=== PATIENT | female | born 1985 | race Caucasian/White ===

== ENCOUNTER 2016-05-10 23:45 | Emergency (ER) | payer OTHER ==
[2016-05-11] MEDS ORDERED: SODIUM CHLORIDE 0.9% 1,000 ML IV STA (00:01)
[2016-05-11] MEDS ORDERED: METOCLOPRAMIDE 5 MG/ML 2 ML VIAL IVP STA (00:01)
--- NOTE | 2016-05-11 00:04 | ED ---
General Adult HPI - General Chief complaint: Nausea/Vomiting/Diarrhea Stated complaint: NVD Time Seen by Provider: 05/10/16 23:54 Source: patient, family, RN notes reviewed Mode of arrival: ambulatory Limitations: no limitations - History of Present Illness Initial comments: 30 yo female presents to the emergency department with a chief complaint of nausea vomiting diarrhea. Patient states that she would not eat when she got home she started to feel this way. 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 Patient states that she hasn't had any blood in the vomit or stool. Patient states she saw multiple times she did take an actual nausea medicine did help with the vomiting but she still having the diarrhea. Patient states there is no point specific abdominal pain just some cramping before she throws up or before she has the diarrhea. Patient states that she is not currently having any other symptoms at this time.Patient denies any recent fever, chills, shortness of breath, chest pain, back pain, numbness or tingling, dysuria or hematuria, constipation, headaches or visual changes, or any other current symptoms. - Related Data Home Medications Medication Instructions Recorded Confirmed Divalproex ER [Depakote ER] 500 mg PO HS 04/23/14 05/10/16 Previous Rx's Medication Instructions Recorded Ziprasidone [Geodon] 80 mg PO BID #60 cap 03/29/14 Benztropine Mesylate [Cogentin] 1 mg PO BID #8 tablet 04/23/14 Albuterol Inhaler [Ventolin Hfa 1 - 2 puff INHALATION Q6HR PRN #2 12/19/14 Inhaler] puff Ondansetron Odt [Zofran ODT] 4 mg PO Q8HR PRN #6 tab 07/13/15 Omeprazole 40 mg PO DAILY #30 capsule. 12/17/15 Ondansetron [Zofran] 4 mg PO Q8HR PRN #30 tab 12/17/15 Dicyclomine [Bentyl] 10 mg PO TID #20 capsule 05/11/16 Ondansetron Odt [Zofran ODT] 4 mg PO Q8HR PRN #20 tab 05/11/16 Allergies Allergy/AdvReac Type Severity Reaction Status Date / Time amoxicillin Allergy Unknown Verified 05/10/16 23:51 brompheniramine maleate Allergy Unknown Verified 05/10/16 23:51 [From Dimetapp (brompheniramine-PPA)] clemastine fumarate Allergy Unknown Verified 05/10/16 23:51 [From Tavist] codeine Allergy Unknown Verified 05/10/16 23:51 diphenhydramine HCl Allergy Unknown Verified 05/10/16 23:51 [From Benadryl] phenylpropanolamine HCl Allergy Unknown Verified 05/10/16 23:51 [From Dimetapp (brompheniramine-PPA)] prednisone Allergy Hallucinati Verified 05/10/16 23:51 ons pseudoephedrine HCl Allergy Unknown Verified 05/10/16 23:51 [From Tavist] red dye Allergy Unknown Verified 05/10/16 23:51 sulfamethoxazole Allergy Unknown Verified 05/10/16 23:51 [From Bactrim] trimethoprim [From Bactrim] Allergy Unknown Verified 05/10/16 23:51 Review of Systems ROS Statement: Those systems with pertinent positive or pertinent negative responses have been documented in the HPI. ROS Other: All systems not noted in ROS Statement are negative. Past Medical History Past Medical History: Asthma Additional Past Medical History / Comment(s): polycysitic ovarian syndrome, closed head injury 10 years ago from a fall History of Any Multi-Drug Resistant Organisms: None Reported Past Surgical History: Appendectomy Past Anesthesia/Blood Transfusion Reactions: No Reported Reaction Past Psychological History: Anxiety, Bipolar, Depression Smoking Status: Never smoker Past Alcohol Use History: Rare Past Drug Use History: None Reported General Exam - General Exam Comments Initial Comments: General: The patient is awake and alert, in no distress, and does not appear acutely ill. Eye: Pupils are equal, round and reactive to light, extra-ocular movements are intact; there is normal conjunctiva bilaterally. No signs of icterus. Ears, nose, mouth and throat: There are moist mucous membranes. Neck: The neck is supple, there is no tenderness. Cardiovascular: There is a regular rate and rhythm. No murmur, rub or gallop is appreciated. Respiratory: Lungs are clear to auscultation, respirations are non-labored, breath sounds are equal. No wheezes, stridor, rales, or rhonchi. Gastrointestinal: Soft, non-distended, non-tender abdomen without masses or organomegaly noted. There is no rebound or guarding present. No CVA tenderness. Bowel sounds are unremarkable. Back: There is no tenderness to palpation in the midline. There is no obvious deformity. No rashes noted. Musculoskeletal: Normal ROM, no tenderness, There is no pedal edema. There is no calf tenderness or swelling. Sensation intact. Pulses equal bilaterally 2+. Neurological: CN II-XII intact, There are no obvious motor or sensory deficits. Coordination appears grossly intact. Speech is normal. Skin: Skin is warm and dry and no rashes or lesions are noted. Psychiatric: Cooperative, appropriate mood & affect, normal judgment. Limitations: no limitations Course Vital Signs 05/10/16 23:46 Temperature 99.2 F Pulse Rate 95 Respiratory 20 Rate Blood Pressure 136/62 O2 Sat by Pulse 100 Oximetry Medical Decision Making - Medical Decision Making 30-year-old female presents for nausea vomiting and diarrhea. At this time patient continues to have a soft nontender abdomen. This time due the patient' s nausea vomiting diarrhea we discussed patient's symptoms are most consistent with possible gastroenteritis. We did discuss other etiologies we discussed return parameters and follow-up. Patient states that she understood all her questions have been answered and better in strength or discharge. Patient will be discharged. - Lab Data Result diagrams: 05/11/16 00:15 05/11/16 00:15 Lab Results 05/11/16 05/11/16 05/11/16 Range/Units 00:15 00:15 00:15 WBC 17.2 H (3.8-10.6) k/uL RBC 4.75 (3.80-5.40) m/uL Hgb 14.4 (11.4-16.0) gm/dL Hct 41.5 (34.0-46.0) % MCV 87.4 (80.0-100.0) fL MCH 30.4 (25.0-35.0) pg MCHC 34.8 (31.0-37.0) g/dL RDW 13.4 (11.5-15.5) % Plt Count 234 (150-450) k/uL Neutrophils % 92 % Lymphocytes % 2 % Monocytes % 2 % Eosinophils % 2 % Basophils % 1 % Neutrophils # 15.8 H (1.3-7.7) k/uL Lymphocytes # 0.4 L (1.0-4.8) k/uL Monocytes # 0.4 (0-1.0) k/uL Eosinophils # 0.3 (0-0.7) k/uL Basophils # 0.1 (0-0.2) k/uL Sodium 142 (137-145) mmol/L Potassium 4.5 (3.5-5.1) mmol/L Chloride 103 (98-107) mmol/L Carbon Dioxide 26 (22-30) mmol/L Anion Gap 13 mmol/L BUN 17 (7-17) mg/dL Creatinine 0.70 (0.52-1.04) mg/dL Est GFR (MDRD) Af Amer >60 (>60 ml/min/1.73 sqM) Est GFR (MDRD) Non-Af >60 (>60 ml/min/1.73 sqM) Glucose 83 (74-99) mg/dL Calcium 9.1 (8.4-10.2) mg/dL Total Bilirubin 0.6 (0.2-1.3) mg/dL AST 34 (14-36) U/L ALT 36 (9-52) U/L Alkaline Phosphatase 64 (38-126) U/L Total Protein 7.7 (6.3-8.2) g/dL Albumin 4.5 (3.5-5.0) g/dL Urine Color Yellow Urine Appearance Cloudy H (Clear) Urine pH 6.5 (5.0-8.0) Ur Specific [place] 1.020 (1.001-1.035) Urine Protein Negative (Negative) Urine Glucose (UA) Negative (Negative) Urine Ketones Negative (Negative) Urine Blood Moderate H (Negative) Urine Nitrate Negative (Negative) Urine Bilirubin Negative (Negative) Urine Urobilinogen <2.0 (<2.0) mg/dL Ur Leukocyte Esterase Small H (Negative) Urine RBC 3 (0-5) /hpf Urine WBC 10 H (0-5) /hpf Ur Squamous Epith Cells 7 H (0-4) /hpf Urine Mucus Few H (None) /hpf - Radiology Data Radiology results: report reviewed, image reviewed Disposition Clinical Impression: Nausea & vomiting, Diarrhea Disposition: HOME SELF-CARE Condition: Stable Instructions: Acute Nausea and Vomiting (ED) Additional Instructions: Please use medication as discussed. Please follow up with family doctor if symptoms have not improved over the next two days. Please return to the emergency room if your symptoms increase or worsen or for any other concerns. Prescriptions: Dicyclomine [Bentyl] 10 mg PO TID #20 capsule Ondansetron Odt [Zofran ODT] 4 mg PO Q8HR PRN #20 tab PRN Reason: Nausea Referrals: Teofilo Miller MD [Primary Care Provider] - 1-2 days Time of Disposition: 01:34
[2016-05-11 00:24] LABS: Basophils # (A) 0.1 k/uL (0-0.2); Basophils % (A) 1 %; CH 30.3; CHCM 34.9; Eosinophils # (A) 0.3 k/uL (0-0.7); Eosinophils % (A) 2 %; HCT 41.5 % (34.0-46.0); HDW 2.77; HGB 14.4 gm/dL (11.4-16.0); Luc # (Auto) 0.08; Luc % (Auto) 0; Lymphocytes # (A) 0.4 k/uL (1.0-4.8); Lymphocytes % (A) 2 %; MCH 30.4 pg (25.0-35.0); MCHC 34.8 g/dL (31.0-37.0); MCV 87.4 fL (80.0-100.0); Mean Platelet Volume 8.3; Monocytes # (A) 0.4 k/uL (0-1.0); Monocytes % (A) 2 %; Neutrophils # (A) 15.8 k/uL (1.3-7.7); Neutrophils % (A) 92 %; RBC 4.75 m/uL (3.80-5.40); RDW 13.4 % (11.5-15.5); WBC 17.2 k/uL (3.8-10.6); WBC (Perox) 16.92
[2016-05-11 00:36] LABS: Appearance,Urine Cloudy (Clear); Bilirubin,Urine Negative (Negative); Glucose,Urine (UA) Negative (Negative); Ketones,Urine Negative (Negative); Leukocyte Esterase,Urine Small (Negative); Mucus,Urine Few /hpf; Nitrite,Urine Negative (Negative); PH, Urine 6.5 (5.0-8.0); Particle Count 5883; Protein,Urine Negative (Negative); RBC,Urine 3 /hpf (0-5); Squamous Epithelial Cell,Urine 7 /hpf (0-4); UA Billing (MACRO vs. MICRO) MICRO; Urobilinogen,Urine <2.0 mg/dL (<2.0); WBC,Urine 10 /hpf (0-5)
[2016-05-11 00:52] LABS: ALT 36 U/L (9-52); AST 34 U/L (14-36); Alkaline Phosphatase 64 U/L (38-126); Anion Gap 13 mmol/L; Blood Urea Nitrogen 17 mg/dL (7-17); Calcium 9.1 mg/dL (8.4-10.2); Carbon Dioxide 26 mmol/L (22-30); Chloride 103 mmol/L (98-107); Glucose 83 mg/dL (74-99); Non-African American GFR(MDRD) >60 (>60 ml/min/1.73 sqM); Sodium 142 mmol/L (137-145); Total Bilirubin 0.6 mg/dL (0.2-1.3); Total Protein 7.7 g/dL (6.3-8.2)
[2016-05-11 00:53] LABS: Potassium 4.5 mmol/L (3.5-5.1)
--- NOTE | 2016-05-11 01:28 | XR ---
EXAM: XR Abdomen Complete, 2 or More Views. CLINICAL HISTORY: Reason: Pain TECHNIQUE: Frontal view of the abdomen/pelvis with upright view of the abdomen. COMPARISON: Abdomen Radiograph dated 01/03/16 FINDINGS: Intraperitoneal space: No free air. Gastrointestinal tract: Unremarkable. No dilation. Bones/joints: Unremarkable. Soft tissues: IUD. IMPRESSION: No acute findings.
[2016-05-11 01:51] VITALS: BP 130/81; PULSE 80; RESP 16; TEMP 100.4
== END 2016-05-11 01:49 | disposition home or self-care (01) ==
LOC: EC 23:45
DX: R11.2 Nausea with vomiting, unspecified (principal); R19.7 Diarrhea, unspecified; F31.9 Bipolar disorder, unspecified; F41.9 Anxiety disorder, unspecified; Z79.899 Other long term (current) drug therapy; Z88.0 Allergy status to penicillin; Z88.2 Allergy status to sulfonamides; Z88.8 Allergy status to other drugs, medicaments and biological substances; Z88.5 Allergy status to narcotic agent; Z91.018 Allergy to other foods; Z90.49 Acquired absence of other specified parts of digestive tract
CPT/HCPCS: 36415; 80053; 85025; 81001; 74020; 99284; 96374; J2765

== ENCOUNTER → 2017-04-30 | Outpatient (CLI) | payer OTHER ==
--- NOTE | 2017-04-30 21:12 | MR ---
Brain MR HISTORY: Hyperfunctioning pituitary gland, E 22.9 Multiplanar multisequence imaging through the brain There is no restricted diffusion. There is no hemorrhage or hydrocephalus. Brain signal is maintained . There are normal vascular flow voids. Cerebellopontine angles, corpus callosum, pituitary, cervical medullary junction are normal. Orbits show symmetric appearance. Mild mucosal disease present within the maxillary sinus, there is likely a mucus retention cyst at the maxillary antrum on the right. IMPRESSION: Normal brain MRI. Sinus disease.
== END | disposition home or self-care (01) ==
LOC: RADMRIMAIN 19:25
PROVIDERS: ATTEND Family Medicine
DX: J32.0 Chronic maxillary sinusitis (principal); E22.1 Hyperprolactinemia
CPT/HCPCS: 70551

== ENCOUNTER 2017-06-10 19:36 | Emergency (ER) | payer OTHER ==
[2017-06-10] MEDS ORDERED: IBUPROFEN 600 MG TAB PO STA (20:43)
[2017-06-10] MEDS ORDERED: ACETAMINOPHEN TAB 325 MG TAB PO STA (20:43)
--- NOTE | 2017-06-10 20:52 | ED ---
General Adult HPI - General Chief complaint: Recheck/Abnormal Lab/Rx Stated complaint: Carbon Monoxide Exposure Time Seen by Provider: 06/10/17 20:35 Source: patient Mode of arrival: ambulatory Limitations: no limitations - History of Present Illness Initial comments: 31-year-old female patient presents to the emergency department today complaining of mild frontal headache. Patient states that she has had this headache on system a since . She states that she was diagnosed with a left-sided ear infection on and thought it was from this. States that today her father had a fall and the fire department came in and did a check and found presence of carbon monoxide in their house. States that she lives with her father. States that she has also been feeling fatigued. Patient denies any recent rash, fever, chills, shortness breath, chest pain, abdominal pain, nausea, vomiting, back pain, numbness, tingling, dizziness, weakness, hematuria , dysuria, urinary urgency, urinary frequency, headache, visual changes, or any other complaints. - Related Data Home Medications Medication Instructions Recorded Confirmed Divalproex ER [Depakote ER] 500 mg PO HS 04/23/14 06/10/17 Albuterol Inhaler [Ventolin Hfa 1 - 2 puff INHALATION RT-Q6H PRN 06/10/17 Inhaler] Calcium Carbonate/Vitamin D3 1 tab PO DAILY 06/10/17 06/10/17 [Calcium 500-Vit D3 200 Tablet] Fluticasone Nasal [place] [Flonase 1 spr EA NOSTRIL DAILY PRN 06/10/17 06/10/17 Nasal [place]] Ziprasidone [Geodon] 60 mg PO BID 06/10/17 06/10/17 Previous Rx's Medication Instructions Recorded Benztropine Mesylate [Cogentin] 1 mg PO BID #8 tablet 04/23/14 Omeprazole 40 mg PO DAILY #30 capsule. 12/17/15 Nitrofurantoin Monohyd/M-Cryst 100 mg PO Q12HR #14 cap 06/10/17 [Macrobid] Allergies Allergy/AdvReac Type Severity Reaction Status Date / Time amoxicillin Allergy Unknown Verified 06/10/17 21:10 brompheniramine maleate Allergy Unknown Verified 06/10/17 21:10 [From Dimetapp (brompheniramine-PPA)] clemastine fumarate Allergy Unknown Verified 06/10/17 21:10 [From Tavist] codeine Allergy Unknown Verified 06/10/17 21:10 diphenhydramine HCl Allergy Unknown Verified 06/10/17 21:10 [From Benadryl] phenylpropanolamine HCl Allergy Unknown Verified 06/10/17 21:10 [From Dimetapp (brompheniramine-PPA)] prednisone Allergy Hallucinati Verified 06/10/17 21:10 ons pseudoephedrine HCl Allergy Unknown Verified 06/10/17 21:10 [From Tavist] red dye Allergy Unknown Verified 06/10/17 21:10 risperidone [From Risperdal] Allergy Unknown Verified 06/10/17 21:10 sulfamethoxazole Allergy Unknown Verified 06/10/17 21:10 [From Bactrim] trimethoprim [From Bactrim] Allergy Unknown Verified 06/10/17 21:10 Review of Systems ROS Statement: Those systems with pertinent positive or pertinent negative responses have been documented in the HPI. ROS Other: All systems not noted in ROS Statement are negative. Past Medical History Past Medical History: Asthma Additional Past Medical History / Comment(s): polycysitic ovarian syndrome, closed head injury 10 years ago from a fall History of Any Multi-Drug Resistant Organisms: None Reported Past Surgical History: Appendectomy Past Anesthesia/Blood Transfusion Reactions: No Reported Reaction Past Psychological History: Anxiety, Bipolar, Depression Smoking Status: Never smoker Past Alcohol Use History: Rare Past Drug Use History: None Reported General Exam Limitations: no limitations General appearance: alert, in no apparent distress, other (Physical well- developed, well-nourished adult female patient in no acute distress. Vital signs upon presentation are temperature 97.7F, pulse 77, respirations 16, blood pressure 134/82, pulse ox 98% on room air.) Eye exam: Present: normal appearance, PERRL, EOMI. Absent: scleral icterus, conjunctival injection, periorbital swelling ENT exam: Present: normal exam, normal oropharynx, mucous membranes moist Respiratory exam: Present: normal lung sounds bilaterally. Absent: respiratory distress, wheezes, rales, rhonchi, stridor Cardiovascular Exam: Present: regular rate, normal rhythm, normal heart sounds. Absent: systolic murmur, diastolic murmur, rubs, gallop, clicks GI/Abdominal exam: Present: soft, normal bowel sounds. Absent: distended, tenderness, guarding, rebound, rigid Neurological exam: Present: alert, oriented X3, CN II-XII intact Expanded Speech: Present: fluid speech Cranial nerves: EOM's Intact: Normal, Tongue Deviation: Normal, Nystagmus: Normal Motor strength exam: RUE: 5, LUE: 5, RLE: 5, LLE: 5 Eye Response: (3) open to voice Verbal Response: (5) oriented [place] Total: 15 Psychiatric exam: Present: normal affect, normal mood Skin exam: Present: warm, dry, intact, normal color. Absent: rash Course Vital Signs 06/10/17 06/10/17 19:39 22:23 Temperature 97.7 F 97.2 F L Pulse Rate 77 83 Respiratory 16 18 Rate Blood Pressure 134/82 138/89 O2 Sat by Pulse 98 96 Oximetry Medical Decision Making - Medical Decision Making 31-year-old female patient presented to the emergency department today complaining of frontal headache and urinary symptoms. Patient was concerned that she had carbon monoxide poisoning. Labs reviewed and were unremarkable. Carbon dioxide level is 1.0. Patient's urine did show cloudy appearance with 1 + protein, small amount of blood, large leukocyte esterase, 14 red blood cells, 108 white blood cells, 29 squamous epithelial cells. This could be related to contamination however patient is having dysuria and frequency in urination so we will treat her with Macrobid. I did discuss findings with the patient. Return parameters were discussed in detail. She verbalizes understanding and agrees with this plan. - Lab Data Result diagrams: 06/10/17 21:00 06/10/17 21:00 Lab Results 06/10/17 06/10/17 06/10/17 Range/Units 21:00 21:00 21:00 WBC 4.4 (3.8-10.6) k/uL RBC 4.10 (3.80-5.40) m/uL Hgb 12.2 (11.4-16.0) gm/dL Hct 34.5 (34.0-46.0) % MCV 84.3 (80.0-100.0) fL MCH 29.7 (25.0-35.0) pg MCHC 35.3 (31.0-37.0) g/dL RDW 13.4 (11.5-15.5) % Plt Count 224 (150-450) k/uL Neutrophils % 52 % Lymphocytes % 26 % Monocytes % 12 % Eosinophils % 6 % Basophils % 1 % Neutrophils # 2.3 (1.3-7.7) k/uL Lymphocytes # 1.1 (1.0-4.8) k/uL Monocytes # 0.5 (0-1.0) k/uL Eosinophils # 0.3 (0-0.7) k/uL Basophils # 0.0 (0-0.2) k/uL Carbon Monoxide, Quant 1.0 (<10.0) % Sodium 143 (137-145) mmol/L Potassium 4.1 (3.5-5.1) mmol/L Chloride 106 (98-107) mmol/L Carbon Dioxide 22 (22-30) mmol/L Anion Gap 15 mmol/L BUN 16 (7-17) mg/dL Creatinine 0.80 (0.52-1.04) mg/dL Est GFR (CKD-EPI)AfAm >90 (>60 ml/min/1.73 sqM) Est GFR (CKD-EPI)NonAf >90 (>60 ml/min/1.73 sqM) Glucose 80 (74-99) mg/dL Calcium 9.0 (8.4-10.2) mg/dL Total Bilirubin 0.2 (0.2-1.3) mg/dL AST 24 (14-36) U/L ALT 30 (9-52) U/L Alkaline Phosphatase 76 (38-126) U/L Total Protein 6.8 (6.3-8.2) g/dL Albumin 4.0 (3.5-5.0) g/dL Urine Color Urine Appearance (Clear) Urine pH (5.0-8.0) Ur Specific [place] (1.001-1.035) Urine Protein (Negative) Urine Glucose (UA) (Negative) Urine Ketones (Negative) Urine Blood (Negative) Urine Nitrite (Negative) Urine Bilirubin (Negative) Urine Urobilinogen (<2.0) mg/dL Ur Leukocyte Esterase (Negative) Urine RBC (0-5) /hpf Urine WBC (0-5) /hpf Ur Squamous Epith Cells (0-4) /hpf 06/10/17 Range/Units 21:39 WBC (3.8-10.6) k/uL RBC (3.80-5.40) m/uL Hgb (11.4-16.0) gm/dL Hct (34.0-46.0) % MCV (80.0-100.0) fL MCH (25.0-35.0) pg MCHC (31.0-37.0) g/dL RDW (11.5-15.5) % Plt Count (150-450) k/uL Neutrophils % % Lymphocytes % % Monocytes % % Eosinophils % % Basophils % % Neutrophils # (1.3-7.7) k/uL Lymphocytes # (1.0-4.8) k/uL Monocytes # (0-1.0) k/uL Eosinophils # (0-0.7) k/uL Basophils # (0-0.2) k/uL Carbon Monoxide, Quant (<10.0) % Sodium (137-145) mmol/L Potassium (3.5-5.1) mmol/L Chloride (98-107) mmol/L Carbon Dioxide (22-30) mmol/L Anion Gap mmol/L BUN (7-17) mg/dL Creatinine (0.52-1.04) mg/dL Est GFR (CKD-EPI)AfAm (>60 ml/min/1.73 sqM) Est GFR (CKD-EPI)NonAf (>60 ml/min/1.73 sqM) Glucose (74-99) mg/dL Calcium (8.4-10.2) mg/dL Total Bilirubin (0.2-1.3) mg/dL AST (14-36) U/L ALT (9-52) U/L Alkaline Phosphatase (38-126) U/L Total Protein (6.3-8.2) g/dL Albumin (3.5-5.0) g/dL Urine Color Light Yellow Urine Appearance Cloudy H (Clear) Urine pH 6.5 (5.0-8.0) Ur Specific [place] 1.014 (1.001-1.035) Urine Protein 1+ H (Negative) Urine Glucose (UA) Negative (Negative) Urine Ketones Negative (Negative) Urine Blood Small H (Negative) Urine Nitrite Negative (Negative) Urine Bilirubin Negative (Negative) Urine Urobilinogen <2.0 (<2.0) mg/dL Ur Leukocyte Esterase Large H (Negative) Urine RBC 14 H (0-5) /hpf Urine WBC 108 H (0-5) /hpf Ur Squamous Epith Cells 29 H (0-4) /hpf Disposition Clinical Impression: Headache, Urinary tract infection Disposition: HOME SELF-CARE Condition: Good Instructions: Urinary Tract Infection in Women (ED), Acute Headache (ED) Additional Instructions: Increase fluids. Complete antibiotic prescription in full. Follow up with your primary care physician for recheck in 1-2 days. Return here immediately for any new, worsening, or concerning symptoms. Prescriptions: Nitrofurantoin Monohyd/M-Cryst [Macrobid] 100 mg PO Q12HR #14 cap Referrals: Teofilo Miller MD [Primary Care Provider] - 1-2 days Time of Disposition: 22:03
[2017-06-10 21:09] LABS: Basophils % (A) 1 %; Eosinophils # (A) 0.3 k/uL (0-0.7); Eosinophils % (A) 6 %; HCT 34.5 % (34.0-46.0); HGB 12.2 gm/dL (11.4-16.0); Lymphocytes # (A) 1.1 k/uL (1.0-4.8); Lymphocytes % (A) 26 %; MCH 29.7 pg (25.0-35.0); MCHC 35.3 g/dL (31.0-37.0); MCV 84.3 fL (80.0-100.0); Mean Platelet Volume 8.1; Monocytes # (A) 0.5 k/uL (0-1.0); Monocytes % (A) 12 %; Neutrophils # (A) 2.3 k/uL (1.3-7.7); Neutrophils % (A) 52 %; Platelet Count 224 k/uL (150-450); RDW 13.4 % (11.5-15.5); WBC 4.4 k/uL (3.8-10.6)
[2017-06-10 21:19] LABS: ALT 30 U/L (9-52); AST 24 U/L (14-36); Alkaline Phosphatase 76 U/L (38-126); Anion Gap 15 mmol/L; Blood Urea Nitrogen 16 mg/dL (7-17); Carbon Dioxide 22 mmol/L (22-30); Chloride 106 mmol/L (98-107); Glucose 80 mg/dL (74-99); Potassium 4.1 mmol/L (3.5-5.1); Sodium 143 mmol/L (137-145); Total Bilirubin 0.2 mg/dL (0.2-1.3); Total Protein 6.8 g/dL (6.3-8.2)
[2017-06-10 21:52] LABS: Appearance,Urine Cloudy (Clear); Bilirubin,Urine Negative (Negative); Blood,Urine Small (Negative); Color,Urine Light Yellow; Glucose,Urine (UA) Negative (Negative); Ketones,Urine Negative (Negative); Leukocyte Esterase,Urine Large (Negative); Nitrite,Urine Negative (Negative); PH, Urine 6.5 (5.0-8.0); Protein,Urine 1+ (Negative); RBC,Urine 14 /hpf (0-5); Specific Gravity,Urine 1.014 (1.001-1.035); Squamous Epithelial Cell,Urine 29 /hpf (0-4); Urobilinogen,Urine <2.0 mg/dL (<2.0); WBC,Urine 108 /hpf (0-5)
[2017-06-10 22:25] VITALS: BP 138/89; PULSE 83; RESP 18; TEMP 97.2
== END 2017-06-10 22:26 | disposition home or self-care (01) ==
LOC: EC 19:36
DX: N39.0 Urinary tract infection, site not specified (principal); R51 Headache; F31.9 Bipolar disorder, unspecified; Z77.110 Contact with and (suspected) exposure to air pollution; Z88.0 Allergy status to penicillin; Z88.1 Allergy status to other antibiotic agents; Z88.2 Allergy status to sulfonamides; Z88.5 Allergy status to narcotic agent; Z88.8 Allergy status to other drugs, medicaments and biological substances; Z91.048 Other nonmedicinal substance allergy status; Z79.899 Other long term (current) drug therapy
CPT/HCPCS: 36415; 80053; 81001; 82375; 85025; 87086; 99283

== ENCOUNTER 2017-10-23 03:20 | Emergency (ER) | payer OTHER ==
[2017-10-23 03:34] VITALS: TEMP 98.5
[2017-10-23] MEDS ORDERED: SODIUM CHLORIDE 0.9% 500 ML IV STA (03:44)
[2017-10-23] MEDS ORDERED: ONDANSETRON 4 MG/2 ML VIAL IVP STA (03:44)
--- NOTE | 2017-10-23 03:50 | ED ---
Nausea/Vomiting/Diarrhea HPI - General Chief complaint: Nausea/Vomiting/Diarrhea Stated complaint: NVD Time Seen by Provider: 10/23/17 03:37 Source: patient Mode of arrival: ambulatory Limitations: no limitations - History of Present Illness Initial comments: This patient is a 32-year-old woman who presents with complaint of nausea vomiting diarrhea and abdominal pain. She states that she had not been feeling well for going on a couple of days. She thought that this was related to the heat and being a little dehydrated. She states that tonight she started having the abdominal symptoms, beginning with vomiting and diarrhea. She states she had a number of episodes of these over an hour and then decided to be seen here. She states she also has had some bilateral lower abdominal pain that started after the vomiting. MD complaint: nausea, vomiting, diarrhea, abdominal pain Onset/Timin -: hour(s) Description of Vomiting: food contents Description of Diarrhea: water Associated Abdominal Pain: Yes Location: LLQ, RLQ Radiation: none Severity: moderate Quality: cramping Consistency: constant Improves with: none Worsens with: none - Related Data Home Medications Medication Instructions Recorded Confirmed Divalproex ER [Depakote ER] 500 mg PO HS 04/23/14 10/23/17 Albuterol Inhaler [Ventolin Hfa 1 - 2 puff INHALATION RT-Q6H PRN 06/10/17 Inhaler] Calcium Carbonate/Vitamin D3 1 tab PO DAILY 06/10/17 10/23/17 [Calcium 500-Vit D3 200 Tablet] Fluticasone Nasal [place] [Flonase 1 spr EA NOSTRIL DAILY PRN 06/10/17 10/23/17 Nasal [place]] Ziprasidone [Geodon] 60 mg PO BID 06/10/17 10/23/17 Previous Rx's Medication Instructions Recorded Benztropine Mesylate [Cogentin] 1 mg PO BID #8 tablet 04/23/14 Omeprazole 40 mg PO DAILY #30 capsule. 12/17/15 Ondansetron Odt [Zofran ODT] 4 mg PO Q8HR PRN #10 tab 10/23/17 Allergies Allergy/AdvReac Type Severity Reaction Status Date / Time amoxicillin Allergy Unknown Verified 10/23/17 03:34 brompheniramine maleate Allergy Unknown Verified 10/23/17 03:34 [From Dimetapp (brompheniramine-PPA)] clemastine fumarate Allergy Unknown Verified 10/23/17 03:34 [From Tavist] codeine Allergy Unknown Verified 10/23/17 03:34 diphenhydramine HCl Allergy Unknown Verified 10/23/17 03:34 [From Benadryl] phenylpropanolamine HCl Allergy Unknown Verified 10/23/17 03:34 [From Dimetapp (brompheniramine-PPA)] prednisone Allergy Hallucinati Verified 10/23/17 03:34 ons pseudoephedrine HCl Allergy Unknown Verified 10/23/17 03:34 [From Tavist] red dye Allergy Unknown Verified 10/23/17 03:34 risperidone [From Risperdal] Allergy Unknown Verified 10/23/17 03:34 sulfamethoxazole Allergy Unknown Verified 10/23/17 03:34 [From Bactrim] trimethoprim [From Bactrim] Allergy Unknown Verified 10/23/17 03:34 Review of Systems ROS Statement: Those systems with pertinent positive or pertinent negative responses have been documented in the HPI. ROS Other: All systems not noted in ROS Statement are negative. Constitutional: Denies: fever, chills, weakness Respiratory: Denies: cough, dyspnea Cardiovascular: Denies: chest pain, palpitations Gastrointestinal: Reports: abdominal pain, nausea, vomiting, diarrhea. Denies: hematemesis, melena, hematochezia Genitourinary: Denies: dysuria, frequency, hematuria Musculoskeletal: Denies: back pain Skin: Denies: rash Neurological: Denies: headache, weakness Past Medical History Past Medical History: Asthma Additional Past Medical History / Comment(s): polycysitic ovarian syndrome, closed head injury 10 years ago from a fall History of Any Multi-Drug Resistant Organisms: None Reported Past Surgical History: Appendectomy Past Anesthesia/Blood Transfusion Reactions: No Reported Reaction Past Psychological History: Anxiety, Bipolar, Depression Smoking Status: Never smoker Past Alcohol Use History: Rare Past Drug Use History: None Reported General Exam Limitations: no limitations General appearance: alert, in no apparent distress Head exam: Present: atraumatic, normocephalic Eye exam: Present: normal appearance. Absent: scleral icterus, conjunctival injection ENT exam: Present: mucous membranes dry Neck exam: Present: normal inspection Respiratory exam: Present: normal lung sounds bilaterally. Absent: respiratory distress, wheezes, rales, rhonchi, stridor Cardiovascular Exam: Present: regular rate, normal rhythm, normal heart sounds. Absent: systolic murmur, diastolic murmur, rubs, gallop GI/Abdominal exam: Present: soft. Absent: distended, tenderness, guarding, rebound, rigid, mass, pulsatile mass, hernia Extremities exam: Present: normal inspection, normal capillary refill. Absent: pedal edema, calf tenderness Back exam: Present: normal inspection. Absent: CVA tenderness (R), CVA tenderness (L) Neurological exam: Present: alert Skin exam: Present: warm, dry, intact, normal color. Absent: rash Course Vital Signs 10/23/17 10/23/17 03:30 05:22 Temperature 98.5 F Pulse Rate 64 57 L Respiratory 16 18 Rate Blood Pressure 114/73 104/61 O2 Sat by Pulse 97 99 Oximetry Medical Decision Making - Medical Decision Making Patient is feeling better following medications and does request to go home. There is no tenderness on reevaluation. Did discuss return parameters and appropriate follow-up and further care. - Lab Data Result diagrams: 10/23/17 03:51 10/23/17 03:51 Lab Results 10/23/17 10/23/17 10/23/17 Range/Units 03:51 03:51 03:51 WBC 8.4 (3.8-10.6) k/uL RBC 4.34 (3.80-5.40) m/uL Hgb 12.7 (11.4-16.0) gm/dL Hct 36.9 (34.0-46.0) % MCV 85.1 (80.0-100.0) fL MCH 29.2 (25.0-35.0) pg MCHC 34.4 (31.0-37.0) g/dL RDW 13.7 (11.5-15.5) % Plt Count 233 (150-450) k/uL Neutrophils % 68 % Lymphocytes % 22 % Monocytes % 5 % Eosinophils % 4 % Basophils % 0 % Neutrophils # 5.7 (1.3-7.7) k/uL Lymphocytes # 1.9 (1.0-4.8) k/uL Monocytes # 0.4 (0-1.0) k/uL Eosinophils # 0.3 (0-0.7) k/uL Basophils # 0.0 (0-0.2) k/uL Sodium 139 (137-145) mmol/L Potassium 4.2 (3.5-5.1) mmol/L Chloride 106 (98-107) mmol/L Carbon Dioxide 26 (22-30) mmol/L Anion Gap 7 mmol/L BUN 18 H (7-17) mg/dL Creatinine 0.70 (0.52-1.04) mg/dL Est GFR (CKD-EPI)AfAm >90 (>60 ml/min/1.73 sqM) Est GFR (CKD-EPI)NonAf >90 (>60 ml/min/1.73 sqM) Glucose 88 (74-99) mg/dL Calcium 8.9 (8.4-10.2) mg/dL Total Bilirubin 0.2 (0.2-1.3) mg/dL AST 22 (14-36) U/L ALT 29 (9-52) U/L Alkaline Phosphatase 68 (38-126) U/L Total Protein 6.4 (6.3-8.2) g/dL Albumin 4.0 (3.5-5.0) g/dL Amylase 51 (30-110) U/L Lipase 244 (23-300) U/L Urine Color Urine Appearance (Clear) Urine pH (5.0-8.0) Ur Specific [place] (1.001-1.035) Urine Protein (Negative) Urine Glucose (UA) (Negative) Urine Ketones (Negative) Urine Blood (Negative) Urine Nitrite (Negative) Urine Bilirubin (Negative) Urine Urobilinogen (<2.0) mg/dL Ur Leukocyte Esterase (Negative) Urine HCG, Qual Not Detected (Not Detectd) 10/23/17 Range/Units 03:51 WBC (3.8-10.6) k/uL RBC (3.80-5.40) m/uL Hgb (11.4-16.0) gm/dL Hct (34.0-46.0) % MCV (80.0-100.0) fL MCH (25.0-35.0) pg MCHC (31.0-37.0) g/dL RDW (11.5-15.5) % Plt Count (150-450) k/uL Neutrophils % % Lymphocytes % % Monocytes % % Eosinophils % % Basophils % % Neutrophils # (1.3-7.7) k/uL Lymphocytes # (1.0-4.8) k/uL Monocytes # (0-1.0) k/uL Eosinophils # (0-0.7) k/uL Basophils # (0-0.2) k/uL Sodium (137-145) mmol/L Potassium (3.5-5.1) mmol/L Chloride (98-107) mmol/L Carbon Dioxide (22-30) mmol/L Anion Gap mmol/L BUN (7-17) mg/dL Creatinine (0.52-1.04) mg/dL Est GFR (CKD-EPI)AfAm (>60 ml/min/1.73 sqM) Est GFR (CKD-EPI)NonAf (>60 ml/min/1.73 sqM) Glucose (74-99) mg/dL Calcium (8.4-10.2) mg/dL Total Bilirubin (0.2-1.3) mg/dL AST (14-36) U/L ALT (9-52) U/L Alkaline Phosphatase (38-126) U/L Total Protein (6.3-8.2) g/dL Albumin (3.5-5.0) g/dL Amylase (30-110) U/L Lipase (23-300) U/L Urine Color Light Yellow Urine Appearance Clear (Clear) Urine pH 7.5 (5.0-8.0) Ur Specific [place] 1.009 (1.001-1.035) Urine Protein Negative (Negative) Urine Glucose (UA) Negative (Negative) Urine Ketones Negative (Negative) Urine Blood Negative (Negative) Urine Nitrite Negative (Negative) Urine Bilirubin Negative (Negative) Urine Urobilinogen <2.0 (<2.0) mg/dL Ur Leukocyte Esterase Negative (Negative) Urine HCG, Qual (Not Detectd) Disposition Clinical Impression: Abdominal pain Disposition: HOME SELF-CARE Condition: Good Instructions: Abdominal Pain (ED) Prescriptions: Ondansetron Odt [Zofran ODT] 4 mg PO Q8HR PRN #10 tab PRN Reason: Nausea Is patient prescribed a controlled substance at d/c from ED?: No Referrals: Teofilo Miller MD [Primary Care Provider] - 1-2 days
[2017-10-23 04:00] LABS: Appearance,Urine Clear (Clear); Basophils % (A) 0 %; Bilirubin,Urine Negative (Negative); Blood,Urine Negative (Negative); Color,Urine Light Yellow; Eosinophils # (A) 0.3 k/uL (0-0.7); Eosinophils % (A) 4 %; Glucose,Urine (UA) Negative (Negative); HCT 36.9 % (34.0-46.0); HGB 12.7 gm/dL (11.4-16.0); Ketones,Urine Negative (Negative); Leukocyte Esterase,Urine Negative (Negative); Lymphocytes # (A) 1.9 k/uL (1.0-4.8); Lymphocytes % (A) 22 %; MCH 29.2 pg (25.0-35.0); MCHC 34.4 g/dL (31.0-37.0); MCV 85.1 fL (80.0-100.0); Mean Platelet Volume 8.2; Monocytes # (A) 0.4 k/uL (0-1.0); Monocytes % (A) 5 %; Neutrophils # (A) 5.7 k/uL (1.3-7.7); Neutrophils % (A) 68 %; Nitrite,Urine Negative (Negative); PH, Urine 7.5 (5.0-8.0); Platelet Count 233 k/uL (150-450); Protein,Urine Negative (Negative); RBC 4.34 m/uL (3.80-5.40); RDW 13.7 % (11.5-15.5); Specific Gravity,Urine 1.009 (1.001-1.035); Urobilinogen,Urine <2.0 mg/dL (<2.0); WBC 8.4 k/uL (3.8-10.6)
[2017-10-23 04:10] LABS: ALT 29 U/L (9-52); AST 22 U/L (14-36); Alkaline Phosphatase 68 U/L (38-126); Amylase 51 U/L (30-110); Anion Gap 7 mmol/L; Blood Urea Nitrogen 18 mg/dL (7-17); Calcium 8.9 mg/dL (8.4-10.2); Carbon Dioxide 26 mmol/L (22-30); Chloride 106 mmol/L (98-107); Glucose 88 mg/dL (74-99); Lipase 244 U/L (23-300); Potassium 4.2 mmol/L (3.5-5.1); Sodium 139 mmol/L (137-145); Total Bilirubin 0.2 mg/dL (0.2-1.3); Total Protein 6.4 g/dL (6.3-8.2)
[2017-10-23 05:23] VITALS: BP 104/61; PULSE 57; RESP 18
== END 2017-10-23 06:07 | disposition home or self-care (01) ==
LOC: EC 03:20
DX: R10.32 Left lower quadrant pain (principal); R10.31 Right lower quadrant pain; R11.2 Nausea with vomiting, unspecified; R19.7 Diarrhea, unspecified; J45.909 Unspecified asthma, uncomplicated; E28.2 Polycystic ovarian syndrome; F31.9 Bipolar disorder, unspecified; Z90.49 Acquired absence of other specified parts of digestive tract; Z79.899 Other long term (current) drug therapy; Z88.0 Allergy status to penicillin; Z88.8 Allergy status to other drugs, medicaments and biological substances; Z88.5 Allergy status to narcotic agent; Z88.2 Allergy status to sulfonamides
CPT/HCPCS: 36415; 80053; 81003; 81025; 82150; 83690; 85025; 96361; 96374; 99284

== ENCOUNTER 2019-04-21 19:03 | Emergency (ER) | payer OTHER ==
[2019-04-21 19:34] VITALS: RESP 18; TEMP 97.9
[2019-04-21 20:11] LABS: Appearance,Urine Clear (Clear); Bilirubin,Urine Negative (Negative); Blood,Urine Negative (Negative); Color,Urine Light Yellow; Glucose,Urine (UA) Negative (Negative); Ketones,Urine Negative (Negative); Leukocyte Esterase,Urine Negative (Negative); Nitrite,Urine Negative (Negative); Protein,Urine Negative (Negative); Specific Gravity,Urine 1.016 (1.001-1.035); Urobilinogen,Urine <2.0 mg/dL (<2.0)
[2019-04-21] MEDS ORDERED: ONDANSETRON 4 MG/2 ML VIAL IVP STA (21:54)
[2019-04-21] MEDS ORDERED: SODIUM CHLORIDE 0.9% 500 ML 500 ML IV STA ×2 (21:54→22:16)
--- NOTE | 2019-04-21 21:59 | ED ---
Nausea/Vomiting/Diarrhea HPI - General Chief complaint: Nausea/Vomiting/Diarrhea Stated complaint: N/V/D Time Seen by Provider: 04/21/19 21:53 Source: patient Mode of arrival: ambulatory Limitations: no limitations - History of Present Illness Initial comments: This patient is a 33-year-old woman who presents with complaint of nausea and vomiting as well as also feeling lightheaded or dizzy. Symptoms been going on approximately 1-2 days. She is not having abdominal pain. No fever or chills. No change in bowel movements. MD complaint: vomiting -: days(s) Description of Vomiting: food contents Associated Abdominal Pain: No Improves with: none Worsens with: none Associated Symptoms: denies other symptoms - Related Data Home Medications Medication Instructions Recorded Confirmed Divalproex ER [Depakote ER] 500 mg PO HS 04/23/14 04/21/19 Albuterol Inhaler [Ventolin Hfa 1 - 2 puff INHALATION RT-Q6H PRN 06/10/17 04/21/19 Inhaler] Calcium Carbonate/Vitamin D3 1 tab PO BID 06/10/17 04/21/19 [Calcium 500-Vit D3 200 Tablet] Fluticasone Nasal [place] [Flonase 1 spr EA NOSTRIL DAILY PRN 06/10/17 04/21/19 Nasal [place]] Cephalexin [Keflex] 500 mg PO Q8H 04/21/19 04/21/19 [place]-V 1 cap PO DAILY 04/21/19 04/21/19 Meloxicam 15 mg PO DAILY 04/21/19 04/21/19 Ziprasidone [Geodon] 20 mg PO BID 04/21/19 04/21/19 Previous Rx's Medication Instructions Recorded Benztropine Mesylate [Cogentin] 1 mg PO BID #8 tablet 04/23/14 Omeprazole 40 mg PO DAILY #30 capsule. 12/17/15 Ondansetron Odt [Zofran ODT] 4 mg PO Q8HR PRN #10 tab 04/21/19 Allergies Allergy/AdvReac Type Severity Reaction Status Date / Time amoxicillin Allergy Unknown Verified 04/21/19 22:26 brompheniramine maleate Allergy Unknown Verified 04/21/19 22:26 [From Dimetapp (brompheniramine-PPA)] clemastine fumarate Allergy Unknown Verified 04/21/19 22:26 [From Tavist] codeine Allergy Unknown Verified 04/21/19 22:26 diphenhydramine HCl Allergy Unknown Verified 04/21/19 22:26 [From Benadryl] phenylpropanolamine HCl Allergy Unknown Verified 04/21/19 22:26 [From Dimetapp (brompheniramine-PPA)] prednisone Allergy Hallucinati Verified 04/21/19 22:26 ons pseudoephedrine HCl Allergy Unknown Verified 04/21/19 22:26 [From Tavist] red dye Allergy Unknown Verified 04/21/19 22:26 risperidone [From Risperdal] Allergy Unknown Verified 04/21/19 22:26 sulfamethoxazole Allergy Unknown Verified 04/21/19 22:26 [From Bactrim] trimethoprim [From Bactrim] Allergy Unknown Verified 04/21/19 22:26 Review of Systems ROS Statement: Those systems with pertinent positive or pertinent negative responses have been documented in the HPI. ROS Other: All systems not noted in ROS Statement are negative. Constitutional: Denies: fever, chills Respiratory: Denies: cough, dyspnea Cardiovascular: Denies: chest pain, palpitations, edema, syncope Gastrointestinal: Reports: nausea, vomiting. Denies: abdominal pain, diarrhea, constipation, hematemesis Genitourinary: Denies: dysuria, hematuria Musculoskeletal: Denies: back pain Skin: Denies: rash Neurological: Denies: headache, weakness, numbness Past Medical History Past Medical History: Asthma Additional Past Medical History / Comment(s): polycysitic ovarian syndrome, closed head injury 10 years ago from a fall History of Any Multi-Drug Resistant Organisms: None Reported Past Surgical History: Appendectomy Past Anesthesia/Blood Transfusion Reactions: No Reported Reaction Past Psychological History: Anxiety, Bipolar, Depression Smoking Status: Never smoker Past Alcohol Use History: Rare Past Drug Use History: None Reported General Exam Limitations: no limitations General appearance: alert, in no apparent distress Head exam: Present: atraumatic, normocephalic Eye exam: Present: normal appearance. Absent: scleral icterus, conjunctival injection, nystagmus ENT exam: Present: normal oropharynx Neck exam: Present: normal inspection Respiratory exam: Present: normal lung sounds bilaterally. Absent: respiratory distress, wheezes, rales, rhonchi, stridor Cardiovascular Exam: Present: regular rate, normal rhythm, normal heart sounds. Absent: systolic murmur, diastolic murmur, rubs, gallop GI/Abdominal exam: Present: soft. Absent: distended, tenderness, guarding, rebound, rigid, mass Extremities exam: Present: normal inspection, normal capillary refill. Absent: pedal edema, calf tenderness Back exam: Present: normal inspection. Absent: CVA tenderness (R), CVA tenderness (L) Neurological exam: Present: alert Skin exam: Present: warm, dry, intact, normal color. Absent: rash Course Vital Signs 04/21/19 04/21/19 19:31 23:15 Temperature 97.9 F Pulse Rate 78 73 Respiratory 18 18 Rate Blood Pressure 129/72 144/84 O2 Sat by Pulse 99 100 Oximetry Medical Decision Making - Lab Data Result diagrams: 04/21/19 21:50 04/21/19 21:50 Lab Results 04/21/19 04/21/19 04/21/19 Range/Units 19:21 19:22 21:50 WBC (3.8-10.6) k/uL RBC (3.80-5.40) m/uL Hgb (11.4-16.0) gm/dL Hct (34.0-46.0) % MCV (80.0-100.0) fL MCH (25.0-35.0) pg MCHC (31.0-37.0) g/dL RDW (11.5-15.5) % Plt Count (150-450) k/uL Neutrophils % % Lymphocytes % % Monocytes % % Eosinophils % % Basophils % % Neutrophils # (1.3-7.7) k/uL Lymphocytes # (1.0-4.8) k/uL Monocytes # (0-1.0) k/uL Eosinophils # (0-0.7) k/uL Basophils # (0-0.2) k/uL Sodium 135 L (137-145) mmol/L Potassium 4.3 (3.5-5.1) mmol/L Chloride 105 (98-107) mmol/L Carbon Dioxide 20 L (22-30) mmol/L Anion Gap 10 mmol/L BUN 19 H (7-17) mg/dL Creatinine 0.66 (0.52-1.04) mg/dL Est GFR (CKD-EPI)AfAm >90 (>60 ml/min/1.73 sqM) Est GFR (CKD-EPI)NonAf >90 (>60 ml/min/1.73 sqM) Glucose 88 (74-99) mg/dL Calcium 9.0 (8.4-10.2) mg/dL Total Bilirubin 0.3 (0.2-1.3) mg/dL AST 23 (14-36) U/L ALT 16 (4-34) U/L Alkaline Phosphatase 76 (38-126) U/L Total Protein 7.0 (6.3-8.2) g/dL Albumin 4.2 (3.5-5.0) g/dL Amylase 52 (30-110) U/L Lipase 272 (23-300) U/L Urine Color Light Yellow Urine Appearance Clear (Clear) Urine pH 6.0 (5.0-8.0) Ur Specific [place] 1.016 (1.001-1.035) Urine Protein Negative (Negative) Urine Glucose (UA) Negative (Negative) Urine Ketones Negative (Negative) Urine Blood Negative (Negative) Urine Nitrite Negative (Negative) Urine Bilirubin Negative (Negative) Urine Urobilinogen <2.0 (<2.0) mg/dL Ur Leukocyte Esterase Negative (Negative) Urine HCG, Qual Not Detected (Not Detectd) 04/21/19 Range/Units 21:50 WBC 10.1 (3.8-10.6) k/uL RBC 4.59 (3.80-5.40) m/uL Hgb 13.4 (11.4-16.0) gm/dL Hct 39.8 (34.0-46.0) % MCV 86.6 (80.0-100.0) fL MCH 29.1 (25.0-35.0) pg MCHC 33.6 (31.0-37.0) g/dL RDW 13.7 (11.5-15.5) % Plt Count 241 (150-450) k/uL Neutrophils % 65 % Lymphocytes % 21 % Monocytes % 5 % Eosinophils % 7 % Basophils % 1 % Neutrophils # 6.5 (1.3-7.7) k/uL Lymphocytes # 2.2 (1.0-4.8) k/uL Monocytes # 0.5 (0-1.0) k/uL Eosinophils # 0.7 (0-0.7) k/uL Basophils # 0.1 (0-0.2) k/uL Sodium (137-145) mmol/L Potassium (3.5-5.1) mmol/L Chloride (98-107) mmol/L Carbon Dioxide (22-30) mmol/L Anion Gap mmol/L BUN (7-17) mg/dL Creatinine (0.52-1.04) mg/dL Est GFR (CKD-EPI)AfAm (>60 ml/min/1.73 sqM) Est GFR (CKD-EPI)NonAf (>60 ml/min/1.73 sqM) Glucose (74-99) mg/dL Calcium (8.4-10.2) mg/dL Total Bilirubin (0.2-1.3) mg/dL AST (14-36) U/L ALT (4-34) U/L Alkaline Phosphatase (38-126) U/L Total Protein (6.3-8.2) g/dL Albumin (3.5-5.0) g/dL Amylase (30-110) U/L Lipase (23-300) U/L Urine Color Urine Appearance (Clear) Urine pH (5.0-8.0) Ur Specific [place] (1.001-1.035) Urine Protein (Negative) Urine Glucose (UA) (Negative) Urine Ketones (Negative) Urine Blood (Negative) Urine Nitrite (Negative) Urine Bilirubin (Negative) Urine Urobilinogen (<2.0) mg/dL Ur Leukocyte Esterase (Negative) Urine HCG, Qual (Not Detectd) - EKG Data -: EKG Interpreted by Ne EKG shows normal: sinus rhythm (With sinus arrhythmia), axis (Normal), intervals (Normal), QRS complexes (Normal), ST-T waves (Normal) Rate: normal (Rate 70 bpm) Interpretation: normal EKG Disposition Clinical Impression: Dehydration Disposition: HOME SELF-CARE Condition: Good Instructions (If sedation given, give patient instructions): Acute Diarrhea ( ED) Prescriptions: Ondansetron Odt [Zofran ODT] 4 mg PO Q8HR PRN #10 tab PRN Reason: Nausea Is patient prescribed a controlled substance at d/c from ED?: No Referrals: Teofilo Miller MD [Primary Care Provider] - 1-2 days
[2019-04-21 22:14] LABS: ALT 16 U/L (4-34); AST 23 U/L (14-36); African American GFR (CKD) >90 (>60 ml/min/1.73 sqM); Albumin 4.2 g/dL (3.5-5.0); Alkaline Phosphatase 76 U/L (38-126); Amylase 52 U/L (30-110); Anion Gap 10 mmol/L; Blood Urea Nitrogen 19 mg/dL (7-17); Carbon Dioxide 20 mmol/L (22-30); Chloride 105 mmol/L (98-107); Glucose 88 mg/dL (74-99); Non-African American GFR(CKD) >90 (>60 ml/min/1.73 sqM); Potassium 4.3 mmol/L (3.5-5.1); Sodium 135 mmol/L (137-145); Total Bilirubin 0.3 mg/dL (0.2-1.3)
[2019-04-21 22:21] LABS: Basophils # (A) 0.1 k/uL (0-0.2); Basophils % (A) 1 %; Eosinophils # (A) 0.7 k/uL (0-0.7); Eosinophils % (A) 7 %; HCT 39.8 % (34.0-46.0); HGB 13.4 gm/dL (11.4-16.0); Lymphocytes # (A) 2.2 k/uL (1.0-4.8); Lymphocytes % (A) 21 %; MCH 29.1 pg (25.0-35.0); MCHC 33.6 g/dL (31.0-37.0); MCV 86.6 fL (80.0-100.0); Mean Platelet Volume 9.2; Monocytes # (A) 0.5 k/uL (0-1.0); Monocytes % (A) 5 %; Neutrophils # (A) 6.5 k/uL (1.3-7.7); Neutrophils % (A) 65 %; Platelet Count 241 k/uL (150-450); RBC 4.59 m/uL (3.80-5.40); RDW 13.7 % (11.5-15.5); WBC 10.1 k/uL (3.8-10.6)
[2019-04-21 23:22] VITALS: BP 144/84; PULSE 73
== END 2019-04-21 23:21 | disposition home or self-care (01) ==
LOC: EC 19:03
DX: E86.0 Dehydration (principal); R11.2 Nausea with vomiting, unspecified; R19.7 Diarrhea, unspecified; R42 Dizziness and giddiness; J45.909 Unspecified asthma, uncomplicated; F31.9 Bipolar disorder, unspecified; Z79.1 Long term (current) use of non-steroidal anti-inflammatories (NSAID); Z79.899 Other long term (current) drug therapy; Z88.0 Allergy status to penicillin; Z88.8 Allergy status to other drugs, medicaments and biological substances; Z88.5 Allergy status to narcotic agent; Z91.048 Other nonmedicinal substance allergy status; Z88.2 Allergy status to sulfonamides
CPT/HCPCS: 36415; 93005; 80053; 82150; 83690; 85025; 81003; 81025; 99284; 96374; 96361; J2405

== ENCOUNTER 2019-12-23 19:54 | Inpatient (IN) | payer OTHER ==
[2019-12-23] MEDS ORDERED: ONDANSETRON 4 MG/2 ML VIAL IVP STA (20:27)
[2019-12-23] MEDS ORDERED: KETOROLAC 15 MG/ML 1 ML VIAL IVP STA (20:27)
[2019-12-23] MEDS ORDERED: SODIUM CHLORIDE 0.9% 1,000 ML IV STA ×2 (20:27)
[2019-12-23] MEDS ORDERED: MORPHINE SULFATE 4 MG/ML SYRINGE IV STA (20:27)
[2019-12-23] MEDS ORDERED: ACETAMINOPHEN TAB 500 MG TAB PO STA (20:43)
[2019-12-23 21:06] LABS: Appearance,Urine Clear (Clear); Bilirubin,Urine Negative (Negative); Blood,Urine Negative (Negative); Color,Urine Light Yellow; Glucose,Urine (UA) Negative (Negative); Ketones,Urine Negative (Negative); Leukocyte Esterase,Urine Negative (Negative); Nitrite,Urine Negative (Negative); Protein,Urine Negative (Negative); Specific Gravity,Urine 1.013 (1.001-1.035); Urobilinogen,Urine <2.0 mg/dL (<2.0)
[2019-12-23 21:07] LABS: ALT 28 U/L (4-34); AST 63 U/L (14-36); African American GFR (CKD) >90 (>60 ml/min/1.73 sqM); Albumin 3.6 g/dL (3.5-5.0); Alkaline Phosphatase 62 U/L (38-126); Amylase 48 U/L (30-110); Anion Gap 8 mmol/L; Blood Urea Nitrogen 13 mg/dL (7-17); Calcium 8.2 mg/dL (8.4-10.2); Carbon Dioxide 21 mmol/L (22-30); Chloride 107 mmol/L (98-107); Glucose 94 mg/dL (74-99); Lipase 143 U/L (23-300); Non-African American GFR(CKD) >90 (>60 ml/min/1.73 sqM); Potassium 3.7 mmol/L (3.5-5.1); Sodium 136 mmol/L (137-145); Total Bilirubin 0.4 mg/dL (0.2-1.3)
[2019-12-23 21:17] LABS: Basophils % (A) 0 %; Eosinophils # (A) 0.2 k/uL (0-0.7); Eosinophils % (A) 1 %; HCT 38.4 % (34.0-46.0); HGB 12.2 gm/dL (11.4-16.0); Lymphocytes # (A) 0.3 k/uL (1.0-4.8); Lymphocytes % (A) 3 %; MCH 28.6 pg (25.0-35.0); MCHC 31.9 g/dL (31.0-37.0); MCV 89.6 fL (80.0-100.0); Mean Platelet Volume 8.1; Monocytes # (A) 0.1 k/uL (0-1.0); Monocytes % (A) 1 %; Neutrophils % (A) 95 %; Platelet Count 181 k/uL (150-450); RBC 4.28 m/uL (3.80-5.40); RDW 14.1 % (11.5-15.5); WBC 12.7 k/uL (3.8-10.6)
--- NOTE | 2019-12-23 21:54 | ED ---
Back Pain HPI - General Chief Complaint: Back Pain/Injury Stated Complaint: abd pain Time Seen by Provider: 12/23/19 20:06 Source: patient, EMS, RN notes reviewed, old records reviewed Limitations: no limitations - History of Present Illness Initial Comments: Patient's a 34-year-old female who presents emergency Department today with complaint of worsening left flank pain. She reports she's been having symptoms apparently for 2 weeks. She states that she believed initially was diverticulitis and was seen at [facility] on Saturday. Patient had a computed tomography scan which showed no signs of diverticulitis but she did have hematuria. She was at that time started on Levaquin and Flagyl. She's been taking this antibiotic. She reports that she's been having worsening pain into the flank and also fevers and chills. She arrives with to the emergency department with a temperature of 101.5. - Related Data Home Medications Medication Instructions Recorded Confirmed Divalproex ER [Depakote ER] 500 mg PO HS 04/23/14 12/23/19 Fluticasone Nasal [place] [Flonase 1 - 2 spray EA NOSTRIL DAILY PRN 06/10/17 12/23/19 Nasal [place]] Ziprasidone [Geodon] 20 mg PO BID 04/21/19 12/23/19 Albuterol Inhaler [Ventolin Hfa 1 - 2 puff INHALATION RT-QID PRN 12/23/19 12/23/19 Inhaler] Cabergoline 0.5 mg PO MOFR 12/23/19 12/23/19 Levofloxacin [Levaquin] 750 mg PO DAILY 12/23/19 12/23/19 Meloxicam 7.5 - 15 mg PO DAILY 12/23/19 12/23/19 Omeprazole 40 mg PO AC-BRKFST 12/23/19 12/23/19 metroNIDAZOLE [Flagyl] 500 mg PO Q8H 12/23/19 12/23/19 Previous Rx's Medication Instructions Recorded Benztropine Mesylate [Cogentin] 1 mg PO BID #8 tablet 04/23/14 Allergies Allergy/AdvReac Type Severity Reaction Status Date / Time amoxicillin Allergy Unknown Verified 12/23/19 21:24 brompheniramine maleate Allergy Unknown Verified 12/23/19 21:24 [From Dimetapp (brompheniramine-PPA)] clemastine fumarate Allergy Unknown Verified 12/23/19 21:24 [From Tavist] codeine Allergy Unknown Verified 12/23/19 21:24 diphenhydramine HCl Allergy Unknown Verified 12/23/19 21:24 [From Benadryl] phenylpropanolamine HCl Allergy Unknown Verified 12/23/19 21:24 [From Dimetapp (brompheniramine-PPA)] prednisone Allergy Hallucinati Verified 12/23/19 21:24 ons pseudoephedrine HCl Allergy Unknown Verified 12/23/19 21:24 [From Tavist] red dye Allergy Unknown Verified 12/23/19 21:24 risperidone [From Risperdal] Allergy Unknown Verified 12/23/19 21:24 sulfamethoxazole Allergy Unknown Verified 12/23/19 21:24 [From Bactrim] trimethoprim [From Bactrim] Allergy Unknown Verified 12/23/19 21:24 Review of Systems ROS Statement: Those systems with pertinent positive or pertinent negative responses have been documented in the HPI. ROS Other: All systems not noted in ROS Statement are negative. Past Medical History Past Medical History: Asthma Additional Past Medical History / Comment(s): polycysitic ovarian syndrome, closed head injury 10 years ago from a fall History of Any Multi-Drug Resistant Organisms: None Reported Past Surgical History: Appendectomy Past Anesthesia/Blood Transfusion Reactions: No Reported Reaction Past Psychological History: Anxiety, Bipolar, Depression Smoking Status: Never smoker Past Alcohol Use History: Rare Past Drug Use History: None Reported General Exam - General Exam Comments Initial Comments: 34-year-old female. Limitations: no limitations General appearance: alert, in no apparent distress Head exam: Present: atraumatic, normocephalic, normal inspection Eye exam: Present: normal appearance, PERRL, EOMI. Absent: scleral icterus, conjunctival injection, periorbital swelling ENT exam: Present: normal exam, mucous membranes moist Neck exam: Present: normal inspection. Absent: tenderness, meningismus, lymphadenopathy Respiratory exam: Present: normal lung sounds bilaterally. Absent: respiratory distress, wheezes, rales, rhonchi, stridor Cardiovascular Exam: Present: regular rate, normal rhythm, normal heart sounds. Absent: systolic murmur, diastolic murmur, rubs, gallop, clicks GI/Abdominal exam: Present: soft, tenderness (left upper quadrant left CVA tenderness), normal bowel sounds. Absent: distended, guarding, rebound, rigid Extremities exam: Present: normal inspection, full ROM, normal capillary refill. Absent: tenderness, pedal edema, joint swelling, calf tenderness Back exam: Present: normal inspection Neurological exam: Present: alert, oriented X3, CN II-XII intact Psychiatric exam: Present: normal affect, normal mood Skin exam: Present: warm, dry, intact, normal color. Absent: rash Course Vital Signs 12/23/19 12/23/19 12/23/19 20:09 21:32 22:12 Temperature 101.1 F H 101.4 F H 100.1 F H Pulse Rate 103 H 94 86 Respiratory 16 16 16 Rate Blood Pressure 116/62 90/53 92/42 O2 Sat by Pulse 98 96 100 Oximetry - Reevaluation(s) Reevaluation #1: 12/23/19 22:35 review and reviewed records from [facility]. Her white blood cell call Saturday was 8.0. CT on pelvis with contrast was read negative for acute process. Medical Decision Making - Medical Decision Making 34-year-old female presents to the ER today for evaluation for her left-sided abdominal pain and flank pain. Symptoms and progressive the past 2 weeks. S he's been having nausea and diarrhea as well. She was seen at [facility] on Saturday and was placed on antibiotics of Levaquin and Flagyl. At that time she had normal labs and her computed tomography scan did not show evidence of infection or diverticulitis. She reports that at that time she did have some hematuria. Patient appears in moderate discomfort in the emergency department. She was febrile 101 and hypotensive initially blood pressure 110/60. As declined the last blood pressure was 90/42. She is receiving 3 L bolus at this time. Patient's labs reviewed and showed white blood cell count mildly increased from previous 12,000. This time she had a computed tomography scan w ithout contrast to check for concern for renal stone, she scan is negative for acute process. Patient case was discussed with Dr. Berrios Discussed the case with these [facility] hospitalist. - Lab Data Result diagrams: 12/23/19 20:45 12/23/19 20:45 Lab Results 12/23/19 12/23/19 12/23/19 Range/Units 20:45 20:45 20:45 WBC 12.7 H (3.8-10.6) k/uL RBC 4.28 (3.80-5.40) m/uL Hgb 12.2 (11.4-16.0) gm/dL Hct 38.4 (34.0-46.0) % MCV 89.6 (80.0-100.0) fL MCH 28.6 (25.0-35.0) pg MCHC 31.9 (31.0-37.0) g/dL RDW 14.1 (11.5-15.5) % Plt Count 181 (150-450) k/uL Neutrophils % 95 % Lymphocytes % 3 % Monocytes % 1 % Eosinophils % 1 % Basophils % 0 % Neutrophils # 12.0 H (1.3-7.7) k/uL Lymphocytes # 0.3 L (1.0-4.8) k/uL Monocytes # 0.1 (0-1.0) k/uL Eosinophils # 0.2 (0-0.7) k/uL Basophils # 0.0 (0-0.2) k/uL Sodium 136 L (137-145) mmol/L Potassium 3.7 (3.5-5.1) mmol/L Chloride 107 (98-107) mmol/L Carbon Dioxide 21 L (22-30) mmol/L Anion Gap 8 mmol/L BUN 13 (7-17) mg/dL Creatinine 0.77 (0.52-1.04) mg/dL Est GFR (CKD-EPI)AfAm >90 (>60 ml/min/1.73 sqM) Est GFR (CKD-EPI)NonAf >90 (>60 ml/min/1.73 sqM) Glucose 94 (74-99) mg/dL Plasma Lactic Acid Sancho (0.7-2.0) mmol/L Calcium 8.2 L (8.4-10.2) mg/dL Total Bilirubin 0.4 (0.2-1.3) mg/dL AST 63 H (14-36) U/L ALT 28 (4-34) U/L Alkaline Phosphatase 62 (38-126) U/L Total Protein 6.0 L (6.3-8.2) g/dL Albumin 3.6 (3.5-5.0) g/dL Amylase 48 (30-110) U/L Lipase 143 (23-300) U/L Urine Color Light Yellow Urine Appearance Clear (Clear) Urine pH 6.0 (5.0-8.0) Ur Specific [place] 1.013 (1.001-1.035) Urine Protein Negative (Negative) Urine Glucose (UA) Negative (Negative) Urine Ketones Negative (Negative) Urine Blood Negative (Negative) Urine Nitrite Negative (Negative) Urine Bilirubin Negative (Negative) Urine Urobilinogen <2.0 (<2.0) mg/dL Ur Leukocyte Esterase Negative (Negative) 12/23/19 Range/Units 20:45 WBC (3.8-10.6) k/uL RBC (3.80-5.40) m/uL Hgb (11.4-16.0) gm/dL Hct (34.0-46.0) % MCV (80.0-100.0) fL MCH (25.0-35.0) pg MCHC (31.0-37.0) g/dL RDW (11.5-15.5) % Plt Count (150-450) k/uL Neutrophils % % Lymphocytes % % Monocytes % % Eosinophils % % Basophils % % Neutrophils # (1.3-7.7) k/uL Lymphocytes # (1.0-4.8) k/uL Monocytes # (0-1.0) k/uL Eosinophils # (0-0.7) k/uL Basophils # (0-0.2) k/uL Sodium (137-145) mmol/L Potassium (3.5-5.1) mmol/L Chloride (98-107) mmol/L Carbon Dioxide (22-30) mmol/L Anion Gap mmol/L BUN (7-17) mg/dL Creatinine (0.52-1.04) mg/dL Est GFR (CKD-EPI)AfAm (>60 ml/min/1.73 sqM) Est GFR (CKD-EPI)NonAf (>60 ml/min/1.73 sqM) Glucose (74-99) mg/dL Plasma Lactic Acid Sancho 2.4 H* (0.7-2.0) mmol/L Calcium (8.4-10.2) mg/dL Total Bilirubin (0.2-1.3) mg/dL AST (14-36) U/L ALT (4-34) U/L Alkaline Phosphatase (38-126) U/L Total Protein (6.3-8.2) g/dL Albumin (3.5-5.0) g/dL Amylase (30-110) U/L Lipase (23-300) U/L Urine Color Urine Appearance (Clear) Urine pH (5.0-8.0) Ur Specific [place] (1.001-1.035) Urine Protein (Negative) Urine Glucose (UA) (Negative) Urine Ketones (Negative) Urine Blood (Negative) Urine Nitrite (Negative) Urine Bilirubin (Negative) Urine Urobilinogen (<2.0) mg/dL Ur Leukocyte Esterase (Negative) Disposition Clinical Impression: Fever, Left lateral abdominal pain Disposition: ADMITTED IP TO THIS HOSP Condition: Stable Instructions (If sedation given, give patient instructions): Abdominal Pain (ED) Referrals: Teofilo Miller MD [Primary Care Provider] - 1-2 days Time of Disposition: 22:40
--- NOTE | 2019-12-23 22:01 | CT ---
EXAMINATION TYPE: CT abdomen pelvis wo con DATE OF EXAM: 12/23/2019 COMPARISON: 01/03/2016 HISTORY: LT flank pain CT DLP: 1170.4 mGycm Automated exposure control for dose reduction was used. Images were obtained from the diaphragm to the floor the pelvis with no contrast. There is mild interstitial density in the lung bases. There is no pulmonary consolidation. There is n o pleural effusion. There is no pericardial effusion. Liver gallbladder spleen stomach pancreas appear normal. The bile ducts are not dilated. There is no adrenal mass. Kidneys have normal size. There is no hydronephrosis. Ureters are not dilated. There is no evidence of renal calculus. There is no sign of retroperitoneal adenopathy. Bladder distends smoo thly. There is no inguinal hernia. Uterus is anteverted. There is IUD in the uterine fundus. There is no free fluid in the pelvis. There is no sign of a pelvic mass. Appendix is not definitely seen. The re is no sign of thickened appendix. Lumbar vertebra have normal alignment. Posterior elements are intact. The bony pelvis is intact. Hip joints are intact. IMPRESSION: No acute abnormality of the abdomen pelvis. No adverse change compared to old exam. There is clearing of the constipation compared to old exam.
[2019-12-23] MEDS: SODIUM CHLORIDE 0.9% 1,000 ML IV ONE (22:17)
--- NOTE | 2019-12-23 23:10 | XR ---
EXAMINATION TYPE: XR chest 1V portable DATE OF EXAM: 12/23/2019 COMPARISON: 12/19/2014 HISTORY: Difficulty breathing TECHNIQUE: Single view FINDINGS: There is no heart failure. Exam limited by patient's size. Heart size is normal. Costophren ic angles are clear. There are no hilar masses. Mediastinum is within normal limits. IMPRESSION: Limited exam. No active cardiopulmonary disease. Normal heart.
[2019-12-23] MEDS: metroNIDAZOLE 500 MG TAB PO SCH (23:33)
[2019-12-23] MEDS: SODIUM CHLORIDE 0.9% 1,000 ML IV SCH (23:34)
[2019-12-23 23:41] LABS: C Reactive Protein 13.1 mg/L (<10.0); Magnesium 1.6 mg/dL (1.6-2.3)
[2019-12-24] MEDS: SODIUM CHLORIDE 0.9% 1,000 ML IV SCH ×3 (05:24→20:56)
[2019-12-24] MEDS: ENOXAPARIN 40 MG/0.4 ML SYRINGE SQ SCH (08:42)
[2019-12-24] MEDS: LEVOFLOXACIN 750 MG TAB PO SCH (08:43)
[2019-12-24] MEDS: metroNIDAZOLE 500 MG TAB PO SCH ×2 (08:43→15:36)
[2019-12-24] MEDS: ZIPRASIDONE 20 MG CAP PO SCH ×2 (08:43→21:10)
[2019-12-24] MEDS: PANTOPRAZOLE 40 MG TABLET PO SCH (08:43)
[2019-12-24] MEDS: BENZTROPINE MESYLATE 1 MG TAB PO SCH ×2 (08:43→21:10)
[2019-12-24] MEDS ORDERED: PANTOPRAZOLE 40 MG/10 ML VIAL IV SCH (09:00)
--- NOTE | 2019-12-24 09:36 | P.HPIM ---
History of Present Illness This is a pleasant 34 years old female with past medical history of asthma and polycystic ovarian syndrome and closed head injury 10 years ago from a fall. Anxiety bipolar and depression. Presents with fever, hypertension and abdominal pain. Patient states she came family because of her left side, abdominal pain that is been going on for 2 weeks, also she is been feeling dizzy mostly related to her hypotension. Associated with vomiting about once and loose bowel movement each time she eats starts about 2-3 times also patient found to have fever the abdominal pain is in the left upper quadrant area, left flank area radiating down into the pelvic area felt about 8/10 in severity but currently is pain free and rated 0/10 by patient. Patient went to [facility] where they checked her urine and they told her she has little blood in it.however UA checked here it's completely normal and patient denies any dysuria or other abnormality. Patient does has IUD so she really has no menstrual period as she states She denies smoking, alcohol or illicit drugs. She denies depression or suicidal ideation. On admission she has a fever of 101.1. Blood pressure was 92/42, she received 3 L boluses of normal saline as per documentation. Currently her blood pressure is 85/50. Labs showed leukocytosis of 12.7 K, with leukopenia at 0.3%. risks of CBC is unremarkable. D-dimer is at 0.74. Elevated lactic acid 2.4 Back to normal at 1.0. Lactate dehydrogenase elevated at 697, C-reactive protein is elevated mildly at 13.1. Urinalysis is unremarkable Chest x-ray: No active cardiopulmonary disease. Radiologist. CT of the abdomen and pelvis without contrast showing no acute abnormality of the abdomen and pelvis. EKG showed normal sinus rhythm at 86 BPM in the emergency room she received 3 boluses of normal saline of total of 3 L, and continued on normal saline at a rate of 1 30 mL/h. She received morphine wants and Toradol and Zofran. She was continued on levofloxacin orally 750 mg dailyand Flagyl orally.already given this morning Review of Systems CONSTITUTIONAL: No fever, no malaise, no fatigue. HEENT: No recent visual problems or hearing problems. Denied any sore throat. CARDIOVASCULAR: No orthopnea, PND, no palpitations, no syncope. PULMONARY: No shortness of breath, no cough, no hemoptysis. GASTROINTESTINAL: No diarrhea, no nausea, no vomiting, no abdominal pain. Normoactive bowel sounds. NEUROLOGICAL: No headaches, no weakness, no numbness. HEMATOLOGICAL: Denies any bleeding or petechiae. GENITOURINARY: Denies any burning micturition, frequency, or urgency. MUSCULOSKELETAL/RHEUMATOLOGICAL: Denies any joint pain, swelling, or any muscle pain. ENDOCRINE: Denies any polyuria or polydipsia. Past Medical History Past Medical History: Asthma Additional Past Medical History / Comment(s): polycysitic ovarian syndrome, closed head injury 10 years ago from a fall History of Any Multi-Drug Resistant Organisms: None Reported Past Surgical History: Appendectomy Past Anesthesia/Blood Transfusion Reactions: No Reported Reaction Past Psychological History: Anxiety, Bipolar, Depression Smoking Status: Never smoker Past Alcohol Use History: Rare Past Drug Use History: None Reported Medications and Allergies Home Medications Medication Instructions Recorded Confirmed Type Benztropine Mesylate [Cogentin] 1 mg PO BID #8 tablet 04/23/14 12/23/19 Rx Divalproex ER [Depakote ER] 500 mg PO HS 04/23/14 12/23/19 History Fluticasone Nasal [place] [Flonase 1 - 2 spray EA NOSTRIL DAILY PRN 06/10/17 12/23/19 History Nasal [place]] Ziprasidone [Geodon] 20 mg PO BID 04/21/19 12/23/19 History Albuterol Inhaler [Ventolin Hfa 1 - 2 puff INHALATION RT-QID PRN 12/23/19 12/23/19 History Inhaler] Cabergoline 0.5 mg PO MOFR 12/23/19 12/23/19 History Levofloxacin [Levaquin] 750 mg PO DAILY 12/23/19 12/23/19 History Meloxicam 7.5 - 15 mg PO DAILY 12/23/19 12/23/19 History Omeprazole 40 mg PO AC-BRKFST 12/23/19 12/23/19 History metroNIDAZOLE [Flagyl] 500 mg PO Q8H 12/23/19 12/23/19 History Allergies Allergy/AdvReac Type Severity Reaction Status Date / Time amoxicillin Allergy Unknown Verified 12/23/19 21:24 brompheniramine maleate Allergy Unknown Verified 12/23/19 21:24 [From Dimetapp (brompheniramine-PPA)] clemastine fumarate Allergy Unknown Verified 12/23/19 21:24 [From Tavist] codeine Allergy Unknown Verified 12/23/19 21:24 diphenhydramine HCl Allergy Unknown Verified 12/23/19 21:24 [From Benadryl] phenylpropanolamine HCl Allergy Unknown Verified 12/23/19 21:24 [From Dimetapp (brompheniramine-PPA)] prednisone Allergy Hallucinati Verified 12/23/19 21:24 ons pseudoephedrine HCl Allergy Unknown Verified 12/23/19 21:24 [From Tavist] red dye Allergy Unknown Verified 12/23/19 21:24 risperidone [From Risperdal] Allergy Unknown Verified 12/23/19 21:24 sulfamethoxazole Allergy Unknown Verified 12/23/19 21:24 [From Bactrim] trimethoprim [From Bactrim] Allergy Unknown Verified 12/23/19 21:24 Physical Exam Vitals: Vital Signs Temp Pulse Pulse Resp BP BP Pulse Ox 12/24/19 03:00 97.9 F 66 17 85/50 99 12/23/19 23:02 99 16 108/52 99 12/23/19 22:40 98.5 F 80 18 88/50 96 12/23/19 22:12 100.1 F H 86 16 92/42 100 12/23/19 21:32 101.4 F H 94 16 90/53 96 12/23/19 20:09 101.1 F H 103 H 16 116/62 98 Intake and Output 12/23/19 12/24/19 12/24/19 22:59 06:59 14:59 Intake Total 1999 1040 Balance 1999 1040 Intake: Intake, IV Titration 1999 1040 Amount Sodium Chloride 0.9% 1, 1040 000 ml @ 130 mls/hr IV . Q7H42M [facility] Rx#:[id number] Sodium Chloride 0.9% 1, 2000 000 ml @ 999 mls/hr IV . Q1H1M [facility] Rx#:[id number] Other: Voiding Method Toilet # Voids 1 Weight 97.522 kg -GENERAL: The patient is alert and oriented x3, not in any acute distress. obese HEENT: Pupils are round and equally reacting to light. EOMI. No scleral icterus. No conjunctival pallor. Normocephalic, atraumatic. No pharyngeal erythema. No thyromegaly. CARDIOVASCULAR: S1 and S2 present. No murmurs, rubs, or gallops. PULMONARY: Chest is clear to auscultation, no wheezing or crackles. -ABDOMEN: Soft, mild LUQ tenderness, no rebound tenderness or guarding, nondistended, normoactive bowel sounds. No palpable organomegaly. MUSCULOSKELETAL: No joint swelling or deformity. EXTREMITIES: No cyanosis, clubbing, or pedal edema. NEUROLOGICAL: Gross neurological examination did not reveal any focal deficits. SKIN: No rashes. No petechiae Results CBC & Chem 7: 12/23/19 20:45 12/23/19 20:45 Labs: Abnormal Lab Results - Last 24 Hours (Table) 12/23/19 12/23/19 12/23/19 Range/Units 20:45 20:45 20:45 WBC 12.7 H (3.8-10.6) k/uL Neutrophils # 12.0 H (1.3-7.7) k/uL Lymphocytes # 0.3 L (1.0-4.8) k/uL D-Dimer (<0.60) mg/L FEU Sodium 136 L (137-145) mmol/L Carbon Dioxide 21 L (22-30) mmol/L Plasma Lactic Acid Sancho 2.4 H* (0.7-2.0) mmol/L Calcium 8.2 L (8.4-10.2) mg/dL AST 63 H (14-36) U/L Lactate Dehydrogenase (313-618) U/L C-Reactive Protein (<10.0) mg/L Total Protein 6.0 L (6.3-8.2) g/dL 12/23/19 12/23/19 Range/Units 22:59 22:59 WBC (3.8-10.6) k/uL Neutrophils # (1.3-7.7) k/uL Lymphocytes # (1.0-4.8) k/uL D-Dimer 0.74 H (<0.60) mg/L FEU Sodium (137-145) mmol/L Carbon Dioxide (22-30) mmol/L Plasma Lactic Acid Sancho (0.7-2.0) mmol/L Calcium (8.4-10.2) mg/dL AST (14-36) U/L Lactate Dehydrogenase 697 H (313-618) U/L C-Reactive Protein 13.1 H (<10.0) mg/L Total Protein (6.3-8.2) g/dL Thrombosis Risk Factor Assmnt - Choose All That Apply Any of the Below Risk Factors Present?: Yes Each Factor Represents 1 point: Obesity (BMI >25) Other Risk Factors: No Other congenital or acquired thrombophilia - If yes, enter type in comment: No Thrombosis Risk Factor Assessment Total Risk Factor Score: 1 Thrombosis Risk Factor Assessment Level: Low Risk Assessment and Plan Assessment: Sepsis with fever, leukocytosis. And no source of infection. possible gastroenteritis. Rule out covid. hypotension secondary to above Increased inflammatory markers Increased lactic acid, came back to normal Chronic asthma History of polycystic ovarian syndrome History of closed head injury 10 years ago Anxiety, bipolar and depression, not an activation multiple drug ALLERGIES Plan: This is a pleasant 34 years old female who presents with fever and hypotensionand sepsis.we will and asked for infectious diseases consult. Send stool for studies, including culture, and we'll see and C. diff. Continue with IV fluid and increase the rate to 200 mL per hour lbs and medication were reviewed.. Continue same treatment. Continue with symptomatic treatment. Resume home medication. Monitor lytes and vitals. DVT and GI prophylaxis. Further recommendations depends on the clinical course of the patient DVT prophylaxis: Subcutaneous heparin GI Prophylaxis: Ppi Prognosis is guarded
[2019-12-24 10:57] LABS: Basophils % (A) 0 %; Eosinophils # (A) 0.2 k/uL (0-0.7); Eosinophils % (A) 2 %; HCT 31.4 % (34.0-46.0); HGB 10.7 gm/dL (11.4-16.0); Lymphocytes # (A) 0.9 k/uL (1.0-4.8); Lymphocytes % (A) 9 %; MCH 30.4 pg (25.0-35.0); MCV 89.4 fL (80.0-100.0); Mean Platelet Volume 8.4; Monocytes # (A) 0.3 k/uL (0-1.0); Monocytes % (A) 3 %; Neutrophils # (A) 8.5 k/uL (1.3-7.7); Neutrophils % (A) 86 %; Platelet Count 168 k/uL (150-450); RBC 3.52 m/uL (3.80-5.40); RDW 13.9 % (11.5-15.5); WBC 9.9 k/uL (3.8-10.6)
[2019-12-24 11:05] LABS: HCG,Qualitative Serum Not Detected
[2019-12-24 11:08] LABS: African American GFR (CKD) >90 (>60 ml/min/1.73 sqM); Anion Gap 3 mmol/L; Blood Urea Nitrogen 12 mg/dL (7-17); C Reactive Protein 52.4 mg/L (<10.0); Calcium 7.1 mg/dL (8.4-10.2); Carbon Dioxide 21 mmol/L (22-30); Chloride 113 mmol/L (98-107); Glucose 89 mg/dL (74-99); LDH 676 U/L (313-618); Non-African American GFR(CKD) >90 (>60 ml/min/1.73 sqM); Potassium 3.8 mmol/L (3.5-5.1); Sodium 137 mmol/L (137-145)
[2019-12-24] MEDS: IBUPROFEN 400 MG TAB PO PRN (13:38)
[2019-12-24] MEDS: ACETAMINOPHEN TAB 325 MG TAB PO PRN (15:36)
[2019-12-24] MEDS: DIVALPROEX ER 500 MG TAB.ER.24H PO SCH (21:10)
--- NOTE | 2019-12-24 22:48 | P.CONS ---
History of Present Illness - Reason for Consult Consult date: 12/24/19 Fever and sepsis Requesting physician: Tre E Sheet - Chief Complaint Abdominal pain diarrhea x week - History of Present Illness Patient is a 34-year-old female with past medical history significant for asthma polycystic ovarian syndrome and diverticulitis, patient is presenting to [facility] yesterday for evaluation of left flank and left-sided abdominal pain as well as nausea patient mentioned this to his going on for about 2 weeks and was previously diagnosed with diverticulitis and treated with the Levaquin and Flagyl patient did have some improvement in symptoms however not complete resolution computed tomography scan the pain to be more of a dull aching at times sharp intensity is almost 8 out of 10 and some radiation on the left lower abdominal area patient be complaining of associated nausea and vomiting and did have multiple loose stools denies any blood or mucus in the stool with asymptomatic the patient was evaluated by the physician on arrival to the ER the patient did have a fever of 101F, the patient did have elevated whit e count of 12.7, repeat dysphoria 1.9 patient UA was negative, patient did have elevated LDH in his CRP as well as pro-calcitonin of 1.[address] abdomen and pelvis didn't show any acute abnormality patient has been treated with Levaquin and Flagyl infectious disease was consulted for further management of antibiotic therapy Review of Systems Positive point has been mentioned in the HPI rest of the systems are negative Past Medical History Past Medical History: Asthma Additional Past Medical History / Comment(s): polycysitic ovarian syndrome, closed head injury 10 years ago from a fall History of Any Multi-Drug Resistant Organisms: None Reported Past Surgical History: Appendectomy Past Anesthesia/Blood Transfusion Reactions: No Reported Reaction Past Psychological History: Anxiety, Bipolar, Depression Smoking Status: Never smoker Past Alcohol Use History: Rare Past Drug Use History: None Reported Medications and Allergies Home Medications Medication Instructions Recorded Confirmed Type Benztropine Mesylate [Cogentin] 1 mg PO BID #8 tablet 04/23/14 12/23/19 Rx Divalproex ER [Depakote ER] 500 mg PO HS 04/23/14 12/23/19 History Fluticasone Nasal [place] [Flonase 1 - 2 spray EA NOSTRIL DAILY PRN 06/10/17 12/23/19 History Nasal [place]] Ziprasidone [Geodon] 20 mg PO BID 04/21/19 12/23/19 History Albuterol Inhaler [Ventolin Hfa 1 - 2 puff INHALATION RT-QID PRN 12/23/19 12/23/19 History Inhaler] Cabergoline 0.5 mg PO MOFR 12/23/19 12/23/19 History Levofloxacin [Levaquin] 750 mg PO DAILY 12/23/19 12/23/19 History Meloxicam 7.5 - 15 mg PO DAILY 12/23/19 12/23/19 History Omeprazole 40 mg PO AC-BRKFST 12/23/19 12/23/19 History metroNIDAZOLE [Flagyl] 500 mg PO Q8H 12/23/19 12/23/19 History Allergies Allergy/AdvReac Type Severity Reaction Status Date / Time amoxicillin Allergy Unknown Verified 12/23/19 21:24 brompheniramine maleate Allergy Unknown Verified 12/23/19 21:24 [From Dimetapp (brompheniramine-PPA)] clemastine fumarate Allergy Unknown Verified 12/23/19 21:24 [From Tavist] codeine Allergy Unknown Verified 12/23/19 21:24 diphenhydramine HCl Allergy Unknown Verified 12/23/19 21:24 [From Benadryl] phenylpropanolamine HCl Allergy Unknown Verified 12/23/19 21:24 [From Dimetapp (brompheniramine-PPA)] prednisone Allergy Hallucinati Verified 12/23/19 21:24 ons pseudoephedrine HCl Allergy Unknown Verified 12/23/19 21:24 [From Tavist] red dye Allergy Unknown Verified 12/23/19 21:24 risperidone [From Risperdal] Allergy Unknown Verified 12/23/19 21:24 sulfamethoxazole Allergy Unknown Verified 12/23/19 21:24 [From Bactrim] trimethoprim [From Bactrim] Allergy Unknown Verified 12/23/19 21:24 Physical Exam Vitals: Vital Signs Temp Pulse Pulse Pulse Resp BP BP 12/24/19 08:27 98 F 69 16 12/24/19 03:00 97.9 F 66 17 85/50 12/23/19 23:02 99 16 108/52 12/23/19 22:40 98.5 F 80 18 88/50 12/23/19 22:12 100.1 F H 86 16 92/42 12/23/19 21:32 101.4 F H 94 16 90/53 12/23/19 20:09 101.1 F H 103 H 16 116/62 BP Pulse Ox 12/24/19 08:27 104/57 96 12/24/19 03:00 99 12/23/19 23:02 99 12/23/19 22:40 96 12/23/19 22:12 100 12/23/19 21:32 96 12/23/19 20:09 98 Intake and Output 12/23/19 12/24/19 12/24/19 22:59 06:59 14:59 Intake Total 1999 1040 Balance 1999 1040 Intake: Intake, IV Titration 1999 1040 Amount Sodium Chloride 0.9% 1, 1040 000 ml @ 130 mls/hr IV . Q7H42M [facility] Rx#:[id number] Sodium Chloride 0.9% 1, 2000 000 ml @ 999 mls/hr IV . Q1H1M ONE Rx#:[id number] Other: Voiding Method Toilet Toilet # Voids 1 Weight 97.522 kg GENERAL DESCRIPTION: Middle-aged female lying in bed, no distress. No tachypnea or accessory muscle of respiration use. HEENT: Shows Pallor , no scleral icterus. Oral mucous membrane is dry. No pharyngeal erythema or thrush NECK: Trachea central, no thyromegaly. LUNGS: Unlabored breathing. Clear to auscultation anteriorly. No wheeze or crackle. HEART: S1, S2, regular rate and rhythm. No loud murmur ABDOMEN: Soft, no tenderness , guarding or rigidity, no organomegaly EXTREMITIES: No edema of feet. SKIN: No rash, no masses palpable. NEUROLOGICAL: The patient is awake, alert, oriented x3, mood and affect normal. Results CBC & Chem 7: 12/24/19 10:35 12/24/19 10:35 Labs: Abnormal Lab Results - Last 24 Hours (Table) 12/23/19 12/23/19 12/23/19 Range/Units 20:45 20:45 20:45 WBC 12.7 H (3.8-10.6) k/uL Neutrophils # 12.0 H (1.3-7.7) k/uL Lymphocytes # 0.3 L (1.0-4.8) k/uL D-Dimer (<0.60) mg/L FEU Sodium 136 L (137-145) mmol/L Carbon Dioxide 21 L (22-30) mmol/L Plasma Lactic Acid Sancho 2.4 H* (0.7-2.0) mmol/L Calcium 8.2 L (8.4-10.2) mg/dL AST 63 H (14-36) U/L Lactate Dehydrogenase (313-618) U/L C-Reactive Protein (<10.0) mg/L Total Protein 6.0 L (6.3-8.2) g/dL 12/23/19 12/23/19 Range/Units 22:59 22:59 WBC (3.8-10.6) k/uL Neutrophils # (1.3-7.7) k/uL Lymphocytes # (1.0-4.8) k/uL D-Dimer 0.74 H (<0.60) mg/L FEU Sodium (137-145) mmol/L Carbon Dioxide (22-30) mmol/L Plasma Lactic Acid Sancho (0.7-2.0) mmol/L Calcium (8.4-10.2) mg/dL AST (14-36) U/L Lactate Dehydrogenase 697 H (313-618) U/L C-Reactive Protein 13.1 H (<10.0) mg/L Total Protein (6.3-8.2) g/dL Assessment and Plan Assessment: 1- patient presented to hospital with left flank pain as well as left lower abdominal pain with associated nausea vomiting and diarrhea this patient has been recently exposed to antibiotics for possible diverticulitis though CT of abdominal pelvis did not show any diverticulitis or renal stones and UA has been negative chest x-ray negative for any acute infiltrate, with concern for possible bacterial gastroenteritis and less likely C. diff colitis with a likely etiology As the patient seemed to have concentric response to the Levaquin and Flagyl started empirically in the ER. Patient did have predominant GI symptoms and no respiratory symptoms however with elevated inflammatory markers covid 19 infection less likely but not entirely excluded 2-Patient with multiple antibiotic ALLERGIES that would limit the number of antibiotic safe to use (1) Bacterial gastroenteritis Current Visit: Yes Status: Acute Code(s): A04.9 - BACTERIAL INTESTINAL INFECTION, UNSPECIFIED SNOMED Code(s): 649955277 (2) Fever Current Visit: Yes Status: Acute Code(s): R50.9 - FEVER, UNSPECIFIED SNOMED Code(s): 239513422 Plan: 1- we will obtain stool for C. diff and await stool cultures to finalize 2-continue Levaquin and Flagyl 3-gentle IV fluids We will follow on clinical condition and cultures to further adjust medication if needed Thank you for this consultation will follow this patient with you Time with Patient: Greater than 30
[2019-12-25] MEDS: metroNIDAZOLE 500 MG TAB PO SCH ×4 (00:17→23:43)
[2019-12-25] MEDS: SODIUM CHLORIDE 0.9% 1,000 ML IV SCH ×4 (00:17→15:24)
[2019-12-25] MEDS: IBUPROFEN 400 MG TAB PO PRN (06:55)
[2019-12-25 08:00] LABS: Basophils % (A) 0 %; Eosinophils # (A) 0.4 k/uL (0-0.7); Eosinophils % (A) 6 %; HCT 32.8 % (34.0-46.0); HGB 10.7 gm/dL (11.4-16.0); Lymphocytes # (A) 1.8 k/uL (1.0-4.8); Lymphocytes % (A) 26 %; MCH 29.2 pg (25.0-35.0); MCHC 32.7 g/dL (31.0-37.0); MCV 89.3 fL (80.0-100.0); Mean Platelet Volume 8.6; Monocytes # (A) 0.3 k/uL (0-1.0); Monocytes % (A) 5 %; Neutrophils # (A) 4.3 k/uL (1.3-7.7); Neutrophils % (A) 62 %; Platelet Count 206 k/uL (150-450); RBC 3.68 m/uL (3.80-5.40); RDW 14.7 % (11.5-15.5); WBC 6.9 k/uL (3.8-10.6)
[2019-12-25 08:09] LABS: African American GFR (CKD) >90 (>60 ml/min/1.73 sqM); Anion Gap 5 mmol/L; Blood Urea Nitrogen 11 mg/dL (7-17); Calcium 7.5 mg/dL (8.4-10.2); Carbon Dioxide 20 mmol/L (22-30); Chloride 114 mmol/L (98-107); Glucose 100 mg/dL (74-99); Magnesium 1.8 mg/dL (1.6-2.3); Non-African American GFR(CKD) >90 (>60 ml/min/1.73 sqM); Potassium 3.8 mmol/L (3.5-5.1); Sodium 139 mmol/L (137-145)
[2019-12-25] MEDS: ENOXAPARIN 40 MG/0.4 ML SYRINGE SQ SCH (08:09)
[2019-12-25] MEDS: ZIPRASIDONE 20 MG CAP PO SCH ×2 (08:09→20:34)
[2019-12-25] MEDS: BENZTROPINE MESYLATE 1 MG TAB PO SCH ×2 (08:09→20:34)
[2019-12-25] MEDS: LEVOFLOXACIN 750 MG TAB PO SCH (08:10)
[2019-12-25] MEDS: PANTOPRAZOLE 40 MG TABLET PO SCH (08:10)
[2019-12-25] MEDS: ACETAMINOPHEN TAB 325 MG TAB PO PRN ×2 (08:20→19:57)
[2019-12-25] MEDS ORDERED: NON FORMULARY DRUG (Cabergoline [Cabergoline] 0.5 MG Tablet) PO SCH (09:00)
--- NOTE | 2019-12-25 18:19 | P.PN ---
Subjective This is a pleasant 34 years old female with past medical history of asthma and polycystic ovarian syndrome and closed head injury 10 years ago from a fall. Anxiety bipolar and depression. Presents with fever, hypertension and abdominal pain. Patient states she came family because of her left side, abdominal pain that is been going on for 2 week s, also she is been feeling dizzy mostly related to her hypotension. Associated with vomiting about once and loose bowel movement each time she eats starts about 2-3 times also patient found to have fever the abdominal pain is in the left upper quadrant area, left flank area radiating down into the pelvic area felt about 8/10 in severity but currently is pain free and rated 0/10 by patient. Patient went to [facility] where they checked her urine and they told her she has little blood in it.however UA checked here it's completely normal and patient denies any dysuria or other abnormality. Patient does has IUD so she really has no menstrual period as she states She denies smoking, alcohol or illicit drugs. She denies depression or suicidal ideation. On admission she has a fever of 101.1. Blood pressure was 92/42, she received 3 L boluses of normal saline as per documentation. Currently her blood pressure is 85/50. Labs showed leukocytosis of 12.7 K, with leukopenia at 0.3%. risks of CBC is unremarkable. D-dimer is at 0.74. Elevated lactic acid 2.4 Back to normal at 1.0. Lactate dehydrogenase elevated at 697, C-reactive protein is elevated mildly at 13.1. Urinalysis is unremarkable Chest x-ray: No active cardiopulmonary disease. Radiologist. CT of the abdomen and pelvis without contrast showing no acute abnormality of the abdomen and pelvis. EKG showed normal sinus rhythm at 86 BPM in the emergency room she received 3 boluses of normal saline of total of 3 L, and continued on normal saline at a rate of 1 30 mL/h. She received morphine wants and Toradol and Zofran. She was continued on levofloxacin orally 750 mg dailyand Flagyl orally.already given this morning 12/25/2019 Patient is a little better, no dizziness, no hypotension she is tolerating diet well, no nausea vomiting are improving abdominal pain and diarrhea but not completely resolved No fever. Vitals are stable. Stool culture and C. diff tests are pending Continue with Levaquin and Flagyl Objective - Vital Signs Vital signs: Vital Signs Temp 98.1 F 12/25/19 15:16 Pulse 50 L 12/25/19 15:16 Resp 16 12/25/19 15:16 BP 137/78 12/25/19 15:16 Pulse Ox 97 12/25/19 15:16 Intake & Output 12/24/19 12/25/19 12/25/19 18:59 06:59 18:59 Other: Voiding Method Toilet Toilet Toilet # Voids 1 1 1 - Exam -GENERAL: The patient is alert and oriented x3, not in any acute distress. obese HEENT: Pupils are round and equally reacting to light. EOMI. No scleral icterus. No conjunctival pallor. Normocephalic, atraumatic. No pharyngeal erythema. No thyromegaly. CARDIOVASCULAR: S1 and S2 present. No murmurs, rubs, or gallops. PULMONARY: Chest is clear to auscultation, no wheezing or crackles. -ABDOMEN: Soft, mild LUQ tenderness, no rebound tenderness or guarding, nondistended, normoactive bowel sounds. No palpable organomegaly. MUSCULOSKELETAL: No joint swelling or deformity. EXTREMITIES: No cyanosis, clubbing, or pedal edema. NEUROLOGICAL: Gross neurological examination did not reveal any focal deficits. SKIN: No rashes. No petechiae - Labs CBC & Chem 7: 12/25/19 07:36 12/25/19 07:36 Labs: Abnormal Lab Results - Last 24 Hours (Table) 12/24/19 12/25/19 12/25/19 Range/Units 15:00 07:36 07:36 RBC 3.68 L (3.80-5.40) m/uL Hgb 10.7 L (11.4-16.0) gm/dL Hct 32.8 L (34.0-46.0) % Chloride 114 H (98-107) mmol/L Carbon Dioxide 20 L (22-30) mmol/L Glucose 100 H (74-99) mg/dL Calcium 7.5 L (8.4-10.2) mg/dL Stool Lactoferrin POSITIVE H (NEGATIVE) Microbiology - Last 24 Hours (Table) 12/23/19 22:58 Blood Culture - Preliminary Blood No Growth after 24 hours 12/24/19 15:00 Stool Culture - Preliminary Stool Assessment and Plan Assessment: Sepsis with fever, leukocytosis. And no source of infection. possible gastroenteritis. Rule out covid. hypotension secondary to above Increased inflammatory markers Increased lactic acid, came back to normal Chronic asthma History of polycystic ovarian syndrome History of closed head injury 10 years ago Anxiety, bipolar and depression, not an activation multiple drug ALLERGIES Plan: This is a pleasant 34 years old female who presents with fever and hypotension and sepsis.we will and asked for infectious diseases consult. Send stool for butch lehman, including culture, and we'll see and C. diff. Continue with IV fluid at a rate 100 mL per hour lbs and medication were reviewed.. Continue same treatment. Continue with symptomatic treatment. Resume home medication. Monitor lytes and vitals. DVT and GI prophylaxis. Further recommendations depends on the clinical course of the patient DVT prophylaxis: Subcutaneous heparin GI Prophylaxis: Ppi Prognosis is guarded
[2019-12-25] MEDS: DIVALPROEX ER 500 MG TAB.ER.24H PO SCH (20:34)
--- NOTE | 2019-12-25 22:30 | PN ---
PROGRESS NOTE DATE OF SERVICE: 12/25/2019 REASON FOR FOLLOWUP: Fever and diarrhea, possible infectious. INTERVAL HISTORY: The patient's overall fever pattern has improved. No fever has been recorded. Still complains of some pain in the left lower abdominal area, but no worsening. No nausea, no vomiting, and diarrhea has slowed down. PHYSICAL EXAMINATION: Blood pressure 152/79 with a pulse of 46, temperature 98.1. She is 98% on room air. General description is a middle-aged female lying in bed in no distress. RESPIRATORY SYSTEM: Unlabored breathing. Clear to auscultation anteriorly. HEART: S1, S2. Regular rate and rhythm. ABDOMEN: Soft. No tenderness. LABS: Hemoglobin is 10.3, white count 6.9, BUN of 11, creatinine 0.69. Stool culture pending. DIAGNOSTIC IMPRESSION AND PLAN: Patient admitted to hospital with fever, left-sided abdominal pain and diarrhea with possible infectious diarrhea, in this patient who has shown clinical response to Levaquin and Flagyl; to continue while waiting for the stool culture to finalize. Continue with supportive care. MMODL / IJN: [id number] / [email or web address]
[2019-12-26] MEDS: IBUPROFEN 400 MG TAB PO PRN (00:07)
[2019-12-26] MEDS: SODIUM CHLORIDE 0.9% 1,000 ML IV SCH ×3 (00:07→21:20)
[2019-12-26 07:42] LABS: Basophils % (A) 0 %; Eosinophils # (A) 0.3 k/uL (0-0.7); Eosinophils % (A) 4 %; HCT 33.3 % (34.0-46.0); Lymphocytes # (A) 1.9 k/uL (1.0-4.8); Lymphocytes % (A) 20 %; MCH 29.5 pg (25.0-35.0); MCHC 33.1 g/dL (31.0-37.0); Mean Platelet Volume 9.3; Monocytes # (A) 0.4 k/uL (0-1.0); Monocytes % (A) 4 %; Neutrophils # (A) 6.8 k/uL (1.3-7.7); Neutrophils % (A) 71 %; Platelet Count 213 k/uL (150-450); RBC 3.74 m/uL (3.80-5.40); RDW 14.5 % (11.5-15.5); WBC 9.6 k/uL (3.8-10.6)
[2019-12-26] MEDS: ENOXAPARIN 40 MG/0.4 ML SYRINGE SQ SCH (08:00)
[2019-12-26 08:01] LABS: African American GFR (CKD) >90 (>60 ml/min/1.73 sqM); Anion Gap 7 mmol/L; Blood Urea Nitrogen 10 mg/dL (7-17); Calcium 8.2 mg/dL (8.4-10.2); Carbon Dioxide 23 mmol/L (22-30); Chloride 109 mmol/L (98-107); Glucose 93 mg/dL (74-99); Magnesium 1.8 mg/dL (1.6-2.3); Non-African American GFR(CKD) >90 (>60 ml/min/1.73 sqM); Potassium 4.1 mmol/L (3.5-5.1); Sodium 139 mmol/L (137-145)
[2019-12-26] MEDS: PANTOPRAZOLE 40 MG TABLET PO SCH (08:01)
[2019-12-26] MEDS: LEVOFLOXACIN 750 MG TAB PO SCH (08:01)
[2019-12-26] MEDS: metroNIDAZOLE 500 MG TAB PO SCH ×2 (08:01→15:45)
[2019-12-26] MEDS: BENZTROPINE MESYLATE 1 MG TAB PO SCH ×2 (08:01→21:20)
[2019-12-26] MEDS: ZIPRASIDONE 20 MG CAP PO SCH ×2 (08:02→21:55)
--- NOTE | 2019-12-26 09:27 | P.PN ---
Subjective This is a pleasant 34 years old female with past medical history of asthma and polycystic ovarian syndrome and closed head injury 10 years ago from a fall. Anxiety bipolar and depression. Presents with fever, hypertension and abdominal pain. Patient states she came family because of her left side, abdominal pain that is been going on for 2 week s, also she is been feeling dizzy mostly related to her hypotension. Associated with vomiting about once and loose bowel movement each time she eats starts about 2-3 times also patient found to have fever the abdominal pain is in the left upper quadrant area, left flank area radiating down into the pelvic area felt about 8/10 in severity but currently is pain free and rated 0/10 by patient. Patient went to [facility] where they checked her urine and they told her she has little blood in it.however UA checked here it's completely normal and patient denies any dysuria or other abnormality. Patient does has IUD so she really has no menstrual period as she states She denies smoking, alcohol or illicit drugs. She denies depression or suicidal ideation. On admission she has a fever of 101.1. Blood pressure was 92/42, she received 3 L boluses of normal saline as per documentation. Currently her blood pressure is 85/50. Labs showed leukocytosis of 12.7 K, with leukopenia at 0.3%. risks of CBC is unremarkable. D-dimer is at 0.74. Elevated lactic acid 2.4 Back to normal at 1.0. Lactate dehydrogenase elevated at 697, C-reactive protein is elevated mildly at 13.1. Urinalysis is unremarkable Chest x-ray: No active cardiopulmonary disease. Radiologist. CT of the abdomen and pelvis without contrast showing no acute abnormality of the abdomen and pelvis. EKG showed normal sinus rhythm at 86 BPM in the emergency room she received 3 boluses of normal saline of total of 3 L, and continued on normal saline at a rate of 1 30 mL/h. She received morphine wants and Toradol and Zofran. She was continued on levofloxacin orally 750 mg dailyand Flagyl orally.already given this morning 12/25/2019 Patient is a little better, no dizziness, no hypotension she is tolerating diet well, no nausea vomiting are improving abdominal pain and diarrhea but not completely resolved No fever. Vitals are stable. Stool culture and C. diff tests are pending Continue with Levaquin and Flagyl 12/26/2019 Patient is improving gradually however she has a vomiting today 1 after she ate there was no blood in it. Her abdominal pain is still there on the left side about 5/10 in severity, her bowel movement is getting thick but is a still soft, she has about 5-6 bouts of bowel movement. Vitals and labs are stable. Stool culture and C. diff are still pending Continue with oral Flagyl and Levaquin Objective - Vital Signs Vital signs: Vital Signs Temp 98.6 F 12/26/19 07:56 Pulse 50 L 12/26/19 08:50 Resp 16 12/26/19 07:56 BP 132/70 12/26/19 07:56 Pulse Ox 99 12/26/19 07:56 Intake & Output 12/25/19 12/26/19 12/26/19 18:59 06:59 18:59 Intake Total 200 500 Balance 200 500 Intake: Oral 200 500 Other: Voiding Method Toilet Toilet Toilet # Voids 1 1 - Exam -GENERAL: The patient is alert and oriented x3, not in any acute distress. obese HEENT: Pupils are round and equally reacting to light. EOMI. No scleral icterus. No conjunctival pallor. Normocephalic, atraumatic. No pharyngeal erythema. No thyromegaly. CARDIOVASCULAR: S1 and S2 present. No murmurs, rubs, or gallops. PULMONARY: Chest is clear to auscultation, no wheezing or crackles. -ABDOMEN: Soft, mild LUQ tenderness, no rebound tenderness or guarding, nondistended, normoactive bowel sounds. No palpable organomegaly. MUSCULOSKELETAL: No joint swelling or deformity. EXTREMITIES: No cyanosis, clubbing, or pedal edema. NEUROLOGICAL: Gross neurological examination did not reveal any focal deficits. SKIN: No rashes. No petechiae - Labs CBC & Chem 7: 12/26/19 07:09 12/26/19 07:09 Labs: Abnormal Lab Results - Last 24 Hours (Table) 12/24/19 12/26/19 12/26/19 Range/Units 15:00 07:09 07:09 RBC 3.74 L (3.80-5.40) m/uL Hgb 11.0 L (11.4-16.0) gm/dL Hct 33.3 L (34.0-46.0) % Chloride 109 H (98-107) mmol/L Calcium 8.2 L (8.4-10.2) mg/dL Stool Lactoferrin POSITIVE H (NEGATIVE) Microbiology - Last 24 Hours (Table) 12/23/19 22:58 Blood Culture - Preliminary Blood No Growth after 48 hours Assessment and Plan Assessment: Sepsis with fever, leukocytosis. And no source of infection. possible gastroenteritis. Rule out covid. hypotension secondary to above Increased inflammatory markers Increased lactic acid, came back to normal Chronic asthma History of polycystic ovarian syndrome History of closed head injury 10 years ago Anxiety, bipolar and depression, not an activation multiple drug ALLERGIES Plan: This is a pleasant 34 years old female who presents with fever and hypotension and sepsis.we will and asked for infectious diseases consult. Send stool for studies, including culture, and we'll see and C. diff. Continue with IV fluid at a rate 100 mL per hour lbs and medication were reviewed.. Continue same treatment. Continue with symptomatic treatment. Resume home medication. Monitor lytes and vitals. DVT and GI prophylaxis. Further recommendations depends on the clinical course of the patient DVT prophylaxis: Subcutaneous heparin GI Prophylaxis: Ppi Prognosis is guarded
--- NOTE | 2019-12-26 13:08 | PN ---
PROGRESS NOTE DATE OF SERVICE: 12/26/2019 REASON FOR FOLLOW UP: Gastritis, possible bacterial. INTERVAL HISTORY: Patient is currently afebrile. Patient is breathing comfortably. Denies any chest pain. No shortness of breath or cough. Abdominal pain has improved and diarrhea has slowed down. PHYSICAL EXAMINATION: Blood pressure is 132/70 with a pulse of 50, temperature 98.6. She is 99% on room air. General description is a middle-aged female up in the bed in no distress. Respiratory system: Unlabored breathing, clear to auscultation anteriorly. Heart S1, S2. Regular rate and rhythm. ABDOMEN: Soft, no tenderness. LABS: The hemoglobin is 11.9, white count 9.6, BUN of 10, creatinine 0.68. Stool cultures currently pending. DIAGNOSTIC IMPRESSION AND PLAN: Patient admitted to the hospital with fever, predominant gastrointestinal symptoms, left-sided abdominal pain with possible bacterial enterocolitis. Clinically responding to the Flagyl and Levaquin. To continue while awaiting for the stool culture to finalize. Continue supportive care. MMODL / IJN: [id number] /
[2019-12-26] MEDS: DIVALPROEX ER 500 MG TAB.ER.24H PO SCH (21:21)
[2019-12-27] MEDS: metroNIDAZOLE 500 MG TAB PO SCH ×2 (00:23→07:36)
[2019-12-27 07:17] VITALS: TEMP 98.4
[2019-12-27 07:20] LABS: Basophils # (A) 0.1 k/uL (0-0.2); Basophils % (A) 1 %; Eosinophils # (A) 0.4 k/uL (0-0.7); Eosinophils % (A) 4 %; HCT 37.9 % (34.0-46.0); HGB 12.6 gm/dL (11.4-16.0); Lymphocytes # (A) 1.7 k/uL (1.0-4.8); Lymphocytes % (A) 20 %; MCHC 33.3 g/dL (31.0-37.0); Mean Platelet Volume 8.6; Monocytes # (A) 0.4 k/uL (0-1.0); Monocytes % (A) 4 %; Neutrophils # (A) 6.2 k/uL (1.3-7.7); Neutrophils % (A) 70 %; Platelet Count 219 k/uL (150-450); RBC 4.21 m/uL (3.80-5.40); RDW 14.3 % (11.5-15.5); WBC 8.9 k/uL (3.8-10.6)
[2019-12-27] MEDS: LEVOFLOXACIN 750 MG TAB PO SCH (07:36)
[2019-12-27] MEDS: PANTOPRAZOLE 40 MG TABLET PO SCH (07:36)
[2019-12-27] MEDS: ENOXAPARIN 40 MG/0.4 ML SYRINGE SQ SCH (07:37)
[2019-12-27] MEDS: ZIPRASIDONE 20 MG CAP PO SCH (07:37)
[2019-12-27 07:39] LABS: African American GFR (CKD) >90 (>60 ml/min/1.73 sqM); Anion Gap 8 mmol/L; Blood Urea Nitrogen 13 mg/dL (7-17); Calcium 8.7 mg/dL (8.4-10.2); Carbon Dioxide 24 mmol/L (22-30); Chloride 105 mmol/L (98-107); Glucose 90 mg/dL (74-99); Non-African American GFR(CKD) >90 (>60 ml/min/1.73 sqM); Sodium 137 mmol/L (137-145)
[2019-12-27] MEDS: SODIUM CHLORIDE 0.9% 1,000 ML IV SCH (07:39)
[2019-12-27] MEDS: BENZTROPINE MESYLATE 1 MG TAB PO SCH (08:38)
[2019-12-27 12:59] VITALS: BP 136/86; PULSE 73; RESP 18
--- NOTE | 2019-12-27 15:51 | PN ---
PROGRESS NOTE DATE OF SERVICE: 12/27/2019 REASON FOR FOLLOWUP: Bacterial gastroenteritis and colitis. INTERVAL HISTORY: Patient is seen on rounds this afternoon. The patient overall is feeling better. Breathing comfortably. The patient says her abdominal pain has improved. No chest pain or cough. No abdominal pain. No diarrhea. PHYSICAL EXAMINATION: Blood pressure 136/86, pulse of 73, temperature 98.4. She is 96% on room air. General description: The patient is a middle-aged female up in the bed in no distress. Respiratory system: Unlabored breathing, clear to auscultation anteriorly. Heart S1, S2. Regular rate and rhythm. ABDOMEN: Soft, no tenderness. LABS: Hemoglobin is 12.1, white count 8.9, BUN of 13, creatinine 0.72. Stool culture pending. DIAGNOSTIC IMPRESSION AND PLAN: Patient with admission to the hospital with abdominal pain and fever with concern for left-sided colitis. Patient stool culture pending, but she clinically responded to the Levaquin. Plan to continue for about a week and close outpatient followup. Discussed with the admitting physician working on discharge. MMODL / IJN: [id number] /
--- NOTE | 2019-12-27 22:23 | P.DS ---
Providers Date of admission: 12/24/19 14:27 Attending physician: Zack Riggs Consults: 12/24/19 07:36 Consult Physician Urgent Consulting Provider: Jyoti Abel Consult Reason/Comments: fever, and sepsis Do you want consulting provider notified?: Yes Primary care physician: Teofilo Miller [facility] Course: Diagnoses: Acute bacterial gastroenteritis. Improved with antibiotic hypotension secondary to above. Improved Increased inflammatory markers Increased lactic acid, came back to normal Chronic asthma History of polycystic ovarian syndrome History of closed head injury 10 years ago Anxiety, bipolar and depression, not an activation multiple drug ALLERGIES Hospital course: This is a pleasant 34 years old female with past medical history of asthma and polycystic ovarian syndrome and closed head injury 10 years ago from a fall. Anxiety bipolar and depression. Presents with fever, hypotension and left flank abdominal pain That has been going on for 2 weeks. She had low-grade temperature of 101.4, WBC was elevated 12.7 K on presentation She's been treated with oral antibiotics with Flagyl and Levaquin for infectious disease recommendation. Also with IV fluids. Her WBCs came back to normal and patient is afebrile for 3 days. Her symptoms started improving and no nausea vomiting and she tolerates diet well, diarrhea stopped and her abdominal pain is eased down significantly, get up and go test is normal. No other complaints and patient was eager to be discharged home today. Patient has been evaluated by ID team who cleared Her for discharge Problems and management plan were discussed with the patient and he verbalized understanding and acceptance Patient was found stable and can be discharged home however she needs follow-up as an outpatient. Patient was instructed to follow up with PCP Dr. Miller within one week and patient agrees. Also patient was instructed to follow up with GI team for her episode of gastroenteritis with Dr. Villeda within 2 weeks, patient agrees to make her own appointments, a Promus could not be done because this week and Gen: patient is a AAOx3, no distress CVS: S1-S2, RRR, no murmur Lungs: B/L CTA, no wheezing Abdomen: soft, no distention, no tenderness, positive bowel sounds Extremity: no leg edema or induration Time spent more than 35 minutes Patient Condition at Discharge: Stable Plan - Discharge Summary Discharge Rx Participant: No New Discharge Prescriptions: New Acetaminophen Tab [Tylenol] 325 mg PO Q6HR PRN tab PRN Reason: Fever And/ Or Pain Continue Divalproex ER [Depakote ER] 500 mg PO HS Benztropine Mesylate [Cogentin] 1 mg PO BID #8 tablet Fluticasone Nasal [place] [Flonase Nasal [place]] 1 - 2 spray EA NOSTRIL DAILY PRN PRN Reason: Allergy Symptoms Ziprasidone [Geodon] 20 mg PO BID Albuterol Inhaler [Ventolin Hfa Inhaler] 1 - 2 puff INHALATION RT-QID PRN PRN Reason: Shortness Of Breath Cabergoline 0.5 mg PO MOFR Omeprazole 40 mg PO AC-BRKFST metroNIDAZOLE [Flagyl] 500 mg PO Q8H 7 Days #21 tab Levofloxacin [Levaquin] 750 mg PO DAILY 7 Days #7 tab Discontinued Meloxicam 7.5 - 15 mg PO DAILY Discharge Medication List Benztropine Mesylate [Cogentin] 1 mg PO BID #8 tablet 04/23/14 [Rx] Divalproex ER [Depakote ER] 500 mg PO HS 04/23/14 [History] Fluticasone Nasal [place] [Flonase Nasal [place]] 1 - 2 spray EA NOSTRIL DAILY PRN 06/10/17 [History] Ziprasidone [Geodon] 20 mg PO BID 04/21/19 [History] Albuterol Inhaler [Ventolin Hfa Inhaler] 1 - 2 puff INHALATION RT-QID PRN 12/23/19 [History] Cabergoline 0.5 mg PO MOFR 12/23/19 [History] Omeprazole 40 mg PO AC-BRKFST 12/23/19 [History] Acetaminophen Tab [Tylenol] 325 mg PO Q6HR PRN tab 12/27/19 [Rx] Levofloxacin [Levaquin] 750 mg PO DAILY 7 Days #7 tab 12/27/19 [Rx] metroNIDAZOLE [Flagyl] 500 mg PO Q8H 7 Days #21 tab 12/27/19 [Rx] Follow up Appointment(s)/Referral(s): Aleksandra Villeda MD [STAFF PHYSICIAN] - 2 Weeks (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
== END 2019-12-27 14:45 | disposition home or self-care (01) | DRG 872 ==
LOC: EC 19:54 → 1SOBS 22:24 → OBSVTOIN 12-24 14:27
PROVIDERS: ADMIT Hospitalist; ATTEND Hospitalist
DX: A41.9 Sepsis, unspecified organism (principal); A04.9 Bacterial intestinal infection, unspecified; I95.9 Hypotension, unspecified; F31.9 Bipolar disorder, unspecified; J45.909 Unspecified asthma, uncomplicated; Z20.828 Contact with and (suspected) exposure to other viral communicable diseases; F41.9 Anxiety disorder, unspecified; R31.9 Hematuria, unspecified; R74.01 Elevation of levels of liver transaminase levels; E66.9 Obesity, unspecified; Z68.38 Body mass index [BMI] 38.0-38.9, adult; Z79.899 Other long term (current) drug therapy; Z87.820 Personal history of traumatic brain injury; Z91.02 Food additives allergy status; Z87.42 Personal history of other diseases of the female genital tract; Z90.49 Acquired absence of other specified parts of digestive tract; Z88.0 Allergy status to penicillin; Z88.2 Allergy status to sulfonamides; Z88.8 Allergy status to other drugs, medicaments and biological substances
CPT/HCPCS: 36415; 71045; 74176; 80048; 80053; 81003; 82150; 82728; 83605; 83615; 83630; 83690; 83735; 84145; 84703; 85025; 85379; 86140; 87040; 87045; 87046; 87324; 93005; 96361; 96374; 96375; 99285

== ENCOUNTER → 2020-02-10 | Outpatient (CLI) | payer OTHER ==
--- NOTE | 2020-02-10 15:18 | US ---
EXAMINATION TYPE: US thyroid st tissue head/neck DATE OF EXAM: 02/10/2020 COMPARISON: NONE CLINICAL HISTORY: E04.1 nontoxic single thyroid nodule. goiter GLAND SIZE: Right Lobe: 4.8 x 1.6 x 1.8 cm Overall Parenchyma: heterogenous Left Lobe: 3.0 x 1.2 x 1.4 cm Overall Parenchyma: heterogeneous Isthmus Thickness: 0.6 cm NODULES RIGHT: # of nodules measured on right: 0 LEFT: # of nodules measured on left: 0 ISTHMUS: # of nodules measured in the isthmus: 0 Bilateral neck scanned, no evidence of lymphadenopathy. IMPRESSION: Thyroid size as described. No discrete nodule. 2017 ACR TI-RADS LEVEL: *Highest TI-RADS level nodule reported
== END | disposition home or self-care (01) ==
LOC: RADUSWWP 13:58
PROVIDERS: ATTEND Internal Medicine Endocrinology, Diabetes & Metabolism
DX: E04.1 Nontoxic single thyroid nodule (principal)
CPT/HCPCS: 76536

== ENCOUNTER → 2020-02-10 | Outpatient (CLI) | payer OTHER ==
--- NOTE | 2020-02-11 06:51 | MR ---
EXAMINATION TYPE: MR pituitary wo/w con DATE OF EXAM: 02/10/2020 COMPARISON: CT brain February 28, 2014. MRI brain April 30, 2017. HISTORY: Hyperprolactinemia with galactorrhea. TECHNIQUE: Multiplanar, multisequence images of the brain and brainstem is performed without and with IV contras t, utilizing 10 mL intravenous Gadavist . Pituitary gland protocol. FINDINGS: The pituitary gland is within normal limits in size for patient's age and female gender. Th ere is superior convex border. Pituitary stalk shows normal enhancement in the midline. Suprasellar c istern is maintained. Postcontrast images show slightly heterogeneous enhancement without focal area of nonenhancement to suggest microadenoma. Optic chiasm is not effaced. Craniocervical junction is within normal limits. No gross hydrocephalus. Midline structures demonstra te no suspicious or abnormal morphology. Visualized vascular flow voids are unremarkable. IMPRESSION: No MRI evidence for pituitary microadenoma or macroadenoma.
== END | disposition home or self-care (01) ==
LOC: RADMRIMAIN 14:32
PROVIDERS: ATTEND Internal Medicine Endocrinology, Diabetes & Metabolism
DX: E22.1 Hyperprolactinemia (principal)
CPT/HCPCS: 70553; A9585; 76536

== ENCOUNTER 2020-04-25 01:45 | Emergency (ER) | payer OTHER ==
--- NOTE | 2020-04-25 01:59 | ED ---
Allergic Reaction HPI - General Stated complaint: Allergic Reaction Time Seen by Provider: 04/25/20 01:53 Source: RN notes reviewed, old records reviewed Limitations: no limitations - History of Present Illness Initial Comments: This is a 34-year-old female with multiple medical medication ALLERGIES. Patient Dese for she believes is medication ALLERGY, diffuse body hives. Patient states she has ALLERGIES steroids and Benadryl, patient resents by EMS he did give epinephrine as patient was complaining of shortness of breath, rales DF patient does feel improved. Patient did start new medication yesterday that second dose today this was of Antivert for recent diagnosis of dizziness, vertigo and possible ear infection which she was on antibiotics for that she has now finished. Infection ALLERGIC history patient has no significant medical history takes no other medications MD Complaint: allergic reaction, hives -: hour(s) Exposure: unknown Symptoms: rash, itching, facial swelling Treatment Prior to Arrival: epinephrine Previous Allergy History: prior ED visit(s) - Related Data Home Medications Medication Instructions Recorded Confirmed Divalproex ER [Depakote ER] 500 mg PO HS 04/23/14 12/23/19 Fluticasone Nasal [place] [Flonase 1 - 2 spray EA NOSTRIL DAILY PRN 06/10/17 12/23/19 Nasal [place]] Ziprasidone [Geodon] 20 mg PO BID 04/21/19 12/23/19 Albuterol Inhaler [Ventolin Hfa 1 - 2 puff INHALATION RT-QID PRN 12/23/19 12/23/19 Inhaler] Cabergoline 0.5 mg PO MOFR 12/23/19 12/23/19 Omeprazole 40 mg PO AC-BRKFST 12/23/19 12/23/19 Previous Rx's Medication Instructions Recorded Benztropine Mesylate [Cogentin] 1 mg PO BID #8 tablet 04/23/14 Acetaminophen Tab [Tylenol] 325 mg PO Q6HR PRN tab 12/27/19 Levofloxacin [Levaquin] 750 mg PO DAILY 7 Days #7 tab 12/27/19 metroNIDAZOLE [Flagyl] 500 mg PO Q8H 7 Days #21 tab 12/27/19 Allergies Allergy/AdvReac Type Severity Reaction Status Date / Time amoxicillin Allergy Unknown Verified 12/23/19 21:24 brompheniramine maleate Allergy Unknown Verified 12/23/19 21:24 [From Dimetapp (brompheniramine-PPA)] clemastine fumarate Allergy Unknown Verified 12/23/19 21:24 [From Tavist] codeine Allergy Unknown Verified 12/23/19 21:24 diphenhydramine HCl Allergy Unknown Verified 12/23/19 21:24 [From Benadryl] phenylpropanolamine HCl Allergy Unknown Verified 12/23/19 21:24 [From Dimetapp (brompheniramine-PPA)] prednisone Allergy Hallucinati Verified 12/23/19 21:24 ons pseudoephedrine HCl Allergy Unknown Verified 12/23/19 21:24 [From Tavist] red dye Allergy Unknown Verified 12/23/19 21:24 risperidone [From Risperdal] Allergy Unknown Verified 12/23/19 21:24 sulfamethoxazole Allergy Unknown Verified 12/23/19 21:24 [From Bactrim] trimethoprim [From Bactrim] Allergy Unknown Verified 12/23/19 21:24 Review of Systems ROS Statement: Those systems with pertinent positive or pertinent negative responses have been documented in the HPI. ROS Other: All systems not noted in ROS Statement are negative. Past Medical History Past Medical History: Asthma Additional Past Medical History / Comment(s): polycysitic ovarian syndrome, closed head injury 10 years ago from a fall History of Any Multi-Drug Resistant Organisms: None Reported Past Surgical History: Appendectomy Past Anesthesia/Blood Transfusion Reactions: No Reported Reaction Past Psychological History: Anxiety, Bipolar, Depression Smoking Status: Never smoker Past Alcohol Use History: Rare Past Drug Use History: None Reported General Exam General appearance: alert, in no apparent distress Head exam: Present: atraumatic, normocephalic, normal inspection Eye exam: Present: normal appearance, PERRL, EOMI. Absent: scleral icterus, conjunctival injection, periorbital swelling ENT exam: Present: normal exam, mucous membranes moist Neck exam: Present: normal inspection. Absent: tenderness, meningismus, lymphadenopathy Respiratory exam: Present: normal lung sounds bilaterally. Absent: respiratory distress, wheezes, rales, rhonchi, stridor Cardiovascular Exam: Present: regular rate, normal rhythm, normal heart sounds. Absent: systolic murmur, diastolic murmur, rubs, gallop, clicks GI/Abdominal exam: Present: soft, normal bowel sounds. Absent: distended, tenderness, guarding, rebound, rigid Extremities exam: Present: normal inspection, full ROM, normal capillary refill. Absent: tenderness, pedal edema, joint swelling, calf tenderness Back exam: Present: normal inspection Neurological exam: Present: alert, oriented X3, CN II-XII intact Psychiatric exam: Present: normal affect, normal mood Skin exam: Present: warm, dry, intact, normal color. Absent: rash Course Vital Signs 04/25/20 01:57 Temperature 98.9 F Pulse Rate 68 Respiratory 20 Rate Blood Pressure 115/62 O2 Sat by Pulse 98 Oximetry - Reevaluation(s) Reevaluation #1: 04/25/20 03:15 Medical record is reviewed Reevaluation #2: 04/25/20 03:15 Patient has no wheezing or stridor, no shortness of breath Reevaluation #3: 04/25/20 03:15 Patient feels better feels good for discharge Medical Decision Making - Medical Decision Making 34 female DF for evaluation patient presents today for evaluation regarding ALLERGIC reaction. Patient has multiple medical ALLERGIES including Benadryl steroids was given epinephrine now has significant improvement ALLERGIC symptoms and can be discharged home Disposition Clinical Impression: Urticaria Disposition: HOME SELF-CARE Condition: Good Instructions (If sedation given, give patient instructions): Urticaria (ED), Anaphylaxis (ED) Is patient prescribed a controlled substance at d/c from ED?: No Referrals: None,Stated [Primary Care Provider] - 1-2 days
[2020-04-25 02:09] VITALS: TEMP 98.9
[2020-04-25] MEDS ORDERED: FAMOTIDINE 20 MG/2 ML VIAL IV STA (02:10)
[2020-04-25] MEDS ORDERED: diphenhydrAMINE 50 MG/ML 1 ML VIAL IVP STA (02:10)
[2020-04-25] MEDS ORDERED: SODIUM CHLORIDE 0.9% 1,000 ML IV STA (02:10)
[2020-04-25 06:13] VITALS: RESP 18
[2020-04-25] MEDS ORDERED: SODIUM CHLORIDE 0.9% 500 ML 500 ML IV ONE (06:19)
[2020-04-25 07:15] VITALS: BP 95/51; PULSE 64
== END 2020-04-25 07:05 | disposition home or self-care (01) ==
LOC: EC 01:45
DX: L50.0 Allergic urticaria (principal); J45.909 Unspecified asthma, uncomplicated; F31.9 Bipolar disorder, unspecified; F41.9 Anxiety disorder, unspecified; Z79.899 Other long term (current) drug therapy; Z88.1 Allergy status to other antibiotic agents; Z88.2 Allergy status to sulfonamides; Z88.8 Allergy status to other drugs, medicaments and biological substances; Z88.5 Allergy status to narcotic agent; Z91.041 Radiographic dye allergy status; Z90.49 Acquired absence of other specified parts of digestive tract
CPT/HCPCS: 96361; 96374; 99285

== ENCOUNTER 2020-05-06 21:01 | Emergency (ER) | payer OTHER ==
[2020-05-06 21:05] VITALS: TEMP 99
[2020-05-06 21:16] VITALS: RESP 16
[2020-05-06] MEDS ORDERED: SODIUM CHLORIDE 0.9% 1,000 ML IV STA (21:19)
[2020-05-06] MEDS ORDERED: FAMOTIDINE 20 MG/2 ML VIAL IV STA (21:19)
[2020-05-06] MEDS ORDERED: KETOROLAC 15 MG/ML 1 ML VIAL IVP STA (21:19)
[2020-05-06] MEDS ORDERED: ONDANSETRON 4 MG/2 ML VIAL IVP STA (21:19)
[2020-05-06 22:19] LABS: Basophils # (A) 0.1 k/uL (0-0.2); Basophils % (A) 1 %; Eosinophils # (A) 0.3 k/uL (0-0.7); Eosinophils % (A) 4 %; HCT 37.6 % (34.0-46.0); HGB 13.1 gm/dL (11.4-16.0); Lymphocytes # (A) 2.4 k/uL (1.0-4.8); Lymphocytes % (A) 30 %; MCH 29.7 pg (25.0-35.0); MCHC 34.7 g/dL (31.0-37.0); MCV 85.5 fL (80.0-100.0); Mean Platelet Volume 8.4; Monocytes # (A) 0.3 k/uL (0-1.0); Monocytes % (A) 4 %; Neutrophils # (A) 4.8 k/uL (1.3-7.7); Neutrophils % (A) 61 %; Platelet Count 252 k/uL (150-450); RDW 13.6 % (11.5-15.5); WBC 7.9 k/uL (3.8-10.6)
[2020-05-06 22:31] LABS: ALT 21 U/L (4-34); AST 25 U/L (14-36); African American GFR (CKD) >90 (>60 ml/min/1.73 sqM); Albumin 4.1 g/dL (3.5-5.0); Alkaline Phosphatase 84 U/L (38-126); Anion Gap 9 mmol/L; Blood Urea Nitrogen 13 mg/dL (7-17); Calcium 8.9 mg/dL (8.4-10.2); Carbon Dioxide 25 mmol/L (22-30); Chloride 104 mmol/L (98-107); Glucose 111 mg/dL (74-99); Lipase 195 U/L (23-300); Non-African American GFR(CKD) >90 (>60 ml/min/1.73 sqM); Potassium 3.7 mmol/L (3.5-5.1); Sodium 138 mmol/L (137-145); Total Bilirubin 0.4 mg/dL (0.2-1.3); Total Protein 6.7 g/dL (6.3-8.2)
[2020-05-06 22:33] LABS: Appearance,Urine Cloudy (Clear); Bacteria,Urine Rare /hpf; Bilirubin,Urine Negative (Negative); Blood,Urine Trace (Negative); Color,Urine Colorless; Glucose,Urine (UA) Negative (Negative); Ketones,Urine Negative (Negative); Leukocyte Esterase,Urine Negative (Negative); Nitrite,Urine Negative (Negative); PH, Urine 7.5 (5.0-8.0); Protein,Urine Negative (Negative); RBC,Urine 1 /hpf (0-5); Specific Gravity,Urine 1.008 (1.001-1.035); Squamous Epithelial Cell,Urine 3 /hpf (0-4); Urobilinogen,Urine <2.0 mg/dL (<2.0); WBC,Urine 1 /hpf (0-5)
--- NOTE | 2020-05-06 22:57 | ED ---
General Adult HPI - General Chief complaint: Allergic Reaction Stated complaint: allergic reaction, vomiting Time Seen by Provider: 05/06/20 21:09 Source: patient Mode of arrival: ambulatory Limitations: no limitations - History of Present Illness Initial comments: 34-year-old female patient presents to the emergency department today concerned she may be having ALLERGIC reaction. Patient states she is having itching to the skin on her chest and arms. States she did have some hives on her chest. States she felt stiffness in her jaw. States she is also nauseated and has vomited several times. Has had a couple of episodes of diarrhea. States she is having some left-sided abdominal discomfort. Denies fever or chills. Denies any new medications or substances. She is unsure if it is something she ate. States that she did have a similar reaction a couple of weeks ago and was seen in the emergency department and discharged. Patient denies any recent cough, shortness of breath, chest pain, constipation, back pain, numbness, tingling, dizziness, weakness, hematuria, dysuria, urinary urgency, urinary frequency, headache, visual changes, or any other complaints. - Related Data Home Medications Medication Instructions Recorded Confirmed Divalproex ER [Depakote ER] 500 mg PO HS 04/23/14 12/23/19 Fluticasone Nasal [place] [Flonase 1 - 2 spray EA NOSTRIL DAILY PRN 06/10/17 12/23/19 Nasal [place]] Ziprasidone [Geodon] 20 mg PO BID 04/21/19 12/23/19 Albuterol Inhaler [Ventolin Hfa 1 - 2 puff INHALATION RT-QID PRN 12/23/19 12/23/19 Inhaler] Cabergoline 0.5 mg PO MOFR 12/23/19 12/23/19 Omeprazole 40 mg PO AC-BRKFST 12/23/19 12/23/19 Previous Rx's Medication Instructions Recorded Benztropine Mesylate [Cogentin] 1 mg PO BID #8 tablet 04/23/14 Acetaminophen Tab [Tylenol] 325 mg PO Q6HR PRN tab 12/27/19 Levofloxacin [Levaquin] 750 mg PO DAILY 7 Days #7 tab 12/27/19 metroNIDAZOLE [Flagyl] 500 mg PO Q8H 7 Days #21 tab 12/27/19 Ondansetron [Zofran ODT] 4 mg PO Q8HR PRN #10 tab 05/06/20 Allergies Allergy/AdvReac Type Severity Reaction Status Date / Time amoxicillin Allergy Unknown Verified 05/06/20 21:05 brompheniramine maleate Allergy Unknown Verified 05/06/20 21:05 [From Dimetapp (brompheniramine-PPA)] clemastine fumarate Allergy Unknown Verified 05/06/20 21:05 [From Tavist] codeine Allergy Unknown Verified 05/06/20 21:05 diphenhydramine HCl Allergy Unknown Verified 05/06/20 21:05 [From Benadryl] phenylpropanolamine HCl Allergy Unknown Verified 05/06/20 21:05 [From Dimetapp (brompheniramine-PPA)] prednisone Allergy Hallucinati Verified 05/06/20 21:05 ons pseudoephedrine HCl Allergy Unknown Verified 05/06/20 21:05 [From Tavist] red dye Allergy Unknown Verified 05/06/20 21:05 risperidone [From Risperdal] Allergy Unknown Verified 05/06/20 21:05 sulfamethoxazole Allergy Unknown Verified 05/06/20 21:05 [From Bactrim] trimethoprim [From Bactrim] Allergy Unknown Verified 05/06/20 21:05 Review of Systems ROS Statement: Those systems with pertinent positive or pertinent negative responses have been documented in the HPI. ROS Other: All systems not noted in ROS Statement are negative. Past Medical History Past Medical History: Asthma Additional Past Medical History / Comment(s): polycysitic ovarian syndrome, closed head injury 10 years ago from a fall History of Any Multi-Drug Resistant Organisms: None Reported Past Surgical History: Appendectomy Past Anesthesia/Blood Transfusion Reactions: No Reported Reaction Past Psychological History: Anxiety, Bipolar, Depression Smoking Status: Never smoker Past Alcohol Use History: Rare Past Drug Use History: None Reported General Exam Limitations: no limitations General appearance: alert, in no apparent distress, other (Physical well- developed, well-nourished adult female patient in no acute distress. Vital signs upon presentation are temperature 99.0F, pulse 92, respirations 18, blood pressure 150/110, pulse ox 98% on room air.) Respiratory exam: Present: normal lung sounds bilaterally. Absent: respiratory distress, wheezes, rales, rhonchi, stridor Cardiovascular Exam: Present: regular rate, normal rhythm, normal heart sounds. Absent: systolic murmur, diastolic murmur, rubs, gallop, clicks GI/Abdominal exam: Present: soft, normal bowel sounds. Absent: distended, tenderness, guarding, rebound, rigid Neurological exam: Present: alert, oriented X3, CN II-XII intact Psychiatric exam: Present: normal affect, normal mood Skin exam: Present: warm, dry, intact, normal color. Absent: rash Course Vital Signs 05/06/20 05/06/20 05/06/20 21:03 21:15 23:52 Temperature 99 F Pulse Rate 92 84 78 Respiratory 18 16 16 Rate Blood Pressure 150/110 123/87 121/78 O2 Sat by Pulse 98 98 98 Oximetry EKG Findings - EKG Comments: EKG Findings:: EKG obtained at 2211 shows sinus rhythm with marked sinus arrhythmia. Ventricular rate is 65, NJ interval 146, QRS duration 84, QT 402, QTc 418. No evidence of ST elevation or depression. Medical Decision Making - Medical Decision Making 34 year-old female patient presents to the emergency department for evaluation of abdominal discomfort, diarrhea, and vomiting. She was also reporting chest a nd arm itching. Physical examination did reveal mild left lower quadrant tenderness. She had no evidence for rash. She is afebrile, vital signs. Labs reviewed and are unremarkable. Upon reevaluation she is resting comfortable in bed, states her symptoms are improved. She did report that she has had similar type symptoms quite frequently in the past and has seen GI specialist and her primary care physician they think she may have irritable bowel syndrome. She will be discharged to follow up with her primary care physician for recheck in 1-2 days. Return parameters were discussed in detail. She verbalizes understanding and agrees this plan. Case discussed with my attending Dr. Mendez. - Lab Data Result diagrams: 05/06/20 21:50 05/06/20 21:50 Lab Results 05/06/20 05/06/20 05/06/20 Range/Units 21:50 21:50 21:50 WBC 7.9 (3.8-10.6) k/uL RBC 4.40 (3.80-5.40) m/uL Hgb 13.1 (11.4-16.0) gm/dL Hct 37.6 (34.0-46.0) % MCV 85.5 (80.0-100.0) fL MCH 29.7 (25.0-35.0) pg MCHC 34.7 (31.0-37.0) g/dL RDW 13.6 (11.5-15.5) % Plt Count 252 (150-450) k/uL MPV 8.4 Neutrophils % 61 % Lymphocytes % 30 % Monocytes % 4 % Eosinophils % 4 % Basophils % 1 % Neutrophils # 4.8 (1.3-7.7) k/uL Lymphocytes # 2.4 (1.0-4.8) k/uL Monocytes # 0.3 (0-1.0) k/uL Eosinophils # 0.3 (0-0.7) k/uL Basophils # 0.1 (0-0.2) k/uL Sodium (137-145) mmol/L Potassium (3.5-5.1) mmol/L Chloride (98-107) mmol/L Carbon Dioxide (22-30) mmol/L Anion Gap mmol/L BUN (7-17) mg/dL Creatinine (0.52-1.04) mg/dL Est GFR (CKD-EPI)AfAm (>60 ml/min/1.73 sqM) Est GFR (CKD-EPI)NonAf (>60 ml/min/1.73 sqM) Glucose (74-99) mg/dL Plasma Lactic Acid Sancho (0.7-2.0) mmol/L Calcium (8.4-10.2) mg/dL Total Bilirubin (0.2-1.3) mg/dL AST (14-36) U/L ALT (4-34) U/L Alkaline Phosphatase (38-126) U/L Total Protein (6.3-8.2) g/dL Albumin (3.5-5.0) g/dL Lipase (23-300) U/L Urine Color Colorless Urine Appearance Cloudy H (Clear) Urine pH 7.5 (5.0-8.0) Ur Specific [place] 1.008 (1.001-1.035) Urine Protein Negative (Negative) Urine Glucose (UA) Negative (Negative) Urine Ketones Negative (Negative) Urine Blood Trace H (Negative) Urine Nitrite Negative (Negative) Urine Bilirubin Negative (Negative) Urine Urobilinogen <2.0 (<2.0) mg/dL Ur Leukocyte Esterase Negative (Negative) Urine RBC 1 (0-5) /hpf Urine WBC 1 (0-5) /hpf Ur Squamous Epith Cells 3 (0-4) /hpf Urine Bacteria Rare H (None) /hpf Urine HCG, Qual Not Detected (Not Detectd) 05/06/20 05/06/20 Range/Units 21:50 21:50 WBC (3.8-10.6) k/uL RBC (3.80-5.40) m/uL Hgb (11.4-16.0) gm/dL Hct (34.0-46.0) % MCV (80.0-100.0) fL MCH (25.0-35.0) pg MCHC (31.0-37.0) g/dL RDW (11.5-15.5) % Plt Count (150-450) k/uL MPV Neutrophils % % Lymphocytes % % Monocytes % % Eosinophils % % Basophils % % Neutrophils # (1.3-7.7) k/uL Lymphocytes # (1.0-4.8) k/uL Monocytes # (0-1.0) k/uL Eosinophils # (0-0.7) k/uL Basophils # (0-0.2) k/uL Sodium 138 (137-145) mmol/L Potassium 3.7 (3.5-5.1) mmol/L Chloride 104 (98-107) mmol/L Carbon Dioxide 25 (22-30) mmol/L Anion Gap 9 mmol/L BUN 13 (7-17) mg/dL Creatinine 0.70 (0.52-1.04) mg/dL Est GFR (CKD-EPI)AfAm >90 (>60 ml/min/1.73 sqM) Est GFR (CKD-EPI)NonAf >90 (>60 ml/min/1.73 sqM) Glucose 111 H (74-99) mg/dL Plasma Lactic Acid Sancho 1.9 (0.7-2.0) mmol/L Calcium 8.9 (8.4-10.2) mg/dL Total Bilirubin 0.4 (0.2-1.3) mg/dL AST 25 (14-36) U/L ALT 21 (4-34) U/L Alkaline Phosphatase 84 (38-126) U/L Total Protein 6.7 (6.3-8.2) g/dL Albumin 4.1 (3.5-5.0) g/dL Lipase 195 (23-300) U/L Urine Color Urine Appearance (Clear) Urine pH (5.0-8.0) Ur Specific [place] (1.001-1.035) Urine Protein (Negative) Urine Glucose (UA) (Negative) Urine Ketones (Negative) Urine Blood (Negative) Urine Nitrite (Negative) Urine Bilirubin (Negative) Urine Urobilinogen (<2.0) mg/dL Ur Leukocyte Esterase (Negative) Urine RBC (0-5) /hpf Urine WBC (0-5) /hpf Ur Squamous Epith Cells (0-4) /hpf Urine Bacteria (None) /hpf Urine HCG, Qual (Not Detectd) Disposition Clinical Impression: Abdominal pain, Vomiting Disposition: HOME SELF-CARE Condition: Good Instructions (If sedation given, give patient instructions): Acute Nausea and Vomiting (ED), Abdominal Pain (ED) Additional Instructions: Start with clear liquid diet and advance as tolerated. Take medications as directed. Follow-up with your primary care physician for recheck in 1-2 days. Discussed possible diagnosis of cyclic vomiting syndrome. Return to the emergency department for any new, worsening, or concerning symptoms. Prescriptions: Ondansetron [Zofran ODT] 4 mg PO Q8HR PRN #10 tab PRN Reason: Nausea Is patient prescribed a controlled substance at d/c from ED?: No Referrals: Teofilo Miller MD [Primary Care Provider] - 1-2 days Time of Disposition: 23:26
[2020-05-06] MEDS ORDERED: ONDANSETRON 4 MG ODT STARTER PACK 2 TAB BTL PO STA (23:26)
[2020-05-06 23:54] VITALS: BP 121/78; PULSE 78
== END 2020-05-06 23:54 | disposition home or self-care (01) ==
LOC: EC 21:01
DX: R10.9 Unspecified abdominal pain (principal); R11.2 Nausea with vomiting, unspecified; R19.7 Diarrhea, unspecified; L29.9 Pruritus, unspecified; J45.909 Unspecified asthma, uncomplicated; F41.9 Anxiety disorder, unspecified; F31.9 Bipolar disorder, unspecified; Z79.51 Long term (current) use of inhaled steroids; Z79.899 Other long term (current) drug therapy; Z88.0 Allergy status to penicillin; Z88.5 Allergy status to narcotic agent; Z88.8 Allergy status to other drugs, medicaments and biological substances; Z88.2 Allergy status to sulfonamides; Z88.1 Allergy status to other antibiotic agents; Z91.041 Radiographic dye allergy status
CPT/HCPCS: 36415; 93005; 80053; 83605; 83690; 85025; 81001; 81025; 96374; 96375 ×2; 96361; 99284; J2405; J1885; S0119

== ENCOUNTER 2020-06-01 22:59 | Emergency (ER) | payer OTHER ==
[2020-06-01 23:09] VITALS: RESP 18; TEMP 99.1
[2020-06-01] MEDS ORDERED: ALBUTEROL NEBULIZED 2.5 MG/3 ML INHALATION STA (23:36)
[2020-06-01] MEDS ORDERED: IPRATROPIUM-ALBUTEROL 3 ML NEB INHALATION STA (23:36)
--- NOTE | 2020-06-01 23:40 | ED ---
SOB HPI - General Chief Complaint: Shortness of Breath Stated Complaint: SANDRA Time Seen by Provider: 06/01/20 23:01 Source: patient, EMS Mode of arrival: EMS Limitations: no limitations - History of Present Illness Initial Comments: This patient is a 34-year-old woman who presents to be evaluated for which he thinks is a reaction to medication. She states that she started feeling short of breath in the afternoon and into tonight. She had been given a new medication for a rash to her right thigh that she states was diagnosed as shingles. The patient states that the first came on was a small patch of redness and irritation to the medial aspect of the right thigh. This was about 3-4 days ago after she had been riding an exercise bike, working out. The patient states that the small patch got little larger so she had a video consultation and was told that the physician suspected shingles. She was given acyclovir to take and triamcinolone cream. I states that the rash has called a bit with topical but that she thinks medication is causing her to feel short of breath. This came on in the evening tonight. No angioedema type symptoms. No difficulty with speech or swallowing. MD Complaint: shortness of breath -: hour(s) Severity scale (1-10): 0 Consistency: constant Improves With: nothing Worsens With: nothing Known History Of: asthma Context: other Associated Symptoms: rash - Related Data Home Medications Medication Instructions Recorded Confirmed Divalproex ER [Depakote ER] 500 mg PO HS 04/23/14 12/23/19 Fluticasone Nasal [place] [Flonase 1 - 2 spray EA NOSTRIL DAILY PRN 06/10/17 12/23/19 Nasal [place]] Ziprasidone [Geodon] 20 mg PO BID 04/21/19 12/23/19 Albuterol Inhaler [Ventolin Hfa 1 - 2 puff INHALATION RT-QID PRN 12/23/19 12/23/19 Inhaler] Cabergoline 0.5 mg PO MOFR 12/23/19 12/23/19 Omeprazole 40 mg PO AC-BRKFST 12/23/19 12/23/19 Previous Rx's Medication Instructions Recorded Benztropine Mesylate [Cogentin] 1 mg PO BID #8 tablet 04/23/14 Acetaminophen Tab [Tylenol] 325 mg PO Q6HR PRN tab 12/27/19 Levofloxacin [Levaquin] 750 mg PO DAILY 7 Days #7 tab 12/27/19 metroNIDAZOLE [Flagyl] 500 mg PO Q8H 7 Days #21 tab 12/27/19 Ondansetron [Zofran ODT] 4 mg PO Q8HR PRN #10 tab 05/06/20 Allergies Allergy/AdvReac Type Severity Reaction Status Date / Time amoxicillin Allergy Unknown Verified 06/01/20 23:10 brompheniramine maleate Allergy Unknown Verified 06/01/20 23:10 [From Dimetapp (brompheniramine-PPA)] clemastine fumarate Allergy Unknown Verified 06/01/20 23:10 [From Tavist] codeine Allergy Unknown Verified 06/01/20 23:10 diphenhydramine HCl Allergy Unknown Verified 06/01/20 23:10 [From Benadryl] phenylpropanolamine HCl Allergy Unknown Verified 06/01/20 23:10 [From Dimetapp (brompheniramine-PPA)] prednisone Allergy Hallucinati Verified 06/01/20 23:10 ons pseudoephedrine HCl Allergy Unknown Verified 06/01/20 23:10 [From Tavist] red dye Allergy Unknown Verified 06/01/20 23:10 risperidone [From Risperdal] Allergy Unknown Verified 06/01/20 23:10 sulfamethoxazole Allergy Unknown Verified 06/01/20 23:10 [From Bactrim] trimethoprim [From Bactrim] Allergy Unknown Verified 06/01/20 23:10 Review of Systems ROS Statement: Those systems with pertinent positive or pertinent negative responses have been documented in the HPI. ROS Other: All systems not noted in ROS Statement are negative. Constitutional: Denies: fever, chills Eyes: Denies: eye discharge ENT: Denies: throat pain, congestion Respiratory: Reports: as per HPI, dyspnea, wheezes. Denies: cough, hemoptysis Cardiovascular: Denies: chest pain, palpitations, edema Gastrointestinal: Denies: abdominal pain, vomiting, diarrhea Genitourinary: Denies: dysuria, hematuria Musculoskeletal: Denies: back pain Skin: Reports: as per HPI, rash Neurological: Denies: headache, weakness Past Medical History Past Medical History: Asthma Additional Past Medical History / Comment(s): polycysitic ovarian syndrome, closed head injury 10 years ago from a fall. Shingles on right inner thigh \2020 History of Any Multi-Drug Resistant Organisms: None Reported Past Surgical History: Appendectomy Past Anesthesia/Blood Transfusion Reactions: No Reported Reaction Past Psychological History: Anxiety, Bipolar, Depression Smoking Status: Never smoker Past Alcohol Use History: Rare Past Drug Use History: None Reported General Exam Limitations: no limitations General appearance: alert, in no apparent distress Head exam: Present: atraumatic, normocephalic Eye exam: Present: normal appearance. Absent: scleral icterus, conjunctival injection ENT exam: Present: normal oropharynx Neck exam: Present: normal inspection, full ROM Respiratory exam: Present: wheezes. Absent: respiratory distress, rales, rhonchi, stridor, accessory muscle use, decreased breath sounds, prolonged expiratory Cardiovascular Exam: Present: regular rate, normal rhythm, normal heart sounds. Absent: systolic murmur, diastolic murmur, rubs, gallop GI/Abdominal exam: Present: soft. Absent: distended, tenderness, guarding, rebound, rigid, mass Extremities exam: Present: normal inspection, normal capillary refill. Absent: pedal edema, calf tenderness Back exam: Present: normal inspection. Absent: CVA tenderness (R), CVA tenderness (L) Neurological exam: Present: alert Skin exam: Present: warm, dry, intact, normal color. Absent: rash Course Vital Signs 06/01/20 06/01/20 23:04 23:51 Temperature 99.1 F Pulse Rate 79 78 Respiratory 18 18 Rate Blood Pressure 146/104 129/78 O2 Sat by Pulse 96 96 Oximetry Disposition Clinical Impression: Asthma Disposition: HOME SELF-CARE Condition: Good Instructions (If sedation given, give patient instructions): Asthma (ED) Is patient prescribed a controlled substance at d/c from ED?: No Referrals: Conrado Rey MD [Primary Care Provider] - 1-2 days
--- NOTE | 2020-06-02 00:08 | XR ---
EXAMINATION TYPE: XR chest 2V DATE OF EXAM: 06/01/2020 COMPARISON: 12/23/2019 HISTORY: Short of breath. TECHNIQUE: FINDINGS: There is no heart failure nor confluent pneumonic infiltrate. Costophrenic angles are clear . Heart size is normal. There are no hilar masses. The bony thorax is intact. IMPRESSION: No active cardiopulmonary disease. Normal heart. There is clearing of the mild pulmonary congestion compared to old exam.
[2020-06-02] MEDS ORDERED: ALBUTEROL HFA INHALER INHALATION STA (00:25)
[2020-06-02 00:59] VITALS: BP 137/98; PULSE 79
== END 2020-06-02 00:59 | disposition home or self-care (01) ==
LOC: EC 22:59
DX: J45.909 Unspecified asthma, uncomplicated (principal); F41.9 Anxiety disorder, unspecified; F32.9 Major depressive disorder, single episode, unspecified; Z79.899 Other long term (current) drug therapy; Z20.822 Contact with and (suspected) exposure to COVID-19
CPT/HCPCS: 71046; 87635; 94640; 99285

== ENCOUNTER 2020-07-30 21:57 | Emergency (ER) | payer OTHER ==
[2020-07-30 22:24] VITALS: RESP 16; TEMP 98.4
[2020-07-30] MEDS ORDERED: SODIUM CHLORIDE 0.9% 1,000 ML IV STA (22:47)
[2020-07-30] MEDS ORDERED: FAMOTIDINE 20 MG/2 ML VIAL IV STA (22:48)
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
[2020-07-30 23:11] LABS: Basophils # (A) 0.1 k/uL (0-0.2); Basophils % (A) 1 %; Eosinophils # (A) 0.3 k/uL (0-0.7); Eosinophils % (A) 3 %; HCT 36.6 % (34.0-46.0); HGB 12.8 gm/dL (11.4-16.0); Lymphocytes # (A) 2.3 k/uL (1.0-4.8); Lymphocytes % (A) 26 %; MCH 29.9 pg (25.0-35.0); MCHC 34.9 g/dL (31.0-37.0); MCV 85.8 fL (80.0-100.0); Mean Platelet Volume 8.3; Monocytes # (A) 0.5 k/uL (0-1.0); Monocytes % (A) 5 %; Neutrophils # (A) 5.7 k/uL (1.3-7.7); Neutrophils % (A) 64 %; Platelet Count 246 k/uL (150-450); RBC 4.27 m/uL (3.80-5.40); RDW 13.7 % (11.5-15.5); WBC 8.8 k/uL (3.8-10.6)
--- NOTE | 2020-07-30 23:11 | XR ---
EXAMINATION TYPE: XR KUB DATE OF EXAM: 07/30/2020 COMPARISON: 05/11/2016 HISTORY: Abdominal pain TECHNIQUE: 2 views upright FINDINGS: There is no sign of intestinal obstruction or pneumoperitoneum. Fecal pattern is normal. Th ere is IUD noted in the pelvis. Lung bases are clear. There are no pathologic calcifications over the kidneys. IMPRESSION: Nonacute abdomen. No change.
[2020-07-30 23:14] LABS: Appearance,Urine Clear (Clear); Bilirubin,Urine Negative (Negative); Blood,Urine Negative (Negative); Color,Urine Colorless; Glucose,Urine (UA) Negative (Negative); Ketones,Urine Negative (Negative); Leukocyte Esterase,Urine Negative (Negative); Nitrite,Urine Negative (Negative); PH, Urine 7.5 (5.0-8.0); Protein,Urine Negative (Negative); Specific Gravity,Urine 1.006 (1.001-1.035); Urobilinogen,Urine <2.0 mg/dL (<2.0)
[2020-07-30 23:20] LABS: ALT 19 U/L (4-34); AST 29 U/L (14-36); African American GFR (CKD) >90 (>60 ml/min/1.73 sqM); Alkaline Phosphatase 77 U/L (38-126); Amylase 51 U/L (30-110); Anion Gap 7 mmol/L; Blood Urea Nitrogen 14 mg/dL (7-17); Calcium 8.7 mg/dL (8.4-10.2); Carbon Dioxide 24 mmol/L (22-30); Chloride 108 mmol/L (98-107); Glucose 89 mg/dL (74-99); Lipase 245 U/L (23-300); Non-African American GFR(CKD) >90 (>60 ml/min/1.73 sqM); Potassium 3.8 mmol/L (3.5-5.1); Sodium 139 mmol/L (137-145); Total Bilirubin 0.3 mg/dL (0.2-1.3); Total Protein 6.4 g/dL (6.3-8.2)
[2020-07-31 01:04] VITALS: BP 125/87; PULSE 64
== END 2020-07-31 01:03 | disposition home or self-care (01) ==
LOC: EC 21:57
DX: K58.9 Irritable bowel syndrome, unspecified (principal); J45.909 Unspecified asthma, uncomplicated; Z88.0 Allergy status to penicillin; Z88.8 Allergy status to other drugs, medicaments and biological substances; Z88.5 Allergy status to narcotic agent; Z88.2 Allergy status to sulfonamides; Z91.041 Radiographic dye allergy status; Z90.89 Acquired absence of other organs
CPT/HCPCS: 36415; 74018; 80053; 81003; 81025; 82150; 83605; 83690; 85025; 96361; 96374; 99284

== ENCOUNTER 2020-10-30 22:03 | Emergency (ER) | payer OTHER ==
[2020-10-30 22:31] VITALS: BP 143/87; PULSE 66; RESP 19; TEMP 98.7
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
== END 2020-10-31 00:22 | disposition home or self-care (01) ==
LOC: EC 22:03
DX: L23.7 Allergic contact dermatitis due to plants, except food (principal); R51.9 Headache, unspecified; J45.909 Unspecified asthma, uncomplicated; Z88.1 Allergy status to other antibiotic agents; Z88.5 Allergy status to narcotic agent; Z88.8 Allergy status to other drugs, medicaments and biological substances; Z88.2 Allergy status to sulfonamides; W22.8XXA Striking against or struck by other objects, initial encounter; Y93.55 Activity, bike riding
CPT/HCPCS: 99283

== ENCOUNTER 2020-11-13 21:26 | Emergency (ER) | payer OTHER ==
[2020-11-13] MEDS ORDERED: FAMOTIDINE 20 MG/2 ML VIAL IV STA (22:02)
[2020-11-13] MEDS ORDERED: SODIUM CHLORIDE 0.9% 500 ML 500 ML IV STA (22:02)
[2020-11-13 23:01] LABS: Basophils # (A) 0.1 k/uL (0-0.2); Basophils % (A) 1 %; Eosinophils # (A) 0.4 k/uL (0-0.7); Eosinophils % (A) 4 %; HGB 12.8 gm/dL (11.4-16.0); Lymphocytes # (A) 3.3 k/uL (1.0-4.8); Lymphocytes % (A) 32 %; MCH 30.1 pg (25.0-35.0); MCHC 34.5 g/dL (31.0-37.0); MCV 87.1 fL (80.0-100.0); Mean Platelet Volume 8.2; Monocytes # (A) 0.5 k/uL (0-1.0); Monocytes % (A) 5 %; Neutrophils # (A) 5.8 k/uL (1.3-7.7); Neutrophils % (A) 56 %; Platelet Count 284 k/uL (150-450); RBC 4.25 m/uL (3.80-5.40); RDW 14.4 % (11.5-15.5); WBC 10.4 k/uL (3.8-10.6)
--- NOTE | 2020-11-13 23:04 | XR ---
EXAMINATION TYPE: XR chest 2V DATE OF EXAM: 11/13/2020 COMPARISON: 06/02/2020 HISTORY: Difficulty breathing TECHNIQUE: FINDINGS: Heart and mediastinum are normal. Lungs are clear. Diaphragm is normal. Bony thorax is inta ct. IMPRESSION: Normal chest. No change.
[2020-11-13 23:09] LABS: ALT 16 U/L (4-34); AST 24 U/L (14-36); African American GFR (CKD) >90 (>60 ml/min/1.73 sqM); Albumin 3.6 g/dL (3.5-5.0); Alkaline Phosphatase 94 U/L (38-126); Anion Gap 7 mmol/L; Blood Urea Nitrogen 17 mg/dL (7-17); Calcium 8.6 mg/dL (8.4-10.2); Carbon Dioxide 24 mmol/L (22-30); Chloride 104 mmol/L (98-107); Glucose 110 mg/dL (74-99); Non-African American GFR(CKD) >90 (>60 ml/min/1.73 sqM); Potassium 3.8 mmol/L (3.5-5.1); Sodium 135 mmol/L (137-145); Total Bilirubin 0.2 mg/dL (0.2-1.3); Total Protein 6.2 g/dL (6.3-8.2)
[2020-11-13 23:16] LABS: Partial Thromboplastin Time 22.5 sec (22.0-30.0); Prothrombin Time 10.5 sec (9.0-12.0)
--- NOTE | 2020-11-13 23:58 | ED ---
General Adult HPI - General Chief complaint: Shortness of Breath Stated complaint: SOB Time Seen by Provider: 11/13/20 21:37 Source: patient, EMS Mode of arrival: EMS Limitations: no limitations - History of Present Illness Initial comments: 35 year-old female patient presents to the emergency department for evaluation of shortness of breath, muscle stiffness, and chest pain. Patient believes she is having a reaction to taking methylprednisolone for the last week. States these symptoms started 2-3 days ago and worsened today. States she felt dizzy li ke she might pass out this evening. She denies any cough or congestion. Denies any fever or chills. Denies any rash, facial swelling, tongue, or throat swelling. Patient denies any recent rash, abdominal pain, nausea, vomiting, diarrhea, constipation, back pain, numbness, tingling, dizziness, weakness, hematuria, dysuria, urinary urgency, urinary frequency, headache, visual changes, or any other complaints. - Related Data Home Medications Medication Instructions Recorded Confirmed Divalproex ER [Depakote ER] 500 mg PO HS 04/23/14 12/23/19 Fluticasone Nasal [place] [Flonase 1 - 2 spray EA NOSTRIL DAILY PRN 06/10/17 12/23/19 Nasal [place]] Ziprasidone [Geodon] 20 mg PO BID 04/21/19 12/23/19 Albuterol Inhaler [Ventolin Hfa 1 - 2 puff INHALATION RT-QID PRN 12/23/19 12/23/19 Inhaler] Cabergoline 0.5 mg PO MOFR 12/23/19 12/23/19 Omeprazole 40 mg PO AC-BRKFST 12/23/19 12/23/19 Previous Rx's Medication Instructions Recorded Benztropine Mesylate [Cogentin] 1 mg PO BID #8 tablet 04/23/14 Acetaminophen Tab [Tylenol] 325 mg PO Q6HR PRN tab 12/27/19 Levofloxacin [Levaquin] 750 mg PO DAILY 7 Days #7 tab 12/27/19 metroNIDAZOLE [Flagyl] 500 mg PO Q8H 7 Days #21 tab 12/27/19 Ondansetron [Zofran ODT] 4 mg PO Q8HR PRN #10 tab 05/06/20 Omeprazole [PriLOSEC] 40 mg PO DAILY #14 cap 07/31/20 Hydrocortisone Cream 1 applic TOPICAL QID #1 tube 10/31/20 [Hydrocortisone 2.5% Cream] Famotidine [Pepcid] 20 mg PO DAILY #5 tablet 11/13/20 Allergies Allergy/AdvReac Type Severity Reaction Status Date / Time amoxicillin Allergy Unknown Verified 06/01/20 23:10 brompheniramine maleate Allergy Unknown Verified 06/01/20 23:10 [From Dimetapp (brompheniramine-PPA)] clemastine fumarate Allergy Unknown Verified 06/01/20 23:10 [From Tavist] codeine Allergy Unknown Verified 06/01/20 23:10 diphenhydramine HCl Allergy Unknown Verified 06/01/20 23:10 [From Benadryl] meclizine Allergy Anaphylaxis Verified 10/30/20 22:32 phenylpropanolamine HCl Allergy Unknown Verified 06/01/20 23:10 [From Dimetapp (brompheniramine-PPA)] prednisone Allergy Hallucinati Verified 06/01/20 23:10 ons pseudoephedrine HCl Allergy Unknown Verified 06/01/20 23:10 [From Tavist] red dye Allergy Unknown Verified 06/01/20 23:10 risperidone [From Risperdal] Allergy Unknown Verified 06/01/20 23:10 sulfamethoxazole Allergy Unknown Verified 06/01/20 23:10 [From Bactrim] trimethoprim [From Bactrim] Allergy Unknown Verified 06/01/20 23:10 Review of Systems ROS Statement: Those systems with pertinent positive or pertinent negative responses have been documented in the HPI. ROS Other: All systems not noted in ROS Statement are negative. 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 Shingles on right inner thigh 3\\2020 History of Any Multi-Drug Resistant Organisms: None Reported Past Surgical History: Appendectomy Past Anesthesia/Blood Transfusion Reactions: No Reported Reaction Past Psychological History: Anxiety, Bipolar, Depression Smoking Status: Never smoker Past Alcohol Use History: Rare Past Drug Use History: None Reported General Exam Limitations: no limitations General appearance: alert, in no apparent distress, other (This is a well developed, well nourished adult female patient in no acute distress. V/S upon presentation Temp 98.5, pulse 85, resp 18, BP 142/99, Pulse Ox 98%) ENT exam: Present: normal exam, normal oropharynx, mucous membranes moist Respiratory exam: Present: normal lung sounds bilaterally. Absent: respiratory distress, wheezes, rales, rhonchi, stridor Cardiovascular Exam: Present: regular rate, normal rhythm, normal heart sounds. Absent: systolic murmur, diastolic murmur, rubs, gallop, clicks GI/Abdominal exam: Present: soft, normal bowel sounds. Absent: distended, tenderness, guarding, rebound, rigid Neurological exam: Present: alert, oriented X3, CN II-XII intact Psychiatric exam: Present: normal affect, normal mood Skin exam: Present: warm, dry, intact, normal color. Absent: rash Course Vital Signs 11/13/20 11/13/20 11/13/20 21:38 23:02 23:30 Temperature 98.5 F Pulse Rate 85 85 83 Respiratory 18 20 18 Rate Blood Pressure 142/99 133/82 130/78 O2 Sat by Pulse 98 95 98 Oximetry 11/14/20 00:21 Temperature 98.1 F Pulse Rate 80 Respiratory 16 Rate Blood Pressure 132/77 O2 Sat by Pulse 98 Oximetry EKG Findings - EKG Comments: EKG Findings:: EKG obtained at 2258 shows normal sinus rhythm with a sinus arrhythmia with a ventricular rate of 80, [place] interval 140, QRS duration 86, QT 370, QTC 426. No evidence of ST elevation or depression. Medical Decision Making - Medical Decision Making 35-year-old female patient presents to the emergency department today for evaluation of chest pain, shortness of breath, dizziness. Physical examination is unremarkable. Labs reviewed and are unremarkable. Chest x-ray was negative. EKG was unremarkable. Upon reevaluation patient is resting comfortably in bed. Did discuss findings and results with her. Discuss her vital signs are within normal range. She believes she may be having a reaction to methylprednisolone. She is given prescription for pepcid only as she is "allergic" to prednisone and benadryl. She'll be discharged follow up with her primary care physician for recheck in 1-2 days. Return parameters were discussed in detail. She verbalizes understanding and agrees with this plan. My attending is Dr. Mendez. - Lab Data Result diagrams: 11/13/20 22:37 11/13/20 22:37 Lab Results 11/13/20 11/13/20 11/13/20 Range/Units 22:37 22:37 22:37 WBC 10.4 (3.8-10.6) k/uL RBC 4.25 (3.80-5.40) m/uL Hgb 12.8 (11.4-16.0) gm/dL Hct 37.0 (34.0-46.0) % MCV 87.1 (80.0-100.0) fL MCH 30.1 (25.0-35.0) pg MCHC 34.5 (31.0-37.0) g/dL RDW 14.4 (11.5-15.5) % Plt Count 284 (150-450) k/uL MPV 8.2 Neutrophils % 56 % Lymphocytes % 32 % Monocytes % 5 % Eosinophils % 4 % Basophils % 1 % Neutrophils # 5.8 (1.3-7.7) k/uL Lymphocytes # 3.3 (1.0-4.8) k/uL Monocytes # 0.5 (0-1.0) k/uL Eosinophils # 0.4 (0-0.7) k/uL Basophils # 0.1 (0-0.2) k/uL PT 10.5 (9.0-12.0) sec INR 1.0 (<1.2) APTT 22.5 (22.0-30.0) sec D-Dimer <0.17 (<0.60) mg/L FEU Sodium 135 L (137-145) mmol/L Potassium 3.8 (3.5-5.1) mmol/L Chloride 104 (98-107) mmol/L Carbon Dioxide 24 (22-30) mmol/L Anion Gap 7 mmol/L BUN 17 (7-17) mg/dL Creatinine 0.70 (0.52-1.04) mg/dL Est GFR (CKD-EPI)AfAm >90 (>60 ml/min/1.73 sqM) Est GFR (CKD-EPI)NonAf >90 (>60 ml/min/1.73 sqM) Glucose 110 H (74-99) mg/dL Plasma Lactic Acid Sancho (0.7-2.0) mmol/L Calcium 8.6 (8.4-10.2) mg/dL Total Bilirubin 0.2 (0.2-1.3) mg/dL AST 24 (14-36) U/L ALT 16 (4-34) U/L Alkaline Phosphatase 94 (38-126) U/L Troponin I (0.000-0.034) ng/mL Total Protein 6.2 L (6.3-8.2) g/dL Albumin 3.6 (3.5-5.0) g/dL 11/13/20 11/13/20 Range/Units 22:37 22:37 WBC (3.8-10.6) k/uL RBC (3.80-5.40) m/uL Hgb (11.4-16.0) gm/dL Hct (34.0-46.0) % MCV (80.0-100.0) fL MCH (25.0-35.0) pg MCHC (31.0-37.0) g/dL RDW (11.5-15.5) % Plt Count (150-450) k/uL MPV Neutrophils % % Lymphocytes % % Monocytes % % Eosinophils % % Basophils % % Neutrophils # (1.3-7.7) k/uL Lymphocytes # (1.0-4.8) k/uL Monocytes # (0-1.0) k/uL Eosinophils # (0-0.7) k/uL Basophils # (0-0.2) k/uL PT (9.0-12.0) sec INR (<1.2) APTT (22.0-30.0) sec D-Dimer (<0.60) mg/L FEU Sodium (137-145) mmol/L Potassium (3.5-5.1) mmol/L Chloride (98-107) mmol/L Carbon Dioxide (22-30) mmol/L Anion Gap mmol/L BUN (7-17) mg/dL Creatinine (0.52-1.04) mg/dL Est GFR (CKD-EPI)AfAm (>60 ml/min/1.73 sqM) Est GFR (CKD-EPI)NonAf (>60 ml/min/1.73 sqM) Glucose (74-99) mg/dL Plasma Lactic Acid Sancho 1.0 (0.7-2.0) mmol/L Calcium (8.4-10.2) mg/dL Total Bilirubin (0.2-1.3) mg/dL AST (14-36) U/L ALT (4-34) U/L Alkaline Phosphatase (38-126) U/L Troponin I <0.012 (0.000-0.034) ng/mL Total Protein (6.3-8.2) g/dL Albumin (3.5-5.0) g/dL - Radiology Data Radiology results: report reviewed, image reviewed 2 view xray of the chest is obtained. Report was reviewed in its entirety shows normal chest with no change. Disposition Clinical Impression: Chest pain, Shortness of breath Disposition: HOME SELF-CARE Condition: Good Instructions (If sedation given, give patient instructions): Chest Pain (ED), Shortness of Breath (ED) Additional Instructions: Follow-up with your primary care physician for recheck in 1-2 days. Take Pepcid daily. Return to the emergency department for any new, worsening, or concerning symptoms. Prescriptions: Famotidine [Pepcid] 20 mg PO DAILY #5 tablet Is patient prescribed a controlled substance at d/c from ED?: No Referrals: Conrado Rey MD [Primary Care Provider] - 1-2 days Time of Disposition: 23:58
[2020-11-14 00:22] VITALS: BP 132/77; PULSE 80; RESP 16; TEMP 98.1
== END 2020-11-14 00:21 | disposition home or self-care (01) ==
LOC: EC 21:26
DX: R06.02 Shortness of breath (principal); R07.9 Chest pain, unspecified; M25.60 Stiffness of unspecified joint, not elsewhere classified; J45.909 Unspecified asthma, uncomplicated; Z88.0 Allergy status to penicillin; Z88.8 Allergy status to other drugs, medicaments and biological substances; Z88.1 Allergy status to other antibiotic agents; Z88.2 Allergy status to sulfonamides
CPT/HCPCS: 36415; 71046; 80053; 83605; 84484; 85025; 85379; 85610; 85730; 93005; 96374; 99285

== ENCOUNTER 2021-01-04 22:28 | Emergency (ER) | payer OTHER ==
[2021-01-04 23:01] VITALS: BP 132/80; PULSE 63; RESP 16; TEMP 98.4
--- NOTE | 2021-01-04 23:12 | ED ---
General Adult HPI - General Chief complaint: Fever Stated complaint: Covid Exposure Time Seen by Provider: 01/04/21 22:30 Source: patient Mode of arrival: ambulatory Limitations: no limitations - History of Present Illness Initial comments: 35-year-old female patient presents to the emergency department today requesting COVID-19 testing. She was here with her significant other when he tested positive. She states she did feel tired and hot yesterday so she wants to be tested. She denies any symptoms today. Denies fever or chills. She denies chance of . She is not vaccinated. - Related Data Home Medications Medication Instructions Recorded Confirmed Divalproex ER [Depakote ER] 500 mg PO HS 04/23/14 12/23/19 Fluticasone Nasal [place] [Flonase 1 - 2 spray EA NOSTRIL DAILY PRN 06/10/17 12/23/19 Nasal [place]] Ziprasidone [Geodon] 20 mg PO BID 04/21/19 12/23/19 Albuterol Inhaler [Ventolin Hfa 1 - 2 puff INHALATION RT-QID PRN 12/23/19 12/23/19 Inhaler] Cabergoline 0.5 mg PO MOFR 12/23/19 12/23/19 Omeprazole 40 mg PO AC-BRKFST 12/23/19 12/23/19 Previous Rx's Medication Instructions Recorded Benztropine Mesylate [Cogentin] 1 mg PO BID #8 tablet 04/23/14 Acetaminophen Tab [Tylenol] 325 mg PO Q6HR PRN tab 12/27/19 Levofloxacin [Levaquin] 750 mg PO DAILY 7 Days #7 tab 12/27/19 metroNIDAZOLE [Flagyl] 500 mg PO Q8H 7 Days #21 tab 12/27/19 Ondansetron [Zofran ODT] 4 mg PO Q8HR PRN #10 tab 05/06/20 Omeprazole [PriLOSEC] 40 mg PO DAILY #14 cap 07/31/20 Hydrocortisone Cream 1 applic TOPICAL QID #1 tube 10/31/20 [Hydrocortisone 2.5% Cream] Famotidine [Pepcid] 20 mg PO DAILY #5 tablet 11/13/20 Allergies Allergy/AdvReac Type Severity Reaction Status Date / Time amoxicillin Allergy Unknown Verified 06/01/20 23:10 brompheniramine maleate Allergy Unknown Verified 06/01/20 23:10 [From Dimetapp (brompheniramine-PPA)] clemastine fumarate Allergy Unknown Verified 06/01/20 23:10 [From Tavist] codeine Allergy Unknown Verified 06/01/20 23:10 diphenhydramine HCl Allergy Unknown Verified 06/01/20 23:10 [From Benadryl] meclizine Allergy Anaphylaxis Verified 10/30/20 22:32 phenylpropanolamine HCl Allergy Unknown Verified 06/01/20 23:10 [From Dimetapp (brompheniramine-PPA)] prednisone Allergy Hallucinati Verified 06/01/20 23:10 ons pseudoephedrine HCl Allergy Unknown Verified 06/01/20 23:10 [From Tavist] red dye Allergy Unknown Verified 06/01/20 23:10 risperidone [From Risperdal] Allergy Unknown Verified 06/01/20 23:10 sulfamethoxazole Allergy Unknown Verified 06/01/20 23:10 [From Bactrim] trimethoprim [From Bactrim] Allergy Unknown Verified 06/01/20 23:10 Review of Systems ROS Statement: Those systems with pertinent positive or pertinent negative responses have been documented in the HPI. ROS Other: All systems not noted in ROS Statement are negative. 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 Shingles on right inner thigh History of Any Multi-Drug Resistant Organisms: None Reported Past Surgical History: Appendectomy Past Anesthesia/Blood Transfusion Reactions: No Reported Reaction Past Psychological History: Anxiety, Bipolar, Depression Smoking Status: Never smoker Past Alcohol Use History: Rare Past Drug Use History: None Reported General Exam Limitations: no limitations General appearance: alert, in no apparent distress, other Respiratory exam: Present: normal lung sounds bilaterally. Absent: respiratory distress, wheezes, rales, rhonchi, stridor Cardiovascular Exam: Present: regular rate, normal rhythm, normal heart sounds. Absent: systolic murmur, diastolic murmur, rubs, gallop, clicks Neurological exam: Present: alert, oriented X3, CN II-XII intact Psychiatric exam: Present: normal affect, normal mood Skin exam: Present: warm, dry, intact, normal color. Absent: rash Course Vital Signs 01/04/21 22:55 Temperature 98.4 F Pulse Rate 63 Respiratory 16 Rate Blood Pressure 132/80 O2 Sat by Pulse 99 Oximetry Medical Decision Making - Medical Decision Making 35 year-old female patient presented with request for Covid testing due to significant other testing positive. She is a symptomatic today. She tested negative. She is discharged follow up with her primary care physician return parameters were discussed in detail per she verbalizes understanding and agrees with this plan. My attending is Dr. Concepcion. - Lab Data Lab Results 01/04/21 Range/Units 22:55 Coronavirus (PCR) Not Detected (Not Detectd) Disposition Clinical Impression: Exposure to COVID-19 virus Disposition: HOME SELF-CARE Condition: Good Instructions (If sedation given, give patient instructions): Coronavirus Disease 2019 (COVID-19) Additional Instructions: We will call you with her test results. Follow-up with your primary care physician as needed. Return for any new, worsening, or concerning symptoms. Is patient prescribed a controlled substance at d/c from ED?: No Referrals: Conrado Rey MD [Primary Care Provider] - 1-2 days Time of Disposition: 23:12
== END 2021-01-04 23:42 | disposition home or self-care (01) ==
LOC: EC 22:28
DX: R50.9 Fever, unspecified (principal); J45.909 Unspecified asthma, uncomplicated; Z20.822 Contact with and (suspected) exposure to COVID-19; Z88.1 Allergy status to other antibiotic agents; Z88.2 Allergy status to sulfonamides; Z91.041 Radiographic dye allergy status; Z88.0 Allergy status to penicillin; Z88.8 Allergy status to other drugs, medicaments and biological substances
CPT/HCPCS: 87635; 99283

== ENCOUNTER 2021-01-17 19:39 | Emergency (ER) | payer OTHER ==
[2021-01-17 20:10] VITALS: TEMP 97.7
[2021-01-17] MEDS ORDERED: ONDANSETRON 4 MG/2 ML VIAL IVP STA (22:05)
[2021-01-17] MEDS ORDERED: SODIUM CHLORIDE 0.9% 1,000 ML IV ONE (22:05)
[2021-01-17] MEDS ORDERED: MORPHINE SULFATE 2 MG/ML SYRINGE IVP STA (22:05)
[2021-01-17 22:43] VITALS: BP 142/92; PULSE 71; RESP 20
[2021-01-17 22:49] LABS: Basophils # (A) 0.1 k/uL (0-0.2); Basophils % (A) 1 %; Eosinophils # (A) 0.7 k/uL (0-0.7); Eosinophils % (A) 7 %; HCT 39.6 % (34.0-46.0); HGB 13.3 gm/dL (11.4-16.0); Lymphocytes # (A) 2.4 k/uL (1.0-4.8); Lymphocytes % (A) 24 %; MCH 29.1 pg (25.0-35.0); MCHC 33.5 g/dL (31.0-37.0); Mean Platelet Volume 8.3; Monocytes # (A) 0.5 k/uL (0-1.0); Monocytes % (A) 5 %; Neutrophils # (A) 6.1 k/uL (1.3-7.7); Neutrophils % (A) 62 %; Platelet Count 262 k/uL (150-450); RBC 4.55 m/uL (3.80-5.40); RDW 13.9 % (11.5-15.5); WBC 9.9 k/uL (3.8-10.6)
[2021-01-17 22:51] LABS: Appearance,Urine Clear (Clear); Bilirubin,Urine Negative (Negative); Blood,Urine Negative (Negative); Color,Urine Light Yellow; Glucose,Urine (UA) Negative (Negative); Ketones,Urine Negative (Negative); Leukocyte Esterase,Urine Negative (Negative); Nitrite,Urine Negative (Negative); PH, Urine 6.5 (5.0-8.0); Protein,Urine Negative (Negative); Specific Gravity,Urine 1.017 (1.001-1.035); Urobilinogen,Urine <2.0 mg/dL (<2.0)
[2021-01-17 23:00] LABS: ALT 21 U/L (4-34); AST 30 U/L (14-36); African American GFR (CKD) >90 (>60 ml/min/1.73 sqM); Albumin 4.1 g/dL (3.5-5.0); Alkaline Phosphatase 91 U/L (38-126); Anion Gap 9 mmol/L; Blood Urea Nitrogen 18 mg/dL (7-17); Calcium 9.2 mg/dL (8.4-10.2); Carbon Dioxide 24 mmol/L (22-30); Chloride 104 mmol/L (98-107); Glucose 90 mg/dL (74-99); Lipase 250 U/L (23-300); Non-African American GFR(CKD) >90 (>60 ml/min/1.73 sqM); Potassium 4.2 mmol/L (3.5-5.1); Sodium 137 mmol/L (137-145); Total Bilirubin 0.2 mg/dL (0.2-1.3); Total Protein 7.1 g/dL (6.3-8.2)
--- NOTE | 2021-01-17 23:30 | ED ---
Abdominal Pain HPI - General Chief Complaint: Abdominal Pain Stated Complaint: LT side pain, Dizzy Time Seen by Provider: 01/17/21 21:46 Source: patient Mode of arrival: ambulatory Limitations: no limitations - History of Present Illness Initial Comments: 35-year-old female patient presents to the emergency department today for evaluation of left lateral abdominal pain diarrhea. States symptoms have been present for the last 2-3 days. She did also have frequency of urination and left flank sharp pains. States that she has been nauseated has not vomited. Denies any fever or chills. States she has had similar symptoms in the past but she became dizzy today so she came in. She denies any hematochezia or melena. Denies previous abdominal surgery. Denies chance of , states she has an IUD. Patient denies any recent rash, cough, shortness of breath, chest pain, diarrhea, constipation, back pain, numbness, tingling, dizziness, weakness, hematuria, dysuria, urinary urgency, urinary frequency, headache, visual changes, or any other complaints. - Related Data Home Medications Medication Instructions Recorded Confirmed Divalproex ER [Depakote ER] 500 mg PO HS 04/23/14 01/17/21 Fluticasone Nasal [place] [Flonase 1 - 2 spray EA NOSTRIL DAILY PRN 06/10/17 01/17/21 Nasal [place]] Ziprasidone [Geodon] 20 mg PO BID 04/21/19 01/17/21 Albuterol Inhaler [Ventolin Hfa 1 - 2 puff INHALATION RT-QID PRN 12/23/19 01/17/21 Inhaler] Bromocriptine Mesylate 2.5 mg PO HS 01/17/21 01/17/21 Dicyclomine HCl 10 mg PO QID 01/17/21 01/17/21 Hydrocortisone Cream 1 applic TOPICAL QID PRN 01/17/21 01/17/21 [Hydrocortisone 2.5% Cream] Mobic (Unknown Strength) 1 tab PO DAILY PRN 01/17/21 01/17/21 [place] 500-Vit D3 200 1 tab PO BID 01/17/21 01/17/21 Previous Rx's Medication Instructions Recorded Benztropine Mesylate [Cogentin] 1 mg PO BID #8 tablet 04/23/14 Acetaminophen Tab [Tylenol] 325 mg PO Q6HR PRN tab 12/27/19 Omeprazole [PriLOSEC] 40 mg PO DAILY #14 cap 07/31/20 Famotidine [Pepcid] 20 mg PO DAILY #5 tablet 11/13/20 Allergies Allergy/AdvReac Type Severity Reaction Status Date / Time amoxicillin Allergy Unknown Verified 01/17/21 22:18 brompheniramine maleate Allergy Unknown Verified 01/17/21 22:18 [From Dimetapp (brompheniramine-PPA)] clemastine fumarate Allergy Unknown Verified 01/17/21 22:18 [From Tavist] codeine Allergy Unknown Verified 01/17/21 22:18 diphenhydramine HCl Allergy Unknown Verified 01/17/21 22:18 [From Benadryl] meclizine Allergy Anaphylaxis Verified 01/17/21 22:18 phenylpropanolamine HCl Allergy Unknown Verified 01/17/21 22:18 [From Dimetapp (brompheniramine-PPA)] prednisone Allergy Hallucinati Verified 01/17/21 22:18 ons pseudoephedrine HCl Allergy Unknown Verified 01/17/21 22:18 [From Tavist] red dye Allergy Unknown Verified 01/17/21 22:18 risperidone [From Risperdal] Allergy Unknown Verified 01/17/21 22:18 sulfamethoxazole Allergy Unknown Verified 01/17/21 22:18 [From Bactrim] trimethoprim [From Bactrim] Allergy Unknown Verified 01/17/21 22:18 Review of Systems ROS Statement: Those systems with pertinent positive or pertinent negative responses have been documented in the HPI. ROS Other: All systems not noted in ROS Statement are negative. 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 Shingles on right inner thigh History of Any Multi-Drug Resistant Organisms: None Reported Past Surgical History: Appendectomy Past Anesthesia/Blood Transfusion Reactions: No Reported Reaction Past Psychological History: Anxiety, Bipolar, Depression Smoking Status: Never smoker Past Alcohol Use History: Rare Past Drug Use History: None Reported General Exam Limitations: no limitations General appearance: alert, in no apparent distress, other (this is a well-devel oped, well-nourished adult female patient in no acute distress.) ENT exam: Present: normal exam, normal oropharynx, mucous membranes moist Respiratory exam: Present: normal lung sounds bilaterally. Absent: respiratory distress, wheezes, rales, rhonchi, stridor Cardiovascular Exam: Present: regular rate, normal rhythm, normal heart sounds. Absent: systolic murmur, diastolic murmur, rubs, gallop, clicks GI/Abdominal exam: Present: soft, tenderness (Left upper quadrant, left lower quadrant), normal bowel sounds. Absent: distended, guarding, rebound, rigid Neurological exam: Present: alert, oriented X3, CN II-XII intact Psychiatric exam: Present: normal affect, normal mood Skin exam: Present: warm, dry, intact, normal color. Absent: rash Course Vital Signs 01/17/21 01/17/21 20:08 22:40 Temperature 97.7 F Pulse Rate 96 71 Respiratory 19 20 Rate Blood Pressure 131/82 142/92 O2 Sat by Pulse 97 98 Oximetry Medical Decision Making - Medical Decision Making 35-year-old female patient presented for evaluation of left-sided abdominal pain and diarrhea. Physical examination did reveal left upper quadrant left lower quadrant tenderness. She is afebrile normal vital signs. Labs reviewed and are unremarkable. Urinalysis is unremarkable. She did have a negative CT scan. I did discuss findings and results with her. She will be discharged follow up with the primary care physician for recheck in 1-2 days. Return parameters were discussed in detail. She verbalizes understanding and agrees with this plan. My attending is Dr. Mendez. - Lab Data Result diagrams: 01/17/21 22:30 01/17/21 22:30 Lab Results 01/17/21 01/17/21 01/17/21 Range/Units 22:30 22:30 22:30 WBC 9.9 (3.8-10.6) k/uL RBC 4.55 (3.80-5.40) m/uL Hgb 13.3 (11.4-16.0) gm/dL Hct 39.6 (34.0-46.0) % MCV 87.0 (80.0-100.0) fL MCH 29.1 (25.0-35.0) pg MCHC 33.5 (31.0-37.0) g/dL RDW 13.9 (11.5-15.5) % Plt Count 262 (150-450) k/uL MPV 8.3 Neutrophils % 62 % Lymphocytes % 24 % Monocytes % 5 % Eosinophils % 7 % Basophils % 1 % Neutrophils # 6.1 (1.3-7.7) k/uL Lymphocytes # 2.4 (1.0-4.8) k/uL Monocytes # 0.5 (0-1.0) k/uL Eosinophils # 0.7 (0-0.7) k/uL Basophils # 0.1 (0-0.2) k/uL Sodium 137 (137-145) mmol/L Potassium 4.2 (3.5-5.1) mmol/L Chloride 104 (98-107) mmol/L Carbon Dioxide 24 (22-30) mmol/L Anion Gap 9 mmol/L BUN 18 H (7-17) mg/dL Creatinine 0.75 (0.52-1.04) mg/dL Est GFR (CKD-EPI)AfAm >90 (>60 ml/min/1.73 sqM) Est GFR (CKD-EPI)NonAf >90 (>60 ml/min/1.73 sqM) Glucose 90 (74-99) mg/dL Plasma Lactic Acid Sancho (0.7-2.0) mmol/L Calcium 9.2 (8.4-10.2) mg/dL Total Bilirubin 0.2 (0.2-1.3) mg/dL AST 30 (14-36) U/L ALT 21 (4-34) U/L Alkaline Phosphatase 91 (38-126) U/L Total Protein 7.1 (6.3-8.2) g/dL Albumin 4.1 (3.5-5.0) g/dL Lipase 250 (23-300) U/L Urine Color Light Yellow Urine Appearance Clear (Clear) Urine pH 6.5 (5.0-8.0) Ur Specific Lutz 1.017 (1.001-1.035) Urine Protein Negative (Negative) Urine Glucose (UA) Negative (Negative) Urine Ketones Negative (Negative) Urine Blood Negative (Negative) Urine Nitrite Negative (Negative) Urine Bilirubin Negative (Negative) Urine Urobilinogen <2.0 (<2.0) mg/dL Ur Leukocyte Esterase Negative (Negative) 01/17/21 Range/Units 22:30 WBC (3.8-10.6) k/uL RBC (3.80-5.40) m/uL Hgb (11.4-16.0) gm/dL Hct (34.0-46.0) % MCV (80.0-100.0) fL MCH (25.0-35.0) pg MCHC (31.0-37.0) g/dL RDW (11.5-15.5) % Plt Count (150-450) k/uL MPV Neutrophils % % Lymphocytes % % Monocytes % % Eosinophils % % Basophils % % Neutrophils # (1.3-7.7) k/uL Lymphocytes # (1.0-4.8) k/uL Monocytes # (0-1.0) k/uL Eosinophils # (0-0.7) k/uL Basophils # (0-0.2) k/uL Sodium (137-145) mmol/L Potassium (3.5-5.1) mmol/L Chloride (98-107) mmol/L Carbon Dioxide (22-30) mmol/L Anion Gap mmol/L BUN (7-17) mg/dL Creatinine (0.52-1.04) mg/dL Est GFR (CKD-EPI)AfAm (>60 ml/min/1.73 sqM) Est GFR (CKD-EPI)NonAf (>60 ml/min/1.73 sqM) Glucose (74-99) mg/dL Plasma Lactic Acid Sancho 0.8 (0.7-2.0) mmol/L Calcium (8.4-10.2) mg/dL Total Bilirubin (0.2-1.3) mg/dL AST (14-36) U/L ALT (4-34) U/L Alkaline Phosphatase (38-126) U/L Total Protein (6.3-8.2) g/dL Albumin (3.5-5.0) g/dL Lipase (23-300) U/L Urine Color Urine Appearance (Clear) Urine pH (5.0-8.0) Ur Specific Lutz (1.001-1.035) Urine Protein (Negative) Urine Glucose (UA) (Negative) Urine Ketones (Negative) Urine Blood (Negative) Urine Nitrite (Negative) Urine Bilirubin (Negative) Urine Urobilinogen (<2.0) mg/dL Ur Leukocyte Esterase (Negative) Disposition Clinical Impression: Abdominal pain Disposition: HOME SELF-CARE Condition: Good Instructions (If sedation given, give patient instructions): Abdominal Pain (ED) Additional Instructions: Clear liquid diet and advance as tolerated. Follow-up with her GI specialist and primary care physician for further evaluation as soon as possible. Return for any new, worsening, or concerning symptoms. Is patient prescribed a controlled substance at d/c from ED?: No Referrals: Conrado Rey MD [Primary Care Provider] - 1-2 days Time of Disposition: 00:02
--- NOTE | 2021-01-17 23:58 | CT ---
EXAMINATION TYPE: CT abdomen pelvis w con DATE OF EXAM: 01/17/2021 COMPARISON: 12/23/2019 HISTORY: Lower left abdominal pain; flank pain CT DLP: mGycm Automated exposure control for dose reduction was used. CONTRAST: Performed with IV Contrast, patient injected with 100 mL of Isovue 300. Lung bases are clear of consolidation. There is no pleural effusion. Heart size is fairly normal. The re is no pericardial effusion. Liver spleen stomach pancreas gallbladder appear normal. Bile ducts ar e not dilated. There is no adrenal mass. Kidneys show satisfactory contrast opacification. There is no hydronephrosi s. Ureters are not dilated. There is no retroperitoneal adenopathy. Bladder distends smoothly. There is no inguinal hernia. Uterus is anteverted. There is IUD in the uterine fundus. There is no free flu id in the pelvis. There is no evidence of a pelvic mass. There is no mesenteric edema. There is no ascites or free air. There is no sign of a bowel obstructio n. Terminal ileum appears normal. Appendix not clearly seen. No sign of thickened appendix. The lumbar vertebra have normal alignment. Disc spaces are fairly normal. There is no compression fra cture. The bony pelvis is intact. Hip joints are intact. IMPRESSION: Negative CT scan abdomen and pelvis. I do not see a cause for left flank pain.
[2021-01-18] MEDS ORDERED: DIPHENOX-ATROP STARTER PACK 8 TAB BTL PO STA (00:30)
== END 2021-01-18 01:10 | disposition home or self-care (01) ==
LOC: EC 19:39
DX: R10.31 Right lower quadrant pain (principal); R10.32 Left lower quadrant pain; J45.909 Unspecified asthma, uncomplicated; Z88.0 Allergy status to penicillin; Z88.1 Allergy status to other antibiotic agents; Z88.2 Allergy status to sulfonamides; Z88.8 Allergy status to other drugs, medicaments and biological substances; Z91.041 Radiographic dye allergy status
CPT/HCPCS: 36415; 80053; 83605; 83690; 85025; 81003; 74177; 99284; 96374; 96375; 96361; J2405; J2270; Q9967

== ENCOUNTER 2021-01-26 18:11 | Emergency (ER) | payer OTHER ==
[2021-01-26] MEDS ORDERED: METOCLOPRAMIDE 5 MG/ML 2 ML VIAL IVP STA (20:18)
--- NOTE | 2021-01-26 20:24 | ED ---
General Adult HPI - General Chief complaint: Abdominal Pain Stated complaint: Revisit/Abdominal & Back Pain Time Seen by Provider: 01/26/21 20:03 Source: patient, RN notes reviewed, old records reviewed Mode of arrival: ambulatory Limitations: no limitations - History of Present Illness Initial comments: 35-year-old well-appearing female presents to the emergency room with complaints of left upper quadrant abdominal pain that radiates to her left flank. She was seen here on January 17 for the same. She had a CAT scan of her abdomen and pelvis was negative. She was told to follow up with primary care doctor and her GI doctor. She did call her primary care doctor who told her to come to the emergency room if she has increased pain. She has an appointment with her GI doctor but not until March 27. She states that she has had no vomiting today however she has had 4 episodes of diarrhea. She does have a history of appendectomy, asthma, COPD and closed head injury. She describes this pain as 7 out of 10 and sharp in nature. She states that at times it feels like the entire left side of her body hurts from head to toes. -: days(s) (11) Location: abdomen Radiation: back Severity scale (1-10): 7 Quality: sharp Consistency: constant Improves with: none Worsens with: movement Associated Symptoms: nausea/vomiting, other (Diarrhea) - Related Data Home Medications Medication Instructions Recorded Confirmed Divalproex ER [Depakote ER] 500 mg PO HS 04/23/14 01/26/21 Fluticasone Nasal [place] [Flonase 1 - 2 spray EA NOSTRIL DAILY PRN 06/10/17 01/26/21 Nasal [place]] Ziprasidone [Geodon] 20 mg PO BID 04/21/19 01/26/21 Albuterol Inhaler [Ventolin Hfa 1 - 2 puff INHALATION RT-QID PRN 12/23/19 01/26/21 Inhaler] Bromocriptine Mesylate 2.5 mg PO HS 01/17/21 01/26/21 Dicyclomine HCl 10 mg PO QID 01/17/21 01/26/21 Hydrocortisone Cream 1 applic TOPICAL QID PRN 01/17/21 01/26/21 [Hydrocortisone 2.5% Cream] Mobic (Unknown Strength) 1 tab PO DAILY PRN 01/17/21 01/26/21 Oyster Shell 500-Vit D3 200 1 tab PO BID 01/17/21 01/26/21 Previous Rx's Medication Instructions Recorded Benztropine Mesylate [Cogentin] 1 mg PO BID #8 tablet 04/23/14 Acetaminophen Tab [Tylenol] 325 mg PO Q6HR PRN tab 12/27/19 Omeprazole [PriLOSEC] 40 mg PO DAILY #14 cap 07/31/20 Famotidine [Pepcid] 20 mg PO DAILY #5 tablet 11/13/20 Allergies Allergy/AdvReac Type Severity Reaction Status Date / Time amoxicillin Allergy Unknown Verified 01/26/21 20:43 brompheniramine maleate Allergy Unknown Verified 01/26/21 20:43 [From Dimetapp (brompheniramine-PPA)] clemastine fumarate Allergy Unknown Verified 01/26/21 20:43 [From Tavist] codeine Allergy Unknown Verified 01/26/21 20:43 diphenhydramine HCl Allergy Unknown Verified 01/26/21 20:43 [From Benadryl] meclizine Allergy Anaphylaxis Verified 01/26/21 20:43 phenylpropanolamine HCl Allergy Unknown Verified 01/26/21 20:43 [From Dimetapp (brompheniramine-PPA)] prednisone Allergy Hallucinati Verified 01/26/21 20:43 ons pseudoephedrine HCl Allergy Unknown Verified 01/26/21 20:43 [From Tavist] red dye Allergy Unknown Verified 01/26/21 20:43 risperidone [From Risperdal] Allergy Unknown Verified 01/26/21 20:43 sulfamethoxazole Allergy Unknown Verified 01/26/21 20:43 [From Bactrim] trimethoprim [From Bactrim] Allergy Unknown Verified 01/26/21 20:43 Review of Systems ROS Statement: Those systems with pertinent positive or pertinent negative responses have been documented in the HPI. ROS Other: All systems not noted in ROS Statement are negative. 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 Shingles on right inner thigh History of Any Multi-Drug Resistant Organisms: None Reported Past Surgical History: Appendectomy Past Anesthesia/Blood Transfusion Reactions: No Reported Reaction Past Psychological History: Anxiety, Bipolar, Depression Smoking Status: Never smoker Past Alcohol Use History: Rare Past Drug Use History: None Reported General Exam Limitations: no limitations General appearance: alert, in no apparent distress Head exam: Present: atraumatic, normocephalic, normal inspection Eye exam: Present: normal appearance ENT exam: Present: normal exam, normal oropharynx, mucous membranes moist Neck exam: Present: normal inspection, full ROM. Absent: tenderness, meningismus, lymphadenopathy, thyromegaly Respiratory exam: Present: normal lung sounds bilaterally. Absent: respiratory distress, wheezes, rales, rhonchi, stridor Cardiovascular Exam: Present: regular rate, normal rhythm, normal heart sounds. Absent: systolic murmur, diastolic murmur, rubs, gallop, clicks, JVD GI/Abdominal exam: Present: soft, tenderness. Absent: distended, guarding (Left upper quadrant), rebound, rigid Extremities exam: Present: normal inspection, full ROM, normal capillary refill. Absent: tenderness, pedal edema, joint swelling, calf tenderness Back exam: Present: normal inspection, full ROM. Absent: tenderness, CVA tenderness (R), CVA tenderness (L), rash noted Neurological exam: Present: alert, oriented X3 Psychiatric exam: Present: normal affect, normal mood Skin exam: Present: warm, dry, intact, normal color. Absent: rash, cyanosis, diaphoretic, pallor Course Vital Signs 01/26/21 01/26/21 19:40 21:00 Temperature 98.7 F 98.1 F Pulse Rate 72 64 Respiratory 22 18 Rate Blood Pressure 138/94 143/94 O2 Sat by Pulse 98 99 Oximetry Medical Decision Making - Medical Decision Making Well appearing 35-year-old female that presents to the emergency room with left upper quadrant pain and left flank pain. She was seen here for this same pain on January 17 and had an abdominal CAT scan at that time was unremarkable. Her labs at that time were also unremarkable. She does state that she's been having nausea and vomiting and has talked to her primary care doctor who suspects that she may have a gastric ulcer. She was referred to Dr. Villeda with GI and she has an appointment coming up in March. There is no evidence of leukocytosis. CBC is unremarkable. Electrolytes are unremarkable. Urine is clear for infection and she is negative for . X-ray the abdomen shows a nonspecific bowel gas pattern. There is no visceromegaly or pneumoperitoneum. Intrauterine device is in place. Lungs are clear bases. Patient was instructed to try a clear liquid diet for the next 24 hours, bland diet for the following 24 and then slowly resume her regular diet. Keep a diary of her intake and her symptoms for her GI doctor as scheduled March. Patient is agreeable to this plan of care . Case discussed with Dr Concepcion - Lab Data Result diagrams: 01/26/21 20:39 01/26/21 20:39 Lab Results 01/26/21 01/26/21 01/26/21 Range/Units 20:39 20:39 20:39 WBC 9.3 (3.8-10.6) k/uL RBC 4.63 (3.80-5.40) m/uL Hgb 13.9 (11.4-16.0) gm/dL Hct 39.1 (34.0-46.0) % MCV 84.5 (80.0-100.0) fL MCH 30.1 (25.0-35.0) pg MCHC 35.6 (31.0-37.0) g/dL RDW 14.1 (11.5-15.5) % Plt Count 275 (150-450) k/uL MPV 8.2 Neutrophils % 61 % Lymphocytes % 27 % Monocytes % 4 % Eosinophils % 6 % Basophils % 1 % Neutrophils # 5.7 (1.3-7.7) k/uL Lymphocytes # 2.5 (1.0-4.8) k/uL Monocytes # 0.4 (0-1.0) k/uL Eosinophils # 0.5 (0-0.7) k/uL Basophils # 0.1 (0-0.2) k/uL Sodium 136 L (137-145) mmol/L Potassium 3.8 (3.5-5.1) mmol/L Chloride 104 (98-107) mmol/L Carbon Dioxide 23 (22-30) mmol/L Anion Gap 9 mmol/L BUN 13 (7-17) mg/dL Creatinine 0.74 (0.52-1.04) mg/dL Est GFR (CKD-EPI)AfAm >90 (>60 ml/min/1.73 sqM) Est GFR (CKD-EPI)NonAf >90 (>60 ml/min/1.73 sqM) Glucose 83 (74-99) mg/dL Plasma Lactic Acid Sancho (0.7-2.0) mmol/L Calcium 9.2 (8.4-10.2) mg/dL Total Bilirubin 0.5 (0.2-1.3) mg/dL AST 29 (14-36) U/L ALT 21 (4-34) U/L Alkaline Phosphatase 77 (38-126) U/L Total Protein 7.0 (6.3-8.2) g/dL Albumin 4.2 (3.5-5.0) g/dL Amylase 53 (30-110) U/L Lipase 110 (23-300) U/L Urine Color Light Yellow Urine Appearance Cloudy H (Clear) Urine pH 6.5 (5.0-8.0) Ur Specific [place] 1.009 (1.001-1.035) Urine Protein Negative (Negative) Urine Glucose (UA) Negative (Negative) Urine Ketones Negative (Negative) Urine Blood Negative (Negative) Urine Nitrite Negative (Negative) Urine Bilirubin Negative (Negative) Urine Urobilinogen <2.0 (<2.0) mg/dL Ur Leukocyte Esterase Negative (Negative) Urine RBC 1 (0-5) /hpf Urine WBC 3 (0-5) /hpf Ur Squamous Epith Cells 4 (0-4) /hpf Urine Bacteria Rare H (None) /hpf Urine HCG, Qual (Not Detectd) 01/26/21 01/26/21 Range/Units 20:39 20:39 WBC (3.8-10.6) k/uL RBC (3.80-5.40) m/uL Hgb (11.4-16.0) gm/dL Hct (34.0-46.0) % MCV (80.0-100.0) fL MCH (25.0-35.0) pg MCHC (31.0-37.0) g/dL RDW (11.5-15.5) % Plt Count (150-450) k/uL MPV Neutrophils % % Lymphocytes % % Monocytes % % Eosinophils % % Basophils % % Neutrophils # (1.3-7.7) k/uL Lymphocytes # (1.0-4.8) k/uL Monocytes # (0-1.0) k/uL Eosinophils # (0-0.7) k/uL Basophils # (0-0.2) k/uL Sodium (137-145) mmol/L Potassium (3.5-5.1) mmol/L Chloride (98-107) mmol/L Carbon Dioxide (22-30) mmol/L Anion Gap mmol/L BUN (7-17) mg/dL Creatinine (0.52-1.04) mg/dL Est GFR (CKD-EPI)AfAm (>60 ml/min/1.73 sqM) Est GFR (CKD-EPI)NonAf (>60 ml/min/1.73 sqM) Glucose (74-99) mg/dL Plasma Lactic Acid Sancho 0.8 (0.7-2.0) mmol/L Calcium (8.4-10.2) mg/dL Total Bilirubin (0.2-1.3) mg/dL AST (14-36) U/L ALT (4-34) U/L Alkaline Phosphatase (38-126) U/L Total Protein (6.3-8.2) g/dL Albumin (3.5-5.0) g/dL Amylase (30-110) U/L Lipase (23-300) U/L Urine Color Urine Appearance (Clear) Urine pH (5.0-8.0) Ur Specific [place] (1.001-1.035) Urine Protein (Negative) Urine Glucose (UA) (Negative) Urine Ketones (Negative) Urine Blood (Negative) Urine Nitrite (Negative) Urine Bilirubin (Negative) Urine Urobilinogen (<2.0) mg/dL Ur Leukocyte Esterase (Negative) Urine RBC (0-5) /hpf Urine WBC (0-5) /hpf Ur Squamous Epith Cells (0-4) /hpf Urine Bacteria (None) /hpf Urine HCG, Qual Not Detected (Not Detectd) Disposition Clinical Impression: Abdominal pain Disposition: HOME SELF-CARE Condition: Good Instructions (If sedation given, give patient instructions): Abdominal Pain (ED) Additional Instructions: Continue taking your previously prescribed medications. Keep your appointment with your executive director global brand marketing in March. Follow-up with the primary care doctor this week. Return to the emergency room with any new or worsening symptoms including fever, inability to keep any fluids down for increasing pain. Try a bland diet and increase your fluid intake to prevent dehydration if diarrhea continues Is patient prescribed a controlled substance at d/c from ED?: No Referrals: Conrado Rey MD [Primary Care Provider] - 1-2 days Time of Disposition: 21:28
[2021-01-26 20:50] LABS: Basophils # (A) 0.1 k/uL (0-0.2); Basophils % (A) 1 %; Eosinophils # (A) 0.5 k/uL (0-0.7); Eosinophils % (A) 6 %; HCT 39.1 % (34.0-46.0); HGB 13.9 gm/dL (11.4-16.0); Lymphocytes # (A) 2.5 k/uL (1.0-4.8); Lymphocytes % (A) 27 %; MCH 30.1 pg (25.0-35.0); MCHC 35.6 g/dL (31.0-37.0); MCV 84.5 fL (80.0-100.0); Mean Platelet Volume 8.2; Monocytes # (A) 0.4 k/uL (0-1.0); Monocytes % (A) 4 %; Neutrophils # (A) 5.7 k/uL (1.3-7.7); Neutrophils % (A) 61 %; Platelet Count 275 k/uL (150-450); RBC 4.63 m/uL (3.80-5.40); RDW 14.1 % (11.5-15.5); WBC 9.3 k/uL (3.8-10.6)
[2021-01-26 20:51] LABS: Appearance,Urine Cloudy (Clear); Bacteria,Urine Rare /hpf; Bilirubin,Urine Negative (Negative); Blood,Urine Negative (Negative); Color,Urine Light Yellow; Glucose,Urine (UA) Negative (Negative); Ketones,Urine Negative (Negative); Leukocyte Esterase,Urine Negative (Negative); Nitrite,Urine Negative (Negative); PH, Urine 6.5 (5.0-8.0); Protein,Urine Negative (Negative); RBC,Urine 1 /hpf (0-5); Specific Gravity,Urine 1.009 (1.001-1.035); Squamous Epithelial Cell,Urine 4 /hpf (0-4); Urobilinogen,Urine <2.0 mg/dL (<2.0); WBC,Urine 3 /hpf (0-5)
[2021-01-26 21:02] VITALS: BP 143/94; PULSE 64; RESP 18; TEMP 98.1
[2021-01-26 21:04] LABS: ALT 21 U/L (4-34); AST 29 U/L (14-36); African American GFR (CKD) >90 (>60 ml/min/1.73 sqM); Albumin 4.2 g/dL (3.5-5.0); Alkaline Phosphatase 77 U/L (38-126); Amylase 53 U/L (30-110); Anion Gap 9 mmol/L; Blood Urea Nitrogen 13 mg/dL (7-17); Calcium 9.2 mg/dL (8.4-10.2); Carbon Dioxide 23 mmol/L (22-30); Chloride 104 mmol/L (98-107); Glucose 83 mg/dL (74-99); Lipase 110 U/L (23-300); Non-African American GFR(CKD) >90 (>60 ml/min/1.73 sqM); Potassium 3.8 mmol/L (3.5-5.1); Sodium 136 mmol/L (137-145); Total Bilirubin 0.5 mg/dL (0.2-1.3)
[2021-01-26] MEDS ORDERED: KETOROLAC 30 MG/ML 1 ML VIAL IVP STA (21:05)
--- NOTE | 2021-01-26 21:18 | XR ---
EXAMINATION TYPE: XR KUB DATE OF EXAM: 01/26/2021 8:49 PM CLINICAL HISTORY: Abdominal pain TECHNIQUE: Upright images of the abdomen and pelvis were obtained COMPARISON: 07/30/2020 abdominal radiograph. 01/17/2021 CT abdomen pelvis. FINDINGS: Nonspecific bowel gas pattern. There is no visceromegaly, pneumoperitoneum, or abnormal milli cification appreciated. Intrauterine device over the pelvis. The lung bases are clear. The osseous st ructures are intact. IMPRESSION: Nonspecific bowel gas pattern.
== END 2021-01-26 21:54 | disposition home or self-care (01) ==
LOC: EC 18:11
DX: R10.12 Left upper quadrant pain (principal); R10.2 Pelvic and perineal pain; R19.7 Diarrhea, unspecified; J44.9 Chronic obstructive pulmonary disease, unspecified; Z88.0 Allergy status to penicillin; Z88.1 Allergy status to other antibiotic agents; Z88.2 Allergy status to sulfonamides; Z88.8 Allergy status to other drugs, medicaments and biological substances; Z88.5 Allergy status to narcotic agent; Z90.49 Acquired absence of other specified parts of digestive tract
CPT/HCPCS: 36415; 74018; 80053; 81001; 81025; 82150; 83605; 83690; 85025; 99284

== ENCOUNTER 2021-07-17 13:07 | Emergency (ER) | payer OTHER ==
[2021-07-17 13:50] VITALS: TEMP 97.6
[2021-07-17] MEDS ORDERED: ONDANSETRON 4 MG/2 ML VIAL IVP STA (17:14)
[2021-07-17] MEDS ORDERED: SODIUM CHLORIDE 0.9% 1,000 ML IV STA (17:14)
--- NOTE | 2021-07-17 18:01 | ED ---
General Adult HPI - General Chief complaint: Abdominal Pain Stated complaint: Female , headache, nausea Time Seen by Provider: 07/17/21 16:42 Source: patient Mode of arrival: ambulatory Limitations: no limitations - History of Present Illness Initial comments: This 35-year-old female with a past medical history of PCOS presents to the emergency department with left-sided ovarian pain and cramping since Saturday. Patient states she noticed some mild cramping to her left ovary on Saturday and states she has been getting episodic sharp pains to the area radiating to her pelvis. Patient states her pain is currently 6/10 and is aching in nature episodic sharp pains 8/10. Patient denies taking any medications prior to coming to the hospital. Patient states she does episodically get pelvic pains like this. Patient states she does have an IUD placed which has been there for 3 years. Patient states her last menstrual cycle was 2 weeks ago and states it was a little bit heavier than normal. Patient states she has also been experiencing a little bit of a mild headache and nausea since yesterday. Patient states she does have a history of irritable bowel syndrome and has been experiencing a little bit of diarrhea over the last couple of days. Patient denies any chest pain, shortness of breath, vomiting, change in bowel or bladder, change in appetite, lightheadedness, dizziness, change in vision, fever, rash. Patient states she is sexually active with one partner who she is to. She states she is supposed to see her LEATHER STAKER in the next 14 days for her yearly appointment and states she does not want a pelvic exam or STI testing performed here. - Related Data Home Medications Medication Instructions Recorded Confirmed Divalproex ER [Depakote ER] 500 mg PO HS 04/23/14 01/26/21 Fluticasone Nasal [place] [Flonase 1 - 2 spray EA NOSTRIL DAILY PRN 06/10/17 01/26/21 Nasal [place]] Ziprasidone [Geodon] 20 mg PO BID 04/21/19 01/26/21 Albuterol Inhaler [Ventolin Hfa 1 - 2 puff INHALATION RT-QID PRN 12/23/19 01/26/21 Inhaler] Bromocriptine Mesylate 2.5 mg PO HS 01/17/21 01/26/21 Dicyclomine HCl 10 mg PO QID 01/17/21 01/26/21 Hydrocortisone Cream 1 applic TOPICAL QID PRN 01/17/21 01/26/21 [Hydrocortisone 2.5% Cream] Mobic (Unknown Strength) 1 tab PO DAILY PRN 01/17/21 01/26/21 Oyster Shell 500-Vit D3 200 1 tab PO BID 01/17/21 01/26/21 Previous Rx's Medication Instructions Recorded Benztropine Mesylate [Cogentin] 1 mg PO BID #8 tablet 04/23/14 Acetaminophen Tab [Tylenol] 325 mg PO Q6HR PRN tab 12/27/19 Omeprazole [PriLOSEC] 40 mg PO DAILY #14 cap 07/31/20 Famotidine [Pepcid] 20 mg PO DAILY #5 tablet 11/13/20 Allergies Allergy/AdvReac Type Severity Reaction Status Date / Time amoxicillin Allergy Unknown Verified 07/17/21 13:50 brompheniramine maleate Allergy Unknown Verified 07/17/21 13:50 [From Dimetapp (brompheniramine-PPA)] clemastine fumarate Allergy Unknown Verified 07/17/21 13:50 [From Tavist] codeine Allergy Unknown Verified 07/17/21 13:50 diphenhydramine HCl Allergy Unknown Verified 07/17/21 13:50 [From Benadryl] meclizine Allergy Anaphylaxis Verified 07/17/21 13:50 phenylpropanolamine HCl Allergy Unknown Verified 07/17/21 13:50 [From Dimetapp (brompheniramine-PPA)] prednisone Allergy Hallucinati Verified 07/17/21 13:50 ons pseudoephedrine HCl Allergy Unknown Verified 07/17/21 13:50 [From Tavist] red dye Allergy Unknown Verified 07/17/21 13:50 risperidone [From Risperdal] Allergy Unknown Verified 07/17/21 13:50 sulfamethoxazole Allergy Unknown Verified 07/17/21 13:50 [From Bactrim] trimethoprim [From Bactrim] Allergy Unknown Verified 07/17/21 13:50 Review of Systems ROS Statement: Those systems with pertinent positive or pertinent negative responses have been documented in the HPI. ROS Other: All systems not noted in ROS Statement are negative. 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 Shingles on right inner thigh 3\23\2021 History of Any Multi-Drug Resistant Organisms: None Reported Past Surgical History: Appendectomy Past Anesthesia/Blood Transfusion Reactions: No Reported Reaction Past Psychological History: Anxiety, Bipolar, Depression Smoking Status: Never smoker Past Alcohol Use History: Rare Past Drug Use History: None Reported General Exam Limitations: no limitations General appearance: alert, in no apparent distress Head exam: Present: atraumatic, normocephalic, normal inspection Eye exam: Present: normal appearance, PERRL, EOMI. Absent: scleral icterus, conjunctival injection, periorbital swelling ENT exam: Present: normal exam, mucous membranes moist Neck exam: Present: normal inspection, full ROM. Absent: tenderness, meningismus, lymphadenopathy Respiratory exam: Present: normal lung sounds bilaterally. Absent: respiratory distress, wheezes, rales, rhonchi, stridor, chest wall tenderness Cardiovascular Exam: Present: regular rate, normal rhythm, normal heart sounds. Absent: systolic murmur, diastolic murmur, rubs, gallop, clicks GI/Abdominal exam: Present: soft, normal bowel sounds, other (Tenderness to left-sided pelvis/ovary). Absent: distended, tenderness, guarding, rebound, rigid External exam: Present: other (Patient did refuse pelvic exam, bimanual exam and speculum exam she states she sees her LEATHER STAKER for her yearly examination in 2 weeks. She did refuse STI testing) Speculum exam: Present: other (Refused speculum exam) By manual exam: Present: other (Refused bimanual exam) Extremities exam: Present: normal inspection, full ROM, normal capillary refill. Absent: tenderness, pedal edema, joint swelling, calf tenderness Back exam: Present: normal inspection, full ROM. Absent: CVA tenderness (R), CVA tenderness (L), paraspinal tenderness, vertebral tenderness Neurological exam: Present: alert, oriented X3, CN II-XII intact Psychiatric exam: Present: normal affect, normal mood Skin exam: Present: warm, dry, intact, normal color. Absent: rash Course Vital Signs 07/17/21 07/17/21 13:44 18:35 Temperature 97.6 F Pulse Rate 74 73 Respiratory 18 16 Rate Blood Pressure 138/85 127/77 O2 Sat by Pulse 95 96 Oximetry Medical Decision Making - Medical Decision Making This 35-year-old female presents emergency Department with left ovarian and pelvic pain since Saturday. Patient does have history of PCOS. Labs unremarkable. Urine with small blood and rare bacteria. Urine hCG not detected. Ultrasound pelvic completely transvaginal impression: IUD in good position. No endometrial thickening. 2 cm cyst on the left ovary. No solid adnexal mass. Ovary with anechoic focus measuring 2.11.81.9 cm. patient sent home to follow up with her LEATHER STAKER and the appointment she has scheduled in the next 2 weeks. After receiving fluids, Zofran and Tylenol patient states she feels much better and is requesting discharge. Strict return precautions were discussed. Patient verbally agreed to plan. Patient sent home in stable condition. Case discussed in detail with my attending, . Prior to discharge patient requested Influenza A/B and COVID-19 testing as she states a couple people at work are sick. Patient was requesting discharge and stated she would call requesting results. - Lab Data Result diagrams: 07/17/21 17:45 07/17/21 17:45 Lab Results 07/17/21 07/17/21 07/17/21 Range/Units 17:45 17:45 17:45 WBC 8.8 (3.8-10.6) k/uL RBC 4.41 (3.80-5.40) m/uL Hgb 13.0 (11.4-16.0) gm/dL Hct 38.3 (34.0-46.0) % MCV 86.9 (80.0-100.0) fL MCH 29.6 (25.0-35.0) pg MCHC 34.1 (31.0-37.0) g/dL RDW 14.3 (11.5-15.5) % Plt Count 285 (150-450) k/uL MPV 8.2 Neutrophils % 65 % Lymphocytes % 24 % Monocytes % 3 % Eosinophils % 4 % Basophils % 1 % Neutrophils # 5.7 (1.3-7.7) k/uL Lymphocytes # 2.1 (1.0-4.8) k/uL Monocytes # 0.3 (0-1.0) k/uL Eosinophils # 0.4 (0-0.7) k/uL Basophils # 0.1 (0-0.2) k/uL PT 10.7 (9.0-12.0) sec INR 1.0 (<1.2) APTT 24.0 (22.0-30.0) sec Sodium (137-145) mmol/L Potassium (3.5-5.1) mmol/L Chloride (98-107) mmol/L Carbon Dioxide (22-30) mmol/L Anion Gap mmol/L BUN (7-17) mg/dL Creatinine (0.52-1.04) mg/dL Est GFR (CKD-EPI)AfAm (>60 ml/min/1.73 sqM) Est GFR (CKD-EPI)NonAf (>60 ml/min/1.73 sqM) Glucose (74-99) mg/dL Plasma Lactic Acid Sancho (0.7-2.0) mmol/L Calcium (8.4-10.2) mg/dL Total Bilirubin (0.2-1.3) mg/dL AST (14-36) U/L ALT (4-34) U/L Alkaline Phosphatase (38-126) U/L Total Protein (6.3-8.2) g/dL Albumin (3.5-5.0) g/dL Amylase (30-110) U/L Lipase (23-300) U/L Urine Color Light Yellow Urine Appearance Clear (Clear) Urine pH 6.5 (5.0-8.0) Ur Specific [place] 1.010 (1.001-1.035) Urine Protein Negative (Negative) Urine Glucose (UA) Negative (Negative) Urine Ketones Negative (Negative) Urine Blood Small H (Negative) Urine Nitrite Negative (Negative) Urine Bilirubin Negative (Negative) Urine Urobilinogen <2.0 (<2.0) mg/dL Ur Leukocyte Esterase Negative (Negative) Urine RBC 1 (0-5) /hpf Urine WBC 1 (0-5) /hpf Ur Squamous Epith Cells 2 (0-4) /hpf Urine Bacteria Rare H (None) /hpf Urine Mucus Rare H (None) /hpf Urine HCG, Qual (Not Detectd) 07/17/21 07/17/21 07/17/21 Range/Units 17:45 17:45 17:45 WBC (3.8-10.6) k/uL RBC (3.80-5.40) m/uL Hgb (11.4-16.0) gm/dL Hct (34.0-46.0) % MCV (80.0-100.0) fL MCH (25.0-35.0) pg MCHC (31.0-37.0) g/dL RDW (11.5-15.5) % Plt Count (150-450) k/uL MPV Neutrophils % % Lymphocytes % % Monocytes % % Eosinophils % % Basophils % % Neutrophils # (1.3-7.7) k/uL Lymphocytes # (1.0-4.8) k/uL Monocytes # (0-1.0) k/uL Eosinophils # (0-0.7) k/uL Basophils # (0-0.2) k/uL PT (9.0-12.0) sec INR (<1.2) APTT (22.0-30.0) sec Sodium 137 (137-145) mmol/L Potassium 3.7 (3.5-5.1) mmol/L Chloride 104 (98-107) mmol/L Carbon Dioxide 26 (22-30) mmol/L Anion Gap 7 mmol/L BUN 11 (7-17) mg/dL Creatinine 0.74 (0.52-1.04) mg/dL Est GFR (CKD-EPI)AfAm >90 (>60 ml/min/1.73 sqM) Est GFR (CKD-EPI)NonAf >90 (>60 ml/min/1.73 sqM) Glucose 102 H (74-99) mg/dL Plasma Lactic Acid Sancho 1.3 (0.7-2.0) mmol/L Calcium 8.8 (8.4-10.2) mg/dL Total Bilirubin 0.4 (0.2-1.3) mg/dL AST 25 (14-36) U/L ALT 21 (4-34) U/L Alkaline Phosphatase 77 (38-126) U/L Total Protein 6.9 (6.3-8.2) g/dL Albumin 4.0 (3.5-5.0) g/dL Amylase 57 (30-110) U/L Lipase 169 (23-300) U/L Urine Color Urine Appearance (Clear) Urine pH (5.0-8.0) Ur Specific [place] (1.001-1.035) Urine Protein (Negative) Urine Glucose (UA) (Negative) Urine Ketones (Negative) Urine Blood (Negative) Urine Nitrite (Negative) Urine Bilirubin (Negative) Urine Urobilinogen (<2.0) mg/dL Ur Leukocyte Esterase (Negative) Urine RBC (0-5) /hpf Urine WBC (0-5) /hpf Ur Squamous Epith Cells (0-4) /hpf Urine Bacteria (None) /hpf Urine Mucus (None) /hpf Urine HCG, Qual Not Detected (Not Detectd) Disposition Clinical Impression: Ovarian cyst, left Disposition: HOME SELF-CARE Condition: Stable Additional Instructions: Please follow-up at your MANAGER [employer]GR[employer] appointment that you already have scheduled in 2 weeks. Follow-up with your primary care provider in the next 1-2 days. Return to the emergency department with any new, worsening or concerning symptoms. Is patient prescribed a controlled substance at d/c from ED?: No Referrals: Conrado Rey MD [Primary Care Provider] - 1-2 days Time of Disposition: 19:05
[2021-07-17] MEDS ORDERED: ACETAMINOPHEN TAB 325 MG TAB PO STA (18:14)
[2021-07-17] MEDS ORDERED: ACETAMINOPHEN ORAL SUSP 160 MG/5 ML CUP PO STA (18:16)
--- NOTE | 2021-07-17 18:33 | US ---
EXAMINATION TYPE: US pelvis complete transvag DATE OF EXAM: 07/17/2021 COMPARISON: CT 2019 CLINICAL HISTORY: left ovarian pain . Left pelvic pain. Hx PCOS. G0, IUD TECHNIQUE: Transvaginal (TV) and Transabdominal (TA) . Transabdominal sonographic images of the pel vis were acquired. Transvaginal sonographic images were medically necessary to better assess the fol lowing anatomy: Uterus, ovaries, endometrium EXAM MEASUREMENTS: Uterus: 8.8 x 4.5 x 5,5 cm Endometrial Stripe: 0.37 cm Right Ovary: 3.5 x 2.0 x 3.1 cm Left Ovary: 3.1 x 2.8 x 3.1 cm 1. Uterus: Anteverted wnl; IUD appears to be in correct position 2. Endometrium: wnl 3. Right Ovary: wnl 4. Left Ovary: Anechoic focus measuring 2.1 x 1.8 x 1.9 cm 5. Bilateral Adnexa: wnl 6. Posterior cul-de-sac: wnl IMPRESSION: IUD in good position. No endometrial thickening. 2 cm cyst on the left ovary. No solid adnexal mass.
[2021-07-17 18:34] LABS: Basophils # (A) 0.1 k/uL (0-0.2); Basophils % (A) 1 %; Eosinophils # (A) 0.4 k/uL (0-0.7); Eosinophils % (A) 4 %; HCT 38.3 % (34.0-46.0); Lymphocytes # (A) 2.1 k/uL (1.0-4.8); Lymphocytes % (A) 24 %; MCH 29.6 pg (25.0-35.0); MCHC 34.1 g/dL (31.0-37.0); MCV 86.9 fL (80.0-100.0); Mean Platelet Volume 8.2; Monocytes # (A) 0.3 k/uL (0-1.0); Monocytes % (A) 3 %; Neutrophils # (A) 5.7 k/uL (1.3-7.7); Neutrophils % (A) 65 %; Platelet Count 285 k/uL (150-450); RBC 4.41 m/uL (3.80-5.40); RDW 14.3 % (11.5-15.5); WBC 8.8 k/uL (3.8-10.6)
[2021-07-17 18:37] VITALS: BP 127/77; PULSE 73; RESP 16
[2021-07-17 18:44] LABS: ALT 21 U/L (4-34); AST 25 U/L (14-36); African American GFR (CKD) >90 (>60 ml/min/1.73 sqM); Alkaline Phosphatase 77 U/L (38-126); Amylase 57 U/L (30-110); Anion Gap 7 mmol/L; Blood Urea Nitrogen 11 mg/dL (7-17); Calcium 8.8 mg/dL (8.4-10.2); Carbon Dioxide 26 mmol/L (22-30); Chloride 104 mmol/L (98-107); Glucose 102 mg/dL (74-99); Lipase 169 U/L (23-300); Non-African American GFR(CKD) >90 (>60 ml/min/1.73 sqM); Potassium 3.7 mmol/L (3.5-5.1); Sodium 137 mmol/L (137-145); Total Bilirubin 0.4 mg/dL (0.2-1.3); Total Protein 6.9 g/dL (6.3-8.2)
[2021-07-17 18:46] LABS: Prothrombin Time 10.7 sec (9.0-12.0)
[2021-07-17 18:50] LABS: Appearance,Urine Clear (Clear); Bacteria,Urine Rare /hpf; Bilirubin,Urine Negative (Negative); Blood,Urine Small (Negative); Color,Urine Light Yellow; Glucose,Urine (UA) Negative (Negative); Ketones,Urine Negative (Negative); Leukocyte Esterase,Urine Negative (Negative); Mucus,Urine Rare /hpf; Nitrite,Urine Negative (Negative); PH, Urine 6.5 (5.0-8.0); Protein,Urine Negative (Negative); RBC,Urine 1 /hpf (0-5); Squamous Epithelial Cell,Urine 2 /hpf (0-4); Urobilinogen,Urine <2.0 mg/dL (<2.0); WBC,Urine 1 /hpf (0-5)
== END 2021-07-17 20:06 | disposition home or self-care (01) ==
LOC: EC 13:07
DX: N83.202 Unspecified ovarian cyst, left side (principal); J45.909 Unspecified asthma, uncomplicated; Z88.1 Allergy status to other antibiotic agents; Z88.2 Allergy status to sulfonamides; Z88.8 Allergy status to other drugs, medicaments and biological substances; Z20.822 Contact with and (suspected) exposure to COVID-19; Z91.041 Radiographic dye allergy status; Z88.5 Allergy status to narcotic agent; Z79.51 Long term (current) use of inhaled steroids
CPT/HCPCS: 36415; 80053; 82150; 83605; 83690; 85025; 85610; 85730; 81001; 81025; 87502; 87635; 76856; 76830; 99284; 96374; 96361; J2405

== ENCOUNTER 2022-06-10 19:04 | Emergency (ER) | payer OTHER ==
[2022-06-10] MEDS ORDERED: SODIUM CHLORIDE 0.9% 1,000 ML IV STA (19:52)
[2022-06-10] MEDS ORDERED: PANTOPRAZOLE 40 MG/10 ML VIAL IVP STA (20:08)
[2022-06-10] MEDS ORDERED: ONDANSETRON 4 MG/2 ML VIAL IVP STA (20:08)
[2022-06-10] MEDS ORDERED: KETOROLAC 15 MG/ML 1 ML VIAL IVP STA (20:08)
[2022-06-10] MEDS ORDERED: ACETAMINOPHEN TAB 500 MG TAB PO STA (20:08)
[2022-06-10 20:58] LABS: Basophils % (A) 1 %; Eosinophils # (A) 0.2 k/uL (0-0.7); Eosinophils % (A) 3 %; HGB 12.7 gm/dL (11.4-16.0); Lymphocytes # (A) 0.5 k/uL (1.0-4.8); Lymphocytes % (A) 7 %; MCH 28.9 pg (25.0-35.0); MCHC 34.3 g/dL (31.0-37.0); MCV 84.3 fL (80.0-100.0); Mean Platelet Volume 8.6; Monocytes # (A) 0.4 k/uL (0-1.0); Monocytes % (A) 5 %; Neutrophils # (A) 6.6 k/uL (1.3-7.7); Neutrophils % (A) 84 %; Platelet Count 225 k/uL (150-450); RBC 4.39 m/uL (3.80-5.40); RDW 14.3 % (11.5-15.5); WBC 7.8 k/uL (3.8-10.6)
--- NOTE | 2022-06-10 21:01 | XR ---
EXAMINATION TYPE: XR chest 2V DATE OF EXAM: 06/10/2022 8:10 PM COMPARISON: Chest x-ray 11/13/2020 TECHNIQUE: XR chest 2V . CLINICAL INDICATION:Female, 36 years old with history of difficulty breathing; FINDINGS: Lungs/Pleura: Low lung volumes are present. There is no evidence of pleural effusion, focal consolida tion, or pneumothorax. Pulmonary vascularity: Unremarkable. Heart/mediastinum: Cardiomediastinal silhouette is unremarkable. Musculoskeletal: No acute osseous pathology. IMPRESSION: No acute cardiopulmonary disease/process.
--- NOTE | 2022-06-10 21:02 | XR ---
EXAMINATION TYPE: XR KUB DATE OF EXAM: 06/10/2022 8:11 PM INDICATION: Patient age:Female; 36 years old; Reason for study: abdominal pain, left flank; PHH. COMPARISON: 01/26/2021 abdominal radiographs TECHNIQUE: One radiographic view of the abdomen was obtained. FINDINGS: The bowel gas pattern is nonspecific without dilated loops of small or large bowel. There i s no evidence for organomegaly or pneumoperitoneum. The osseous structures are intact. IUD noted. Fe milli Material and gas are demonstrated throughout the colon and rectum. IMPRESSION: Nonspecific bowel gas pattern without radiographic evidence for acute process.
--- NOTE | 2022-06-10 21:03 | ED ---
General Adult HPI - General Chief complaint: Upper Respiratory Infection Stated complaint: SANDRA Time Seen by Provider: 06/10/22 19:42 Source: patient, RN notes reviewed, old records reviewed Mode of arrival: ambulatory Limitations: no limitations - History of Present Illness Initial comments: Patient is a 36-year-old female with past medical history remarkable for asthma, PCOS, kidney stones who presents emergency Department complaining of fevers, headaches, generalized joint pain, upper respiratory symptoms for the last few days. Patient is also having some left-sided flank pain that is reminiscent of prior kidney stones. Endorses some mild nausea but no emesis. Denies diarrhea. Endorses chest tightness that is improved after she uses her albuterol inhalers. No other acute complaints at this time. Is concerned that she may have an infection but cannot rule out gallstone at this time. Has noticed some hematuria which is chronic for her. Presents for further evaluation at this time. - Related Data Home Medications Medication Instructions Recorded Confirmed Divalproex ER [Depakote ER] 500 mg PO HS 04/23/14 07/17/21 Ziprasidone [Geodon] 20 mg PO BID 04/21/19 07/17/21 Albuterol Inhaler [Ventolin Hfa 1 - 2 puff INHALATION RT-QID PRN 12/23/19 07/17/21 Inhaler] Bromocriptine Mesylate 2.5 mg PO HS 01/17/21 07/17/21 Dicyclomine HCl 10 mg PO QID 01/17/21 07/17/21 Acetaminophen Tab [Tylenol] 650 mg PO Q6HR PRN 07/17/21 07/17/21 EPINEPHrine (Auto Inject) [Epipen] 0.3 mg IM ONCE PRN 07/17/21 07/17/21 Famotidine [Pepcid] 20 mg PO HS 07/17/21 07/17/21 Previous Rx's Medication Instructions Recorded Benztropine Mesylate [Cogentin] 1 mg PO BID #8 tablet 04/23/14 Omeprazole [PriLOSEC] 40 mg PO DAILY #14 cap 07/31/20 Allergies Allergy/AdvReac Type Severity Reaction Status Date / Time amoxicillin Allergy Unknown Verified 06/10/22 19:17 brompheniramine maleate Allergy Unknown Verified 06/10/22 19:17 [From Dimetapp (brompheniramine-PPA)] clemastine fumarate Allergy Unknown Verified 06/10/22 19:17 [From Tavist] codeine Allergy Unknown Verified 06/10/22 19:17 diphenhydramine HCl Allergy Unknown Verified 06/10/22 19:17 [From Benadryl] meclizine Allergy Anaphylaxis Verified 06/10/22 19:17 phenylpropanolamine HCl Allergy Unknown Verified 06/10/22 19:17 [From Dimetapp (brompheniramine-PPA)] prednisone Allergy Hallucinati Verified 06/10/22 19:17 ons pseudoephedrine HCl Allergy Unknown Verified 06/10/22 19:17 [From Tavist] red dye Allergy Unknown Verified 06/10/22 19:17 risperidone [From Risperdal] Allergy Unknown Verified 06/10/22 19:17 sulfamethoxazole Allergy Unknown Verified 06/10/22 19:17 [From Bactrim] trimethoprim [From Bactrim] Allergy Unknown Verified 06/10/22 19:17 Review of Systems ROS Statement: Those systems with pertinent positive or pertinent negative responses have been documented in the HPI. Review of Systems: CONST: Endorses fever EYES: Denies blurry vision ENT: Endorses nasal congestion C/V: Denies Chest pain RESP: Denies shortness of breath GI: Endorses left flank pain : Endorses chronic hematuria SKIN: Denies rash. MSK: Denies joint pain. NEURO: Denies headache ROS Other: All systems not noted in ROS Statement are negative. 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 Shingles on right inner thigh \2020, covid 2021 History of Any Multi-Drug Resistant Organisms: None Reported Past Surgical History: Appendectomy Past Anesthesia/Blood Transfusion Reactions: No Reported Reaction Past Psychological History: Anxiety, Bipolar, Depression Smoking Status: Never smoker Past Alcohol Use History: Rare Past Drug Use History: None Reported General Exam - General Exam Comments Initial Comments: General: Appears in no acute distress. Febrile. Appears anxious. HEAD: Normal with no signs of head trauma. EYES: PERRLA, EOMI, conjunctiva normal, no discharge. ENT: Hearing grossly intact, normal oropharynx. RESPIRATORY: Clear breath sounds bilaterally. No wheezes, rales, or rhonchi. C/V: Tachycardia. S1 and S2 auscultated, peripheral pulses 2+ and intact throughout ABD: Abdomen is soft, nondistended. Mildly tender to palpation over the left flank. No guarding. No rebound tenderness. No peritoneal signs. No CVA tenderness to percussion. EXT: Normal range of motion, no obvious deformity SKIN: No rashes or lesions observed on exposed skin. NEURO: Alert and oriented 4. Limitations: no limitations Course Vital Signs 06/10/22 06/10/22 06/10/22 19:17 19:22 19:28 Temperature 102.8 F H 102.3 F H Pulse Rate 125 H Respiratory 22 20 Rate Blood Pressure 138/70 O2 Sat by Pulse 98 Oximetry 06/10/22 06/10/22 06/10/22 20:35 21:18 22:09 Temperature 101.5 F H 99.7 F H 99.3 F Pulse Rate 104 H 101 H Respiratory 17 19 Rate Blood Pressure 119/82 114/70 O2 Sat by Pulse 95 95 Oximetry Medical Decision Making - Medical Decision Making Was pt. sent in by a medical professional or institution (, PA, TABULATING CLERK, urgent care, hospital, or fci...) When possible be specific @ -No Did you speak to anyone other than the patient for history (EMS, parent, family, police, friend...)? What history was obtained from this source @ -No Did you review nursing and triage notes (agree or disagree)? Why? @ -I reviewed and agree with nursing and triage notes Were old charts reviewed (outside hosp., previous admission, EMS record, old EKG, old radiological studies, urgent care reports/EKG's, fci records)? Report findings @ -Old charts including EKG from November 2020 were reviewed. Differential Diagnosis (chest pain, altered mental status, abdominal pain women, abdominal pain men, vaginal bleeding, weakness, fever, dyspnea, syncope, headache, dizziness, GI bleed, back pain, seizure, CVA, palpatations, mental health, musculoskeletal)? @ -Viral infection, kidney stone, UTI, pneumonia, dehydration. This list is not all-inclusive. EKG interpreted by me (3pts min.). @ -As above X-rays interpreted by me (1pt min.). @ -Patient's chest x-ray reveals no obvious cardiopulmonary process. KUB x-ray reveals no obvious intra-abdominal process. CT interpreted by me (1pt min.). @ -None done U/S interpreted by me (1pt. min.). @ -Patient's renal ultrasound reveals no evidence of hydronephrosis or kidney stone. What testing was considered but not performed or refused? (CT, X-rays, U/S, l abs)? Why? @ -None What meds were considered but not given or refused? Why? @ -None Did you discuss the management of the patient with other professionals (professionals i.e. , PA, TABULATING CLERK, lab, RT, psych nurse, social economist, strategic analyst, teacher, branch officer, case management assistant)? Give summary @ -No Was smoking cessation discussed for >3mins.? @ -No Was critical care preformed (if so, how long)? @ -No Were there social determinants of health that impacted care today? How? (Homelessness, low income, unemployed, alcoholism, drug addiction, transportation, low edu. Level, literacy, decrease access to med. care, [facility], rehab)? @ -No Was there de-escalation of care discussed even if they declined (Discuss DNR or withdrawal of care, Hospice)? DNR status @ -No What co-morbidities impacted this encounter? (DM, HTN, Smoking, COPD, CAD, Cance r, CVA, ARF, Chemo, Hep., AIDS, mental health diagnosis, sleep apnea, morbid obesity)? @ -None Was patient admitted / discharged? Hospital course, mention meds given and route, prescriptions, significant lab abnormalities, going to OR and other pertinent info. @ -Based on the patient's presentation and physical exam, I'm concerned for infectious etiology for her current symptoms. We will obtain infectious labs, urine studies, renal bladder ultrasound as well as KUB and chest x-ray. She was in agreement with this plan. She does have history kidney stones I'm concerned regarding this. She does have recurrent fever and we will provide her with antipyretics in addition to symptomatic treatment IV fluids, Zofran, Protonix. She was in agreement this plan. Patient's imaging studies are within acceptable limits. EKG shows no signs of acute ischemia. Laboratory studies are unremarkable except for positive flu testing. Patient is influenza A positive. Reevaluation come patient is feeling improved. Fever is improved. Tachycardia has resolved. I discussed her workup with her. She expressed understanding she has influenza A. She is feeling overall improved. We discussed isolation, fever management, as well as symptomatic management. Recommended she follow up with her PCP next week. She was in agreement this plan. I will provide the patient with a prescription for Zofran starter pack. I i nstructed the patient to follow up with their PCP in the next 1-3 days. I explained that the patient should return to the emergency department if they experience any worsening symptoms. Strict return precautions were discussed with the patient. The patient expressed understanding of these instructions. I answered all questions that the patient had. The patient was discharged home in good condition with their prescriptions and follow up information. Undiagnosed new problem with uncertain prognosis? @ -No Drug Therapy requiring intensive monitoring for toxicity (Heparin, Nitro, Insulin, Cardizem)? @ -No Were any procedures done? @ -No Diagnosis/symptom? @ -Influenza A infection Acute, or Chronic, or Acute on Chronic? @ -Acute Uncomplicated (without systemic symptoms) or Complicated (systemic symptoms)? @ -Complicated Side effects of treatment? @ -none Exacerbation, Progression, or Severe Exacerbation] @ -no Poses a threat to life or bodily function? @ -no Diagnosis/symptom? @ -Febrile illness Acute, or Chronic, or Acute on Chronic? @ -Acute Uncomplicated (without systemic symptoms) or Complicated (systemic symptoms)? @ -Uncomplicated Side effects of treatment? @ -none Exacerbation, Progression, or Severe Exacerbation] @ -no Poses a threat to life or bodily function? @ -no . - Lab Data Result diagrams: 06/10/22 20:14 06/10/22 20:14 Lab Results 06/10/22 06/10/22 06/10/22 Range/Units 20:14 20:14 20:14 WBC 7.8 (3.8-10.6) k/uL RBC 4.39 (3.80-5.40) m/uL Hgb 12.7 (11.4-16.0) gm/dL Hct 37.0 (34.0-46.0) % MCV 84.3 (80.0-100.0) fL MCH 28.9 (25.0-35.0) pg MCHC 34.3 (31.0-37.0) g/dL RDW 14.3 (11.5-15.5) % Plt Count 225 (150-450) k/uL MPV 8.6 Neutrophils % 84 % Lymphocytes % 7 % Monocytes % 5 % Eosinophils % 3 % Basophils % 1 % Neutrophils # 6.6 (1.3-7.7) k/uL Lymphocytes # 0.5 L (1.0-4.8) k/uL Monocytes # 0.4 (0-1.0) k/uL Eosinophils # 0.2 (0-0.7) k/uL Basophils # 0.0 (0-0.2) k/uL PT 10.0 (9.0-12.0) sec INR 0.9 (<1.2) APTT 24.9 (22.0-30.0) sec Sodium (137-145) mmol/L Potassium (3.5-5.1) mmol/L Chloride (98-107) mmol/L Carbon Dioxide (22-30) mmol/L Anion Gap mmol/L BUN (7-17) mg/dL Creatinine (0.52-1.04) mg/dL Est GFR (CKD-EPI)AfAm (>60 ml/min/1.73 sqM) Est GFR (CKD-EPI)NonAf (>60 ml/min/1.73 sqM) Glucose (74-99) mg/dL Calcium (8.4-10.2) mg/dL Total Bilirubin (0.2-1.3) mg/dL AST (14-36) U/L ALT (4-34) U/L Alkaline Phosphatase (38-126) U/L Total Protein (6.3-8.2) g/dL Albumin (3.5-5.0) g/dL HCG, Qual Urine Color Colorless Urine Appearance Cloudy H (Clear) Urine pH 7.0 (5.0-8.0) Ur Specific Murphy 1.007 (1.001-1.035) Urine Protein Negative (Negative) Urine Glucose (UA) Negative (Negative) Urine Ketones Negative (Negative) Urine Blood Negative (Negative) Urine Nitrite Negative (Negative) Urine Bilirubin Negative (Negative) Urine Urobilinogen <2.0 (<2.0) mg/dL Ur Leukocyte Esterase Negative (Negative) Urine RBC 1 (0-5) /hpf Urine WBC 1 (0-5) /hpf Ur Squamous Epith Cells 4 (0-4) /hpf Urine Bacteria Rare H (None) /hpf Urine Mucus Rare H (None) /hpf Influenza Type A (PCR) (Not Detectd) Influenza Type B (PCR) (Not Detectd) RSV (PCR) (Not Detectd) SARS-CoV-2 (PCR) (Not Detectd) 06/10/22 06/10/22 Range/Units 20:14 20:14 WBC (3.8-10.6) k/uL RBC (3.80-5.40) m/uL Hgb (11.4-16.0) gm/dL Hct (34.0-46.0) % MCV (80.0-100.0) fL MCH (25.0-35.0) pg MCHC (31.0-37.0) g/dL RDW (11.5-15.5) % Plt Count (150-450) k/uL MPV Neutrophils % % Lymphocytes % % Monocytes % % Eosinophils % % Basophils % % Neutrophils # (1.3-7.7) k/uL Lymphocytes # (1.0-4.8) k/uL Monocytes # (0-1.0) k/uL Eosinophils # (0-0.7) k/uL Basophils # (0-0.2) k/uL PT (9.0-12.0) sec INR (<1.2) APTT (22.0-30.0) sec Sodium 136 L (137-145) mmol/L Potassium 4.5 (3.5-5.1) mmol/L Chloride 101 (98-107) mmol/L Carbon Dioxide 27 (22-30) mmol/L Anion Gap 8 mmol/L BUN 11 (7-17) mg/dL Creatinine 0.71 (0.52-1.04) mg/dL Est GFR (CKD-EPI)AfAm >90 (>60 ml/min/1.73 sqM) Est GFR (CKD-EPI)NonAf >90 (>60 ml/min/1.73 sqM) Glucose 94 (74-99) mg/dL Calcium 8.8 (8.4-10.2) mg/dL Total Bilirubin 0.3 (0.2-1.3) mg/dL AST 24 (14-36) U/L ALT 23 (4-34) U/L Alkaline Phosphatase 88 (38-126) U/L Total Protein 7.2 (6.3-8.2) g/dL Albumin 4.2 (3.5-5.0) g/dL HCG, Qual Not Detected Urine Color Urine Appearance (Clear) Urine pH (5.0-8.0) Ur Specific Murphy (1.001-1.035) Urine Protein (Negative) Urine Glucose (UA) (Negative) Urine Ketones (Negative) Urine Blood (Negative) Urine Nitrite (Negative) Urine Bilirubin (Negative) Urine Urobilinogen (<2.0) mg/dL Ur Leukocyte Esterase (Negative) Urine RBC (0-5) /hpf Urine WBC (0-5) /hpf Ur Squamous Epith Cells (0-4) /hpf Urine Bacteria (None) /hpf Urine Mucus (None) /hpf Influenza Type A (PCR) Detected A (Not Detectd) Influenza Type B (PCR) Not Detected (Not Detectd) RSV (PCR) Not Detected (Not Detectd) SARS-CoV-2 (PCR) Not Detected (Not Detectd) - EKG Data -: EKG Interpreted by Me EKG Comments: 12-lead Electrocardiogram Interpretation Note EKG was reviewed and interpreted by myself. 12-lead ECG performed at 2036 is interpreted by me as revealing sinus tachycardia at a rate of at 106 beats per minute. Ava is normal. HI interval is 148 ms, QRS duration is 89 ms, QTc is 395 ms.. There were no ST or T wave abnormalities to suggest myocardial ischemia or injury. R wave progression across the precordium was satisfactory. By my interpretation this EKG is non-diagnostic for acute ischemia. When compared with prior EKGs, no significant change. There is motion artifact seen in leads I and II. Disposition Clinical Impression: Influenza A, Nausea, Febrile illness, acute Disposition: HOME SELF-CARE Condition: Good Instructions (If sedation given, give patient instructions): Influenza (ED) Is patient prescribed a controlled substance at d/c from ED?: No Referrals: Conrado Rey MD [Primary Care Provider] - 1-2 days Time of Disposition: 22:30
[2022-06-10 21:05] LABS: Appearance,Urine Cloudy (Clear); Bacteria,Urine Rare /hpf; Bilirubin,Urine Negative (Negative); Blood,Urine Negative (Negative); Color,Urine Colorless; Glucose,Urine (UA) Negative (Negative); Ketones,Urine Negative (Negative); Leukocyte Esterase,Urine Negative (Negative); Mucus,Urine Rare /hpf; Nitrite,Urine Negative (Negative); Protein,Urine Negative (Negative); RBC,Urine 1 /hpf (0-5); Specific Gravity,Urine 1.007 (1.001-1.035); Squamous Epithelial Cell,Urine 4 /hpf (0-4); Urobilinogen,Urine <2.0 mg/dL (<2.0); WBC,Urine 1 /hpf (0-5)
[2022-06-10 21:09] LABS: INR 0.9 (<1.2); Partial Thromboplastin Time 24.9 sec (22.0-30.0)
[2022-06-10 21:20] LABS: ALT 23 U/L (4-34); AST 24 U/L (14-36); African American GFR (CKD) >90 (>60 ml/min/1.73 sqM); Albumin 4.2 g/dL (3.5-5.0); Alkaline Phosphatase 88 U/L (38-126); Anion Gap 8 mmol/L; Blood Urea Nitrogen 11 mg/dL (7-17); Calcium 8.8 mg/dL (8.4-10.2); Carbon Dioxide 27 mmol/L (22-30); Chloride 101 mmol/L (98-107); Glucose 94 mg/dL (74-99); Non-African American GFR(CKD) >90 (>60 ml/min/1.73 sqM); Potassium 4.5 mmol/L (3.5-5.1); Sodium 136 mmol/L (137-145); Total Bilirubin 0.3 mg/dL (0.2-1.3); Total Protein 7.2 g/dL (6.3-8.2)
[2022-06-10 21:25] LABS: HCG,Qualitative Serum Not Detected
--- NOTE | 2022-06-10 22:02 | US ---
EXAMINATION TYPE: US renals and bladder DATE OF EXAM: 06/10/2022 COMPARISON: CT abdomen pelvis 01/17/2021 CLINICAL HISTORY: left flank pain. EXAM MEASUREMENTS: Right Kidney: 11.5 x 4.8 x 5.3 cm Left Kidney: 12.1 x 5.6 x 5.1 cm Right Kidney: No hydronephrosis or masses seen. Normal cortical medullary differentiation. Left Kidney: No hydronephrosis or masses seen. Normal cortical medullary differentiation. Bladder: not fully distended IMPRESSION: No hydronephrosis.
[2022-06-10 22:09] VITALS: BP 114/70; PULSE 101; RESP 19; TEMP 99.3
[2022-06-10] MEDS ORDERED: ONDANSETRON 4 MG ODT STARTER PACK 2 TAB BTL PO STA (22:47)
== END 2022-06-10 23:04 | disposition home or self-care (01) ==
LOC: EC 19:04
DX: J10.1 Influenza due to other identified influenza virus with other respiratory manifestations (principal); R50.9 Fever, unspecified; R11.10 Vomiting, unspecified; J45.909 Unspecified asthma, uncomplicated; F41.9 Anxiety disorder, unspecified; F31.9 Bipolar disorder, unspecified; Z79.899 Other long term (current) drug therapy; Z88.0 Allergy status to penicillin; Z88.5 Allergy status to narcotic agent; Z88.2 Allergy status to sulfonamides; Z91.018 Allergy to other foods; Z88.8 Allergy status to other drugs, medicaments and biological substances; Z88.6 Allergy status to analgesic agent; Z86.16 Personal history of COVID-19; Z20.822 Contact with and (suspected) exposure to COVID-19
CPT/HCPCS: 36415; 93005; 80053; 85025; 85610; 85730; 81001; 84703; 87636; 71046; 74018; 76770; 99285; 96374; 96375 ×2; 96361; J2405; J1885; S0119; C9113

== ENCOUNTER 2022-06-21 20:39 | Emergency (ER) | payer OTHER ==
[2022-06-21 20:49] VITALS: BP 141/83; PULSE 92; RESP 18; TEMP 98
[2022-06-21] MEDS ORDERED: SODIUM CHLORIDE 0.9% 1,000 ML IV ONE (21:39)
[2022-06-21] MEDS ORDERED: ONDANSETRON 4 MG/2 ML VIAL IVP STA (21:40)
[2022-06-21 22:08] LABS: Basophils % (A) 0 %; Eosinophils # (A) 0.3 k/uL (0-0.7); Eosinophils % (A) 3 %; HCT 34.5 % (34.0-46.0); HGB 11.8 gm/dL (11.4-16.0); Lymphocytes # (A) 2.2 k/uL (1.0-4.8); Lymphocytes % (A) 25 %; MCH 28.8 pg (25.0-35.0); MCHC 34.2 g/dL (31.0-37.0); MCV 84.2 fL (80.0-100.0); Mean Platelet Volume 8.1; Monocytes # (A) 0.6 k/uL (0-1.0); Monocytes % (A) 6 %; Neutrophils # (A) 5.6 k/uL (1.3-7.7); Neutrophils % (A) 64 %; Platelet Count 263 k/uL (150-450); RBC 4.09 m/uL (3.80-5.40); RDW 13.7 % (11.5-15.5); WBC 8.8 k/uL (3.8-10.6)
[2022-06-21 22:14] LABS: Appearance,Urine Cloudy (Clear); Bacteria,Urine Rare /hpf; Bilirubin,Urine Negative (Negative); Blood,Urine Large (Negative); Color,Urine Yellow; Glucose,Urine (UA) Negative (Negative); Hyaline Casts,Urine 1 /lpf (0-2); Ketones,Urine 1+ (Negative); Leukocyte Esterase,Urine Negative (Negative); Mucus,Urine Rare /hpf; Nitrite,Urine Negative (Negative); Protein,Urine Trace (Negative); RBC,Urine 2 /hpf (0-5); Specific Gravity,Urine 1.014 (1.001-1.035); Squamous Epithelial Cell,Urine 11 /hpf (0-4); Urobilinogen,Urine <2.0 mg/dL (<2.0); WBC,Urine 2 /hpf (0-5)
[2022-06-21 22:18] LABS: ALT 24 U/L (4-34); AST 24 U/L (14-36); African American GFR (CKD) >90 (>60 ml/min/1.73 sqM); Albumin 3.9 g/dL (3.5-5.0); Alkaline Phosphatase 85 U/L (38-126); Anion Gap 6 mmol/L; Blood Urea Nitrogen 10 mg/dL (7-17); Calcium 8.5 mg/dL (8.4-10.2); Carbon Dioxide 26 mmol/L (22-30); Chloride 105 mmol/L (98-107); Glucose 89 mg/dL (74-99); Lipase 241 U/L (23-300); Magnesium 2.1 mg/dL (1.6-2.3); Non-African American GFR(CKD) >90 (>60 ml/min/1.73 sqM); Potassium 3.8 mmol/L (3.5-5.1); Sodium 137 mmol/L (137-145); Total Bilirubin 0.4 mg/dL (0.2-1.3); Total Protein 6.7 g/dL (6.3-8.2)
--- NOTE | 2022-06-21 22:20 | ED ---
General Adult HPI - General Chief complaint: Nausea/Vomiting/Diarrhea Stated complaint: Flu Positive, mucus build up, fatigue Time Seen by Provider: 06/21/22 21:20 Source: patient Mode of arrival: ambulatory Limitations: no limitations - History of Present Illness Initial comments: This is a 36-year-old female with a past medical history including asthma, bipolar disorder presents emergency department for coughing and vomiting. The patient did state that she was flew positive last week and stated that she had some minor improvement with the symptoms. The patient did state that over the last 3 days she started experience increased bodyaches, chills as well as vomiting. The patient also stated that she was "coughing up thick stuff." The patient stated that because of the continued symptoms after one whole week, the patient came to the emergency department for evaluation. The patient stated that she had increasing lethargy and was sleeping throughout the day but denied any current body aches or chills. The patient stated she had a large episode of vomiting prior to coming to the emergency department was mildly nauseous currently. The patient denied any other complaints but did state that she had multiple sick contacts throughout her family throughout the week. - Related Data Home Medications Medication Instructions Recorded Confirmed Divalproex ER [Depakote ER] 500 mg PO HS 04/23/14 07/17/21 Ziprasidone [Geodon] 20 mg PO BID 04/21/19 07/17/21 Albuterol Inhaler [Ventolin Hfa 1 - 2 puff INHALATION RT-QID PRN 12/23/19 07/17/21 Inhaler] Bromocriptine Mesylate 2.5 mg PO HS 01/17/21 07/17/21 Dicyclomine HCl 10 mg PO QID 01/17/21 07/17/21 Acetaminophen Tab [Tylenol] 650 mg PO Q6HR PRN 07/17/21 07/17/21 EPINEPHrine (Auto Inject) [Epipen] 0.3 mg IM ONCE PRN 07/17/21 07/17/21 Famotidine [Pepcid] 20 mg PO HS 07/17/21 07/17/21 Previous Rx's Medication Instructions Recorded Benztropine Mesylate [Cogentin] 1 mg PO BID #8 tablet 04/23/14 Omeprazole [PriLOSEC] 40 mg PO DAILY #14 cap 07/31/20 Benzonatate [Tessalon Perles] 100 mg PO TID PRN #30 capsule 06/22/22 Ondansetron Odt [Zofran Odt] 4 mg PO Q8HR PRN #20 tab 06/22/22 Allergies Allergy/AdvReac Type Severity Reaction Status Date / Time amoxicillin Allergy Unknown Verified 06/21/22 20:46 brompheniramine maleate Allergy Unknown Verified 06/21/22 20:46 [From Dimetapp (brompheniramine-PPA)] clemastine fumarate Allergy Unknown Verified 06/21/22 20:46 [From Tavist] codeine Allergy Unknown Verified 06/21/22 20:46 diphenhydramine HCl Allergy Unknown Verified 06/21/22 20:46 [From Benadryl] meclizine Allergy Anaphylaxis Verified 06/21/22 20:46 phenylpropanolamine HCl Allergy Unknown Verified 06/21/22 20:46 [From Dimetapp (brompheniramine-PPA)] prednisone Allergy Hallucinati Verified 06/21/22 20:46 ons pseudoephedrine HCl Allergy Unknown Verified 06/21/22 20:46 [From Tavist] red dye Allergy Unknown Verified 06/21/22 20:46 risperidone [From Risperdal] Allergy Unknown Verified 06/21/22 20:46 sulfamethoxazole Allergy Unknown Verified 06/21/22 20:46 [From Bactrim] trimethoprim [From Bactrim] Allergy Unknown Verified 06/21/22 20:46 Review of Systems ROS Statement: Those systems with pertinent positive or pertinent negative responses have been documented in the HPI. ROS Other: All systems not noted in ROS Statement are negative. 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 Shingles on right inner thigh , covid 2021 History of Any Multi-Drug Resistant Organisms: None Reported Past Surgical History: Appendectomy Past Anesthesia/Blood Transfusion Reactions: No Reported Reaction Past Psychological History: Anxiety, Bipolar, Depression Smoking Status: Never smoker Past Alcohol Use History: Rare Past Drug Use History: None Reported General Exam Limitations: no limitations General appearance: alert, in no apparent distress, obese Head exam: Present: atraumatic, normocephalic, normal inspection Eye exam: Present: normal appearance, PERRL Pupils: Present: normal accommodation ENT exam: Present: normal exam, normal oropharynx, mucous membranes moist Neck exam: Present: normal inspection, full ROM Respiratory exam: Present: normal lung sounds bilaterally Cardiovascular Exam: Present: regular rate, normal rhythm, normal heart sounds GI/Abdominal exam: Present: soft, normal bowel sounds Extremities exam: Present: normal inspection, full ROM Back exam: Present: normal inspection, full ROM Neurological exam: Present: alert, oriented X3, CN II-XII intact Psychiatric exam: Present: normal affect, normal mood Skin exam: Present: warm, dry Course Vital Signs 06/21/22 20:46 Temperature 98 F Pulse Rate 92 Respiratory 18 Rate Blood Pressure 141/83 O2 Sat by Pulse 95 Oximetry Medical Decision Making - Medical Decision Making Was pt. sent in by a medical professional or institution (Dr. PA, NUCLEAR SPECTROSCOPIST, urgent care, hospital, or intermediate...) When possible be specific @ -No Did you speak to anyone other than the patient for history (EMS, parent, family, police, friend...)? What history was obtained from this source @ -No Did you review nursing and triage notes (agree or disagree)? Why? @ -I reviewed and agree with nursing and triage notes Were old charts reviewed (outside hosp., previous admission, EMS record, old EKG, old radiological studies, urgent care reports/EKG's, intermediate records)? Report findings @ -No old charts were reviewed Differential Diagnosis (chest pain, altered mental status, abdominal pain women, abdominal pain men, vaginal bleeding, weakness, fever, dyspnea, syncope, headache, dizziness, GI bleed, back pain, seizure, CVA, palpatations, mental health)? @ -Upper respiratory infection, pneumonia, pneumothorax EKG interpreted by me (3pts min.). @ -None X-rays interpreted by me (1pt min.). @ -Chest x-ray was obtained and was interpreted by myself showing no acute process. CT interpreted by me (1pt min.). @ -None done U/S interpreted by me (1pt. min.). @ -None done What testing was considered but not performed or refused? (CT, X-rays, U/S, labs)? Why? @ -None What meds were considered but not given or refused? Why? @ -None Did you discuss the management of the patient with other professionals (professionals i.e. , PA, NUCLEAR SPECTROSCOPIST, lab, RT, psych nurse, aids social worker, tongue carrier, teacher, coastal/harbor defense officer, case aide)? Give summary @ -No Was smoking cessation discussed for >3mins.? @ -No Was critical care preformed (if so, how long)? @ -No Were there social determinants of health that impacted care today? How? (Ho melessness, low income, unemployed, alcoholism, drug addiction, transportation, low edu. Level, literacy, decrease access to med. care, senior care, rehab)? @ -No Was there de-escalation of care discussed even if they declined (Discuss DNR or withdrawal of care, Hospice)? DNR status @ -No What co-morbidities impacted this encounter? (DM, HTN, Smoking, COPD, CAD, Cancer, CVA, ARF, Chemo, Hep., AIDS, mental health diagnosis, sleep apnea, morbid obesity)? @ -Asthma, bipolar disorder Was patient admitted / discharged? Hospital course, mention meds given and route, prescriptions, significant lab abnormalities, going to OR and other pertinent info. @ -The patient was seen and evaluated in the emergency department. Physical exam, the patient was resting in bed without any acute distress. Vital signs admission were stable. Laboratory workup was within normal limits and chest x- ray was negative. The patient did state that she had improvement on reevaluation after 1 L of normal saline fluid and 4 mg of Zofran. The patient likely had an upper respiratory infection and possibly gastroenteritis all as a viral etiology. The patient was given a prescription for Tessalon Perles for her cough as well as Zofran for her nausea. The patient remained stable and didn't have any further symptoms therefore was stable for discharge home. The patient was advised to report back to the emergency department if her pain or symptoms became acutely worse and to follow-up with her primary care physician if needed. The patient was agreeable to this and all her questions were answered. The patient was discharged home in stable condition. Undiagnosed new problem with uncertain prognosis? @ -No Drug Therapy requiring intensive monitoring for toxicity (Heparin, Nitro, Insulin, Cardizem)? @ -No Were any procedures done? @ -No Diagnosis/symptom? @ -Upper respiratory infection versus viral gastroenteritis Acute, or Chronic, or Acute on Chronic? @ -Acute Uncomplicated (without systemic symptoms) or Complicated (systemic symptoms)? @ -Uncomplicated Side effects of treatment? @ -No Exacerbation, Progression, or Severe Exacerbation? @ -No Poses a threat to life or bodily function? How? (Chest pain, USA, DC, pneumonia, PE, COPD, DKA, ARF, appy, cholecystitis, CVA, Diverticulitis, Homicidal, Suicidal, threat to staff... and all critical care pts) @ -No - Lab Data Result diagrams: 06/21/22 21:52 06/21/22 21:52 Lab Results 06/21/22 06/21/22 06/21/22 Range/Units 21:52 21:52 21:52 WBC 8.8 (3.8-10.6) k/uL RBC 4.09 (3.80-5.40) m/uL Hgb 11.8 (11.4-16.0) gm/dL Hct 34.5 (34.0-46.0) % MCV 84.2 (80.0-100.0) fL MCH 28.8 (25.0-35.0) pg MCHC 34.2 (31.0-37.0) g/dL RDW 13.7 (11.5-15.5) % Plt Count 263 (150-450) k/uL MPV 8.1 Neutrophils % 64 % Lymphocytes % 25 % Monocytes % 6 % Eosinophils % 3 % Basophils % 0 % Neutrophils # 5.6 (1.3-7.7) k/uL Lymphocytes # 2.2 (1.0-4.8) k/uL Monocytes # 0.6 (0-1.0) k/uL Eosinophils # 0.3 (0-0.7) k/uL Basophils # 0.0 (0-0.2) k/uL Sodium 137 (137-145) mmol/L Potassium 3.8 (3.5-5.1) mmol/L Chloride 105 (98-107) mmol/L Carbon Dioxide 26 (22-30) mmol/L Anion Gap 6 mmol/L BUN 10 (7-17) mg/dL Creatinine 0.79 (0.52-1.04) mg/dL Est GFR (CKD-EPI)AfAm >90 (>60 ml/min/1.73 sqM) Est GFR (CKD-EPI)NonAf >90 (>60 ml/min/1.73 sqM) Glucose 89 (74-99) mg/dL Calcium 8.5 (8.4-10.2) mg/dL Magnesium 2.1 (1.6-2.3) mg/dL Total Bilirubin 0.4 (0.2-1.3) mg/dL AST 24 (14-36) U/L ALT 24 (4-34) U/L Alkaline Phosphatase 85 (38-126) U/L Total Protein 6.7 (6.3-8.2) g/dL Albumin 3.9 (3.5-5.0) g/dL Lipase 241 (23-300) U/L Urine Color Urine Appearance (Clear) Urine pH (5.0-8.0) Ur Specific Avant (1.001-1.035) Urine Protein (Negative) Urine Glucose (UA) (Negative) Urine Ketones (Negative) Urine Blood (Negative) Urine Nitrite (Negative) Urine Bilirubin (Negative) Urine Urobilinogen (<2.0) mg/dL Ur Leukocyte Esterase (Negative) Urine RBC (0-5) /hpf Urine WBC (0-5) /hpf Ur Squamous Epith Cells (0-4) /hpf Urine Bacteria (None) /hpf Hyaline Casts (0-2) /lpf Urine Mucus (None) /hpf Urine HCG, Qual Not Detected (Not Detectd) Influenza Type A (PCR) (Not Detectd) Influenza Type B (PCR) (Not Detectd) RSV (PCR) (Not Detectd) SARS-CoV-2 (PCR) (Not Detectd) 06/21/22 06/21/22 Range/Units 21:52 22:33 WBC (3.8-10.6) k/uL RBC (3.80-5.40) m/uL Hgb (11.4-16.0) gm/dL Hct (34.0-46.0) % MCV (80.0-100.0) fL MCH (25.0-35.0) pg MCHC (31.0-37.0) g/dL RDW (11.5-15.5) % Plt Count (150-450) k/uL MPV Neutrophils % % Lymphocytes % % Monocytes % % Eosinophils % % Basophils % % Neutrophils # (1.3-7.7) k/uL Lymphocytes # (1.0-4.8) k/uL Monocytes # (0-1.0) k/uL Eosinophils # (0-0.7) k/uL Basophils # (0-0.2) k/uL Sodium (137-145) mmol/L Potassium (3.5-5.1) mmol/L Chloride (98-107) mmol/L Carbon Dioxide (22-30) mmol/L Anion Gap mmol/L BUN (7-17) mg/dL Creatinine (0.52-1.04) mg/dL Est GFR (CKD-EPI)AfAm (>60 ml/min/1.73 sqM) Est GFR (CKD-EPI)NonAf (>60 ml/min/1.73 sqM) Glucose (74-99) mg/dL Calcium (8.4-10.2) mg/dL Magnesium (1.6-2.3) mg/dL Total Bilirubin (0.2-1.3) mg/dL AST (14-36) U/L ALT (4-34) U/L Alkaline Phosphatase (38-126) U/L Total Protein (6.3-8.2) g/dL Albumin (3.5-5.0) g/dL Lipase (23-300) U/L Urine Color Yellow Urine Appearance Cloudy H (Clear) Urine pH 7.0 (5.0-8.0) Ur Specific Avant 1.014 (1.001-1.035) Urine Protein Trace H (Negative) Urine Glucose (UA) Negative (Negative) Urine Ketones 1+ H (Negative) Urine Blood Large H (Negative) Urine Nitrite Negative (Negative) Urine Bilirubin Negative (Negative) Urine Urobilinogen <2.0 (<2.0) mg/dL Ur Leukocyte Esterase Negative (Negative) Urine RBC 2 (0-5) /hpf Urine WBC 2 (0-5) /hpf Ur Squamous Epith Cells 11 H (0-4) /hpf Urine Bacteria Rare H (None) /hpf Hyaline Casts 1 (0-2) /lpf Urine Mucus Rare H (None) /hpf Urine HCG, Qual (Not Detectd) Influenza Type A (PCR) Not Detected (Not Detectd) Influenza Type B (PCR) Not Detected (Not Detectd) RSV (PCR) Not Detected (Not Detectd) SARS-CoV-2 (PCR) Not Detected (Not Detectd) Disposition Clinical Impression: Gastroenteritis, URI (upper respiratory infection) Disposition: HOME SELF-CARE Condition: Stable Instructions (If sedation given, give patient instructions): Upper Respiratory Infection (DC), Acute Nausea and Vomiting (ED) Prescriptions: Benzonatate [Tessalon Perles] 100 mg PO TID PRN #30 capsule PRN Reason: Cough Ondansetron Odt [Zofran Odt] 4 mg PO Q8HR PRN #20 tab PRN Reason: Nausea Is patient prescribed a controlled substance at d/c from ED?: No Referrals: Conrado Rey MD [Primary Care Provider] - 1-2 days Time of Disposition: 23:50
--- NOTE | 2022-06-21 23:48 | XR ---
EXAM: XR Chest, 2 Views CLINICAL HISTORY: ITS.REASON XR Reason: Cough TECHNIQUE: Frontal and lateral views of the chest. COMPARISON: No relevant prior studies available. FINDINGS: Lungs: Unremarkable. No consolidation. Pleural space: Unremarkable. No pleural effusion or pneumothorax. Heart: Unremarkable. No cardiomegaly or pulmonary vascular congestion. Bones/joints: No acute fracture. No dislocation. IMPRESSION: No evidence of acute cardiopulmonary disease.
== END 2022-06-22 00:22 | disposition home or self-care (01) ==
LOC: EC 20:39
DX: K52.9 Noninfective gastroenteritis and colitis, unspecified (principal); J06.9 Acute upper respiratory infection, unspecified; Z86.16 Personal history of COVID-19; J45.909 Unspecified asthma, uncomplicated; F31.9 Bipolar disorder, unspecified; Z88.0 Allergy status to penicillin; Z88.2 Allergy status to sulfonamides; Z88.1 Allergy status to other antibiotic agents; Z88.8 Allergy status to other drugs, medicaments and biological substances; Z88.5 Allergy status to narcotic agent; Z79.899 Other long term (current) drug therapy; Z20.822 Contact with and (suspected) exposure to COVID-19
CPT/HCPCS: 36415; 80053; 83690; 83735; 85025; 81001; 81025; 87636; 71046; 99284; 96374; 96361; J2405

== ENCOUNTER 2022-07-01 09:53 | Emergency (ER) | payer OTHER ==
[2022-07-01 10:14] VITALS: RESP 18; TEMP 97.9
[2022-07-01] MEDS ORDERED: SODIUM CHLORIDE 0.9% 500 ML 500 ML IV ONE (11:45)
[2022-07-01] MEDS ORDERED: ONDANSETRON 4 MG/2 ML VIAL IVP STA (11:45)
[2022-07-01 12:15] LABS: Basophils % (A) 0 %; Eosinophils # (A) 0.3 k/uL (0-0.7); Eosinophils % (A) 3 %; HCT 41.7 % (34.0-46.0); HGB 13.7 gm/dL (11.4-16.0); Lymphocytes # (A) 1.5 k/uL (1.0-4.8); Lymphocytes % (A) 14 %; MCH 28.6 pg (25.0-35.0); MCHC 32.9 g/dL (31.0-37.0); MCV 86.9 fL (80.0-100.0); Mean Platelet Volume 8.8; Monocytes # (A) 0.4 k/uL (0-1.0); Monocytes % (A) 4 %; Neutrophils % (A) 78 %; Platelet Count 252 k/uL (150-450); WBC 10.3 k/uL (3.8-10.6)
[2022-07-01 12:27] LABS: ALT 23 U/L (4-34); AST 25 U/L (14-36); African American GFR (CKD) >90 (>60 ml/min/1.73 sqM); Albumin 4.2 g/dL (3.5-5.0); Alkaline Phosphatase 77 U/L (38-126); Amylase 60 U/L (30-110); Anion Gap 7 mmol/L; Blood Urea Nitrogen 16 mg/dL (7-17); Calcium 8.7 mg/dL (8.4-10.2); Carbon Dioxide 27 mmol/L (22-30); Chloride 104 mmol/L (98-107); Glucose 84 mg/dL (74-99); Lipase 317 U/L (23-300); Non-African American GFR(CKD) >90 (>60 ml/min/1.73 sqM); Potassium 3.9 mmol/L (3.5-5.1); Sodium 138 mmol/L (137-145); Total Bilirubin 0.4 mg/dL (0.2-1.3)
--- NOTE | 2022-07-01 12:48 | XR ---
EXAMINATION TYPE: XR KUB DATE OF EXAM: 07/01/2022 COMPARISON: 06/10/2022 HISTORY: Pain TECHNIQUE: Single supine KUB image of the abdomen is obtained FINDINGS: Small bowel demonstrates no evidence for dilatation or air fluid levels. Gas and fecal material is seen in non-distended colon. No convincing evidence for pneumoperitoneum. No unusual calcifications. The lung bases are clear. The osseous structures are intact. IUD is noted. IMPRESSION: 1. Overall nonobstructive bowel gas pattern.
[2022-07-01] MEDS ORDERED: ONDANSETRON 4 MG ODT STARTER PACK 2 TAB BTL PO STA (13:01)
--- NOTE | 2022-07-01 13:01 | ED ---
General Adult HPI - General Chief complaint: Nausea/Vomiting/Diarrhea Stated complaint: Abd Pain Time Seen by Provider: 07/01/22 11:04 Source: patient, RN notes reviewed Mode of arrival: ambulatory Limitations: no limitations - History of Present Illness Initial comments: 36-year-old female presents emergency Department chief complaint acute nausea and vomiting. Patient reports worsening nausea and vomiting that started last night.) Today. The abdominal pain associated with this. She does report that she was started on a waiting list ejection approximately 1 month ago and has had a bowel movement. She denies any fevers, chills, weakness, fatigue, chest pain, shortness breath, melena, hematochezia. - Related Data Home Medications Medication Instructions Recorded Confirmed Divalproex ER [Depakote ER] 500 mg PO HS 04/23/14 07/17/21 Ziprasidone [Geodon] 20 mg PO BID 04/21/19 07/17/21 Albuterol Inhaler [Ventolin Hfa 1 - 2 puff INHALATION RT-QID PRN 12/23/19 07/17/21 Inhaler] Bromocriptine Mesylate 2.5 mg PO HS 01/17/21 07/17/21 Dicyclomine HCl 10 mg PO QID 01/17/21 07/17/21 Acetaminophen Tab [Tylenol] 650 mg PO Q6HR PRN 07/17/21 07/17/21 EPINEPHrine (Auto Inject) [Epipen] 0.3 mg IM ONCE PRN 07/17/21 07/17/21 Famotidine [Pepcid] 20 mg PO HS 07/17/21 07/17/21 Previous Rx's Medication Instructions Recorded Benztropine Mesylate [Cogentin] 1 mg PO BID #8 tablet 04/23/14 Omeprazole [PriLOSEC] 40 mg PO DAILY #14 cap 07/31/20 Benzonatate [Tessalon Perles] 100 mg PO TID PRN #30 capsule 06/22/22 Ondansetron Odt [Zofran Odt] 4 mg PO Q8HR PRN #20 tab 06/22/22 Allergies Allergy/AdvReac Type Severity Reaction Status Date / Time amoxicillin Allergy Unknown Verified 07/01/22 10:14 brompheniramine maleate Allergy Unknown Verified 07/01/22 10:14 [From Dimetapp (brompheniramine-PPA)] clemastine fumarate Allergy Unknown Verified 07/01/22 10:14 [From Tavist] codeine Allergy Unknown Verified 07/01/22 10:14 diphenhydramine HCl Allergy Unknown Verified 07/01/22 10:14 [From Benadryl] meclizine Allergy Anaphylaxis Verified 07/01/22 10:14 phenylpropanolamine HCl Allergy Unknown Verified 07/01/22 10:14 [From Dimetapp (brompheniramine-PPA)] prednisone Allergy Hallucinati Verified 07/01/22 10:14 ons pseudoephedrine HCl Allergy Unknown Verified 07/01/22 10:14 [From Tavist] red dye Allergy Unknown Verified 07/01/22 10:14 risperidone [From Risperdal] Allergy Unknown Verified 07/01/22 10:14 sulfamethoxazole Allergy Unknown Verified 07/01/22 10:14 [From Bactrim] trimethoprim [From Bactrim] Allergy Unknown Verified 07/01/22 10:14 Review of Systems ROS Statement: Those systems with pertinent positive or pertinent negative responses have been documented in the HPI. ROS Other: All systems not noted in ROS Statement are negative. 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 Shingles on right inner thigh 3, covid 2021 History of Any Multi-Drug Resistant Organisms: None Reported Past Surgical History: Appendectomy Past Anesthesia/Blood Transfusion Reactions: No Reported Reaction Past Psychological History: Anxiety, Bipolar, Depression Smoking Status: Never smoker Past Alcohol Use History: Rare Past Drug Use History: None Reported General Exam Limitations: no limitations General appearance: alert, in no apparent distress Head exam: Present: atraumatic, normocephalic, normal inspection Eye exam: Present: normal appearance, PERRL, EOMI. Absent: scleral icterus, conjunctival injection, periorbital swelling ENT exam: Present: normal exam, mucous membranes moist Neck exam: Present: normal inspection. Absent: tenderness, meningismus, lymphadenopathy Respiratory exam: Present: normal lung sounds bilaterally. Absent: respiratory distress, wheezes, rales, rhonchi, stridor Cardiovascular Exam: Present: regular rate, normal rhythm, normal heart sounds. Absent: systolic murmur, diastolic murmur, rubs, gallop, clicks GI/Abdominal exam: Present: soft, normal bowel sounds. Absent: distended, tenderness, guarding, rebound, rigid Extremities exam: Present: normal inspection, full ROM, normal capillary refill. Absent: tenderness, pedal edema, joint swelling, calf tenderness Back exam: Present: normal inspection Neurological exam: Present: alert, oriented X3, CN II-XII intact Psychiatric exam: Present: normal affect, normal mood Skin exam: Present: warm, dry, intact, normal color. Absent: rash Course Vital Signs 07/01/22 07/01/22 10:10 13:38 Temperature 97.9 F 97.9 F Pulse Rate 78 76 Respiratory 18 18 Rate Blood Pressure 139/86 109/81 O2 Sat by Pulse 96 100 Oximetry Medical Decision Making - Medical Decision Making Was pt. sent in by a medical professional or institution ([facility]ISS Rai, [employer], urgent care, hospital, or fci...) When possible be specific @ -[No] Did you speak to anyone other than the patient for history (EMS, parent, family, police, friend...)? What history was obtained from this source @ -[No] Did you review nursing and triage notes (agree or disagree)? Why? @ -[I reviewed and agree with nursing and triage notes] Were old charts reviewed (outside hosp., previous admission, EMS record, old EKG, old radiological studies, urgent care reports/EKG's, fci records)? Report findings @ -[No old charts were reviewed] Differential Diagnosis (chest pain, altered mental status, abdominal pain women, abdominal pain men, vaginal bleeding, weakness, fever, dyspnea, syncope, hea dache, dizziness, GI bleed, back pain, seizure, CVA, palpatations, mental health, musculoskeletal)? @ -[not applicable] EKG interpreted by me (3pts min.). @ -[As above] X-rays interpreted by me (1pt min.). @ -[None done] CT interpreted by me (1pt min.). @ -[None done] U/S interpreted by me (1pt. min.). @ -[None done] What testing was considered but not performed or refused? (CT, X-rays, U/S, labs)? Why? @ -[None] What meds were considered but not given or refused? Why? @ -[None] Did you discuss the management of the patient with other professionals (professionals i.e. , PA, [employer], lab, RT, psych nurse, aids social worker, tool hardener, teacher, nuclear officer, case briefer)? Give summary @ -[No] Was smoking cessation discussed for >3mins.? @ -[No] Was critical care preformed (if so, how long)? @ -[No] Were there social determinants of health that impacted care today? How? (Homelessness, low income, unemployed, alcoholism, drug addiction, transportation, low edu. Level, literacy, decrease access to med. care, correction, rehab)? @ -[No] Was there de-escalation of care discussed even if they declined (Discuss DNR or withdrawal of care, Hospice)? DNR status @ -[No] What co-morbidities impacted this encounter? (DM, HTN, Smoking, COPD, CAD, Canc er, CVA, ARF, Chemo, Hep., AIDS, mental health diagnosis, sleep apnea, morbid obesity)? @ -[None] Was patient admitted / discharged? Hospital course, mention meds given and route, prescriptions, significant lab abnormalities, going to OR and other pertinent info. @ --Discharged. This is a 36-year-old female who presents to the em ergency department with nausea and vomiting.. Patient had a thorough physical exam and history obtained on the ED. Physical exam is essentially unremarkable heart rate regular rate and rhythm, lungs clear to auscultation bilaterally abdomen is soft and nontender vital signs are stable. Patient had lab work and imaging which were essentially unremarkable. I discussed the results in detail with the patient verbalized understanding and all questions were addressed. Return precautions were discussed at length. Patient discharged in stable condition. Case discussed with SARAH Mast who agrees with plan of care Undiagnosed new problem with uncertain prognosis? @ -[No] Drug Therapy requiring intensive monitoring for toxicity (Heparin, Nitro, Insulin, Cardizem)? @ -[No] Were any procedures done? @ -[No] Diagnosis/symptom? @ -nausea and vomiting Acute, or Chronic, or Acute on Chronic? @ -acute Uncomplicated (without systemic symptoms) or Complicated (systemic symptoms)? @ -uncomplicated Side effects of treatment? @ -[No] Exacerbation, Progression, or Severe Exacerbation? @ -[No] Poses a threat to life or bodily function? How? (Chest pain, [place], [place], pneumonia, PE, COPD, DKA, ARF, appy, cholecystitis, CVA, Diverticulitis, Homicidal, Suicidal, threat to staff... and all critical care pts) @ -low likelihood - Lab Data Result diagrams: 07/01/22 12:09 07/01/22 12:09 Lab Results 07/01/22 07/01/22 Range/Units 12:09 12:09 WBC 10.3 (3.8-10.6) k/uL RBC 4.80 (3.80-5.40) m/uL Hgb 13.7 (11.4-16.0) gm/dL Hct 41.7 (34.0-46.0) % MCV 86.9 (80.0-100.0) fL MCH 28.6 (25.0-35.0) pg MCHC 32.9 (31.0-37.0) g/dL RDW 14.0 (11.5-15.5) % Plt Count 252 (150-450) k/uL MPV 8.8 Neutrophils % 78 % Lymphocytes % 14 % Monocytes % 4 % Eosinophils % 3 % Basophils % 0 % Neutrophils # 8.0 H (1.3-7.7) k/uL Lymphocytes # 1.5 (1.0-4.8) k/uL Monocytes # 0.4 (0-1.0) k/uL Eosinophils # 0.3 (0-0.7) k/uL Basophils # 0.0 (0-0.2) k/uL Sodium 138 (137-145) mmol/L Potassium 3.9 (3.5-5.1) mmol/L Chloride 104 (98-107) mmol/L Carbon Dioxide 27 (22-30) mmol/L Anion Gap 7 mmol/L BUN 16 (7-17) mg/dL Creatinine 0.83 (0.52-1.04) mg/dL Est GFR (CKD-EPI)AfAm >90 (>60 ml/min/1.73 sqM) Est GFR (CKD-EPI)NonAf >90 (>60 ml/min/1.73 sqM) Glucose 84 (74-99) mg/dL Calcium 8.7 (8.4-10.2) mg/dL Total Bilirubin 0.4 (0.2-1.3) mg/dL AST 25 (14-36) U/L ALT 23 (4-34) U/L Alkaline Phosphatase 77 (38-126) U/L Total Protein 7.0 (6.3-8.2) g/dL Albumin 4.2 (3.5-5.0) g/dL Amylase 60 (30-110) U/L Lipase 317 H (23-300) U/L Disposition Clinical Impression: Nausea Disposition: HOME SELF-CARE Condition: Stable Instructions (If sedation given, give patient instructions): Acute Nausea and Vomiting (ED), Acute Diarrhea (ED) Additional Instructions: Please start the BRAT (bananas, rice, applesauce, toast) diet Eat small meals 6-8 times a day until stool is formed Please return to the nearest emergency department if symptoms worsen or persist Is patient prescribed a controlled substance at d/c from ED?: No Referrals: Conrado Rey MD [Primary Care Provider] - 1-2 days Time of Disposition: 13:01
[2022-07-01 13:39] VITALS: BP 109/81; PULSE 76
== END 2022-07-01 13:39 | disposition home or self-care (01) ==
LOC: EC 09:53
DX: R11.2 Nausea with vomiting, unspecified (principal); J45.909 Unspecified asthma, uncomplicated; F41.9 Anxiety disorder, unspecified; F31.9 Bipolar disorder, unspecified; Z86.16 Personal history of COVID-19; Z88.2 Allergy status to sulfonamides; Z88.1 Allergy status to other antibiotic agents; Z88.8 Allergy status to other drugs, medicaments and biological substances; Z91.041 Radiographic dye allergy status; Z79.899 Other long term (current) drug therapy
CPT/HCPCS: 36415; 80053; 82150; 83690; 85025; 74018; 99284; 96374; 96361; J2405; S0119

== ENCOUNTER 2022-08-03 06:22 | Emergency (ER) | payer OTHER ==
[2022-08-03] MEDS ORDERED: SODIUM CHLORIDE 0.9% 1,000 ML IV STA (06:45)
[2022-08-03] MEDS ORDERED: NITROGLYCERIN SL TABS 0.4 MG TAB SUBLINGUAL STA (06:47)
--- NOTE | 2022-08-03 06:47 | ED ---
Chest Pain HPI - General Chief Complaint: Chest Pain Stated Complaint: Chest Pain, Jaw pain, Dizziness Time Seen by Provider: 08/03/22 06:32 Source: patient, RN notes reviewed Mode of arrival: wheelchair Limitations: no limitations - History of Present Illness Initial Comments: This is a 36-year-old female who presents to the emergency department for chest pain. States that 2 days ago, she started to feel very fatigued. Last night around 7 PM, she developed right-sided jaw pain. A few hours later she developed developed centralized chest pain with numbness down the right arm. States that this is a sharp and burning sensation. This has since progressed and she feels somewhat nauseous and dizzy. Reports upper abdominal pain as well. Reports a history of heart attacks in her aunts and uncles when they were about 50 years old. Denies any palpitations or shortness of breath. Denies any fevers, chills, sore throat, cough, dyspnea, palpitations, abdominal pain, nausea, vomiting, diarrhea, back pain, or headaches. - Related Data Home Medications Medication Instructions Recorded Confirmed Divalproex ER [Depakote ER] 500 mg PO HS 04/23/14 07/17/21 Ziprasidone [Geodon] 20 mg PO BID 04/21/19 07/17/21 Albuterol Inhaler [Ventolin Hfa 1 - 2 puff INHALATION RT-QID PRN 12/23/1911/30 Inhaler] Bromocriptine Mesylate 2.5 mg PO HS 01/17/21 07/17/21 Dicyclomine HCl 10 mg PO QID 01/17/21 07/17/21 Acetaminophen Tab [Tylenol] 650 mg PO Q6HR PRN 07/17/21 07/17/21 EPINEPHrine (Auto Inject) [Epipen] 0.3 mg IM ONCE PRN 07/17/21 07/17/21 Famotidine [Pepcid] 20 mg PO HS 07/17/21 07/17/21 Previous Rx's Medication Instructions Recorded Benztropine Mesylate [Cogentin] 1 mg PO BID #8 tablet 04/23/14 Omeprazole [PriLOSEC] 40 mg PO DAILY #14 cap 07/31/20 Benzonatate [Tessalon Perles] 100 mg PO TID PRN #30 capsule 04/14/23 Ondansetron Odt [Zofran Odt] 4 mg PO Q8HR PRN #20 tab 06/22/22 Ketorolac [Toradol] 10 mg PO Q6HR PRN #12 tab 08/03/22 Ondansetron Odt [Zofran Odt] 4 mg PO Q8HR PRN #15 tab 08/03/22 Allergies Allergy/AdvReac Type Severity Reaction Status Date / Time amoxicillin Allergy Unknown Verified 08/03/22 06:30 brompheniramine maleate Allergy Unknown Verified 08/03/22 06:30 [From Dimetapp (brompheniramine-PPA)] clemastine fumarate Allergy Unknown Verified 08/03/22 06:30 [From Tavist] codeine Allergy Unknown Verified 08/03/22 06:30 diphenhydramine HCl Allergy Unknown Verified 08/03/22 06:30 [From Benadryl] meclizine Allergy Anaphylaxis Verified 08/03/22 06:30 phenylpropanolamine HCl Allergy Unknown Verified 08/03/22 06:30 [From Dimetapp (brompheniramine-PPA)] prednisone Allergy Hallucinati Verified 08/03/22 06:30 ons pseudoephedrine HCl Allergy Unknown Verified 08/03/22 06:30 [From Tavist] red dye Allergy Unknown Verified 08/03/22 06:30 risperidone [From Risperdal] Allergy Unknown Verified 08/03/22 06:30 sulfamethoxazole Allergy Unknown Verified 08/03/22 06:30 [From Bactrim] trimethoprim [From Bactrim] Allergy Unknown Verified 08/03/22 06:30 Review of Systems ROS Statement: Those systems with pertinent positive or pertinent negative responses have been documented in the HPI. ROS Other: All systems not noted in ROS Statement are negative. 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 Shingles on right inner thigh , covid 2021 History of Any Multi-Drug Resistant Organisms: None Reported Past Surgical History: Appendectomy Past Anesthesia/Blood Transfusion Reactions: No Reported Reaction Past Psychological History: Anxiety, Bipolar, Depression Smoking Status: Never smoker Past Alcohol Use History: Rare Past Drug Use History: None Reported General Exam Limitations: no limitations General appearance: alert, in no apparent distress Head exam: Present: atraumatic, normocephalic, normal inspection Respiratory exam: Present: normal lung sounds bilaterally, chest wall tenderness. Absent: respiratory distress, wheezes, rales, rhonchi, stridor Cardiovascular Exam: Present: regular rate, normal rhythm, normal heart sounds. Absent: systolic murmur, diastolic murmur, rubs, gallop, clicks GI/Abdominal exam: Present: soft, tenderness (epigastric), normal bowel sounds. Absent: distended Neurological exam: Present: alert, oriented X3, CN II-XII intact Psychiatric exam: Present: normal affect, normal mood Skin exam: Present: warm, dry, intact, normal color. Absent: rash Course Vital Signs 08/03/22 08/03/22 08/03/22 06:27 08:00 09:00 Temperature 98.4 F 98.6 F Pulse Rate 71 67 70 Respiratory 18 14 16 Rate Blood Pressure 146/88 138/94 108/82 O2 Sat by Pulse 97 97 97 Oximetry 08/03/22 10:10 Temperature 98.5 F Pulse Rate 71 Respiratory 18 Rate Blood Pressure 104/57 O2 Sat by Pulse 98 Oximetry Chest Pain MDM - MDM This is a 36-year-old female who presents to the emergency department for chest pain. Was pt. sent in by a medical professional or institution? @ -No Did you speak to anyone other than the patient for history? @ -No Did you review nursing and triage notes? @ -Yes, and I agree, it is accurate with regards to the patient's symptoms. Were old charts reviewed? @ -No Differential Diagnosis? @ -Differential Chest Pain: Stable Angina, Unstable Angina, STEMI, NSTEMI Aortic Dissection, Pneumothorax, Musculoskeletal, Esophageal Spasm GERD, Cholecystitis, Pancreatitis, Zoster, this is not meant to be an all-inclusive list. EKG interpreted by me (3pts min.)? @ -EKG interpreted by me demonstrating the following: Sinus rhythm. Ventricular rate 75 beats per minute, PA interval 154 ms, QRS duration 90 ms, QTC 425 ms. X-rays interpreted by me (1pt min.)? @ -Chest x-ray obtained, my interpretation identifies no localized consoli dations or infiltrates. CT interpreted by me (1pt min.)? @ -Not obtained U/S interpreted by me (1pt. min.)? @ -Gallbladder ultrasound obtained. My interpretation identifies cholelithiasis without evidence of gallbladder wall thickening. What testing was considered but not performed? (CT, X-rays, U/S, labs)? Why? @ -None What meds were considered but not given? Why? @ -None Did you discuss the management of the patient with other professionals? @ -No Did you reconcile home meds? @ -No Was smoking cessation discussed for >3mins.? @ -No Was critical care preformed (if so, how long)? @ -No Were there social determinants of health that impacted care today? How? (Homelessness, low income, unemployed, alcoholism, drug addiction, transportation, low edu. Level, literacy, decrease access to med. care, correction, rehab)? @ -No Was there de-escalation of care discussed even if they declined? (Discuss DNR or withdrawal of care, Hospice)? @ -No What co-morbidities impacted this encounter? (DM, HTN, Smoking, COPD, CAD, Cancer, CVA, Hep., AIDS, mental health diagnosis, sleep apnea, morbid obesity)? @ -Morbid obesity Was patient admitted / discharged? @ -Discharged. Lab work obtained and found to be nonactionable. Chest x-ray also reveals no acute findings. With the description of her symptoms, we did try a nitroglycerin, which did not improve her pain whatsoever. Given that she had abdominal tenderness as well, a gallbladder ultrasound was subsequently obtained. This revealed cholelithiasis without evidence of an acute cholecystitis. Pain was well controlled with Toradol and Pepcid. Findings reviewed with the patient. Her symptoms may be related to the cholelithiasis and an episode of biliary colic. Prescription for Toradol and Zofran provided with dosing instructions reviewed. Patient is instructed to take the Toradol with Tylenol if needed and avoid any other [id number] anti-inflammatories such as ibuprofen with the Toradol. Discussed following a low-fat bland diet for the meantime to reduce the risk of future episodes. Information for general surgery follow-up provided. She is instructed to contact them for a follow-up appointment. Undiagnosed new problem with uncertain prognosis? @ -None Drug Therapy requiring intensive monitoring for toxicity (Heparin, Nitro, Insulin, Cardizem)? @ -None Were any procedures done? @ -None Diagnosis/symptom? @ -Cholelithiasis, biliary colic Acute, or Chronic, or Acute on Chronic? @ -Acute Uncomplicated (without systemic symptoms) or Complicated (systemic symptoms)? @ -Uncomplicated Side effects of treatment? @ -None Exacerbation, Progression, or Severe Exacerbation] @ -Not applicable Poses a threat to life or bodily function? @ -No Return precautions reviewed in depth, the patient is instructed to return to the emergency department with any new, worsening, or concerning symptoms. Patient verbalized understanding. This case was discussed in detail with the attending ED physician, Dr. Lara. Pr esentation, findings, and treatment plan discussed in detail as well. Disposition Clinical Impression: Cholelithiasis, Biliary colic Disposition: HOME SELF-CARE Instructions (If sedation given, give patient instructions): Biliary Colic (ED), Gallstones (ED) Additional Instructions: Return to the emergency department with any new, worsening, or concerning symptoms. Take the Toradol as needed for any additional pain. If you take this, do not take it with any [id number]-[id number] anti-inflammatories such as ibuprofen. Take one or the other. The Zofran can be taken up to every 8 hours as needed for nausea and vomiting. Follow a low-fat bland diet for the meantime to reduce the risk of future episodes. Contact general surgery as listed below for a follow-up appointment. Follow up with your primary care provider in 1-2 days. Prescriptions: Ketorolac [Toradol] 10 mg PO Q6HR PRN #12 tab PRN Reason: Pain Ondansetron Odt [Zofran Odt] 4 mg PO Q8HR PRN #15 tab PRN Reason: Nausea And Vomiting Is patient prescribed a controlled substance at d/c from ED?: No Referrals: Conrado Rey MD [Primary Care Provider] - 1-2 days Malick Boateng MD [STAFF PHYSICIAN] - 1-2 days
[2022-08-03 07:01] LABS: Basophils # (A) 0.1 k/uL (0-0.2); Basophils % (A) 1 %; Eosinophils # (A) 0.6 k/uL (0-0.7); Eosinophils % (A) 7 %; HCT 37.8 % (34.0-46.0); HGB 12.6 gm/dL (11.4-16.0); Lymphocytes # (A) 1.9 k/uL (1.0-4.8); Lymphocytes % (A) 21 %; MCH 28.8 pg (25.0-35.0); MCHC 33.4 g/dL (31.0-37.0); MCV 86.4 fL (80.0-100.0); Mean Platelet Volume 8.5; Monocytes # (A) 0.5 k/uL (0-1.0); Monocytes % (A) 6 %; Neutrophils # (A) 5.8 k/uL (1.3-7.7); Neutrophils % (A) 64 %; Platelet Count 254 k/uL (150-450); RBC 4.37 m/uL (3.80-5.40); RDW 14.2 % (11.5-15.5); WBC 9.1 k/uL (3.8-10.6)
[2022-08-03 07:05] LABS: Appearance,Urine Clear (Clear); Bacteria,Urine Rare /hpf; Bilirubin,Urine Negative (Negative); Blood,Urine Negative (Negative); Color,Urine Light Yellow; Glucose,Urine (UA) Negative (Negative); Ketones,Urine Negative (Negative); Leukocyte Esterase,Urine Trace (Negative); Nitrite,Urine Negative (Negative); Protein,Urine Negative (Negative); RBC,Urine 2 /hpf (0-5); Specific Gravity,Urine 1.011 (1.001-1.035); Squamous Epithelial Cell,Urine 1 /hpf (0-4); Urobilinogen,Urine <2.0 mg/dL (<2.0); WBC,Urine 1 /hpf (0-5)
[2022-08-03 07:10] LABS: ALT 21 U/L (4-34); AST 24 U/L (14-36); African American GFR (CKD) >90 (>60 ml/min/1.73 sqM); Alkaline Phosphatase 95 U/L (38-126); Amylase 55 U/L (30-110); Anion Gap 8 mmol/L; Blood Urea Nitrogen 15 mg/dL (7-17); Calcium 8.3 mg/dL (8.4-10.2); Carbon Dioxide 24 mmol/L (22-30); Chloride 107 mmol/L (98-107); Glucose 99 mg/dL (74-99); Lipase 298 U/L (23-300); Magnesium 2.1 mg/dL (1.6-2.3); Non-African American GFR(CKD) >90 (>60 ml/min/1.73 sqM); Potassium 4.2 mmol/L (3.5-5.1); Sodium 139 mmol/L (137-145); Total Bilirubin 0.2 mg/dL (0.2-1.3); Total Protein 6.8 g/dL (6.3-8.2)
[2022-08-03 07:23] LABS: INR 0.9 (<1.2); Prothrombin Time 9.9 sec (9.0-12.0)
--- NOTE | 2022-08-03 07:28 | XR ---
EXAMINATION TYPE: XR chest 2V DATE OF EXAM: 08/03/2022 COMPARISON: Chest x-ray June 21, 2022 HISTORY: Chest pain. TECHNIQUE: Frontal and lateral views of the chest are obtained. FINDINGS: There is no focal air space opacity, pleural effusion, or pneumothorax seen. The cardiac silhouette size is stable and within normal limits. The osseous structures are intact. IMPRESSION: No acute process. No significant change from prior.
[2022-08-03] MEDS ORDERED: FAMOTIDINE 20 MG/2 ML VIAL IV STA (07:37)
[2022-08-03] MEDS ORDERED: KETOROLAC 15 MG/ML 1 ML VIAL IVP STA (07:37)
--- NOTE | 2022-08-03 08:08 | US ---
EXAMINATION TYPE: US gallbladder DATE OF EXAM: 08/03/2022 COMPARISON: NONE CLINICAL INDICATION: Female, 36 years old with history of Epigastric pain; abd pain with nausea TECHNIQUE: Multiple sonographic images of the right upper quadrant are obtained. FINDINGS: EXAM MEASUREMENTS: Liver Length: 10.9 cm Gallbladder Wall: 0.2 cm CBD: 4.9 mm Right Kidney: 10.9 x 4.4 x 4.4 cm Pancreas: wnl Liver: intercostal imaging due to bowel gas Gallbladder: +ROSALIA sign, multiple shadowing stones fills GB, no wall thickening Evidence for sonographic Selby's sign: no CBD: wnl Right Kidney: wnl IMPRESSION: 1. Extensive calculi filling and obscuring the gallbladder lumen. Sonographic Selby sign is reported negative. 2. No biliary ductal dilatation.
[2022-08-03] MEDS ORDERED: traMADol 50 MG TAB PO STA (09:10)
[2022-08-03] MEDS ORDERED: traMADol 50 MG STARTER PACK 3 TAB BTL PO STA (09:41)
[2022-08-03 10:23] VITALS: BP 104/57; PULSE 71; RESP 18; TEMP 98.5
== END 2022-08-03 10:15 | disposition home or self-care (01) ==
LOC: EC 06:22
DX: K80.70 Calculus of gallbladder and bile duct without cholecystitis without obstruction (principal); J45.909 Unspecified asthma, uncomplicated; F41.9 Anxiety disorder, unspecified; F31.9 Bipolar disorder, unspecified; Z79.899 Other long term (current) drug therapy; Z88.0 Allergy status to penicillin; Z88.1 Allergy status to other antibiotic agents; Z88.2 Allergy status to sulfonamides; Z88.8 Allergy status to other drugs, medicaments and biological substances; Z86.16 Personal history of COVID-19
CPT/HCPCS: 36415; 93005; 85379; 80053; 82150; 83690; 83735; 84484; 85025; 85610; 85730; 86308; 81001; 81025; 71046; 76705; 99285; 96374; 96375; 96361; J1885

== ENCOUNTER 2022-08-08 00:57 | Observation (INO) | payer OTHER ==
[2022-08-08 02:40] LABS: Appearance,Urine Clear (Clear); Bilirubin,Urine Negative (Negative); Blood,Urine Negative (Negative); Color,Urine Colorless; Glucose,Urine (UA) Negative (Negative); Ketones,Urine Negative (Negative); Leukocyte Esterase,Urine Negative (Negative); Nitrite,Urine Negative (Negative); Protein,Urine Negative (Negative); Specific Gravity,Urine 1.005 (1.001-1.035); Urobilinogen,Urine <2.0 mg/dL (<2.0)
[2022-08-08 03:46] LABS: Basophils % (A) 1 %; Eosinophils # (A) 0.5 k/uL (0-0.7); Eosinophils % (A) 7 %; HCT 36.3 % (34.0-46.0); HGB 12.4 gm/dL (11.4-16.0); Lymphocytes # (A) 1.9 k/uL (1.0-4.8); Lymphocytes % (A) 28 %; MCHC 34.2 g/dL (31.0-37.0); MCV 84.9 fL (80.0-100.0); Mean Platelet Volume 8.4; Monocytes # (A) 0.3 k/uL (0-1.0); Monocytes % (A) 4 %; Neutrophils % (A) 59 %; Platelet Count 257 k/uL (150-450); RBC 4.28 m/uL (3.80-5.40); WBC 6.8 k/uL (3.8-10.6)
[2022-08-08 03:58] LABS: ALT 22 U/L (4-34); AST 25 U/L (14-36); African American GFR (CKD) >90 (>60 ml/min/1.73 sqM); Alkaline Phosphatase 82 U/L (38-126); Anion Gap 8 mmol/L; Blood Urea Nitrogen 13 mg/dL (7-17); Calcium 8.3 mg/dL (8.4-10.2); Carbon Dioxide 24 mmol/L (22-30); Chloride 107 mmol/L (98-107); Glucose 116 mg/dL (74-99); Lipase 198 U/L (23-300); Non-African American GFR(CKD) >90 (>60 ml/min/1.73 sqM); Potassium 3.6 mmol/L (3.5-5.1); Sodium 139 mmol/L (137-145); Total Bilirubin 0.2 mg/dL (0.2-1.3); Total Protein 6.7 g/dL (6.3-8.2)
[2022-08-08] MEDS ORDERED: NALOXONE 0.4 MG/ML 1 ML VIAL IV PRN ×2 (05:39→12:52)
--- NOTE | 2022-08-08 05:41 | ED ---
General Adult HPI - General Chief complaint: Abdominal Pain Stated complaint: ABD PAIN Time Seen by Provider: 08/08/22 04:22 Source: patient Mode of arrival: ambulatory Limitations: no limitations - History of Present Illness Initial comments: This is a 36-year-old female who presents emergency department via EMS for continued abdominal pain. The patient is of a past medical history including bipolar disorder and previously and recently diagnosed gallstones stated that she had abdominal pain that was present the last 2 days and worsening with eating and associated with nausea and vomiting. The patient did state that the pain radiates across her upper abdomen and radiates to her back. The patient did state that she had slightly less pain when she came to the [facility] department last week but stated the pain is become more severe. The patient denied any fevers and chills however. - Related Data Home Medications Medication Instructions Recorded Confirmed Divalproex ER [Depakote ER] 500 mg PO HS 04/23/14 07/17/21 Ziprasidone [Geodon] 20 mg PO BID 04/21/19 07/17/21 Albuterol Inhaler [Ventolin Hfa 1 - 2 puff INHALATION RT-QID PRN 12/23/19 07/17/21 Inhaler] Bromocriptine Mesylate 2.5 mg PO HS 01/17/21 07/17/21 Dicyclomine HCl 10 mg PO QID 01/17/21 07/17/21 Acetaminophen Tab [Tylenol] 650 mg PO Q6HR PRN 07/17/21 07/17/21 EPINEPHrine (Auto Inject) [Epipen] 0.3 mg IM ONCE PRN 07/17/21 07/17/21 Famotidine [Pepcid] 20 mg PO HS 07/17/21 07/17/21 Previous Rx's Medication Instructions Recorded Benztropine Mesylate [Cogentin] 1 mg PO BID #8 tablet 04/23/14 Omeprazole [PriLOSEC] 40 mg PO DAILY #14 cap 07/31/20 Benzonatate [Tessalon Perles] 100 mg PO TID PRN #30 capsule 06/22/22 Ondansetron Odt [Zofran Odt] 4 mg PO Q8HR PRN #20 tab 06/22/22 Ketorolac [Toradol] 10 mg PO Q6HR PRN #12 tab 08/03/22 Ondansetron Odt [Zofran Odt] 4 mg PO Q8HR PRN #15 tab 08/03/22 Allergies Allergy/AdvReac Type Severity Reaction Status Date / Time amoxicillin Allergy Unknown Verified 08/08/22 02:05 brompheniramine maleate Allergy Unknown Verified 08/08/22 02:05 [From Dimetapp (brompheniramine-PPA)] clemastine fumarate Allergy Unknown Verified 08/08/22 02:05 [From Tavist] codeine Allergy Unknown Verified 08/08/22 02:05 diphenhydramine HCl Allergy Unknown Verified 08/08/22 02:05 [From Benadryl] meclizine Allergy Anaphylaxis Verified 08/08/22 02:05 phenylpropanolamine HCl Allergy Unknown Verified 08/08/22 02:05 [From Dimetapp (brompheniramine-PPA)] prednisone Allergy Hallucinati Verified 08/08/22 02:05 ons pseudoephedrine HCl Allergy Unknown Verified 08/08/22 02:05 [From Tavist] red dye Allergy Unknown Verified 08/08/22 02:05 risperidone [From Risperdal] Allergy Unknown Verified 08/08/22 02:05 sulfamethoxazole Allergy Unknown Verified 08/08/22 02:05 [From Bactrim] trimethoprim [From Bactrim] Allergy Unknown Verified 08/08/22 02:05 Review of Systems ROS Statement: Those systems with pertinent positive or pertinent negative responses have been documented in the HPI. ROS Other: All systems not noted in ROS Statement are negative. 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 Shingles on right inner thigh , covid 2021 History of Any Multi-Drug Resistant Organisms: None Reported Past Surgical History: Appendectomy Past Anesthesia/Blood Transfusion Reactions: No Reported Reaction Past Psychological History: Anxiety, Bipolar, Depression Smoking Status: Never smoker Past Alcohol Use History: Rare Past Drug Use History: None Reported General Exam Limitations: no limitations General appearance: alert, in no apparent distress, obese Head exam: Present: atraumatic, normocephalic, normal inspection Eye exam: Present: normal appearance, PERRL Pupils: Present: normal accommodation ENT exam: Present: normal exam, normal oropharynx, mucous membranes moist Neck exam: Present: normal inspection, full ROM Respiratory exam: Present: normal lung sounds bilaterally Cardiovascular Exam: Present: regular rate, normal rhythm, normal heart sounds GI/Abdominal exam: Present: soft, tenderness (Moderate tenderness to palpation noted to the left upper and right upper quadrant), normal bowel sounds Extremities exam: Present: normal inspection, full ROM Back exam: Present: normal inspection, full ROM Neurological exam: Present: alert, oriented X3, CN II-XII intact Psychiatric exam: Present: normal affect, normal mood Skin exam: Present: warm, dry Course Vital Signs 08/08/22 02:05 Temperature 98.2 F Pulse Rate 72 Respiratory 18 Rate Blood Pressure 129/80 O2 Sat by Pulse 98 Oximetry Medical Decision Making - Medical Decision Making Was pt. sent in by a medical professional or institution (, PA, [employer], urgent care, hospital, or [place] health care facility...) When possible be specific @ -No Did you speak to anyone other than the patient for history (EMS, parent, family, police, friend...)? What history was obtained from this source @ -No Did you review nursing and triage notes (agree or disagree)? Why? @ -I reviewed and agree with nursing and triage notes Were old charts reviewed (outside hosp., previous admission, EMS record, old EKG, old radiological studies, urgent care reports/EKG's, [place] health care facility records)? Report findings @ -Yes, previous ER note and previous ultrasound imaging was reviewed that showed significant amount of gallstones Differential Diagnosis (chest pain, altered mental status, abdominal pain women, abdominal pain men, vaginal bleeding, weakness, fever, dyspnea, syncope, headache, dizziness, GI bleed, back pain, seizure, CVA, palpatations, mental health)? @ -Acute cholecystitis, cholelithiasis, gastroenteritis EKG interpreted by me (3pts min.). @ -None X-rays interpreted by me (1pt min.). @ -None done CT interpreted by me (1pt min.). @ -None done U/S interpreted by me (1pt. min.). @ -None done What testing was considered but not performed or refused? (CT, X-rays, U/S, labs)? Why? @ -A repeat ultrasound was considered however the patient had a significant ultrasound previously 1 week ago therefore require any further testing at this time. What meds were considered but not given or refused? Why? @ -None Did you discuss the management of the patient with other professionals (professionals i.e. DrMaico, PA, [employer], lab, RT, psych nurse, social services director, manager mental health, teacher, immigration services officer, caser)? Give summary @ -Yes, Dr. Boateng was contacted regarding the patient and did accept the patient for admission for likely surgical intervention of her biliary colic. Was smoking cessation discussed for >3mins.? @ -No Was critical care preformed (if so, how long)? @ -No Were there social determinants of health that impacted care today? How? (Homelessness, low income, unemployed, alcoholism, drug addiction, transportation, low edu. Level, literacy, decrease access to med. care, senior living, rehab)? @ -No Was there de-escalation of care discussed even if they declined (Discuss DNR or withdrawal of care, Hospice)? DNR status @ -No What co-morbidities impacted this encounter? (DM, HTN, Smoking, COPD, CAD, Cancer, CVA, ARF, Chemo, Hep., AIDS, mental health diagnosis, sleep apnea, morbid obesity)? @ -Bipolar disorder, recently diagnosed significant gallstones Was patient admitted / discharged? Hospital course, mention meds given and route, prescriptions, significant lab abnormalities, going to OR and other pertinent info. @ -The patient was seen and evaluated emergency department. Physical exam, the patient was resting in bed without any acute distress. Vital signs admission were stable. Previous imaging was performed last week when she was in the emergency department an ultrasound showed severe cholelithiasis obstructing the lumen. Due to the patient's right upper quadrant and left upper quadrant abdominal pain in the setting of significant gallstones, the patient likely had significant biliary colic requiring further intervention. Laboratory workup was obtained and was within normal limits. The surgeon on-call, Dr. Boateng was contacted and did accept the patient for admission secondary to the symptoms and previous imaging. The patient was told of this plan and was agreeable. The patient was admitted in stable condition. Undiagnosed new problem with uncertain prognosis? @ -No Drug Therapy requiring intensive monitoring for toxicity (Heparin, Nitro, Insulin, Cardizem)? @ -No Were any procedures done? @ -No Diagnosis/symptom? @ -Biliary colic, cholelithiasis Acute, or Chronic, or Acute on Chronic? @ -Acute on chronic Uncomplicated (without systemic symptoms) or Complicated (systemic symptoms)? @ -Complicated Side effects of treatment? @ -No Exacerbation, Progression, or Severe Exacerbation? @ -No Poses a threat to life or bodily function? How? (Chest pain, [place], [place], pneumonia, PE, COPD, DKA, ARF, appy, cholecystitis, CVA, Diverticulitis, Homicidal, Suicidal, threat to staff... and all critical care pts) @ -No - Lab Data Result diagrams: 08/08/22 03:31 08/08/22 03:31 Lab Results 08/08/22 08/08/22 08/08/22 Range/Units 02:30 03: 03:31 WBC 6.8 (3.8-10.6) k/uL RBC 4.28 (3.80-5.40) m/uL Hgb 12.4 (11.4-16.0) gm/dL Hct 36.3 (34.0-46.0) % MCV 84.9 (80.0-100.0) fL MCH 29.0 (25.0-35.0) pg MCHC 34.2 (31.0-37.0) g/dL RDW 14.0 (11.5-15.5) % Plt Count 257 (150-450) k/uL MPV 8.4 Neutrophils % 59 % Lymphocytes % 28 % Monocytes % 4 % Eosinophils % 7 % Basophils % 1 % Neutrophils # 4.0 (1.3-7.7) k/uL Lymphocytes # 1.9 (1.0-4.8) k/uL Monocytes # 0.3 (0-1.0) k/uL Eosinophils # 0.5 (0-0.7) k/uL Basophils # 0.0 (0-0.2) k/uL Sodium 139 (137-145) mmol/L Potassium 3.6 (3.5-5.1) mmol/L Chloride 107 (98-107) mmol/L Carbon Dioxide 24 (22-30) mmol/L Anion Gap 8 mmol/L BUN 13 (7-17) mg/dL Creatinine 0.71 (0.52-1.04) mg/dL Est GFR (CKD-EPI)AfAm >90 (>60 ml/min/1.73 sqM) Est GFR (CKD-EPI)NonAf >90 (>60 ml/min/1.73 sqM) Glucose 116 H (74-99) mg/dL Plasma Lactic Acid Sancho (0.7-2.0) mmol/L Calcium 8.3 L (8.4-10.2) mg/dL Total Bilirubin 0.2 (0.2-1.3) mg/dL AST 25 (14-36) U/L ALT 22 (4-34) U/L Alkaline Phosphatase 82 (38-126) U/L Total Protein 6.7 (6.3-8.2) g/dL Albumin 4.0 (3.5-5.0) g/dL Lipase 198 (23-300) U/L Urine Color Colorless Urine Appearance Clear (Clear) Urine pH 7.0 (5.0-8.0) Ur Specific [place] 1.005 (1.001-1.035) Urine Protein Negative (Negative) Urine Glucose (UA) Negative (Negative) Urine Ketones Negative (Negative) Urine Blood Negative (Negative) Urine Nitrite Negative (Negative) Urine Bilirubin Negative (Negative) Urine Urobilinogen <2.0 (<2.0) mg/dL Ur Leukocyte Esterase Negative (Negative) 08/08/22 Range/Units 03:31 WBC (3.8-10.6) k/uL RBC (3.80-5.40) m/uL Hgb (11.4-16.0) gm/dL Hct (34.0-46.0) % MCV (80.0-100.0) fL MCH (25.0-35.0) pg MCHC (31.0-37.0) g/dL RDW (11.5-15.5) % Plt Count (150-450) k/uL MPV Neutrophils % % Lymphocytes % % Monocytes % % Eosinophils % % Basophils % % Neutrophils # (1.3-7.7) k/uL Lymphocytes # (1.0-4.8) k/uL Monocytes # (0-1.0) k/uL Eosinophils # (0-0.7) k/uL Basophils # (0-0.2) k/uL Sodium (137-145) mmol/L Potassium (3.5-5.1) mmol/L Chloride (98-107) mmol/L Carbon Dioxide (22-30) mmol/L Anion Gap mmol/L BUN (7-17) mg/dL Creatinine (0.52-1.04) mg/dL Est GFR (CKD-EPI)AfAm (>60 ml/min/1.73 sqM) Est GFR (CKD-EPI)NonAf (>60 ml/min/1.73 sqM) Glucose (74-99) mg/dL Plasma Lactic Acid Sancho 1.6 (0.7-2.0) mmol/L Calcium (8.4-10.2) mg/dL Total Bilirubin (0.2-1.3) mg/dL AST (14-36) U/L ALT (4-34) U/L Alkaline Phosphatase (38-126) U/L Total Protein (6.3-8.2) g/dL Albumin (3.5-5.0) g/dL Lipase (23-300) U/L Urine Color Urine Appearance (Clear) Urine pH (5.0-8.0) Ur Specific [place] (1.001-1.035) Urine Protein (Negative) Urine Glucose (UA) (Negative) Urine Ketones (Negative) Urine Blood (Negative) Urine Nitrite (Negative) Urine Bilirubin (Negative) Urine Urobilinogen (<2.0) mg/dL Ur Leukocyte Esterase (Negative) Disposition Clinical Impression: Biliary colic, Cholelithiasis Disposition: ADMITTED IP TO THIS [facility] Condition: Stable Is patient prescribed a controlled substance at d/c from ED?: No Referrals: Conrado Rey MD [Primary Care Provider] - 1-2 days Time of Disposition: 05:30 Decision to Admit Reason: Admit from EC Decision Date: 08/08/22 Decision Time: 05:30
[2022-08-08] MEDS: SODIUM CHLORIDE 0.9% 1,000 ML IV SCH ×2 (06:13→18:10)
[2022-08-08] MEDS ORDERED: HYDROmorphone 1 MG/ML 1 ML SYRINGE IVP PRN (08:16)
[2022-08-08] MEDS ORDERED: HEPARIN SODIUM,PORCINE/PF 5,000 UNIT/0.5 ML SYRINGE SQ STA (10:16)
[2022-08-08] MEDS ORDERED: ONDANSETRON 4 MG/2 ML VIAL ONE (10:33)
[2022-08-08] MEDS ORDERED: ONDANSETRON 4 MG/2 ML VIAL IVP ONE ×2 (10:35→15:29)
[2022-08-08] MEDS ORDERED: IV FLUID CONTINUATION 1,000 ML IV ONE (10:35)
[2022-08-08] MEDS ORDERED: DEXAMETHASONE SOD PHOSPHATE 4 MG/ML 1 ML VIAL IVP ONE (10:35)
--- NOTE | 2022-08-08 11:18 | P.GSHP ---
History of Present Illness H&P Date: 08/08/22 CHIEF COMPLAINT: Abdominal pain HISTORY OF PRESENT ILLNESS: This is a 36-year-old female who presented to the ER with complaints of right upper quadrant abdominal pain that radiates across the upper abdomen. She reports decreased appetite and nausea. She was experiencing symptoms last and came into the ER at that time had ultrasound completed showing gallstones. She was able to be discharged from the ER and had been doing well until yesterday evening she had increase in pain. The pain did worsen after eating. She did have nausea and vomiting. She denies any fever chills or sweats. Denies any chest pain or shortness breath. Past surgical history does include appendectomy. Patient also reports that she has difficulty waking up from anesthesia during prior surgeries. PAST MEDICAL HISTORY: Asthma, polycysitic ovarian syndrome, closed head injury 10 years ago from a fall. Shingles on right inner thigh \2020, covid 2021, anxiety, bipolar, depression PAST SURGICAL HISTORY: Appendectomy MEDICATIONS: See below ALLERGIES: See below SOCIAL HISTORY: No illicit drug use. REVIEW OF SYSTEMS: CONSTITUTIONAL: Denies fever or chills. HEENT: Denies blurred vision, vision changes, or eye pain. Denies hemoptysis CARDIOVASCULAR: Denies chest pain or pressure. RESPIRATORY: No shortness of breath. GASTROINTESTINAL: See HPI for pertinent findings HEMATOLOGIC: Denies bleeding disorders. GENITOURINARY: Denies any blood in urine or increased urinary frequency. SKIN: Denies pruitis. Denies rash. PHYSICAL EXAM: VITAL SIGNS: Reviewed GENERAL: Well-developed in no acute distress. HEENT: No sclera icterus. Extraocular movements grossly intact. Moist buccal mucosa. Head is atraumatic, normocephalic. No nasal drainage. ABDOMEN: Soft. Nondistended. Tenderness to palpation right upper quadrant and across upper abdomen NEUROLOGIC: Alert and oriented. Cranial nerves II through XII grossly intact. LABORATORY DATA: WBC 6.8 Hgb 12.4 platelets 257 Sodium is 139 potassium 3.6 creatinine 0.71 Neck cancer 1.6 Total bili 0.2 AST 25 ALT 22 alk phos 82 lipase 198 Urine hCG not detected IMAGING: Gallbladder ultrasound extensive calculi filling and obscuring the gallbladder lumen. Selby sign is reported negative. No biliary ductal dilatation. ASSESSMENT: 1. Symptomatic cholelithiasis 2. Biliary colic PLAN: -Patient scheduled for laparoscopic cholecystectomy today with Dr. carlson -Keep patient nothing by mouth -Continue IV fluids -Continue supportive care -Medicine service consulted for medical management Physician Manager Intern note has been reviewed by physician. Signing provider agrees with the documented findings, assessment, and plan of care. Past Medical History Past Medical History: Asthma Additional Past Medical History / Comment(s): polycysitic ovarian syndrome, bartolo sed head injury 10 years ago from a fall. Shingles on right inner thigh , covid 2021 History of Any Multi-Drug Resistant Organisms: None Reported Past Surgical History: Appendectomy Past Anesthesia/Blood Transfusion Reactions: No Reported Reaction Past Psychological History: Anxiety, Bipolar, Depression Smoking Status: Never smoker Past Alcohol Use History: Rare Past Drug Use History: None Reported Medications and Allergies Home Medications Medication Instructions Recorded Confirmed Type Benztropine Mesylate [Cogentin] 1 mg PO BID #8 tablet 04/23/14 08/08/22 Rx Divalproex ER [Depakote ER] 500 mg PO HS 04/23/14 08/08/22 History Ziprasidone [Geodon] 20 mg PO BID 04/21/19 08/08/22 History Albuterol Inhaler [Ventolin Hfa 1 - 2 puff INHALATION RT-QID PRN 12/23/19 08/08/22 History Inhaler] Omeprazole [PriLOSEC] 40 mg PO DAILY #14 cap 07/31/20 08/08/22 Rx Dicyclomine HCl 10 mg PO BID 01/17/21 08/08/22 History Ketorolac [Toradol] 10 mg PO Q6HR PRN #12 tab 08/03/22 08/08/22 Rx Ondansetron Odt [Zofran Odt] 4 mg PO Q8HR PRN #15 tab 08/03/22 08/08/22 Rx Dicyclomine [Bentyl] 10 mg PO BID PRN 08/08/22 08/08/22 History Famotidine 40 mg PO HS 08/08/22 08/08/22 History Allergies Allergy/AdvReac Type Severity Reaction Status Date / Time amoxicillin Allergy Unknown Verified 08/08/22 10:39 brompheniramine maleate Allergy Unknown Verified 08/08/22 10:39 [From Dimetapp (brompheniramine-PPA)] clemastine fumarate Allergy Unknown Verified 08/08/22 10:39 [From Tavist] codeine Allergy Unknown Verified 08/08/22 10:39 diphenhydramine HCl Allergy Unknown Verified 08/08/22 10:39 [From Benadryl] meclizine Allergy Anaphylaxis Verified 08/08/22 10:39 phenylpropanolamine HCl Allergy Unknown Verified 08/08/22 10:39 [From Dimetapp (brompheniramine-PPA)] prednisone Allergy Hallucinati Verified 08/08/22 10:39 ons pseudoephedrine HCl Allergy Unknown Verified 08/08/22 10:39 [From Tavist] red dye Allergy Unknown Verified 08/08/22 10:39 risperidone [From Risperdal] Allergy Unknown Verified 08/08/22 10:39 sulfamethoxazole Allergy Unknown Verified 08/08/22 10:39 [From Bactrim] trimethoprim [From Bactrim] Allergy Unknown Verified 08/08/22 10:39 liraglutide [From Saxenda] AdvReac Nausea & Verified 08/08/22 10:39 Vomiting Surgical - Exam Vital Signs Temp Pulse Resp BP Pulse Ox 98.2 F 72 18 129/80 98 08/08/22 02:05 08/08/22 02:05 08/08/22 02:05 08/08/22 02:05 08/08/22 02:05 Results - Labs 08/08/22 03:31 08/08/22 03:31 Abnormal Lab Results - Last 24 Hours (Table) 08/08/22 Range/Units 03:31 Glucose 116 H (74-99) mg/dL Calcium 8.3 L (8.4-10.2) mg/dL Diabetes panel 08/08/22 Range/Units 03:31 Sodium 139 (137-145) mmol/L Potassium 3.6 (3.5-5.1) mmol/L Chloride 107 (98-107) mmol/L Carbon Dioxide 24 (22-30) mmol/L BUN 13 (7-17) mg/dL Creatinine 0.71 (0.52-1.04) mg/dL Glucose 116 H (74-99) mg/dL Calcium 8.3 L (8.4-10.2) mg/dL AST 25 (14-36) U/L ALT 22 (4-34) U/L Alkaline Phosphatase 82 (38-126) U/L Total Protein 6.7 (6.3-8.2) g/dL Albumin 4.0 (3.5-5.0) g/dL Calcium panel 08/08/22 Range/Units 03:31 Calcium 8.3 L (8.4-10.2) mg/dL Albumin 4.0 (3.5-5.0) g/dL Pituitary panel 08/08/22 Range/Units 03:31 Sodium 139 (137-145) mmol/L Potassium 3.6 (3.5-5.1) mmol/L Chloride 107 (98-107) mmol/L Carbon Dioxide 24 (22-30) mmol/L BUN 13 (7-17) mg/dL Creatinine 0.71 (0.52-1.04) mg/dL Glucose 116 H (74-99) mg/dL Calcium 8.3 L (8.4-10.2) mg/dL Adrenal panel 08/08/22 Range/Units 03:31 Sodium 139 (137-145) mmol/L Potassium 3.6 (3.5-5.1) mmol/L Chloride 107 (98-107) mmol/L Carbon Dioxide 24 (22-30) mmol/L BUN 13 (7-17) mg/dL Creatinine 0.71 (0.52-1.04) mg/dL Glucose 116 H (74-99) mg/dL Calcium 8.3 L (8.4-10.2) mg/dL Total Bilirubin 0.2 (0.2-1.3) mg/dL AST 25 (14-36) U/L ALT 22 (4-34) U/L Alkaline Phosphatase 82 (38-126) U/L Total Protein 6.7 (6.3-8.2) g/dL Albumin 4.0 (3.5-5.0) g/dL
[2022-08-08] MEDS ORDERED: LIDOCAINE 2% INJ 20 MG/ML (2 ML VIAL) ONE (12:11)
[2022-08-08] MEDS ORDERED: PROPOFOL 10 MG/ML 20 ML VIAL IV ONE (12:11)
[2022-08-08] MEDS ORDERED: GLYCOPYRROLATE 0.2 MG/ML 2 ML VIAL ONE (12:11)
[2022-08-08] MEDS ORDERED: NEOSTIGMINE 1 MG/ML 10 ML VIAL ONE (12:11)
[2022-08-08] MEDS ORDERED: SUCCINYLCHOLINE CHLORIDE 200 MG/10 ML VIAL IV ONE (12:11)
[2022-08-08] MEDS ORDERED: fentaNYL (PF) 50 MCG/ML 2 ML AMP ONE (12:11)
[2022-08-08] MEDS ORDERED: ROCURONIUM 10 MG/ML (5 ML VIAL) IV ONE (12:11)
[2022-08-08] MEDS ORDERED: MIDAZOLAM 2 MG/2 ML VIAL ONE (12:11)
[2022-08-08] MEDS ORDERED: BUPIVACAINE (PF) 0.25% 30 ML VIAL SQ ONE (12:32)
--- NOTE | 2022-08-08 12:51 | P.OP ---
Date of Procedure: 08/08/22 Preoperative Diagnosis: Cholecystitis Cholelithiasis Postoperative Diagnosis: Cholecystitis Cholelithiasis Procedure(s) Performed: Laparoscopic cholecystectomy Anesthesia: LEONIDAS Surgeon: Malick Boateng Estimated Blood Loss (ml): 5 Pathology: other (Gallbladder) Condition: stable Disposition: PACU Description of Procedure: The patient was placed on the operating table. The patient received a general endotracheal tube anesthesia. The patients abdomen was prepped and draped in the usual sterile fashion. Through an infraumbilical stab incision, the fascia of the anterior abdominal wall was grasped with a pair of Kochers and then the Veress needle was placed in the peritoneal cavity. Position of the Veress needle was confirmed with positive drop test. The abdomen was then insufflated. After adequate insufflation, the 10 mm trocar was placed in the peritoneal cavity. Following this the laparoscope was placed in the peritoneal cavity. The patient was placed in the head-up, right side up position and then a 5 mm trocar was placed in the right lateral and right subcostal position under direct visualization. A 8 mm trocar was placed in the epigastric position. The gallbladder was packed with gallstones. The gallbladder was grasped in the fundus and infundibulum. Traction on the gallbladder was placed in the lateral and the cephalad positions. The triangle of Calot was visualized.. The cystic duct was bluntly dissected until the uni on of the cystic duct and common bile duct was seen. A critical view of safety was achieved. The cystic duct was then divided and sealed with the Harmonic scissors. A PDS Endoloop was then placed throughout the cystic duct stump. The cystic artery divided and sealed with the Harmonic scissors. The gallbladder was then removed from the liver bed using Harmonic scissors. The gallbladder was then extracted through the epigastric port site. Operative field was checked for any bleeding spots and Harmonic scissors was used to coagulate the liver bed. The abdomen was irrigated. The trocars were removed. The skin was closed using interrupted 3-0 Vicryl suture. Dermabond dressing were applied. The patient tolerated the procedure well.
[2022-08-08] MEDS ORDERED: LACTATED RINGERS 1,000 ML IV ONE (12:52)
[2022-08-08] MEDS ORDERED: ONDANSETRON 4 MG/2 ML VIAL IVP PRN (12:52)
[2022-08-08] MEDS: HYDROmorphone 0.5 MG/0.5 ML SYRINGE IVP PRN ×2 (13:16→22:03)
[2022-08-08] MEDS ORDERED: MIDAZOLAM 2 MG/2 ML VIAL IVP ONE (13:31)
[2022-08-08] MEDS ORDERED: HYDROmorphone 0.5 MG/0.5 ML SYRINGE IVP ONE (15:39)
[2022-08-08] MEDS ORDERED: KETOROLAC 15 MG/ML 1 ML VIAL IVP ONE (15:56)
[2022-08-08] MEDS ORDERED: droPERidol 5 MG/2 ML VIAL IVP ONE (15:57)
[2022-08-08] MEDS ORDERED: DIVALPROEX ER 500 MG TAB.ER.24H PO SCH (21:30)
[2022-08-08] MEDS: BENZTROPINE MESYLATE 1 MG TAB PO SCH (22:02)
[2022-08-09 07:44] VITALS: RESP 14
[2022-08-09] MEDS ORDERED: HYDROcodone/APAP 5-325MG 1 EACH TAB PO PRN (07:56)
[2022-08-09] MEDS: BENZTROPINE MESYLATE 1 MG TAB PO SCH (08:24)
[2022-08-09] MEDS ORDERED: ENOXAPARIN 40 MG/0.4 ML SYRINGE SQ SCH ×2 (09:00)
[2022-08-09] MEDS ORDERED: ZIPRASIDONE 20 MG CAP PO SCH (11:30)
[2022-08-09 13:57] VITALS: BP 116/77; PULSE 64; TEMP 97.8
--- NOTE | 2022-08-09 14:05 | P.DS ---
Providers Date of admission: 08/08/22 05:40 Expected date of discharge: 08/09/22 Attending physician: Malick Boateng Consults: 08/08/22 11:12 Consult Physician Routine Consulting Provider: Paolo Bruner Consult Reason/Comments: medical management Do you want consulting provider notified?: Yes Primary care physician: Conrado Rey [facility] Course: Discharge diagnosis 1. Cholecystitis and cholelithiasis status post laparoscopic cholecystectomy Hospital course This is a 36-year-old female who presented to the ER with complaints of right upper quadrant abdominal pain that radiates across the upper abdomen. Ultrasound completed showing gallstones. Patient diagnosed with cholecystitis and cholelithiasis. She is status post laparoscopic cholecystectomy. Patient bernie ated surgery well. Her pain is controlled. She is up and ambulating. She is tolerating diet. She is having bowel movements and flatus. She is stable for discharge. Please refer to chart for any further details. [facility] note has been reviewed by physician. Signing provider agrees with the documented findings, assessment, and plan of care. Patient Condition at Discharge: Stable Plan - Discharge Summary Discharge Rx Participant: Yes New Discharge Prescriptions: New HYDROcodone/APAP 5-325MG [[place] 5-325] 1 each PO Q4HR PRN #18 tab PRN Reason: Moderate Pain (Scale 4 To 6) Continue Divalproex ER [Depakote ER] 500 mg PO HS Benztropine Mesylate [Cogentin] 1 mg PO BID #8 tablet Ziprasidone [Geodon] 20 mg PO BID Albuterol Inhaler [Ventolin Hfa Inhaler] 1 - 2 puff INHALATION RT-QID PRN PRN Reason: Shortness Of Breath Ketorolac [Toradol] 10 mg PO Q6HR PRN #12 tab PRN Reason: Pain Ondansetron Odt [Zofran ODT] 4 mg PO Q8HR PRN #15 tab PRN Reason: Nausea And Vomiting Dicyclomine [Bentyl] 10 mg PO BID PRN PRN Reason: IBS Famotidine 40 mg PO HS Omeprazole [PriLOSEC] 40 mg PO DAILY #14 cap Dicyclomine HCl 10 mg PO BID Discharge Medication List Benztropine Mesylate [Cogentin] 1 mg PO BID #8 tablet 04/23/14 [Rx] Divalproex ER [Depakote ER] 500 mg PO HS 04/23/14 [History] Ziprasidone [Geodon] 20 mg PO BID 04/21/19 [History] Albuterol Inhaler [Ventolin Hfa Inhaler] 1 - 2 puff INHALATION RT-QID PRN 12/23/19 [History] Omeprazole [PriLOSEC] 40 mg PO DAILY #14 cap 07/31/20 [Rx] Dicyclomine HCl 10 mg PO BID 01/17/21 [History] Ketorolac [Toradol] 10 mg PO Q6HR PRN #12 tab 08/03/22 [Rx] Ondansetron Odt [Zofran ODT] 4 mg PO Q8HR PRN #15 tab 08/03/22 [Rx] Dicyclomine [Bentyl] 10 mg PO BID PRN 08/08/22 [History] Famotidine 40 mg PO HS 08/08/22 [History] HYDROcodone/APAP 5-325MG [[place] 5-325] 1 each PO Q4HR PRN #18 tab 08/09/22 [Rx] Follow up Appointment(s)/Referral(s): Conrado Rey MD [Primary Care Provider] - 08/14/22 10:00 am Malick Boaetng MD [STAFF PHYSICIAN] - 08/21/22 2:15 pm Activity/Diet/Wound Care/Special Instructions: No driving while taking [place] No lifting over 10 pounds Shower daily. No soaking or tub baths for 2 weeks Very light activity until you are reevaluated at your follow up appointment with your surgeon Discharge Disposition: HOME SELF-CARE
[2022-08-09] MEDS ORDERED: FAMOTIDINE 20 MG TAB PO SCH (21:00)
[2022-08-10] MEDS ORDERED: PANTOPRAZOLE 40 MG TABLET PO SCH (07:30)
--- NOTE | 2022-08-10 15:48 | P.CONS ---
History of Present Illness - Reason for Consult Consult date: 08/09/22 Medical management Requesting physician: Malick Boateng - Chief Complaint Abdominal pain - History of Present Illness This is a 36-year-old patient follows with Dr. Demetrius Rey. Patient's had abdominal pain on and off for quite some time. Has had several visits to the ER. Now she was discovered to have gallstones. This presentation was having increasing pain. Some sharp pains right upper quadrant. Nausea. Especially after eating. Patient yesterday underwent cholecystectomy. Some pain this morning. No nausea vomiting. Diet is being advanced Review of systems: GEN.: Tired EYES: None HEENT: None NECK: None RESPIRATORY: None CARDIOVASCULAR: None GASTROINTESTINAL: As above GENITOURINARY: None MUSCULOSKELETAL: None LYMPHATICS: None HEMATOLOGICAL: None PSYCHIATRY: None NEUROLOGICAL: None Past medical history to include: Asthma, polycystic ovarian syndrome, closed head injury 10 years ago from a fall, shingles on the right thigh in 2020, covered in 2021, bipolar Social history: Lives with her father. No smoking or alcohol. Physical examination: VITAL SIGNS: 98.2, 77, 14, 105/68, 98% room air GENERAL: IN 39, declining but awake comfortable. EYES: Pupils equal. Conjunctiva normal. HEENT: External appearance of nose and ears normal, oral cavity grossly normal. NECK: JVD not raised; masses not palpable. HEART: First and second heart sounds are normal; no edema. LUNGS: Respiratory rate normal; clear to auscultation. ABDOMEN: Soft, minimal tenderness, liver spleen not palpable, no masses palpable. PSYCH: Alert and oriented x3; mood and affect normal. MUSCULOSKELETAL:No Clubbing/cyanosis;muscles-grossly intact NEUROLOGICAL: Cranial nerves grossly intact; no facial asymmetry, power and sensation grossly intact. LYMPHATICS: No lymph nodes palpable in the axilla and neck INVESTIGATIONS, reviewed in the clinical context: White count 6.8 hemoglobin 12.4 platelets 257 sodium 139 potassium 3.6 BUN 13 creatinine 0.71 AST 25 ALT 22 UA: Clear Previous studies: Ultrasound gallbladder [August 03:] Extensive calculi filling and obscuring the gallbladder lumen. No biliary duct dilatation Renal ultrasound unremarkable Assessment and plan: -Laparoscopic cholecystectomy for symptomatic:, Choledocholithiasis Pain control. Diet as tolerated -Obesity BMI 39 Weight loss measures -Polycystic ovarian syndrome -Bipolar disorder Geodon -Intermittent asthma Ventolin when necessary -GERD Prilosec, Pepcid Care was discussed with the patient. Increase activity. Diet as tolerated. Follow-up with Dr. Rey upon discharge Past Medical History Past Medical History: Asthma Additional Past Medical History / Comment(s): polycysitic ovarian syndrome, closed head injury 10 years ago from a fall. Shingles on right inner thigh , covid 2021 History of Any Multi-Drug Resistant Organisms: None Reported Past Surgical History: Appendectomy, Cholecystectomy Past Anesthesia/Blood Transfusion Reactions: No Reported Reaction Past Psychological History: Anxiety, Bipolar, Depression Smoking Status: Never smoker Past Alcohol Use History: Rare Past Drug Use History: None Reported - Past Family History Mother Family Medical History: Eye Disorder, Vascular Disorder Father Family Medical History: COPD, Hyperlipidemia Additional Family Medical History / Comment(s): schizophrenia, mini strokes, Medications and Allergies Home Medications Medication Instructions Recorded Confirmed Type Benztropine Mesylate [Cogentin] 1 mg PO BID #8 tablet 04/23/14 08/08/22 Rx Divalproex ER [Depakote ER] 500 mg PO HS 04/23/14 08/08/22 History Ziprasidone [Geodon] 20 mg PO BID 04/21/19 08/08/22 History Albuterol Inhaler [Ventolin Hfa 1 - 2 puff INHALATION RT-QID PRN 12/23/19 08/08/22 History Inhaler] Omeprazole [PriLOSEC] 40 mg PO DAILY #14 cap 07/31/20 08/08/22 Rx Dicyclomine HCl 10 mg PO BID 01/17/21 08/08/22 History Ketorolac [Toradol] 10 mg PO Q6HR PRN #12 tab 08/03/22 08/08/22 Rx Ondansetron Odt [Zofran ODT] 4 mg PO Q8HR PRN #15 tab 08/03/22 08/08/22 Rx Dicyclomine [Bentyl] 10 mg PO BID PRN 08/08/22 08/08/22 History Famotidine 40 mg PO HS 08/08/22 08/08/22 History HYDROcodone/APAP 5-325MG [[place] 1 each PO Q4HR PRN #18 tab 08/09/22 Rx 5-325] Allergies Allergy/AdvReac Type Severity Reaction Status Date / Time amoxicillin Allergy Unknown Verified 08/08/22 10:39 brompheniramine maleate Allergy Unknown Verified 08/08/22 10:39 [From Dimetapp (brompheniramine-PPA)] clemastine fumarate Allergy Unknown Verified 08/08/22 10:39 [From Tavist] codeine Allergy Unknown Verified 08/08/22 10:39 diphenhydramine HCl Allergy Unknown Verified 08/08/22 10:39 [From Benadryl] meclizine Allergy Anaphylaxis Verified 08/08/22 10:39 phenylpropanolamine HCl Allergy Unknown Verified 08/08/22 10:39 [From Dimetapp (brompheniramine-PPA)] prednisone Allergy Hallucinati Verified 08/08/22 10:39 ons pseudoephedrine HCl Allergy Unknown Verified 08/08/22 10:39 [From Tavist] red dye Allergy Unknown Verified 08/08/22 10:39 risperidone [From Risperdal] Allergy Unknown Verified 08/08/22 10:39 sulfamethoxazole Allergy Unknown Verified 08/08/22 10:39 [From Bactrim] trimethoprim [From Bactrim] Allergy Unknown Verified 08/08/22 10:39 liraglutide [From Saxenda] AdvReac Nausea & Verified 08/08/22 10:39 Vomiting Physical Exam Vitals: Vital Signs Temp Pulse Resp BP Pulse Ox 08/09/22 07:45 77 14 08/09/22 07:44 98.2 F 77 14 105/68 98 08/09/22 05:00 97.5 F L 66 18 114/73 95 08/08/22 20:06 97.8 F 77 18 127/78 97 08/08/22 20:00 18 08/08/22 16:56 97.8 F 68 16 99/68 98 08/08/22 16:00 84 17 107/56 95 08/08/22 15:30 80 19 105/57 98 08/08/22 15:00 76 17 119/60 95 08/08/22 14:26 71 18 108/55 93 L 08/08/22 14:11 66 18 105/62 99 08/08/22 13:56 75 17 100/54 92 L 08/08/22 13:37 77 15 98/59 92 L 08/08/22 13:22 60 16 118/61 96 05/31/23 13:07 58 L 17 102/54 100 08/08/22 12:52 97.2 F L 81 18 113/70 94 L Intake and Output 08/08/22 08/09/22 08/09/22 22:59 06:59 14:59 Output Total 1 Balance -1 Output: Urine 1 Other: # Voids 1 Weight 99.79 kg Results CBC & Chem 7: 08/08/22 03:31 08/08/22 03:31
== END 2022-08-09 15:34 | disposition home or self-care (01) ==
LOC: EC 00:57 → INTOOBSV 05:40 → 5NMEDONC 05:40 → 4SSUR 16:26 → UNDODISIN 08-09 15:34
PROVIDERS: ADMIT Surgery; ATTEND Surgery
DX: K80.10 Calculus of gallbladder with chronic cholecystitis without obstruction (principal); F41.9 Anxiety disorder, unspecified; F32.A Depression, unspecified; F31.9 Bipolar disorder, unspecified; E28.2 Polycystic ovarian syndrome; B02.9 Zoster without complications; J45.20 Mild intermittent asthma, uncomplicated; K21.9 Gastro-esophageal reflux disease without esophagitis; E66.9 Obesity, unspecified; Z79.899 Other long term (current) drug therapy; Z88.0 Allergy status to penicillin; Z88.5 Allergy status to narcotic agent; Z88.8 Allergy status to other drugs, medicaments and biological substances; Z88.2 Allergy status to sulfonamides; Z86.16 Personal history of COVID-19; Z68.39 Body mass index [BMI] 39.0-39.9, adult; Z81.8 Family history of other mental and behavioral disorders; Z82.5 Family history of asthma and other chronic lower respiratory diseases; Z83.438 Family history of other disorder of lipoprotein metabolism and other lipidemia; Z82.3 Family history of stroke; Z32.02 Encounter for pregnancy test, result negative
CPT/HCPCS: 96361 ×3; 96372 ×2; 96374; 96375; 99285; 36415; 81025 ×2; 88304; 80053; 83605; 83690; 85025; 81003; 47562; G0378 ×2; J2250; J0330; J1100; J2710; J0690; J2405; J1650; J3010; J1885; J2704; J1170; J1790; J1644; J2001; 96360

== ENCOUNTER 2022-10-22 12:38 | Day surgery (SDC) | payer OTHER ==
[~2022-10-22 12:38] MED LIST: LACTATED RINGERS 1,000 ML IV SCH; LIDOCAINE 1% (10MG/ML) FOR IV START INTRADERMA PRN
[2022-10-22 13:12] VITALS: RESP 16; TEMP 97
[2022-10-22] MEDS ORDERED: LIDOCAINE 2% INJ 20 MG/ML (2 ML VIAL) ONE (14:21)
[2022-10-22] MEDS ORDERED: PROPOFOL 10 MG/ML 20 ML VIAL IV ONE (14:21)
--- NOTE | 2022-10-22 14:27 | P.GSHP ---
History of Present Illness H&P Date: 10/22/22 Chief Complaint: GERD Is a 37-year-old female who presents today for EGD. Patient's had issues with GERD. Past Medical History Past Medical History: Asthma Additional Past Medical History / Comment(s): polycysitic ovarian syndrome, closed head injury 10 years ago from a falls, Covid 2021 History of Any Multi-Drug Resistant Organisms: None Reported Past Surgical History: Appendectomy, Cholecystectomy Additional Past Surgical History / Comment(s): IUD Past Anesthesia/Blood Transfusion Reactions: Postoperative Nausea & Vomiting (PONV) Additional Past Anesthesia/Blood Transfusion Reaction / Comment(s): Pt has had a blood transfusion without reaction d/t PCOS Smoking Status: Never smoker - Past Family History Mother Family Medical History: Eye Disorder, Vascular Disorder Father Family Medical History: COPD, CVA/TIA, Hyperlipidemia Additional Family Medical History / Comment(s): schizophrenia, mini strokes Medications and Allergies Home Medications Medication Instructions Recorded Confirmed Type Benztropine Mesylate [Cogentin] 1 mg PO BID #8 tablet 04/23/14 10/22/22 Rx Divalproex ER [Depakote ER] 500 mg PO HS 04/23/14 10/22/22 History Ziprasidone [Geodon] 20 mg PO BID 04/21/19 10/22/22 History Albuterol Inhaler [Ventolin Hfa 1 - 2 puff INHALATION RT-QID PRN 12/23/19 10/22/22 History Inhaler] Dicyclomine [Bentyl] 10 mg PO QID 08/08/22 10/22/22 History Famotidine 40 mg PO HS 08/08/22 10/22/22 History Omeprazole [PriLOSEC] 40 mg PO QAM 10/17/22 10/22/22 History Allergies Allergy/AdvReac Type Severity Reaction Status Date / Time amoxicillin Allergy Unknown Verified 10/22/22 13:03 brompheniramine maleate Allergy Dyspnea Verified 10/22/22 13:03 [From Dimetapp (brompheniramine-PPA)] clemastine fumarate Allergy Dyspnea Verified 10/22/22 13:03 [From Tavist] codeine Allergy Dyspnea Verified 10/22/22 13:03 diphenhydramine HCl Allergy Dyspnea Verified 10/22/22 13:03 [From Benadryl] meclizine Allergy Anaphylaxis Verified 10/22/22 13:03 phenylpropanolamine HCl Allergy Unknown Verified 10/22/22 13:03 [From Dimetapp (brompheniramine-PPA)] prednisone Allergy Hallucinati Verified 10/22/22 13:03 ons pseudoephedrine HCl Allergy Unknown Verified 10/22/22 13:03 [From Tavist] red dye Allergy Unknown Verified 10/22/22 13:03 risperidone [From Risperdal] Allergy Unknown Verified 10/22/22 13:03 sulfamethoxazole Allergy Unknown Verified 10/22/22 13:03 [From Bactrim] trimethoprim [From Bactrim] Allergy Unknown Verified 10/22/22 13:03 liraglutide [From Saxenda] AdvReac Nausea & Verified 10/22/22 13:03 Vomiting Surgical - Exam Vital Signs Temp Pulse Resp BP Pulse Ox 97.0 F L 73 16 127/87 98 10/22/22 13:11 10/22/22 13:11 10/22/22 13:11 10/22/22 13:11 10/22/22 13:11 - General well developed, well nourished, no distress - Eyes PERRL - ENT normal pinna, normal nares - Neck no masses - Respiratory normal expansion - Cardiovascular Rhythm: regular - Abdomen Abdomen: soft, non tender Assessment and Plan Assessment: GERD. We'll perform EGD for
--- NOTE | 2022-10-22 14:40 | P.OP ---
Date of Procedure: 10/22/22 Preoperative Diagnosis: GERD Postoperative Diagnosis: Antral gastritis Procedure(s) Performed: EGD Anesthesia: MAC Surgeon: Malick Boateng Pathology: other (Antrum) Condition: stable Disposition: PACU Description of Procedure: Patient's placed on the endoscopy table in the lateral position. She received IV sedation sedation. The gastro-/oropharynx estimated esophagus into the stomach. Scope was then placed through the pylorus. The first and second portion of the duodenum appeared normal. Scope was then brought back the antrum this appeared mildly infl the scope was unretroflexed and remainder the stomach appeared normal. There was no significant hiatal hernia. The GE junction was at 40 cm per the distal esophagus appeared normal. The proximal esophagus appeared normal. Scope withdrawn for patient.
[2022-10-22 14:54] VITALS: BP 122/88; PULSE 65
== END 2022-10-22 15:17 | disposition home or self-care (01) ==
LOC: ORWHC2ENDO 12:38
PROVIDERS: ATTEND Surgery
DX: K29.50 Unspecified chronic gastritis without bleeding (principal); K21.00 Gastro-esophageal reflux disease with esophagitis, without bleeding; E78.5 Hyperlipidemia, unspecified; J44.9 Chronic obstructive pulmonary disease, unspecified; Z86.73 Personal history of transient ischemic attack (TIA), and cerebral infarction without residual deficits; Z82.3 Family history of stroke; Z88.5 Allergy status to narcotic agent; Z88.0 Allergy status to penicillin; Z79.899 Other long term (current) drug therapy
CPT/HCPCS: 81025; 88305; 43239; J2704; J2001

== ENCOUNTER 2023-02-22 22:10 | Emergency (ER) | payer OTHER ==
[2023-02-22 22:15] VITALS: RESP 18
[2023-02-22] MEDS ORDERED: SODIUM CHLORIDE 0.9% 1,000 ML IV STA (22:18)
[2023-02-22] MEDS ORDERED: ONDANSETRON 4 MG/2 ML VIAL IVP STA (22:18)
--- NOTE | 2023-02-22 22:29 | ED ---
Nausea/Vomiting/Diarrhea HPI - General Chief complaint: Abdominal Pain Stated complaint: Nausea, Vomiting Time Seen by Provider: 02/22/23 22:11 Source: patient, EMS, RN notes reviewed Mode of arrival: EMS Limitations: no limitations - History of Present Illness Initial comments: This is a 37-year-old female who presents to the emergency department for na usea, vomiting, and diarrhea. Reports a history of IBS, and states that for about 3 hours at this point she's been unable to keep anything down. As a result of the IBS she does have problems with ongoing diarrhea. Reports mild left-sided abdominal pain, however she states that this is also fairly common for her with the IBS. She is currently taking Macrobid for a UTI, and is supposed to take her last dose tomorrow. However, she did not take it today. Denies any urinary symptoms. She was given Zofran by EMS on route, which was helpful. MD complaint: nausea, vomiting, diarrhea, abdominal pain - Related Data Home Medications Medication Instructions Recorded Confirmed Divalproex ER [Depakote ER] 500 mg PO HS 04/23/14 10/22/22 Ziprasidone [Geodon] 20 mg PO BID 04/21/19 10/22/22 Albuterol Inhaler [Ventolin Hfa 1 - 2 puff INHALATION RT-QID PRN 12/23/19 10/22/22 Inhaler] Dicyclomine [Bentyl] 10 mg PO QID 08/08/22 10/22/22 Famotidine 40 mg PO HS 08/08/22 10/22/22 Omeprazole [PriLOSEC] 40 mg PO QAM 10/17/22 10/22/22 Previous Rx's Medication Instructions Recorded Benztropine Mesylate [Cogentin] 1 mg PO BID #8 tablet 04/23/14 Ondansetron Odt [Zofran Odt] 4 mg PO Q8HR PRN #20 tab 02/23/23 Allergies Allergy/AdvReac Type Severity Reaction Status Date / Time amoxicillin Allergy Unknown Verified 02/22/23 22:15 brompheniramine maleate Allergy Dyspnea Verified 02/22/23 22:15 [From Dimetapp (brompheniramine-PPA)] clemastine fumarate Allergy Dyspnea Verified 02/22/23 22:15 [From Tavist] codeine Allergy Dyspnea Verified 02/22/23 22:15 diphenhydramine HCl Allergy Dyspnea Verified 02/22/23 22:15 [From Benadryl] meclizine Allergy Anaphylaxis Verified 02/22/23 22:15 phenylpropanolamine HCl Allergy Unknown Verified 02/22/23 22:15 [From Dimetapp (brompheniramine-PPA)] prednisone Allergy Hallucinati Verified 02/22/23 22:15 ons pseudoephedrine HCl Allergy Unknown Verified 02/22/23 22:15 [From Tavist] red dye Allergy Unknown Verified 02/22/23 22:15 risperidone [From Risperdal] Allergy Unknown Verified 02/22/23 22:15 sulfamethoxazole Allergy Unknown Verified 02/22/23 22:15 [From Bactrim] trimethoprim [From Bactrim] Allergy Unknown Verified 02/22/23 22:15 liraglutide [From Saxenda] AdvReac Nausea & Verified 02/22/23 22:15 Vomiting Review of Systems ROS Statement: Those systems with pertinent positive or pertinent negative responses have been documented in the HPI. ROS Other: All systems not noted in ROS Statement are negative. Past Medical History Past Medical History: Asthma Additional Past Medical History / Comment(s): polycysitic ovarian syndrome, closed head injury 10 years ago from a falls, Covid 2021 History of Any Multi-Drug Resistant Organisms: None Reported Past Surgical History: Appendectomy, Cholecystectomy Additional Past Surgical History / Comment(s): IUD Past Anesthesia/Blood Transfusion Reactions: Postoperative Nausea & Vomiting (PONV) Additional Past Anesthesia/Blood Transfusion Reaction / Comment(s): Pt has had a blood transfusion without reaction d/t PCOS Past Psychological History: Anxiety, Bipolar, Depression Smoking Status: Never smoker - Past Family History Mother Family Medical History: Eye Disorder, Vascular Disorder Father Family Medical History: COPD, CVA/TIA, Hyperlipidemia Additional Family Medical History / Comment(s): schizophrenia, mini strokes General Exam Limitations: no limitations General appearance: alert, in no apparent distress Head exam: Present: atraumatic, normocephalic, normal inspection Respiratory exam: Present: normal lung sounds bilaterally. Absent: respiratory distress, wheezes, rales, rhonchi, stridor Cardiovascular Exam: Present: regular rate, normal rhythm, normal heart sounds. Absent: systolic murmur, diastolic murmur, rubs, gallop, clicks GI/Abdominal exam: Present: soft, normal bowel sounds. Absent: distended, tenderness, guarding, rebound, rigid Back exam: Absent: CVA tenderness (R), CVA tenderness (L) Neurological exam: Present: alert, oriented X3, CN II-XII intact Psychiatric exam: Present: normal affect, normal mood Skin exam: Present: warm, dry, intact, normal color. Absent: rash Course Vital Signs 02/22/23 22:12 Temperature 99.2 F Pulse Rate 101 H Respiratory 18 Rate Blood Pressure 145/79 O2 Sat by Pulse 97 Oximetry Medical Decision Making - Medical Decision Making This is a 37-year-old female who presents to the emergency department for nausea, vomiting, and diarrhea. Was pt. sent in by a medical professional or institution? @ -No Did you speak to anyone other than the patient for history? @ -No Did you review nursing and triage notes? @ -Yes, and I agree, it is accurate with regards to the patient's symptoms. Were old charts reviewed? @ -No Differential Diagnosis? @ -Differential Nausea and Vomiting: Gastroenteritis, cholecystitis, appendicitis, pancreatitis, migraine, benign positional vertigo, food borne illness, pyelonephritis, irritable bowel syndrome, influenza, Covid, GERD, incarcerated hernia, intestinal obstruction, this is not meant to be an all-inclusive list. EKG interpreted by me (3pts min.)? @ -Not obtained X-rays interpreted by me (1pt min.)? @ -Not obtained CT interpreted by me (1pt min.)? @ -Not obtained U/S interpreted by me (1pt. min.)? @ -Not obtained What testing was considered but not performed? (CT, X-rays, U/S, labs)? Why? @ -None What meds were considered but not given? Why? @ -None Did you discuss the management of the patient with other professionals? @ -No Did you reconcile home meds? @ -No Was smoking cessation discussed for >3mins.? @ -No Was critical care preformed (if so, how long)? @ -No Were there social determinants of health that impacted care today? How? (Homelessness, low income, unemployed, alcoholism, drug addiction, transportation, low edu. Level, literacy, decrease access to med. care, [facility], rehab)? @ -No Was there de-escalation of care discussed even if they declined? (Discuss DNR or withdrawal of care, Hospice)? @ -No What co-morbidities impacted this encounter? (DM, HTN, Smoking, COPD, CAD, Cancer, CVA, Hep., AIDS, mental health diagnosis, sleep apnea, morbid obesity)? @ -IBS Was patient admitted / discharged? @ -Discharged. Lab work obtained revealing mild leukocytosis and a mild lactic acid elevation at 2.1. Patient was treated with IV fluids and Zofran with significant relief in symptoms. She was also given a dose of Toradol for body aches. At that point she felt stable for discharge home. Symptoms likely related to a viral illness or gastroenteritis. Prescription for Zofran provided with dosing instructions reviewed. Otherwise advised she slowly advance her diet as tolerated and remain well-hydrated. Undiagnosed new problem with uncertain prognosis? @ -None Drug Therapy requiring intensive monitoring for toxicity (Heparin, Nitro, Insulin, Cardizem)? @ -None Were any procedures done? @ -None Diagnosis/symptom? @ -Gastroenteritis Acute, or Chronic, or Acute on Chronic? @ -Acute Uncomplicated (without systemic symptoms) or Complicated (systemic symptoms)? @ -Uncomplicated Side effects of treatment? @ -None Exacerbation, Progression, or Severe Exacerbation] @ -Not applicable Poses a threat to life or bodily function? @ -No Return precautions reviewed in depth, the patient is instructed to return to the emergency department with any new, worsening, or concerning symptoms. Patient verbalized understanding. This case was discussed in detail with the attending ED physician, Dr. Barker. Presentation, findings, and treatment plan discussed in detail as well. - Lab Data Result diagrams: 02/22/23 22:25 02/22/23 22:25 Lab Results 02/22/23 02/22/23 02/22/23 Range/Units 22:25 22:25 22:25 WBC 10.9 H (3.8-10.6) k/uL RBC 4.32 (3.80-5.40) m/uL Hgb 12.7 (11.4-16.0) gm/dL Hct 37.5 (34.0-46.0) % MCV 86.8 (80.0-100.0) fL MCH 29.5 (25.0-35.0) pg MCHC 34.0 (31.0-37.0) g/dL RDW 14.2 (11.5-15.5) % Plt Count 245 (150-450) k/uL MPV 8.7 Neutrophils % 91 % Lymphocytes % 4 % Monocytes % 2 % Eosinophils % 2 % Basophils % 0 % Neutrophils # 9.9 H (1.3-7.7) k/uL Lymphocytes # 0.4 L (1.0-4.8) k/uL Monocytes # 0.2 (0-1.0) k/uL Eosinophils # 0.3 (0-0.7) k/uL Basophils # 0.0 (0-0.2) k/uL Sodium 137 (137-145) mmol/L Potassium 4.5 (3.5-5.1) mmol/L Chloride 103 (98-107) mmol/L Carbon Dioxide 25 (22-30) mmol/L Anion Gap 9 mmol/L BUN 14 (7-17) mg/dL Creatinine 0.60 (0.52-1.04) mg/dL Est GFR (CKD-EPI)AfAm >90 (>60 ml/min/1.73 sqM) Est GFR (CKD-EPI)NonAf >90 (>60 ml/min/1.73 sqM) Glucose 85 (74-99) mg/dL Plasma Lactic Acid Sancho (0.7-2.0) mmol/L Calcium 8.4 (8.4-10.2) mg/dL Total Bilirubin 0.7 (0.2-1.3) mg/dL AST 30 (14-36) U/L ALT 22 (4-34) U/L Alkaline Phosphatase 70 (38-126) U/L Total Protein 6.7 (6.3-8.2) g/dL Albumin 3.9 (3.5-5.0) g/dL Amylase 40 (30-110) U/L Lipase 124 (23-300) U/L Urine Color Light Yellow Urine Appearance Clear (Clear) Urine pH 8.0 (5.0-8.0) Ur Specific [place] 1.016 (1.001-1.035) Urine Protein Negative (Negative) Urine Glucose (UA) Negative (Negative) Urine Ketones Negative (Negative) Urine Blood Negative (Negative) Urine Nitrite Negative (Negative) Urine Bilirubin Negative (Negative) Urine Urobilinogen <2.0 (<2.0) mg/dL Ur Leukocyte Esterase Negative (Negative) Urine HCG, Qual (Not Detectd) Influenza Type A (PCR) (Not Detectd) Influenza Type B (PCR) (Not Detectd) RSV (PCR) (Not Detectd) SARS-CoV-2 (PCR) (Not Detectd) 02/22/23 02/22/23 02/22/23 Range/Units 22:25 22:25 22:25 WBC (3.8-10.6) k/uL RBC (3.80-5.40) m/uL Hgb (11.4-16.0) gm/dL Hct (34.0-46.0) % MCV (80.0-100.0) fL MCH (25.0-35.0) pg MCHC (31.0-37.0) g/dL RDW (11.5-15.5) % Plt Count (150-450) k/uL MPV Neutrophils % % Lymphocytes % % Monocytes % % Eosinophils % % Basophils % % Neutrophils # (1.3-7.7) k/uL Lymphocytes # (1.0-4.8) k/uL Monocytes # (0-1.0) k/uL Eosinophils # (0-0.7) k/uL Basophils # (0-0.2) k/uL Sodium (137-145) mmol/L Potassium (3.5-5.1) mmol/L Chloride (98-107) mmol/L Carbon Dioxide (22-30) mmol/L Anion Gap mmol/L BUN (7-17) mg/dL Creatinine (0.52-1.04) mg/dL Est GFR (CKD-EPI)AfAm (>60 ml/min/1.73 sqM) Est GFR (CKD-EPI)NonAf (>60 ml/min/1.73 sqM) Glucose (74-99) mg/dL Plasma Lactic Acid Sancho 2.1 H* (0.7-2.0) mmol/L Calcium (8.4-10.2) mg/dL Total Bilirubin (0.2-1.3) mg/dL AST (14-36) U/L ALT (4-34) U/L Alkaline Phosphatase (38-126) U/L Total Protein (6.3-8.2) g/dL Albumin (3.5-5.0) g/dL Amylase (30-110) U/L Lipase (23-300) U/L Urine Color Urine Appearance (Clear) Urine pH (5.0-8.0) Ur Specific [place] (1.001-1.035) Urine Protein (Negative) Urine Glucose (UA) (Negative) Urine Ketones (Negative) Urine Blood (Negative) Urine Nitrite (Negative) Urine Bilirubin (Negative) Urine Urobilinogen (<2.0) mg/dL Ur Leukocyte Esterase (Negative) Urine HCG, Qual Not Detected (Not Detectd) Influenza Type A (PCR) Not Detected (Not Detectd) Influenza Type B (PCR) Not Detected (Not Detectd) RSV (PCR) Not Detected (Not Detectd) SARS-CoV-2 (PCR) Not Detected (Not Detectd) Disposition Clinical Impression: Gastroenteritis Disposition: HOME SELF-CARE Instructions (If sedation given, give patient instructions): Gastroenteritis (ED) Additional Instructions: Return to the emergency department with any new, worsening, or concerning symptoms. You can take the Zofran up to every 8 hours as needed for nausea and vomiting. Slowly advance your diet as tolerated and remain well-hydrated. Follow up with your primary care provider in 1-2 days. Prescriptions: Ondansetron Odt [Zofran Odt] 4 mg PO Q8HR PRN #20 tab PRN Reason: Nausea And Vomiting Is patient prescribed a controlled substance at d/c from ED?: No Referrals: Conrado Rey MD [Primary Care Provider] - 1-2 days
[2023-02-22 22:35] LABS: Basophils % (A) 0 %; Eosinophils # (A) 0.3 k/uL (0-0.7); Eosinophils % (A) 2 %; HCT 37.5 % (34.0-46.0); HGB 12.7 gm/dL (11.4-16.0); Lymphocytes # (A) 0.4 k/uL (1.0-4.8); Lymphocytes % (A) 4 %; MCH 29.5 pg (25.0-35.0); MCV 86.8 fL (80.0-100.0); Mean Platelet Volume 8.7; Monocytes # (A) 0.2 k/uL (0-1.0); Monocytes % (A) 2 %; Neutrophils # (A) 9.9 k/uL (1.3-7.7); Neutrophils % (A) 91 %; Platelet Count 245 k/uL (150-450); RBC 4.32 m/uL (3.80-5.40); RDW 14.2 % (11.5-15.5); WBC 10.9 k/uL (3.8-10.6)
[2023-02-22 22:39] LABS: Appearance,Urine Clear (Clear); Bilirubin,Urine Negative (Negative); Blood,Urine Negative (Negative); Color,Urine Light Yellow; Glucose,Urine (UA) Negative (Negative); Ketones,Urine Negative (Negative); Leukocyte Esterase,Urine Negative (Negative); Nitrite,Urine Negative (Negative); Protein,Urine Negative (Negative); Specific Gravity,Urine 1.016 (1.001-1.035); Urobilinogen,Urine <2.0 mg/dL (<2.0)
[2023-02-22 23:12] LABS: ALT 22 U/L (4-34); AST 30 U/L (14-36); African American GFR (CKD) >90 (>60 ml/min/1.73 sqM); Albumin 3.9 g/dL (3.5-5.0); Alkaline Phosphatase 70 U/L (38-126); Amylase 40 U/L (30-110); Anion Gap 9 mmol/L; Blood Urea Nitrogen 14 mg/dL (7-17); Calcium 8.4 mg/dL (8.4-10.2); Carbon Dioxide 25 mmol/L (22-30); Chloride 103 mmol/L (98-107); Glucose 85 mg/dL (74-99); Lipase 124 U/L (23-300); Non-African American GFR(CKD) >90 (>60 ml/min/1.73 sqM); Sodium 137 mmol/L (137-145); Total Bilirubin 0.7 mg/dL (0.2-1.3); Total Protein 6.7 g/dL (6.3-8.2)
[2023-02-22] MEDS ORDERED: KETOROLAC 15 MG/ML 1 ML VIAL IVP STA (23:13)
[2023-02-22 23:21] LABS: Potassium 4.5 mmol/L (3.5-5.1)
[2023-02-22] MEDS ORDERED: HYDROmorphone 0.5 MG/0.5 ML SYRINGE IVP STA (23:59)
[2023-02-23] MEDS ORDERED: ONDANSETRON 4 MG ODT STARTER PACK 2 TAB BTL PO STA (00:36)
[2023-02-23 02:44] VITALS: BP 130/70; PULSE 80; TEMP 98.9
== END 2023-02-23 02:21 | disposition home or self-care (01) ==
LOC: EC 22:10
DX: K52.9 Noninfective gastroenteritis and colitis, unspecified (principal); J45.909 Unspecified asthma, uncomplicated; F31.9 Bipolar disorder, unspecified; F41.9 Anxiety disorder, unspecified; Z86.16 Personal history of COVID-19; Z88.2 Allergy status to sulfonamides; Z88.8 Allergy status to other drugs, medicaments and biological substances; Z88.5 Allergy status to narcotic agent; Z88.0 Allergy status to penicillin; Z90.49 Acquired absence of other specified parts of digestive tract; Z79.899 Other long term (current) drug therapy; Z20.822 Contact with and (suspected) exposure to COVID-19
CPT/HCPCS: 36415; 80053; 82150; 83605; 83690; 85025; 81003; 81025; 87636; 99284; 96374; 96375 ×2; 96361; J2405; J1885; S0119; J1170

== ENCOUNTER 2023-05-05 19:32 | Emergency (ER) | payer OTHER ==
[2023-05-05 20:07] LABS: Appearance,Urine Cloudy (Clear); Bacteria,Urine Rare /hpf; Bilirubin,Urine Negative (Negative); Blood,Urine Moderate (Negative); Color,Urine Colorless; Glucose,Urine (UA) Negative (Negative); Ketones,Urine Negative (Negative); Leukocyte Esterase,Urine Negative (Negative); Nitrite,Urine Negative (Negative); Protein,Urine Negative (Negative); RBC,Urine 1 /hpf (0-5); Specific Gravity,Urine 1.001 (1.001-1.035); Squamous Epithelial Cell,Urine 1 /hpf (0-4); Urobilinogen,Urine <2.0 mg/dL (<2.0); WBC,Urine 2 /hpf (0-5)
--- NOTE | 2023-05-05 20:22 | ED ---
General Adult HPI - General Chief complaint: Back Pain/Injury Stated complaint: back pain, hurts to urinate, spider bite Time Seen by Provider: 05/05/23 19:53 Source: patient Mode of arrival: ambulatory Limitations: no limitations - History of Present Illness Initial comments: Dictation was produced using [employer] dictation software. please excuse any gramma tical, word or spelling errors. Chief Complaint: 37-year-old female presents to the emergency department for right lower back pain History of Present Illness: Patient 37-year-old female presents emergency department for acute onset right lower back pain. She states she has had this pain for several days. 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 She seen a chiropractor feel like maybe her symptoms have been slightly improved. She does report some variation of her symptoms with urinary movement. She has history of kidney stone. Denies that her cyst feels like her urine meza. The ROS documented in this emergency department record has been reviewed and confirmed by me. Those systems with pertinent positive or negative responses have been documented in the HPI. All other systems are other negative and/or noncontributory. - Related Data Home Medications Medication Instructions Recorded Confirmed Divalproex ER [Depakote ER] 500 mg PO HS 04/23/14 10/22/22 Ziprasidone [Geodon] 20 mg PO BID 04/21/19 10/22/22 Albuterol Inhaler [Ventolin Hfa 1 - 2 puff INHALATION RT-QID PRN 12/23/19 10/22/22 Inhaler] Dicyclomine [Bentyl] 10 mg PO QID 08/08/22 10/22/22 Famotidine 40 mg PO HS 08/08/22 10/22/22 Omeprazole [PriLOSEC] 40 mg PO QAM 10/17/22 10/22/22 Previous Rx's Medication Instructions Recorded Benztropine Mesylate [Cogentin] 1 mg PO BID #8 tablet 04/23/14 Ondansetron Odt [Zofran Odt] 4 mg PO Q8HR PRN #20 tab 02/23/23 Allergies Allergy/AdvReac Type Severity Reaction Status Date / Time amoxicillin Allergy Unknown Verified 05/05/23 19:50 brompheniramine maleate Allergy Dyspnea Verified 05/05/23 19:50 [From Dimetapp (brompheniramine-PPA)] clemastine fumarate Allergy Dyspnea Verified 05/05/23 19:50 [From Tavist] codeine Allergy Dyspnea Verified 05/05/23 19:50 diphenhydramine HCl Allergy Dyspnea Verified 05/05/23 19:50 [From Benadryl] meclizine Allergy Anaphylaxis Verified 05/05/23 19:50 phenylpropanolamine HCl Allergy Unknown Verified 05/05/23 19:50 [From Dimetapp (brompheniramine-PPA)] prednisone Allergy Hallucinati Verified 05/05/23 19:50 ons pseudoephedrine HCl Allergy Unknown Verified 05/05/23 19:50 [From Tavist] red dye Allergy Unknown Verified 05/05/23 19:50 risperidone [From Risperdal] Allergy Unknown Verified 05/05/23 19:50 sulfamethoxazole Allergy Unknown Verified 05/05/23 19:50 [From Bactrim] trimethoprim [From Bactrim] Allergy Unknown Verified 05/05/23 19:50 liraglutide [From Saxenda] AdvReac Nausea & Verified 05/05/23 19:50 Vomiting Review of Systems ROS Statement: Those systems with pertinent positive or pertinent negative responses have been documented in the HPI. ROS Other: All systems not noted in ROS Statement are negative. Past Medical History Past Medical History: Asthma Additional Past Medical History / Comment(s): polycysitic ovarian syndrome, closed head injury 10 years ago from a falls, Covid 2021 History of Any Multi-Drug Resistant Organisms: None Reported Past Surgical History: Appendectomy, Cholecystectomy Additional Past Surgical History / Comment(s): IUD Past Anesthesia/Blood Transfusion Reactions: Postoperative Nausea & Vomiting (PONV) Additional Past Anesthesia/Blood Transfusion Reaction / Comment(s): Pt has had a blood transfusion without reaction d/t PCOS Past Psychological History: Anxiety, Bipolar, Depression Smoking Status: Never smoker Past Alcohol Use History: None Reported Past Drug Use History: None Reported - Past Family History Mother Family Medical History: Eye Disorder, Vascular Disorder Father Family Medical History: COPD, CVA/TIA, Hyperlipidemia Additional Family Medical History / Comment(s): schizophrenia, mini strokes General Exam - General Exam Comments Initial Comments: PHYSICAL EXAM: General Impression: Alert and oriented x3, not in acute distress HEENT: Normocephalic atraumatic, extra-ocular movements intact, pupils equal and reactive to light bilaterally, mucous membranes moist. Cardiovascular: Heart regular rate and rhythm Chest: Able to complete full sentences, no retractions, no tachypnea Abdomen: abdomen soft, non-tender, non-distended, no organomegaly Musculoskeletal: Pulses present and equal in all extremities, no peripheral edema Motor: no focal deficits noted Neurological: CN II-XII grossly intact, no focal motor or sensory deficits noted Skin: Intact with no visualized rashes Psych: Normal affect and mood Limitations: no limitations Course Vital Signs 05/05/23 19:47 Temperature 99 F Pulse Rate 93 Respiratory 20 Rate Blood Pressure 152/75 O2 Sat by Pulse 98 Oximetry Medical Decision Making - Medical Decision Making Was pt. sent in by a medical professional or institution ([facility], [facility], urgent care, hospital, or skilled nursing...) When possible be specific @ -No Did you speak to anyone other than the patient for history (EMS, parent, family, police, friend...)? What history was obtained from this source @ -No Did you review nursing and triage notes (agree or disagree)? Why? @ -I reviewed and agree with nursing and triage notes Were old charts reviewed (outside hosp., previous admission, EMS record, old EKG, old radiological studies, urgent care reports/EKG's, skilled nursing records)? Report findings @ -No old charts were reviewed Differential Diagnosis (chest pain, altered mental status, abdominal pain women, abdominal pain men, vaginal bleeding, musculoskeletal, weakness, fever, dyspnea, syncope, headache, dizziness, GI bleed, back pain, seizure, CVA, palpatations, mental health)? @ -Differential Back Pain: Strain, zoster, cauda equina syndrome, epidural abscess, vertebral osteomyelitis, discitis, fracture, subluxation, disc herniation, DJD, spinal stenosis, dissection, AAA, pancreatitis, peptic ulcer disease, pyelonephritis, kidney stone, this is not meant to be an all-inclusive list. EKG interpreted by me (3pts min.). @ -None done X-rays interpreted by me (1pt min.). @ -None done CT interpreted by me (1pt min.). @ -None done U/S interpreted by me (1pt. min.). @ -Ultrasound shows no hydronephrosis to the kidneys What testing was considered but not performed or refused? (CT, X-rays, U/S, labs)? Why? @ -None What meds were considered but not given or refused? Why? @ -None Did you discuss the management of the patient with other professionals (professionals i.e. , PA, [facility], lab, RT, psych nurse, social services specialist, product scientist, teacher, complaint evaluation officer, director case management)? Give summary @ -No Was smoking cessation discussed for >3mins.? @ -No Was critical care preformed (if so, how long)? @ -No Were there social determinants of health that impacted care today? How? (Homelessness, low income, unemployed, alcoholism, drug addiction, transporta tion, low edu. Level, literacy, decrease access to med. care, nursing home, rehab)? @ -No Was there de-escalation of care discussed even if they declined (Discuss DNR or withdrawal of care, Hospice)? DNR status @ -No What co-morbidities impacted this encounter? (DM, HTN, Smoking, COPD, CAD, Cancer, CVA, ARF, Chemo, Hep., AIDS, mental health diagnosis, sleep apnea, morbid obesity)? @ -None Was patient admitted / discharged? Hospital course, mention meds given and route, prescriptions, significant lab abnormalities, going to OR and other pertinent info. @ -37-year-old female presents to the emergency department with persistent back pain. Clinical presentation consistent with back strain. Vital signs stable. Physical examination is unremarkable. Laboratories are negative. Urinalysis negative for infection. Ultrasound is negative for obstructive process. Given Toradol. Patient be discharged. Advised follow-up with primary care doctor. Undiagnosed new problem with uncertain prognosis? @ -No Drug Therapy requiring intensive monitoring for toxicity (Heparin, Nitro, Insulin, Cardizem)? @ -No Were any procedures done? @ -No Diagnosis/symptom? Acute, or Chronic, or Acute on Chronic? Uncomplicated (without systemic symptoms) or Complicated (systemic symptoms)? @ -Back strain Side effects of treatment? @ -No Exacerbation, Progression, or Severe Exacerbation? @ -No Poses a threat to life or bodily function? How? (Chest pain, [place], [place], pneumonia, PE, COPD, DKA, ARF, appy, cholecystitis, CVA, Diverticulitis, Homicidal, Suicidal, threat to staff... and all critical care pts) @ -No - Lab Data Result diagrams: 05/05/23 20:29 05/05/23 20:29 Lab Results 05/05/23 05/05/23 05/05/23 Range/Units 19:57 19:57 20:29 WBC 7.1 (3.8-10.6) k/uL RBC 4.31 (3.80-5.40) m/uL Hgb 12.9 (11.4-16.0) gm/dL Hct 37.0 (34.0-46.0) % MCV 85.8 (80.0-100.0) fL MCH 29.9 (25.0-35.0) pg MCHC 34.8 (31.0-37.0) g/dL RDW 14.1 (11.5-15.5) % Plt Count 229 (150-450) k/uL MPV 8.9 Neutrophils % 60 % Lymphocytes % 30 % Monocytes % 4 % Eosinophils % 5 % Basophils % 1 % Neutrophils # 4.3 (1.3-7.7) k/uL Lymphocytes # 2.1 (1.0-4.8) k/uL Monocytes # 0.3 (0-1.0) k/uL Eosinophils # 0.3 (0-0.7) k/uL Basophils # 0.0 (0-0.2) k/uL Sodium (137-145) mmol/L Potassium (3.5-5.1) mmol/L Chloride (98-107) mmol/L Carbon Dioxide (22-30) mmol/L Anion Gap mmol/L BUN (7-17) mg/dL Creatinine (0.52-1.04) mg/dL Est GFR (CKD-EPI)AfAm (>60 ml/min/1.73 sqM) Est GFR (CKD-EPI)NonAf (>60 ml/min/1.73 sqM) Glucose (74-99) mg/dL Calcium (8.4-10.2) mg/dL Total Bilirubin (0.2-1.3) mg/dL AST (14-36) U/L ALT (4-34) U/L Alkaline Phosphatase (38-126) U/L Total Protein (6.3-8.2) g/dL Albumin (3.5-5.0) g/dL Urine Color Colorless Urine Appearance Cloudy H (Clear) Urine pH 6.0 (5.0-8.0) Ur Specific [place] 1.001 (1.001-1.035) Urine Protein Negative (Negative) Urine Glucose (UA) Negative (Negative) Urine Ketones Negative (Negative) Urine Blood Moderate H (Negative) Urine Nitrite Negative (Negative) Urine Bilirubin Negative (Negative) Urine Urobilinogen <2.0 (<2.0) mg/dL Ur Leukocyte Esterase Negative (Negative) Urine RBC 1 (0-5) /hpf Urine WBC 2 (0-5) /hpf Ur Squamous Epith Cells 1 (0-4) /hpf Urine Bacteria Rare H (None) /hpf Urine HCG, Qual Not Detected (Not Detectd) 05/05/23 Range/Units 20:29 WBC (3.8-10.6) k/uL RBC (3.80-5.40) m/uL Hgb (11.4-16.0) gm/dL Hct (34.0-46.0) % MCV (80.0-100.0) fL MCH (25.0-35.0) pg MCHC (31.0-37.0) g/dL RDW (11.5-15.5) % Plt Count (150-450) k/uL MPV Neutrophils % % Lymphocytes % % Monocytes % % Eosinophils % % Basophils % % Neutrophils # (1.3-7.7) k/uL Lymphocytes # (1.0-4.8) k/uL Monocytes # (0-1.0) k/uL Eosinophils # (0-0.7) k/uL Basophils # (0-0.2) k/uL Sodium 140 (137-145) mmol/L Potassium 4.0 (3.5-5.1) mmol/L Chloride 110 H (98-107) mmol/L Carbon Dioxide 22 (22-30) mmol/L Anion Gap 8 mmol/L BUN 11 (7-17) mg/dL Creatinine 0.69 (0.52-1.04) mg/dL Est GFR (CKD-EPI)AfAm >90 (>60 ml/min/1.73 sqM) Est GFR (CKD-EPI)NonAf >90 (>60 ml/min/1.73 sqM) Glucose 113 H (74-99) mg/dL Calcium 8.8 (8.4-10.2) mg/dL Total Bilirubin 0.3 (0.2-1.3) mg/dL AST 28 (14-36) U/L ALT 23 (4-34) U/L Alkaline Phosphatase 103 (38-126) U/L Total Protein 6.8 (6.3-8.2) g/dL Albumin 4.0 (3.5-5.0) g/dL Urine Color Urine Appearance (Clear) Urine pH (5.0-8.0) Ur Specific [place] (1.001-1.035) Urine Protein (Negative) Urine Glucose (UA) (Negative) Urine Ketones (Negative) Urine Blood (Negative) Urine Nitrite (Negative) Urine Bilirubin (Negative) Urine Urobilinogen (<2.0) mg/dL Ur Leukocyte Esterase (Negative) Urine RBC (0-5) /hpf Urine WBC (0-5) /hpf Ur Squamous Epith Cells (0-4) /hpf Urine Bacteria (None) /hpf Urine HCG, Qual (Not Detectd) Disposition Clinical Impression: Back strain Disposition: HOME SELF-CARE Condition: Good Instructions (If sedation given, give patient instructions): Acute Low Back Pain (ED) Is patient prescribed a controlled substance at d/c from ED?: No Referrals: Conrado Rey MD [Primary Care Provider] - 1-2 days Time of Disposition: 21:27
[2023-05-05 20:36] LABS: Basophils % (A) 1 %; Eosinophils # (A) 0.3 k/uL (0-0.7); Eosinophils % (A) 5 %; HGB 12.9 gm/dL (11.4-16.0); Lymphocytes # (A) 2.1 k/uL (1.0-4.8); Lymphocytes % (A) 30 %; MCH 29.9 pg (25.0-35.0); MCHC 34.8 g/dL (31.0-37.0); MCV 85.8 fL (80.0-100.0); Mean Platelet Volume 8.9; Monocytes # (A) 0.3 k/uL (0-1.0); Monocytes % (A) 4 %; Neutrophils # (A) 4.3 k/uL (1.3-7.7); Neutrophils % (A) 60 %; Platelet Count 229 k/uL (150-450); RBC 4.31 m/uL (3.80-5.40); RDW 14.1 % (11.5-15.5); WBC 7.1 k/uL (3.8-10.6)
[2023-05-05] MEDS: KETOROLAC 15 MG/ML 1 ML VIAL IVP STA (20:41)
[2023-05-05 20:50] LABS: ALT 23 U/L (4-34); AST 28 U/L (14-36); African American GFR (CKD) >90 (>60 ml/min/1.73 sqM); Alkaline Phosphatase 103 U/L (38-126); Anion Gap 8 mmol/L; Blood Urea Nitrogen 11 mg/dL (7-17); Calcium 8.8 mg/dL (8.4-10.2); Carbon Dioxide 22 mmol/L (22-30); Chloride 110 mmol/L (98-107); Glucose 113 mg/dL (74-99); Non-African American GFR(CKD) >90 (>60 ml/min/1.73 sqM); Sodium 140 mmol/L (137-145); Total Bilirubin 0.3 mg/dL (0.2-1.3); Total Protein 6.8 g/dL (6.3-8.2)
--- NOTE | 2023-05-05 21:18 | US ---
EXAMINATION TYPE: US kidneys/renal and bladder DATE OF EXAM: 05/05/2023 COMPARISON: 06/10/2022 CLINICAL INDICATION: Female, 37 years old with history of flank pain; right flank pain, h/o renal sto vick EXAM MEASUREMENTS: Right Kidney: 11.5 x 5.3 x 4.8 cm Left Kidney: 12.1 x 5.1 x 5.6 cm Right Kidney: No hydronephrosis or masses seen Left Kidney: No hydronephrosis or masses seen Bladder: wnl There is no evidence for hydronephrosis at this point in time. No nephrolithiasis is seen. No tejinder s are identified. The urinary bladder is anechoic. Bilateral ureteral jets are seen. IMPRESSION: No evidence for obstructive uropathy.
[2023-05-05 21:58] VITALS: BP 156/97; PULSE 82; RESP 18; TEMP 97.9
== END 2023-05-05 21:40 | disposition home or self-care (01) ==
LOC: EC 19:32
DX: S39.012A Strain of muscle, fascia and tendon of lower back, initial encounter (principal); J45.909 Unspecified asthma, uncomplicated; F31.9 Bipolar disorder, unspecified; F41.9 Anxiety disorder, unspecified; Z79.899 Other long term (current) drug therapy; Z88.0 Allergy status to penicillin; Z88.5 Allergy status to narcotic agent; Z88.1 Allergy status to other antibiotic agents; Z88.2 Allergy status to sulfonamides; Z88.8 Allergy status to other drugs, medicaments and biological substances; Z90.49 Acquired absence of other specified parts of digestive tract; Z91.041 Radiographic dye allergy status; Z86.16 Personal history of COVID-19; X50.0XXA Overexertion from strenuous movement or load, initial encounter
CPT/HCPCS: 36415; 80053; 85025; 81001; 81025; 76770; 99284; 96374; J1885

== ENCOUNTER 2023-07-30 14:55 | Emergency (ER) | payer OTHER ==
--- NOTE | 2023-07-30 15:32 | ED ---
General Adult HPI - General Source: patient, family, RN notes reviewed Mode of arrival: ambulatory Limitations: no limitations <Yoselin Vance - Last Filed: 07/30/23 15:29> - General Source: RN notes reviewed <Karrie Garcia - Last Filed: 07/30/23 19:44> - General Chief complaint: Vaginal Bleeding Stated complaint: NVD, dizzy, abd pain, Time Seen by Provider: 07/30/23 15:30 - History of Present Illness Initial comments: Quick Note: This is a 37 year old female who presents to the emergency department for pelvic pain, nausea, dizziness, and weakness. Patient states that she was recent evaluated here for vaginal discharge and pelvic pain. She was told that she may have a problem with her IUD and has a follow-up with [facility] scheduled for tomorrow. States that today the pain became worse and she started to feel very dizzy and nauseous. Also states that it hurts to urinate or have a bowel movement. (Yoselin Vance) 37-year-old female with past medical history of kidney stones, PCOS, appendectomy, cholecystectomy presenting to the ER with chief complaint of left flank pain worsening for the past day with dysuria, nausea, and dizziness. She was recently evaluated in the ER for pelvic pain and intermittent vaginal spotting, pelvic exam was performed and all STD testing returned negative. She was told that she may have a problem with her IUD and has a follow-up [facility] appointment scheduled for tomorrow. She states she does not have normal periods since getting IUD, however has intermittent chronic vaginal spotting. Denies current vaginal discharge or fevers. (Karrie Garcia) - Related Data Home Medications Medication Instructions Recorded Confirmed Divalproex ER [Depakote ER] 500 mg PO HS 04/23/14 10/22/22 Ziprasidone [Geodon] 20 mg PO BID 04/21/19 10/22/22 Albuterol Inhaler [Ventolin Hfa 1 - 2 puff INHALATION RT-QID PRN 12/23/1910/22 Inhaler] Dicyclomine [Bentyl] 10 mg PO QID 08/08/22 10/22/22 Famotidine 40 mg PO HS 08/08/22 10/22/22 Omeprazole [PriLOSEC] 40 mg PO QAM 10/17/22 10/22/22 Previous Rx's Medication Instructions Recorded Benztropine Mesylate [Cogentin] 1 mg PO BID #8 tablet 04/23/14 Ondansetron Odt [Zofran Odt] 4 mg PO Q8HR PRN #20 tab 02/23/23 Allergies Allergy/AdvReac Type Severity Reaction Status Date / Time amoxicillin Allergy Unknown Verified 07/30/23 15:26 brompheniramine maleate Allergy Dyspnea Verified 07/30/23 15:26 [From Dimetapp (brompheniramine-PPA)] clemastine fumarate Allergy Dyspnea Verified 07/30/23 15:26 [From Tavist] codeine Allergy Dyspnea Verified 07/30/23 15:26 diphenhydramine HCl Allergy Dyspnea Verified 07/30/23 15:26 [From Benadryl] meclizine Allergy Anaphylaxis Verified 07/30/23 15:26 phenylpropanolamine HCl Allergy Unknown Verified 07/30/23 15:26 [From Dimetapp (brompheniramine-PPA)] prednisone Allergy Hallucinati Verified 07/30/23 15:26 ons pseudoephedrine HCl Allergy Unknown Verified 07/30/23 15:26 [From Tavist] red dye Allergy Unknown Verified 07/30/23 15:26 risperidone [From Risperdal] Allergy Unknown Verified 07/30/23 15:26 sulfamethoxazole Allergy Unknown Verified 07/30/23 15:26 [From Bactrim] trimethoprim [From Bactrim] Allergy Unknown Verified 07/30/23 15:26 liraglutide [From Saxenda] AdvReac Nausea & Verified 07/30/23 15:26 Vomiting Review of Systems ROS Other: All systems not noted in ROS Statement are negative. <Yoselin Vance - Last Filed: 07/30/23 15:29> ROS Other: All systems not noted in ROS Statement are negative. <Karrie Garcia - Last Filed: 07/30/23 19:44> ROS Statement: Those systems with pertinent positive or pertinent negative responses have been documented in the HPI. Past Medical History Past Medical History: Asthma Additional Past Medical History / Comment(s): polycysitic ovarian syndrome, closed head injury 10 years ago from a falls, Covid 2021 History of Any Multi-Drug Resistant Organisms: None Reported Past Surgical History: Appendectomy, Cholecystectomy Additional Past Surgical History / Comment(s): IUD Past Anesthesia/Blood Transfusion Reactions: Postoperative Nausea & Vomiting (PONV) Additional Past Anesthesia/Blood Transfusion Reaction / Comment(s): Pt has had a blood transfusion without reaction d/t PCOS Past Psychological History: Anxiety, Bipolar, Depression Smoking Status: Never smoker Past Alcohol Use History: None Reported Past Drug Use History: None Reported - Past Family History Mother Family Medical History: Eye Disorder, Vascular Disorder Father Family Medical History: COPD, CVA/TIA, Hyperlipidemia Additional Family Medical History / Comment(s): schizophrenia, mini strokes <Yoselin Vance - Last Filed: 07/30/23 15:29> General Exam Limitations: no limitations <Yoselin Vance - Last Filed: 07/30/23 15:29> General appearance: alert, in no apparent distress Head exam: Present: atraumatic, normocephalic, normal inspection ENT exam: Present: normal exam, mucous membranes moist Neck exam: Present: normal inspection. Absent: tenderness, meningismus, lymphadenopathy Respiratory exam: Present: normal lung sounds bilaterally. Absent: respiratory distress, wheezes, rales, rhonchi, stridor Cardiovascular Exam: Present: regular rate, normal rhythm, normal heart sounds. Absent: systolic murmur, diastolic murmur, rubs, gallop, clicks GI/Abdominal exam: Present: soft, tenderness (Mild left lower quadrant tenderness), normal bowel sounds. Absent: distended, guarding, rebound, rigid Extremities exam: Present: normal inspection, full ROM, normal capillary refill. Absent: tenderness, pedal edema, joint swelling, calf tenderness Back exam: Present: normal inspection. Absent: CVA tenderness (R), CVA tenderness (L), paraspinal tenderness Neurological exam: Present: alert, oriented X3 Psychiatric exam: Present: normal affect, normal mood Skin exam: Present: warm, dry, intact, normal color. Absent: rash <Karrie Garcia - Last Filed: 07/30/23 19:44> - General Exam Comments Initial Comments: Visual Physical Exam Vital signs reviewed General: Well-appearing, nontoxic, no acute distress. Head: Normocephalic, atraumatic Eyes: PERRLA, EOMI ENT: Airway patent Chest: Nonlabored breathing Skin: No visual rash, normal skin tone Neuro: Alert and oriented 3 Musculoskeletal: No gross abnormalities (Yoselin Vance) Course Vital Signs 07/30/23 07/30/23 15:23 18:51 Temperature 98.4 F 98.2 F Pulse Rate 88 82 Respiratory 18 18 Rate Blood Pressure 161/104 155/92 O2 Sat by Pulse 98 98 Oximetry EKG Findings - EKG Results: EKG: interpreted by ERMD (Normal sinus rhythm with no ST changes. Ventricular rate 83 bpm, RI interval 152, QRS duration 90, QT/QTc 374/414) <Karrie Garcia - Last Filed: 07/30/23 19:44> Medical Decision Making <Yoselin Vance - Last Filed: 07/30/23 15:29> - Lab Data Result diagrams: 07/30/23 15:45 07/30/23 15:45 <Karrie Garcia - Last Filed: 07/30/23 19:44> - Medical Decision Making I performed the QuickNote portion of this chart. Signed Yoselin Vance PA-C. (Yoselin Vance) Was pt. sent in by a medical professional or institution ([facility], FINAL INSPECTOR, urgent care, hospital, or snf...) When possible be specific @ -No Did you speak to anyone other than the patient for history (EMS, parent, family, police, friend...)? What history was obtained from this source @ -No Did you review nursing and triage notes (agree or disagree)? Why? @ -I reviewed and agree with nursing and triage notes Were old charts reviewed (outside hosp., previous admission, EMS record, old EKG, old radiological studies, urgent care reports/EKG's, snf records)? Report findings @ -No old charts were reviewed Differential Diagnosis (chest pain, altered mental status, abdominal pain women, abdominal pain men, vaginal bleeding, weakness, fever, dyspnea, syncope, headache, dizziness, GI bleed, back pain, seizure, CVA, palpatations, mental health, musculoskeletal)? @ -Differential Abdominal Pain Women: Appendicitis, Cholecystitis, diverticulosis, ischemic bowel, pancreatitis, hepatitis, UTI, gastroenteritis, AAA, incarcerated hernia, bowel obstruction, constipation, inflammatory bowel, hepatitis, peptic ulcer disease, splenic infarction, perforated viscus, vulvitis, ovarian torsion, PID, kidney stone, placenta abruption, this is not meant to be an all-inclusive list EKG interpreted by me (3pts min.). @ -As above X-rays interpreted by me (1pt min.). @ -None done CT interpreted by me (1pt min.). @ -CT of abdomen pelvis negative for acute process, IUD in appropriate position U/S interpreted by me (1pt. min.). @ -Pelvic ultrasound reveals small left ovarian cyst measuring 1 cm, IUD in appropriate position What testing was considered but not performed or refused? (CT, X-rays, U/S, labs)? Why? @ -None What meds were considered but not given or refused? Why? @ -None Did you discuss the management of the patient with other professionals (professionals i.e. , PA, FINAL INSPECTOR, lab, RT, psych nurse, bilingual social worker, corporation lawyer, teacher, medical information officer, manager of case)? Give summary @ -No Was smoking cessation discussed for >3mins.? @ -No Was critical care preformed (if so, how long)? @ -No Were there social determinants of health that impacted care today? How? (Homelessness, low income, unemployed, alcoholism, drug addiction, transportation, low edu. Level, literacy, decrease access to med. care, assisted, rehab)? @ -No Was there de-escalation of care discussed even if they declined (Discuss DNR or withdrawal of care, Hospice)? DNR status @ -No What co-morbidities impacted this encounter? (DM, HTN, Smoking, COPD, CAD, Cancer, CVA, ARF, Chemo, Hep., AIDS, mental health diagnosis, sleep apnea, morbid obesity)? @ -None Was patient admitted / discharged? Hospital course, mention meds given and route, prescriptions, significant lab abnormalities, going to OR and other pertinent info. @ -Patient was discharged. Patient was seen and evaluated for pelvic pain x 2 weeks with intermittent vaginal bleeding. Vitals are stable. Mild left lower quadrant tenderness on examination. Ultrasound performed and revealed small left ovarian cyst measuring 1 cm, IUD in appropriate position. Lab work and urine are unremarkable. EKG is unremarkable. CT of abdomen pelvis are negative for acute process, IUD is in place. Discussed with patient that there are no signs of emergent etiology on examination today, instructed to follow-up with [facility] tomorrow for further evaluation. Strict return/alarm symptoms discussed with patient and patient shows understanding and agrees. Supportive care discussed. Patient discharged in stable condition. Case discussed with Dr. Mendez Undiagnosed new problem with uncertain prognosis? @ -No Drug Therapy requiring intensive monitoring for toxicity (Heparin, Nitro, Insulin, Cardizem)? @ -No Were any procedures done? @ -No Diagnosis/symptom? @ -Pelvic pain Acute, or Chronic, or Acute on Chronic? @ -Acute Uncomplicated (without systemic symptoms) or Complicated (systemic symptoms)? @ -Default Side effects of treatment? @ -No Exacerbation, Progression, or Severe Exacerbation? @ -No Poses a threat to life or bodily function? How? (Chest pain, [place], [place], pneumonia, PE, COPD, DKA, ARF, appy, cholecystitis, CVA, Diverticulitis, Homicidal, Suicidal, threat to staff... and all critical care pts) @ -No (Karrie Garcia) - Lab Data Lab Results 07/30/23 07/30/23 07/30/23 Range/Units 15:45 15:45 15:45 WBC 7.4 (3.8-10.6) k/uL RBC 4.19 (3.80-5.40) m/uL Hgb 12.1 (11.4-16.0) gm/dL Hct 35.9 (34.0-46.0) % MCV 85.7 (80.0-100.0) fL MCH 28.9 (25.0-35.0) pg MCHC 33.7 (31.0-37.0) g/dL RDW 14.5 (11.5-15.5) % Plt Count 250 (150-450) k/uL MPV 8.6 Neutrophils % 62 % Lymphocytes % 26 % Monocytes % 5 % Eosinophils % 5 % Basophils % 1 % Neutrophils # 4.6 (1.3-7.7) k/uL Lymphocytes # 2.0 (1.0-4.8) k/uL Monocytes # 0.4 (0-1.0) k/uL Eosinophils # 0.4 (0-0.7) k/uL Basophils # 0.1 (0-0.2) k/uL Sodium 136 L (137-145) mmol/L Potassium 4.0 (3.5-5.1) mmol/L Chloride 106 (98-107) mmol/L Carbon Dioxide 22 (22-30) mmol/L Anion Gap 8 mmol/L BUN 11 (7-17) mg/dL Creatinine 0.59 (0.52-1.04) mg/dL Est GFR (CKD-EPI)AfAm >90 (>60 ml/min/1.73 sqM) Est GFR (CKD-EPI)NonAf >90 (>60 ml/min/1.73 sqM) Glucose 83 (74-99) mg/dL Plasma Lactic Acid Sancho 1.5 (0.7-2.0) mmol/L Calcium 9.0 (8.4-10.2) mg/dL Magnesium 1.9 (1.6-2.3) mg/dL Total Bilirubin 0.3 (0.2-1.3) mg/dL AST 30 (14-36) U/L ALT 26 (4-34) U/L Alkaline Phosphatase 106 (38-126) U/L Troponin I (0.000-0.034) ng/mL Total Protein 6.6 (6.3-8.2) g/dL Albumin 3.9 (3.5-5.0) g/dL Lipase 273 (23-300) U/L Urine Color Urine Appearance (Clear) Urine pH (5.0-8.0) Ur Specific Crete (1.001-1.035) Urine Protein (Negative) Urine Glucose (UA) (Negative) Urine Ketones (Negative) Urine Blood (Negative) Urine Nitrite (Negative) Urine Bilirubin (Negative) Urine Urobilinogen (<2.0) mg/dL Ur Leukocyte Esterase (Negative) Urine HCG, Qual (Not Detectd) 07/30/23 07/30/23 07/30/23 Range/Units 15:45 16:26 16:26 WBC (3.8-10.6) k/uL RBC (3.80-5.40) m/uL Hgb (11.4-16.0) gm/dL Hct (34.0-46.0) % MCV (80.0-100.0) fL MCH (25.0-35.0) pg MCHC (31.0-37.0) g/dL RDW (11.5-15.5) % Plt Count (150-450) k/uL MPV Neutrophils % % Lymphocytes % % Monocytes % % Eosinophils % % Basophils % % Neutrophils # (1.3-7.7) k/uL Lymphocytes # (1.0-4.8) k/uL Monocytes # (0-1.0) k/uL Eosinophils # (0-0.7) k/uL Basophils # (0-0.2) k/uL Sodium (137-145) mmol/L Potassium (3.5-5.1) mmol/L Chloride (98-107) mmol/L Carbon Dioxide (22-30) mmol/L Anion Gap mmol/L BUN (7-17) mg/dL Creatinine (0.52-1.04) mg/dL Est GFR (CKD-EPI)AfAm (>60 ml/min/1.73 sqM) Est GFR (CKD-EPI)NonAf (>60 ml/min/1.73 sqM) Glucose (74-99) mg/dL Plasma Lactic Acid Sancho (0.7-2.0) mmol/L Calcium (8.4-10.2) mg/dL Magnesium (1.6-2.3) mg/dL Total Bilirubin (0.2-1.3) mg/dL AST (14-36) U/L ALT (4-34) U/L Alkaline Phosphatase (38-126) U/L Troponin I <0.012 (0.000-0.034) ng/mL Total Protein (6.3-8.2) g/dL Albumin (3.5-5.0) g/dL Lipase (23-300) U/L Urine Color Colorless Urine Appearance Clear (Clear) Urine pH 7.0 (5.0-8.0) Ur Specific Crete 1.003 (1.001-1.035) Urine Protein Negative (Negative) Urine Glucose (UA) Negative (Negative) Urine Ketones Negative (Negative) Urine Blood Negative (Negative) Urine Nitrite Negative (Negative) Urine Bilirubin Negative (Negative) Urine Urobilinogen <2.0 (<2.0) mg/dL Ur Leukocyte Esterase Negative (Negative) Urine HCG, Qual Not Detected (Not Detectd) Disposition <Yoselin Vance - Last Filed: 07/30/23 15:29> Is patient prescribed a controlled substance at d/c from ED?: No Time of Disposition: 19:37 <Karrie Garcia - Last Filed: 07/30/23 19:44> Clinical Impression: Pelvic pain Disposition: HOME SELF-CARE Condition: Stable Instructions (If sedation given, give patient instructions): Pelvic Pain in Women (ED) Additional Instructions: Please follow-up with [facility] tomorrow. Please return to the Emergency Department if symptoms worsen or any other concerns. Referrals: Conrado Rey MD [Primary Care Provider] - 1-2 days
[2023-07-30 16:19] LABS: Basophils # (A) 0.1 k/uL (0-0.2); Basophils % (A) 1 %; Eosinophils # (A) 0.4 k/uL (0-0.7); Eosinophils % (A) 5 %; HCT 35.9 % (34.0-46.0); HGB 12.1 gm/dL (11.4-16.0); Lymphocytes % (A) 26 %; MCH 28.9 pg (25.0-35.0); MCHC 33.7 g/dL (31.0-37.0); MCV 85.7 fL (80.0-100.0); Mean Platelet Volume 8.6; Monocytes # (A) 0.4 k/uL (0-1.0); Monocytes % (A) 5 %; Neutrophils # (A) 4.6 k/uL (1.3-7.7); Neutrophils % (A) 62 %; Platelet Count 250 k/uL (150-450); RBC 4.19 m/uL (3.80-5.40); RDW 14.5 % (11.5-15.5); WBC 7.4 k/uL (3.8-10.6)
[2023-07-30 16:47] LABS: ALT 26 U/L (4-34); AST 30 U/L (14-36); African American GFR (CKD) >90 (>60 ml/min/1.73 sqM); Albumin 3.9 g/dL (3.5-5.0); Alkaline Phosphatase 106 U/L (38-126); Anion Gap 8 mmol/L; Blood Urea Nitrogen 11 mg/dL (7-17); Carbon Dioxide 22 mmol/L (22-30); Chloride 106 mmol/L (98-107); Glucose 83 mg/dL (74-99); Lipase 273 U/L (23-300); Magnesium 1.9 mg/dL (1.6-2.3); Non-African American GFR(CKD) >90 (>60 ml/min/1.73 sqM); Sodium 136 mmol/L (137-145); Total Bilirubin 0.3 mg/dL (0.2-1.3); Total Protein 6.6 g/dL (6.3-8.2)
--- NOTE | 2023-07-30 17:23 | US ---
EXAMINATION TYPE: US transvaginal DATE OF EXAM: 07/30/2023 COMPARISON: NONE CLINICAL INDICATION: Female, 37 years old with history of Pelvic pain; Irregular menses, pelvic pain. IUD placement 2 years ago TECHNIQUE: Transvaginal (TV). Date of LMP: unknown EXAM MEASUREMENTS: Uterus: 8.8 x 4.2 x 4.8 cm Endometrial Stripe: 0.6 cm Right Ovary: 3.4 x 2.4 x 2.7 cm Left Ovary: 3.2 x 2.2 x 2.6 cm 1. Uterus: Anteverted IUD visualized within body 2. Endometrium: appears wnl 3. Right Ovary: dominant follicle = 2.0 x 2.2cm 4. Left Ovary: dominant follicle = 1.7cm. paraovarian cyst = 1.1 x 1.0 x 1.2cm Spectral, color and waveform doppler imaging shows good arterial and venous flow within the ovaries ; there is no evidence for ovarian torsion. 5. Bilateral Adnexa: wnl 6. Posterior cul-de-sac: wnl IMPRESSION: 1. No evidence for acute process. 2. Appropriate arterial and venous spectral waveforms to the ovaries. 3. IUD in appropriate position.
[2023-07-30] MEDS: SODIUM CHLORIDE 0.9% 1,000 ML IV STA (18:37)
[2023-07-30 18:53] LABS: Appearance,Urine Clear (Clear); Bilirubin,Urine Negative (Negative); Blood,Urine Negative (Negative); Color,Urine Colorless; Glucose,Urine (UA) Negative (Negative); Ketones,Urine Negative (Negative); Leukocyte Esterase,Urine Negative (Negative); Nitrite,Urine Negative (Negative); Protein,Urine Negative (Negative); Specific Gravity,Urine 1.003 (1.001-1.035); Urobilinogen,Urine <2.0 mg/dL (<2.0)
--- NOTE | 2023-07-30 19:11 | CT ---
EXAMINATION TYPE: CT abdomen pelvis wo con CT DLP: 1292.4 mGycm, Automated exposure control for dose reduction was used. DATE OF EXAM: 07/30/2023 6:58 PM COMPARISON: CT abdomen pelvis most recent 01/17/2021 CLINICAL INDICATION:Female, 37 years old with history of left flank pain; Left side flank pain. TECHNIQUE: Axial CT abdomen pelvis wo con;Sagittal and coronal reformats were created on a separate workstation. Contrast used: mL of , (none if empty) Oral contrast used: without Oral Contrast (none if empty) FINDINGS: LOWER CHEST: Unremarkable ABDOMEN LIVER: Unremarkable GALLBLADDER AND BILE DUCTS: Gallbladder is surgically absent. PANCREAS: Unremarkable. SPLEEN: Unremarkable. ADRENAL GLANDS: Unremarkable. KIDNEYS AND URETERS: No evidence of hydronephrosis or renal calculus. The ureters are unremarkable. P elvic phleboliths near the distal ureters bilaterally. PELVIS BLADDER: Unremarkable REPRODUCTIVE: Intrauterine device seen within the endometrium. ABDOMEN & PELVIS STOMACH AND BOWEL: No evidence of bowel obstruction. PERITONEUM/RETROPERITONEUM: No evidence of pneumoperitoneum or free fluid. VASCULATURE: No evidence of aortic aneurysm. MUSCULOSKELETAL: No acute osseous abnormalities LYMPH NODES: No gross evidence for lymphadenopathy. SOFT TISSUE/ABDOMINAL WALL: Unremarkable IMPRESSION: 1. No evidence of obstructive uropathy. 2. IUD in appropriate position.
[2023-07-30] MEDS: KETOROLAC 15 MG/ML 1 ML VIAL IVP STA (19:29)
[2023-07-30 20:10] VITALS: BP 161/99; PULSE 65; RESP 20; TEMP 97.9
== END 2023-07-30 19:52 | disposition home or self-care (01) ==
LOC: EC 14:55
DX: R10.2 Pelvic and perineal pain (principal); Z88.0 Allergy status to penicillin; Z88.8 Allergy status to other drugs, medicaments and biological substances; Z88.2 Allergy status to sulfonamides; Z88.1 Allergy status to other antibiotic agents
CPT/HCPCS: 36415; 93005; 80053; 83605; 83690; 83735; 84484; 85025; 81003; 81025; 93975; 76830; 74176; 99284; 96374; 96361; J1885

== ENCOUNTER 2023-08-29 02:46 | Emergency (ER) | payer OTHER ==
[2023-08-29 03:02] VITALS: RESP 16
--- NOTE | 2023-08-29 03:19 | ED ---
General Adult HPI - General Chief complaint: Nausea/Vomiting/Diarrhea Stated complaint: NVD headache chills Time Seen by Provider: 08/29/23 03:05 Source: patient Mode of arrival: wheelchair Limitations: no limitations - History of Present Illness Initial comments: 37-year-old female presenting to the ED with a chief complaint of nausea and vomiting. Patient reports she has been feeling unwell for the past 2 days. States that she has had myalgias, headache, and generalized fatigue. Tonight states that she started to experience some nausea vomiting and diarrhea. Denies chest pain or shortness of breath. No fever or chills. No other complaints at this time. - Related Data Home Medications Medication Instructions Recorded Confirmed Divalproex ER [Depakote ER] 500 mg PO HS 04/23/14 10/22/22 Ziprasidone [Geodon] 20 mg PO BID 04/21/19 10/22/22 Albuterol Inhaler [Ventolin Hfa 1 - 2 puff INHALATION RT-QID PRN 12/23/19 10/22/22 Inhaler] Dicyclomine [Bentyl] 10 mg PO QID 08/08/22 10/22/22 Famotidine 40 mg PO HS 08/08/22 10/22/22 Omeprazole [PriLOSEC] 40 mg PO QAM 10/17/22 10/22/22 Previous Rx's Medication Instructions Recorded Benztropine Mesylate [Cogentin] 1 mg PO BID #8 tablet 04/23/14 Ondansetron Odt [Zofran Odt] 4 mg PO Q8HR PRN #20 tab 02/23/23 Ondansetron Odt [Zofran Odt] 4 mg PO Q8HR PRN #10 tab 08/29/23 Allergies Allergy/AdvReac Type Severity Reaction Status Date / Time amoxicillin Allergy Unknown Verified 08/29/23 02:59 brompheniramine maleate Allergy Dyspnea Verified 08/29/23 02:59 [From Dimetapp (brompheniramine-PPA)] clemastine fumarate Allergy Dyspnea Verified 08/29/23 02:59 [From Tavist] codeine Allergy Dyspnea Verified 08/29/23 02:59 diphenhydramine HCl Allergy Dyspnea Verified 08/29/23 02:59 [From Benadryl] meclizine Allergy Anaphylaxis Verified 08/29/23 02:59 phenylpropanolamine HCl Allergy Unknown Verified 08/29/23 02:59 [From Dimetapp (brompheniramine-PPA)] prednisone Allergy Hallucinati Verified 08/29/23 02:59 ons pseudoephedrine HCl Allergy Unknown Verified 08/29/23 02:59 [From Tavist] red dye Allergy Unknown Verified 08/29/23 02:59 risperidone [From Risperdal] Allergy Unknown Verified 08/29/23 02:59 sulfamethoxazole Allergy Unknown Verified 08/29/23 02:59 [From Bactrim] trimethoprim [From Bactrim] Allergy Unknown Verified 08/29/23 02:59 liraglutide [From Saxenda] AdvReac Nausea & Verified 08/29/23 02:59 Vomiting Review of Systems ROS Statement: Those systems with pertinent positive or pertinent negative responses have been documented in the HPI. ROS Other: All systems not noted in ROS Statement are negative. Past Medical History Past Medical History: Asthma Additional Past Medical History / Comment(s): polycysitic ovarian syndrome, closed head injury 10 years ago from a falls, Covid 2021 History of Any Multi-Drug Resistant Organisms: None Reported Past Surgical History: Appendectomy, Cholecystectomy Additional Past Surgical History / Comment(s): IUD Past Anesthesia/Blood Transfusion Reactions: Postoperative Nausea & Vomiting (PONV) Additional Past Anesthesia/Blood Transfusion Reaction / Comment(s): Pt has had a blood transfusion without reaction d/t PCOS Past Psychological History: Anxiety, Bipolar, Depression Smoking Status: Never smoker Past Alcohol Use History: None Reported Past Drug Use History: None Reported - Past Family History Mother Family Medical History: Eye Disorder, Vascular Disorder Father Family Medical History: COPD, CVA/TIA, Hyperlipidemia Additional Family Medical History / Comment(s): schizophrenia, mini strokes General Exam Limitations: no limitations General appearance: alert, in no apparent distress Eye exam: Present: normal appearance Neck exam: Present: normal inspection Respiratory exam: Present: normal lung sounds bilaterally Cardiovascular Exam: Present: regular rate GI/Abdominal exam: Present: soft, normal bowel sounds. Absent: distended, tenderness, guarding, rebound, rigid Neurological exam: Present: alert, oriented X3 Skin exam: Present: warm, dry Course Vital Signs 08/29/23 03:00 Temperature 97.9 F Pulse Rate 80 Respiratory 16 Rate Blood Pressure 138/85 O2 Sat by Pulse 98 Oximetry Medical Decision Making - Medical Decision Making Was pt. sent in by a medical professional or institution (, KRISS, TRANSIT SURVEY WORKER, urgent care, hospital, or long term...) When possible be specific @ -No Did you speak to anyone other than the patient for history (EMS, parent, family, police, friend...)? What history was obtained from this source @ -No Did you review nursing and triage notes (agree or disagree)? Why? @ -I reviewed and agree with nursing and triage notes Were old charts reviewed (outside hosp., previous admission, EMS record, old EKG, old radiological studies, urgent care reports/EKG's, long term records)? Report findings @ -No old charts were reviewed Differential Diagnosis (chest pain, altered mental status, abdominal pain women, abdominal pain men, vaginal bleeding, weakness, fever, dyspnea, syncope, headache, dizziness, GI bleed, back pain, seizure, CVA, palpatations, mental health, musculoskeletal)? @ -Differential Abdominal Pain Women: Appendicitis, Cholecystitis, diverticulosis, ischemic bowel, pancreatitis, hepatitis, UTI, gastroenteritis, AAA, incarcerated hernia, bowel obstruction, constipation, inflammatory bowel, hepatitis, peptic ulcer disease, splenic infarction, perforated viscus, vulvitis, ovarian torsion, PID, kidney stone, placenta abruption, this is not meant to be an all-inclusive list EKG interpreted by me (3pts min.). @ -None X-rays interpreted by me (1pt min.). @ -None done CT interpreted by me (1pt min.). @ -None done U/S interpreted by me (1pt. min.). @ -None done What testing was considered but not performed or refused? (CT, X-rays, U/S, labs)? Why? @ -None What meds were considered but not given or refused? Why? @ -None Did you discuss the management of the patient with other professionals (professionals i.e. KRISS Rai, TRANSIT SURVEY WORKER, lab, RT, psych nurse, social media executive, porcelain technician, teacher, traffic officer, pillowcase folder)? Give summary @ -No Was smoking cessation discussed for >3mins.? @ -No Was critical care preformed (if so, how long)? @ -No Were there social determinants of health that impacted care today? How? (Homelessness, low income, unemployed, alcoholism, drug addiction, transportatio n, low edu. Level, literacy, decrease access to med. care, care home, rehab)? @ -No Was there de-escalation of care discussed even if they declined (Discuss DNR or withdrawal of care, Hospice)? DNR status @ -No What co-morbidities impacted this encounter? (DM, HTN, Smoking, COPD, CAD, Cancer, CVA, ARF, Chemo, Hep., AIDS, mental health diagnosis, sleep apnea, morbid obesity)? @ -None Was patient admitted / discharged? Hospital course, mention meds given and route, prescriptions, significant lab abnormalities, going to OR and other pertinent info. @ -Discharge 27-year-old female presenting to the ED with complaints of headache, myalgias, generalized fatigue the past 2 days with onset of nausea vomiting diarrhea today. Laboratory studies performed and reviewed. Labs including CBC, CMP, UA largely unremarkable. Serology panel negative. Symptoms likely viral in nature. Patient reported significant improvement of symptoms after fluids, Zofran, Toradol. Discharged home in stable condition with prescription for Zofran. Advise close follow-up with her PCP. Discussed return precautions with patient who verbalized agreement. Undiagnosed new problem with uncertain prognosis? @ -No Drug Therapy requiring intensive monitoring for toxicity (Heparin, Nitro, Insu daniel, Cardizem)? @ -No Were any procedures done? @ -No Diagnosis/symptom? @ -Gastroenteritis Acute, or Chronic, or Acute on Chronic? @ -Acute Uncomplicated (without systemic symptoms) or Complicated (systemic symptoms)? @ -Uncomplicated2 Side effects of treatment? @ -No Exacerbation, Progression, or Severe Exacerbation? @ -No Poses a threat to life or bodily function? How? (Chest pain, [place], [place], pneumonia, PE, COPD, DKA, ARF, appy, cholecystitis, CVA, Diverticulitis, Homicidal, Suicidal, threat to staff... and all critical care pts) @ -No - Lab Data Result diagrams: 08/29/23 03:19 08/29/23 03:19 Lab Results 08/29/23 08/29/23 08/29/23 Range/Units 03:19 03:19 03:19 WBC 8.8 (3.8-10.6) k/uL RBC 4.22 (3.80-5.40) m/uL Hgb 11.6 (11.4-16.0) gm/dL Hct 37.0 (34.0-46.0) % MCV 87.7 (80.0-100.0) fL MCH 27.5 (25.0-35.0) pg MCHC 31.3 (31.0-37.0) g/dL RDW 15.0 (11.5-15.5) % Plt Count 269 (150-450) k/uL MPV 9.3 Neutrophils % 66 % Lymphocytes % 22 % Monocytes % 5 % Eosinophils % 5 % Basophils % 1 % Neutrophils # 5.8 (1.3-7.7) k/uL Lymphocytes # 1.9 (1.0-4.8) k/uL Monocytes # 0.5 (0-1.0) k/uL Eosinophils # 0.4 (0-0.7) k/uL Basophils # 0.1 (0-0.2) k/uL Sodium 139 (137-145) mmol/L Potassium 3.7 (3.5-5.1) mmol/L Chloride 110 H (98-107) mmol/L Carbon Dioxide 23 (22-30) mmol/L Anion Gap 6 mmol/L BUN 13 (7-17) mg/dL Creatinine 0.71 (0.52-1.04) mg/dL Est GFR (CKD-EPI)AfAm >90 (>60 ml/min/1.73 sqM) Est GFR (CKD-EPI)NonAf >90 (>60 ml/min/1.73 sqM) Glucose 90 (74-99) mg/dL Calcium 8.2 L (8.4-10.2) mg/dL Total Bilirubin 0.3 (0.2-1.3) mg/dL AST 25 (14-36) U/L ALT 26 (4-34) U/L Alkaline Phosphatase 99 (38-126) U/L Total Protein 5.9 L (6.3-8.2) g/dL Albumin 3.6 (3.5-5.0) g/dL Urine Color Urine Appearance (Clear) Urine pH (5.0-8.0) Ur Specific [place] (1.001-1.035) Urine Protein (Negative) Urine Glucose (UA) (Negative) Urine Ketones (Negative) Urine Blood (Negative) Urine Nitrite (Negative) Urine Bilirubin (Negative) Urine Urobilinogen (<2.0) mg/dL Ur Leukocyte Esterase (Negative) Urine RBC (0-5) /hpf Urine WBC (0-5) /hpf Ur Squamous Epith Cells (0-4) /hpf Amorphous Sediment (None) /hpf Urine Bacteria (None) /hpf Urine Mucus (None) /hpf Urine HCG, Qual (Not Detectd) Influenza Type A (PCR) Not Detected (Not Detectd) Influenza Type B (PCR) Not Detected (Not Detectd) RSV (PCR) Not Detected (Not Detectd) SARS-CoV-2 (PCR) Not Detected (Not Detectd) 08/29/23 08/29/23 Range/Units 03:40 03:40 WBC (3.8-10.6) k/uL RBC (3.80-5.40) m/uL Hgb (11.4-16.0) gm/dL Hct (34.0-46.0) % MCV (80.0-100.0) fL MCH (25.0-35.0) pg MCHC (31.0-37.0) g/dL RDW (11.5-15.5) % Plt Count (150-450) k/uL MPV Neutrophils % % Lymphocytes % % Monocytes % % Eosinophils % % Basophils % % Neutrophils # (1.3-7.7) k/uL Lymphocytes # (1.0-4.8) k/uL Monocytes # (0-1.0) k/uL Eosinophils # (0-0.7) k/uL Basophils # (0-0.2) k/uL Sodium (137-145) mmol/L Potassium (3.5-5.1) mmol/L Chloride (98-107) mmol/L Carbon Dioxide (22-30) mmol/L Anion Gap mmol/L BUN (7-17) mg/dL Creatinine (0.52-1.04) mg/dL Est GFR (CKD-EPI)AfAm (>60 ml/min/1.73 sqM) Est GFR (CKD-EPI)NonAf (>60 ml/min/1.73 sqM) Glucose (74-99) mg/dL Calcium (8.4-10.2) mg/dL Total Bilirubin (0.2-1.3) mg/dL AST (14-36) U/L ALT (4-34) U/L Alkaline Phosphatase (38-126) U/L Total Protein (6.3-8.2) g/dL Albumin (3.5-5.0) g/dL Urine Color Colorless Urine Appearance Cloudy H (Clear) Urine pH 7.5 (5.0-8.0) Ur Specific [place] 1.010 (1.001-1.035) Urine Protein Negative (Negative) Urine Glucose (UA) Negative (Negative) Urine Ketones Negative (Negative) Urine Blood Negative (Negative) Urine Nitrite Negative (Negative) Urine Bilirubin Negative (Negative) Urine Urobilinogen <2.0 (<2.0) mg/dL Ur Leukocyte Esterase Negative (Negative) Urine RBC 1 (0-5) /hpf Urine WBC <1 (0-5) /hpf Ur Squamous Epith Cells 2 (0-4) /hpf Amorphous Sediment Rare H (None) /hpf Urine Bacteria Rare H (None) /hpf Urine Mucus Rare H (None) /hpf Urine HCG, Qual Not Detected (Not Detectd) Influenza Type A (PCR) (Not Detectd) Influenza Type B (PCR) (Not Detectd) RSV (PCR) (Not Detectd) SARS-CoV-2 (PCR) (Not Detectd) Disposition Clinical Impression: Gastroenteritis Disposition: HOME SELF-CARE Condition: Good Instructions (If sedation given, give patient instructions): Gastroenteritis (ED) Additional Instructions: Please return to the Emergency Department if symptoms worsen or any other concerns. Please follow-up with your primary care provider. Prescriptions: Ondansetron Odt [Zofran Odt] 4 mg PO Q8HR PRN #10 tab PRN Reason: Nausea Is patient prescribed a controlled substance at d/c from ED?: No Referrals: Conrado Rey MD [Primary Care Provider] - 1-2 days Time of Disposition: 04:48
[2023-08-29] MEDS: SODIUM CHLORIDE 0.9% 1,000 ML IV STA (03:41)
[2023-08-29] MEDS: ONDANSETRON 4 MG/2 ML VIAL IVP STA (03:54)
[2023-08-29] MEDS: KETOROLAC 15 MG/ML 1 ML VIAL IVP STA (03:55)
[2023-08-29 04:04] LABS: Basophils # (A) 0.1 k/uL (0-0.2); Basophils % (A) 1 %; Eosinophils # (A) 0.4 k/uL (0-0.7); Eosinophils % (A) 5 %; HGB 11.6 gm/dL (11.4-16.0); Lymphocytes # (A) 1.9 k/uL (1.0-4.8); Lymphocytes % (A) 22 %; MCH 27.5 pg (25.0-35.0); MCHC 31.3 g/dL (31.0-37.0); MCV 87.7 fL (80.0-100.0); Mean Platelet Volume 9.3; Monocytes # (A) 0.5 k/uL (0-1.0); Monocytes % (A) 5 %; Neutrophils # (A) 5.8 k/uL (1.3-7.7); Neutrophils % (A) 66 %; Platelet Count 269 k/uL (150-450); RBC 4.22 m/uL (3.80-5.40); WBC 8.8 k/uL (3.8-10.6)
[2023-08-29 04:11] LABS: Amorphous Sediment,Urine Rare /hpf; Appearance,Urine Cloudy (Clear); Bacteria,Urine Rare /hpf; Bilirubin,Urine Negative (Negative); Blood,Urine Negative (Negative); Color,Urine Colorless; Glucose,Urine (UA) Negative (Negative); Ketones,Urine Negative (Negative); Leukocyte Esterase,Urine Negative (Negative); Mucus,Urine Rare /hpf; Nitrite,Urine Negative (Negative); PH, Urine 7.5 (5.0-8.0); Protein,Urine Negative (Negative); RBC,Urine 1 /hpf (0-5); Squamous Epithelial Cell,Urine 2 /hpf (0-4); Urobilinogen,Urine <2.0 mg/dL (<2.0); WBC,Urine <1 /hpf (0-5)
[2023-08-29 04:31] LABS: ALT 26 U/L (4-34); AST 25 U/L (14-36); African American GFR (CKD) >90 (>60 ml/min/1.73 sqM); Albumin 3.6 g/dL (3.5-5.0); Alkaline Phosphatase 99 U/L (38-126); Anion Gap 6 mmol/L; Blood Urea Nitrogen 13 mg/dL (7-17); Calcium 8.2 mg/dL (8.4-10.2); Carbon Dioxide 23 mmol/L (22-30); Chloride 110 mmol/L (98-107); Glucose 90 mg/dL (74-99); Non-African American GFR(CKD) >90 (>60 ml/min/1.73 sqM); Potassium 3.7 mmol/L (3.5-5.1); Sodium 139 mmol/L (137-145); Total Bilirubin 0.3 mg/dL (0.2-1.3); Total Protein 5.9 g/dL (6.3-8.2)
[2023-08-29 05:05] VITALS: BP 130/81; PULSE 71; TEMP 98.1
== END 2023-08-29 05:04 | disposition home or self-care (01) ==
LOC: EC 02:46
DX: K52.9 Noninfective gastroenteritis and colitis, unspecified (principal); Z88.0 Allergy status to penicillin; Z88.1 Allergy status to other antibiotic agents; Z88.2 Allergy status to sulfonamides; Z91.041 Radiographic dye allergy status; Z88.5 Allergy status to narcotic agent; Z88.8 Allergy status to other drugs, medicaments and biological substances; Z90.49 Acquired absence of other specified parts of digestive tract
CPT/HCPCS: 99284; 96374; 96375; 96361; 36415; 80053; 85025; 81001; 81025; 87636; J2405; J1885

== ENCOUNTER 2023-10-05 04:53 | Emergency (ER) | payer OTHER ==
[2023-10-05 05:07] VITALS: TEMP 97.8
[2023-10-05] MEDS: SODIUM CHLORIDE 0.9% 1,000 ML IV ONE (06:43)
[2023-10-05] MEDS: KETOROLAC 15 MG/ML 1 ML VIAL IVP STA (06:44)
[2023-10-05 06:49] LABS: Basophils % (A) 1 %; Eosinophils # (A) 0.3 k/uL (0-0.7); Eosinophils % (A) 4 %; HCT 35.5 % (34.0-46.0); HGB 11.9 gm/dL (11.4-16.0); Lymphocytes % (A) 28 %; MCH 28.4 pg (25.0-35.0); MCHC 33.4 g/dL (31.0-37.0); MCV 85.1 fL (80.0-100.0); Mean Platelet Volume 8.6; Monocytes # (A) 0.5 k/uL (0-1.0); Monocytes % (A) 7 %; Neutrophils # (A) 4.3 k/uL (1.3-7.7); Neutrophils % (A) 59 %; Platelet Count 271 k/uL (150-450); RBC 4.17 m/uL (3.80-5.40); RDW 14.9 % (11.5-15.5); WBC 7.2 k/uL (3.8-10.6)
--- NOTE | 2023-10-05 07:06 | ED ---
General Adult HPI - General Chief complaint: Headache Stated complaint: dizziness/nausea Time Seen by Provider: 10/05/23 06:04 Source: patient, RN notes reviewed Mode of arrival: wheelchair Limitations: no limitations - History of Present Illness Initial comments: 38-year-old female presents to the emergency department for evaluation of headache, congestion, cough. Patient reports that she was not feeling well yesterday at work. At that time she states that she had a diffuse headache. She does have a history of migraines. She admits to nasal congestion and a mild cough. She does note that she had spit up some blood after she got out of work this morning. Denies fever, chills. - Related Data Home Medications Medication Instructions Recorded Confirmed Divalproex ER [Depakote ER] 500 mg PO HS 04/23/14 10/22/22 Ziprasidone [Geodon] 20 mg PO BID 04/21/19 10/22/22 Albuterol Inhaler [Ventolin Hfa 1 - 2 puff INHALATION RT-QID PRN 12/23/19 10/22/22 Inhaler] Dicyclomine [Bentyl] 10 mg PO QID 08/08/22 10/22/22 Famotidine 40 mg PO HS 08/08/22 10/22/22 Omeprazole [PriLOSEC] 40 mg PO QAM 10/17/22 10/22/22 Previous Rx's Medication Instructions Recorded Benztropine Mesylate [Cogentin] 1 mg PO BID #8 tablet 04/23/14 Ondansetron Odt [Zofran Odt] 4 mg PO Q8HR PRN #20 tab 02/23/23 Ondansetron Odt [Zofran Odt] 4 mg PO Q8HR PRN #10 tab 08/29/23 Allergies Allergy/AdvReac Type Severity Reaction Status Date / Time amoxicillin Allergy Unknown Verified 10/05/23 05:04 brompheniramine maleate Allergy Dyspnea Verified 10/05/23 05:04 [From Dimetapp (brompheniramine-PPA)] clemastine fumarate Allergy Dyspnea Verified 10/05/23 05:04 [From Tavist] codeine Allergy Dyspnea Verified 10/05/23 05:04 diphenhydramine HCl Allergy Dyspnea Verified 10/05/23 05:04 [From Benadryl] meclizine Allergy Anaphylaxis Verified 10/05/23 05:04 phenylpropanolamine HCl Allergy Unknown Verified 10/05/23 05:04 [From Dimetapp (brompheniramine-PPA)] prednisone Allergy Hallucinati Verified 10/05/23 05:04 ons pseudoephedrine HCl Allergy Unknown Verified 10/05/23 05:04 [From Tavist] red dye Allergy Unknown Verified 10/05/23 05:04 risperidone [From Risperdal] Allergy Unknown Verified 10/05/23 05:04 sulfamethoxazole Allergy Unknown Verified 10/05/23 05:04 [From Bactrim] trimethoprim [From Bactrim] Allergy Unknown Verified 10/05/23 05:04 liraglutide [From Saxenda] AdvReac Nausea & Verified 10/05/23 05:04 Vomiting Review of Systems ROS Statement: Those systems with pertinent positive or pertinent negative responses have been documented in the HPI. ROS Other: All systems not noted in ROS Statement are negative. Past Medical History Past Medical History: Asthma Additional Past Medical History / Comment(s): polycysitic ovarian syndrome, closed head injury 10 years ago from a falls, Covid 2021 History of Any Multi-Drug Resistant Organisms: None Reported Past Surgical History: Appendectomy, Cholecystectomy Additional Past Surgical History / Comment(s): IUD Past Anesthesia/Blood Transfusion Reactions: Postoperative Nausea & Vomiting (PONV) Additional Past Anesthesia/Blood Transfusion Reaction / Comment(s): Pt has had a blood transfusion without reaction d/t PCOS Past Psychological History: Anxiety, Bipolar, Depression Smoking Status: Never smoker Past Alcohol Use History: None Reported Past Drug Use History: None Reported - Past Family History Mother Family Medical History: Eye Disorder, Vascular Disorder Father Family Medical History: COPD, CVA/TIA, Hyperlipidemia Additional Family Medical History / Comment(s): schizophrenia, mini strokes General Exam Limitations: no limitations General appearance: alert, in no apparent distress Head exam: Present: atraumatic, normocephalic, normal inspection Eye exam: Present: normal appearance, PERRL, EOMI. Absent: scleral icterus, conjunctival injection, periorbital swelling ENT exam: Present: normal exam, mucous membranes moist Neck exam: Present: normal inspection. Absent: tenderness, meningismus, lymphadenopathy Respiratory exam: Present: normal lung sounds bilaterally. Absent: respiratory distress, wheezes, rales, rhonchi, stridor Cardiovascular Exam: Present: regular rate, normal rhythm, normal heart sounds. Absent: systolic murmur, diastolic murmur, rubs, gallop, clicks GI/Abdominal exam: Present: soft, normal bowel sounds. Absent: distended, tenderness, guarding, rebound, rigid Extremities exam: Present: normal inspection, full ROM, normal capillary refill. Absent: tenderness, pedal edema, joint swelling, calf tenderness Back exam: Present: normal inspection Neurological exam: Present: alert, oriented X3, CN II-XII intact Psychiatric exam: Present: normal affect, normal mood Skin exam: Present: warm, dry, intact, normal color. Absent: rash Course Vital Signs 10/05/23 05:04 Temperature 97.8 F Pulse Rate 74 Respiratory 16 Rate Blood Pressure 144/93 O2 Sat by Pulse 98 Oximetry Medical Decision Making - Medical Decision Making Was pt. sent in by a medical professional or institution (KRISS Rai, JAVASCRIPT FRONT END DEVELOPER, urgent care, hospital, or intermediate...) When possible be specific @ -[No] Did you speak to anyone other than the patient for history (EMS, parent, family, police, friend...)? What history was obtained from this source @ -[No] Did you review nursing and triage notes (agree or disagree)? Why? @ -[I reviewed and agree with nursing and triage notes] Were old charts reviewed (outside hosp., previous admission, EMS record, old EKG, old radiological studies, urgent care reports/EKG's, intermediate records)? Report findings @ -[No old charts were reviewed] Differential Diagnosis (chest pain, altered mental status, abdominal pain women, abdominal pain men, vaginal bleeding, weakness, fever, dyspnea, syncope, headache, dizziness, GI bleed, back pain, seizure, CVA, palpatations, mental health, musculoskeletal)? @ -[not applicable] EKG interpreted by me (3pts min.). @ -[As above] X-rays interpreted by me (1pt min.). @ -[None done] CT interpreted by me (1pt min.). @ -[None done] U/S interpreted by me (1pt. min.). @ -[None done] What testing was considered but not performed or refused? (CT, X-rays, U/S, labs)? Why? @ -[None] What meds were considered but not given or refused? Why? @ -[None] Did you discuss the management of the patient with other professionals (professionals i.e. , PA, JAVASCRIPT FRONT END DEVELOPER, lab, RT, psych nurse, social work administrator, spiritual counselor, teacher, gift officer, wrapper caser)? Give summary @ -[No] Was smoking cessation discussed for >3mins.? @ -[No] Was critical care preformed (if so, how long)? @ -[No] Were there social determinants of health that impacted care today? How? (Homelessness, low income, unemployed, alcoholism, drug addiction, transportation, low edu. Level, literacy, decrease access to med. care, fdc, rehab)? @ -[No] Was there de-escalation of care discussed even if they declined (Discuss DNR or withdrawal of care, Hospice)? DNR status @ -[No] What co-morbidities impacted this encounter? (DM, HTN, Smoking, COPD, CAD, Cancer, CVA, ARF, Chemo, Hep., AIDS, mental health diagnosis, sleep apnea, morbid obesity)? @ -[None] Was patient admitted / discharged? Hospital course, mention meds given and route, prescriptions, significant lab abnormalities, going to OR and other pertinent info. @ -[hospital course] Undiagnosed new problem with uncertain prognosis? @ -[No] Drug Therapy requiring intensive monitoring for toxicity (Heparin, Nitro, Insuli n, Cardizem)? @ -[No] Were any procedures done? @ -[No] Diagnosis/symptom? @ -[default] Acute, or Chronic, or Acute on Chronic? @ -[default] Uncomplicated (without systemic symptoms) or Complicated (systemic symptoms)? @ -[default] Side effects of treatment? @ -[No] Exacerbation, Progression, or Severe Exacerbation? @ -[No] Poses a threat to life or bodily function? How? (Chest pain, [place], [place], pneumonia, PE, COPD, DKA, ARF, appy, cholecystitis, CVA, Diverticulitis, Homicidal, Suicidal, threat to staff... and all critical care pts) @ -[No] - Lab Data Result diagrams: 10/05/23 06:27 10/05/23 07:59 Lab Results 10/05/23 10/05/23 10/05/23 Range/Units 06:27 06:27 06:27 WBC 7.2 (3.8-10.6) k/uL RBC 4.17 (3.80-5.40) m/uL Hgb 11.9 (11.4-16.0) gm/dL Hct 35.5 (34.0-46.0) % MCV 85.1 (80.0-100.0) fL MCH 28.4 (25.0-35.0) pg MCHC 33.4 (31.0-37.0) g/dL RDW 14.9 (11.5-15.5) % Plt Count 271 (150-450) k/uL MPV 8.6 Neutrophils % 59 % Lymphocytes % 28 % Monocytes % 7 % Eosinophils % 4 % Basophils % 1 % Neutrophils # 4.3 (1.3-7.7) k/uL Lymphocytes # 2.0 (1.0-4.8) k/uL Monocytes # 0.5 (0-1.0) k/uL Eosinophils # 0.3 (0-0.7) k/uL Basophils # 0.0 (0-0.2) k/uL PT 10.8 (10.0-12.5) sec INR 1.0 (<1.2) APTT 26.7 (22.0-30.0) sec Sodium (137-145) mmol/L Potassium (3.5-5.1) mmol/L Chloride (98-107) mmol/L Carbon Dioxide (22-30) mmol/L Anion Gap mmol/L BUN (7-17) mg/dL Creatinine (0.52-1.04) mg/dL Est GFR (CKD-EPI)AfAm (>60 ml/min/1.73 sqM) Est GFR (CKD-EPI)NonAf (>60 ml/min/1.73 sqM) Glucose (74-99) mg/dL Calcium (8.4-10.2) mg/dL Total Bilirubin (0.2-1.3) mg/dL AST (14-36) U/L ALT (4-34) U/L Alkaline Phosphatase (38-126) U/L Total Protein (6.3-8.2) g/dL Albumin (3.5-5.0) g/dL Influenza Type A (PCR) Not Detected (Not Detectd) Influenza Type B (PCR) Not Detected (Not Detectd) RSV (PCR) Not Detected (Not Detectd) SARS-CoV-2 (PCR) Not Detected (Not Detectd) 10/05/23 Range/Units 07:59 WBC (3.8-10.6) k/uL RBC (3.80-5.40) m/uL Hgb (11.4-16.0) gm/dL Hct (34.0-46.0) % MCV (80.0-100.0) fL MCH (25.0-35.0) pg MCHC (31.0-37.0) g/dL RDW (11.5-15.5) % Plt Count (150-450) k/uL MPV Neutrophils % % Lymphocytes % % Monocytes % % Eosinophils % % Basophils % % Neutrophils # (1.3-7.7) k/uL Lymphocytes # (1.0-4.8) k/uL Monocytes # (0-1.0) k/uL Eosinophils # (0-0.7) k/uL Basophils # (0-0.2) k/uL PT (10.0-12.5) sec INR (<1.2) APTT (22.0-30.0) sec Sodium 137 (137-145) mmol/L Potassium 3.8 (3.5-5.1) mmol/L Chloride 108 H (98-107) mmol/L Carbon Dioxide 25 (22-30) mmol/L Anion Gap 4 mmol/L BUN 16 (7-17) mg/dL Creatinine 0.66 (0.52-1.04) mg/dL Est GFR (CKD-EPI)AfAm >90 (>60 ml/min/1.73 sqM) Est GFR (CKD-EPI)NonAf >90 (>60 ml/min/1.73 sqM) Glucose 96 (74-99) mg/dL Calcium 8.5 (8.4-10.2) mg/dL Total Bilirubin 0.5 (0.2-1.3) mg/dL AST 25 (14-36) U/L ALT 25 (4-34) U/L Alkaline Phosphatase 74 (38-126) U/L Total Protein 6.1 L (6.3-8.2) g/dL Albumin 3.6 (3.5-5.0) g/dL Influenza Type A (PCR) (Not Detectd) Influenza Type B (PCR) (Not Detectd) RSV (PCR) (Not Detectd) SARS-CoV-2 (PCR) (Not Detectd) Disposition Clinical Impression: Viral URI Disposition: HOME SELF-CARE Condition: Stable Instructions (If sedation given, give patient instructions): Acute Headache (ED), Upper Respiratory Infection (ED) Additional Instructions: Please follow up with your primary care provider. Return to the emergency department for new or worsening symptoms. Is patient prescribed a controlled substance at d/c from ED?: No Referrals: Conrado Rey MD [Primary Care Provider] - 1-2 days
--- NOTE | 2023-10-05 07:09 | XR ---
EXAMINATION TYPE: XR chest 2V DATE OF EXAM: 10/05/2023 COMPARISON: 08/03/2022 HISTORY: Cough TECHNIQUE: Frontal and lateral views of the chest are obtained. FINDINGS: There is no focal air space opacity, pleural effusion, or pneumothorax seen. The cardiac silhouette size is within normal limits. The osseous structures are intact. IMPRESSION: No acute cardiopulmonary process.
[2023-10-05 07:19] LABS: Partial Thromboplastin Time 26.7 sec (22.0-30.0); Prothrombin Time 10.8 sec (10.0-12.5)
[2023-10-05 08:23] LABS: ALT 25 U/L (4-34); AST 25 U/L (14-36); African American GFR (CKD) >90 (>60 ml/min/1.73 sqM); Albumin 3.6 g/dL (3.5-5.0); Alkaline Phosphatase 74 U/L (38-126); Anion Gap 4 mmol/L; Blood Urea Nitrogen 16 mg/dL (7-17); Calcium 8.5 mg/dL (8.4-10.2); Carbon Dioxide 25 mmol/L (22-30); Chloride 108 mmol/L (98-107); Glucose 96 mg/dL (74-99); Non-African American GFR(CKD) >90 (>60 ml/min/1.73 sqM); Potassium 3.8 mmol/L (3.5-5.1); Sodium 137 mmol/L (137-145); Total Bilirubin 0.5 mg/dL (0.2-1.3); Total Protein 6.1 g/dL (6.3-8.2)
[2023-10-05 08:58] VITALS: BP 132/75; PULSE 72; RESP 17
== END 2023-10-05 09:00 | disposition home or self-care (01) ==
LOC: EC 04:53
DX: J06.9 Acute upper respiratory infection, unspecified (principal); Z88.0 Allergy status to penicillin; Z88.2 Allergy status to sulfonamides; Z88.8 Allergy status to other drugs, medicaments and biological substances; Z88.5 Allergy status to narcotic agent; Z91.018 Allergy to other foods
CPT/HCPCS: 36415; 80053; 85025; 85610; 85730; 87636; 71046; 99284; 96374; 96361; J1885

== ENCOUNTER 2024-02-13 15:50 | Observation (INO) | payer OTHER ==
--- NOTE | 2024-02-13 16:10 | ED ---
Chest Pain HPI - General Chief Complaint: Chest Pain Stated Complaint: chest pain Time Seen by Provider: 02/13/24 16:03 Source: patient, EMS, RN notes reviewed, old records reviewed Mode of arrival: EMS Limitations: no limitations - History of Present Illness Initial Comments: This is a 38-year-old female to the ER for evaluation abdominal pain back pain chest pain nausea vomiting weakness overall not feeling well. No recent travels or sick contacts no change in medications no other complaints. Patient states she does not feel well cannot stop puking having chest pain chest tightness chest pain and tightness to her back also with abdominal pain. History of polycystic ovarian syndrome. May be feverish also having persistent nausea vomiting and diarrhea MD Complaint: chest pain -: days(s) Onset: during rest, during exertion Pain Location: substernal Pain Radiation: none Severity: moderate Severity scale (1-10): 4 Consistency: constant Improves With: nothing Worsens With: nothing Anginal Symptoms: nausea, vomiting, sense of impending doom Other Symptoms: palpitations Treatments Prior to Arrival: none - Related Data Home Medications Medication Instructions Recorded Confirmed Divalproex ER [Depakote ER] 500 mg PO HS 04/23/14 02/13/24 Ziprasidone [Geodon] 20 mg PO BID 04/21/19 02/13/24 Dicyclomine [Bentyl] 10 mg PO QID PRN 08/08/22 02/13/24 Famotidine 40 mg PO HS 08/08/22 02/13/24 Omeprazole [PriLOSEC] 40 mg PO AC-BRKFST 10/17/22 02/13/24 Fluticasone Nasal [place] [Flonase 1 spray EA NOSTRIL BID PRN 02/13/24 02/13/24 Nasal [place]] Previous Rx's Medication Instructions Recorded Benztropine Mesylate [Cogentin] 1 mg PO BID #8 tablet 04/23/14 Allergies Allergy/AdvReac Type Severity Reaction Status Date / Time amoxicillin Allergy Nausea & Verified 02/13/24 18:19 Vomiting brompheniramine maleate Allergy Anaphylaxis Verified 02/13/24 18:19 [From Dimetapp (brompheniramine-PPA)] clemastine fumarate Allergy Dyspnea Verified 02/13/24 18:19 [From Tavist] codeine Allergy Dyspnea, Verified 02/13/24 18:19 rash diphenhydramine HCl Allergy Dyspnea Verified 02/13/24 18:19 [From Benadryl] meclizine Allergy Anaphylaxis Verified 02/13/24 18:19 phenylpropanolamine HCl Allergy Anaphylaxis Verified 02/13/24 18:19 [From Dimetapp (brompheniramine-PPA)] prednisone Allergy Hallucinati Verified 02/13/24 18:19 ons pseudoephedrine HCl Allergy Anaphylaxis Verified 02/13/24 18:19 [From Tavist] red dye Allergy Rash/Hives Verified 02/13/24 18:19 risperidone [From Risperdal] Allergy Rash/Hives Verified 02/13/24 18:19 sulfamethoxazole Allergy Nausea & Verified 02/13/24 18:19 [From Bactrim] Vomiting, rash trimethoprim [From Bactrim] Allergy Nausea & Verified 02/13/24 18:19 Vomiting, rash liraglutide [From Saxenda] AdvReac Nausea & Verified 02/13/24 18:19 Vomiting Review of Systems ROS Statement: Those systems with pertinent positive or pertinent negative responses have been documented in the HPI. ROS Other: All systems not noted in ROS Statement are negative. EKG Findings - EKG Comments: EKG Findings:: EKG is sinus 90 [place] 146 QRS 87 QTc 385 - EKG Results: EKG: interpreted by FLACO Past Medical History Past Medical History: Asthma Additional Past Medical History / Comment(s): polycysitic ovarian syndrome, closed head injury 10 years ago from a falls, Covid 2021 History of Any Multi-Drug Resistant Organisms: None Reported Past Surgical History: Appendectomy, Cholecystectomy Additional Past Surgical History / Comment(s): IUD Past Anesthesia/Blood Transfusion Reactions: Postoperative Nausea & Vomiting (PONV) Additional Past Anesthesia/Blood Transfusion Reaction / Comment(s): Pt has had a blood transfusion without reaction d/t PCOS Past Psychological History: Anxiety, Bipolar, Depression Smoking Status: Never smoker Past Alcohol Use History: None Reported Past Drug Use History: None Reported - Past Family History Mother Family Medical History: Eye Disorder, Vascular Disorder Father Family Medical History: COPD, CVA/TIA, Hyperlipidemia Additional Family Medical History / Comment(s): schizophrenia, mini strokes General Exam Limitations: no limitations General appearance: alert, in no apparent distress Head exam: Present: atraumatic, normocephalic, normal inspection Eye exam: Present: normal appearance, PERRL, EOMI. Absent: scleral icterus, conjunctival injection, periorbital swelling ENT exam: Present: normal exam, mucous membranes moist Neck exam: Present: normal inspection. Absent: tenderness, meningismus, lymphadenopathy Respiratory exam: Present: normal lung sounds bilaterally. Absent: respiratory distress, wheezes, rales, rhonchi, stridor Cardiovascular Exam: Present: regular rate, normal rhythm, normal heart sounds. Absent: systolic murmur, diastolic murmur, rubs, gallop, clicks GI/Abdominal exam: Present: soft, normal bowel sounds. Absent: distended, tenderness, guarding, rebound, rigid Extremities exam: Present: normal inspection, full ROM, normal capillary refill. Absent: tenderness, pedal edema, joint swelling, calf tenderness Back exam: Present: normal inspection Neurological exam: Present: alert, oriented X3, CN II-XII intact Psychiatric exam: Present: normal affect, normal mood Skin exam: Present: warm, dry, intact, normal color. Absent: rash Course Vital Signs 02/13/24 02/13/24 02/13/24 15:59 18:16 20:50 Temperature 98.4 F Pulse Rate 82 94 98 Respiratory 18 18 18 Rate Blood Pressure 111/66 129/82 121/74 O2 Sat by Pulse 97 99 99 Oximetry 02/14/24 02/14/24 01:22 05:52 Temperature 98.2 F 99.9 F H Pulse Rate 97 89 Respiratory 19 16 Rate Blood Pressure 124/58 115/57 O2 Sat by Pulse 99 95 Oximetry - Reevaluation(s) Reevaluation #1: 02/13/24 18:33 Medical records reviewed Reevaluation #2: 02/13/24 18:33 Patient symptoms improved Reevaluation #3: 02/13/24 18:33 Patient informed of results and questions answered Reevaluation #4: Was pt. sent in by a medical professional or institution (, PA, SUPERVIS[employer], urgent care, hospital, or senior care...) When possible be specific @ -no Did you speak to anyone other than the patient for history (EMS, parent, family, police, friend...)? What history was obtained from this source @ -no Did you review nursing and triage notes (agree or disagree)? Why? @ -agree Are old charts reviewed (outside hosp., previous admission, EMS record, old EKG, old radiological studies, urgent care reports/EKG's, senior care records)? Report findings @ -yes Differential Diagnosis (chest pain, altered mental status, abdominal pain women, abdominal pain men, vaginal bleeding, weakness, fever, dyspnea, syncope, headache, dizziness, GI bleed, back pain, seizure, CVA, palpatations, mental health, musculoskeletal)? @ -prior EKG interpreted by me (3pts min.). @ -yes X-rays interpreted by me (1pt min.). @ -no CT interpreted by me (1pt min.). @ -Yes negative for acute disease U/S interpreted by me (1pt. min.). @ -no What testing was considered but not performed or refused? (CT, X-rays, U/S, labs)? Why? @ -none What meds were considered but not given or refused? Why? @ -none Did you discuss the management of the patient with other professionals (professionals i.e. , PA, [employer], lab, RT, psych nurse, drug abuse social worker, embedded software manager, teacher, traffic officer, returned case inspector)? Give summary @ -no Was smoking cessation discussed for >3mins.? @ -no Was critical care preformed (if so, how long)? @ -no Were there social determinants of health that impacted care today? How? (Homelessness, low income, unemployed, alcoholism, drug addiction, transportation, low edu. Level, literacy, decrease access to med. care, halfway, rehab)? @ -none Was there de-escalation of care discussed even if they declined (Discuss DNR or withdrawal of care, Hospice)? DNR status @ -no What co-morbidities impacted this encounter? (DM, HTN, Smoking, COPD, CAD, Cancer, CVA, ARF, Chemo, Hep., AIDS, mental health diagnosis, sleep apnea, morbid obesity)? @ -none Was patient admitted / discharged? Hospital course, mention meds given and route, prescriptions, significant lab abnormalities, going to OR and other pertinent info. @ - 38 female to the ER for evaluation presents today for evaluation of chest pain back pain abdominal pain nausea vomiting and just feeling unwell. Patient feels better throughout ER stay can be discharged home Admitted Undiagnosed new problem with uncertain prognosis? @ -no Drug Therapy requiring intensive monitoring for toxicity (Heparin, Nitro, Insulin, Cardizem)? @ -no Were any procedures done? @ -no Diagnosis/symptom? @ -Intractable nausea vomiting Acute, or Chronic, or Acute on Chronic? @ -Acute Uncomplicated (without systemic symptoms) or Complicated (systemic symptoms)? @ -Complicated Side effects of treatment? @ -no Exacerbation, Progression, or Severe Exacerbation? @ -exacerbation Poses a threat to life or bodily function? How? (Chest pain, [place], [place], pneumonia, PE, COPD, DKA, ARF, appy, cholecystitis, CVA, Diverticulitis, Homicidal, Suicidal, threat to staff... and all critical care pts) @ -no Reevaluation #5: Differential Chest Pain: Stable Angina, Unstable Angina, STEMI, NSTEMI Aortic Dissection, Pneumothorax, Musculoskeletal, Esophageal Spasm GERD, Cholecystitis, Pancreatitis, Zoster, this is not meant to be an all-inclusive list. - Consultations Consultation #1: Spoke with sound who agrees to admit this patient Chest Pain MDM - MDM 38 female to the ER for evaluation presents today for evaluation of chest pain back pain abdominal pain nausea vomiting and just feeling unwell. Patient feels better throughout ER stay can be discharged home Disposition Clinical Impression: Chest pain, Atypical chest pain, Back pain, Nausea & vomiting Disposition: ADMITTED IP TO THIS HOSP Condition: Fair Is patient prescribed a controlled substance at d/c from ED?: No Time of Disposition: 18:30
[2024-02-13] MEDS: ONDANSETRON 4 MG/2 ML VIAL IVP STA (16:39)
[2024-02-13] MEDS: MORPHINE SULFATE 4 MG/ML SYRINGE IV STA (16:39)
[2024-02-13] MEDS: SODIUM CHLORIDE 0.9% 1,000 ML IV STA (16:41)
[2024-02-13 16:42] LABS: Basophils % (A) 0 %; Eosinophils # (A) 0.1 k/uL (0-0.7); Eosinophils % (A) 1 %; HCT 39.3 % (34.0-46.0); HGB 13.1 gm/dL (11.4-16.0); Lymphocytes # (A) 0.3 k/uL (1.0-4.8); Lymphocytes % (A) 3 %; MCH 28.3 pg (25.0-35.0); MCHC 33.5 g/dL (31.0-37.0); MCV 84.7 fL (80.0-100.0); Mean Platelet Volume 8.2; Monocytes # (A) 0.2 k/uL (0-1.0); Monocytes % (A) 2 %; Neutrophils # (A) 11.1 k/uL (1.3-7.7); Neutrophils % (A) 94 %; Platelet Count 260 k/uL (150-450); RBC 4.64 m/uL (3.80-5.40); RDW 14.4 % (11.5-15.5); WBC 11.9 k/uL (3.8-10.6)
[2024-02-13 16:54] LABS: ALT 18 U/L (4-34); AST 22 U/L (14-36); African American GFR (CKD) >90 (>60 ml/min/1.73 sqM); Albumin 4.3 g/dL (3.5-5.0); Alkaline Phosphatase 81 U/L (38-126); Anion Gap 9 mmol/L; Blood Urea Nitrogen 19 mg/dL (7-17); Calcium 8.6 mg/dL (8.4-10.2); Carbon Dioxide 23 mmol/L (22-30); Chloride 106 mmol/L (98-107); Glucose 100 mg/dL (74-99); Lipase 99 U/L (23-300); Magnesium 1.9 mg/dL (1.6-2.3); Non-African American GFR(CKD) >90 (>60 ml/min/1.73 sqM); Potassium 4.2 mmol/L (3.5-5.1); Sodium 138 mmol/L (137-145); Total Bilirubin 0.6 mg/dL (0.2-1.3); Total Protein 7.1 g/dL (6.3-8.2)
[2024-02-13 16:57] LABS: Partial Thromboplastin Time 24.4 sec (22.0-30.0); Prothrombin Time 10.6 sec (10.0-12.5)
[2024-02-13 17:02] LABS: NT-Pro-B-Type Natriuretic Pept 24 pg/mL
--- NOTE | 2024-02-13 18:41 | CT ---
EXAMINATION TYPE: CT angio chest CT DLP: combined 2273 mGycm, Automated exposure control for dose reduction was used. DATE OF EXAM: 02/13/2024 6:15 PM COMPARISON: CT abdomen/pelvis from the same day. CLINICAL INDICATION:Female, 38 years old with history of pain; chest pain TECHNIQUE/CONTRAST: CTA scan of the thorax is performed without and with IV Contrast, patient injected with 100 ml mL of Isovue 370, MIP images are created and reviewed these are created on a separate workstation.. FINDINGS: Motion artifact degrades quality of images. Pulmonary Artery: There is no evidence for a central filling defect within the pulmonary vasculature to suggest acute pulmonary embolism. Severely limited evaluation of the segmental and subsegmental br anches secondary to bolus attenuation and significant motion artifact. The pulmonary artery is of nor mal size. Lungs/Pleura: There are scattered patchy groundglass changes in the bilateral lungs more pronounced i n the upper lobes and apices. There are no pleural effusions or pneumothorax. Airway: Large airways are patent. Heart: Heart is within normal limits for size. RV/LV ratio is less than 1. No discrete evidence for r ight heart strain. Vasculature: No evidence of aortic aneurysm. Mediastinum: No gross evidence of adenopathy. Musculoskeletal: No acute osseous abnormalities Soft Tissues/lymph nodes: Unremarkable. Lower neck: No significant findings. Upper Abdomen: Please see separate CT abdomen/pelvis report from the same day for further details. IMPRESSION: 1. No evidence of central pulmonary embolism. There is severely limited evaluation of the segmental a nd subsegmental branches for the reasons summarized above. Consider correlation with Doppler ultrasou nd of the lower extremities if clinical suspicion for pulmonary embolism remains high. 2. Bilateral lung groundglass changes concerning for an acute infectious/inflammatory process. Please see separate CT abdomen/pelvis report from the same day for further detail [facility], , 02/13/2024 6:39 PM
[2024-02-13] MEDS: PROCHLORPERAZINE INJ 10 MG/2 ML VIAL IVP STA (18:52)
[2024-02-13] MEDS: LORazepam 2 MG/ML INJ IV STA (18:53)
--- NOTE | 2024-02-13 18:54 | CT ---
INDICATION: Patient age:Female; 38 years old; Reason for study: Vomiting and diarrhea; PHH. COMPARISON: CTA chest from the same day. CT abdomen/pelvis 07/30/2023. TECHNIQUE: Standard CT of the abdomen and pelvis following the administration of 100 cc of Isovue 3 70 IV contrast material. Coronal and sagittal reformats were performed. One or more CT dose reduction strategies were utilized during this examination. Total DLP administered was 2273.9 mGycm. FINDINGS: LOWER CHEST: Please see separate CT chest report from the same day for further details. ABDOMEN LIVER: Unremarkable. GALLBLADDER AND BILE DUCTS: The gallbladder is surgically absent. PANCREAS: Unremarkable. SPLEEN: Unremarkable. ADRENAL GLANDS: Unremarkable. KIDNEYS AND URETERS: No evidence of hydronephrosis or renal calculus. The ureters are unremarkable. PELVIS URINARY BLADDER: Incompletely distended but grossly unremarkable. REPRODUCTIVE: IUD is in place. ABDOMEN & PELVIS STOMACH AND BOWEL: Stomach is grossly unremarkable. Small bowel is of normal caliber No evidence of b owel obstruction. PERITONEUM: No evidence of pneumoperitoneum or free fluid. VASCULATURE: No aneurysmal changes. Phleboliths are noted within the pelvis. MUSCULOSKELETAL: No acute osseous abnormalities LYMPH NODES: Unremarkable. SOFT TISSUE/ABDOMINAL WALL: Unremarkable IMPRESSION: No acute intra-abdominal/pelvic process. Please see separate CT chest report of same day for further details. [facility], , 02/13/2024 6:52 PM
[2024-02-13] MEDS ORDERED: NALOXONE 0.4 MG/ML 1 ML VIAL IV PRN (19:09)
[2024-02-13] MEDS ORDERED: ONDANSETRON 4 MG/2 ML VIAL IVP PRN (19:09)
[2024-02-13] MEDS: SODIUM CHLORIDE 0.9% 1,000 ML IV SCH (20:54)
[2024-02-14 03:15] LABS: Appearance,Urine Clear (Clear); Bacteria,Urine Rare /hpf; Bilirubin,Urine Negative (Negative); Blood,Urine Moderate (Negative); Color,Urine Yellow; Glucose,Urine (UA) Negative (Negative); Ketones,Urine Negative (Negative); Leukocyte Esterase,Urine Negative (Negative); Mucus,Urine Few /hpf; Nitrite,Urine Negative (Negative); PH, Urine 5.5 (5.0-8.0); Protein,Urine Trace (Negative); RBC,Urine 3 /hpf (0-5); Squamous Epithelial Cell,Urine 6 /hpf (0-4); Urobilinogen,Urine <2.0 mg/dL (<2.0); WBC,Urine 2 /hpf (0-5)
[2024-02-14 03:22] LABS: Specific Gravity,Urine >1.050 (1.001-1.035)
[2024-02-14] MEDS: MORPHINE SULFATE 4 MG/ML SYRINGE IV PRN (05:57)
[2024-02-14 08:39] LABS: Basophils # (A) 0.01 X 10*3/uL (0.00-0.10); Basophils % (A) 0.1 %; Eosinophils # (A) 0.01 X 10*3/uL (0.04-0.35); Eosinophils % (A) 0.1 %; HCT 32.9 % (37.2-46.3); Lymphocytes # (A) 0.51 X 10*3/uL (0.90-5.00); Lymphocytes % (A) 7.1 %; MCH 28.6 pg (27.0-32.0); MCHC 33.4 g/dL (32.0-37.0); MCV 85.5 FL (80.0-97.0); Mean Platelet Volume 11.6 FL (9.5-12.2); Monocytes # (A) 0.37 X 10*3/uL (0.20-1.00); Monocytes % (A) 5.2 %; NRBC Per 100 WBC 0 X 10*3/uL (0.00-0.01); Neutrophils # (A) 6.22 X 10*3/uL (1.80-7.70); Neutrophils % (A) 87.2 %; Platelet Count 229 X 10*3/uL (140-440); RBC 3.85 X 10*6/uL (4.10-5.20); RDW 15.2 % (11.5-14.5); WBC 7.14 X 10*3/uL (4.50-10.00)
[2024-02-14 09:14] LABS: ALT 44 U/L (8-44); AST 44 U/L (13-35); Albumin 3.5 g/dL (3.8-4.9); Albumin/Globulin Ratio 1.84 Ratio (1.60-3.17); Alkaline Phosphatase 80 U/L (41-126); Blood Urea Nitrogen 13.6 mg/dL (9.0-27.0); Calcium 7.7 mg/dL (8.7-10.3); Carbon Dioxide 23.6 mmol/L (21.6-31.8); Chloride 111 mmol/L (96-109); Globulin 1.9 g/dL (1.6-3.3); Glucose 102 mg/dL (70-110); Magnesium 1.9 mg/dL (1.5-2.4); Phosphorus 2.9 mg/dL (2.4-5.1); Potassium 3.6 mmol/L (3.5-5.5); Sodium 144 mmol/L (135-145); Total Bilirubin 0.3 mg/dL (0.3-1.2); Total Protein 5.4 g/dL (6.2-8.2)
[2024-02-14 09:24] LABS: Lipase 18 U/L (14-63)
[2024-02-14] MEDS ORDERED: polyethylene glycoL 3350 17 GM POWD.PACK PO PRN (09:56)
[2024-02-14] MEDS: BENZTROPINE MESYLATE 1 MG TAB PO SCH (11:47)
[2024-02-14] MEDS: PANTOPRAZOLE 40 MG TABLET PO SCH (11:47)
[2024-02-14] MEDS: ZIPRASIDONE 20 MG CAP PO SCH (11:47)
[2024-02-14] MEDS: ENOXAPARIN 40 MG/0.4 ML SYRINGE SQ SCH (11:47)
--- NOTE | 2024-02-14 12:19 | P.CRDCN ---
History of Present Illness History of present illness: HISTORY OF PRESENT ILLNESS: This is a 38-year-old female with a past medical history significant for obesity, asthma, and bipolar disorder. Patient does not follow with a radiology ct technologist. We have been asked to see the patient in consultation for chest pain. Patient examined at the bedside. Patient presented to the hospital with a chief complaint of nausea and vomiting. Patient states she has been feeling unwell for the past few days. She states after a day of throwing up she began t o have chest pain. She states the pain is in the middle of her chest. She denies any radiation of the pain. She denies any shortness of breath. She states the pain is worse with chest wall palpation. Patient states she is feeling better in terms of her nausea and vomiting. However she states she still has not ate much since yesterday. She is a non-smoker. She denies any alcohol use. Denies any drug use including marijuana. She reports a family history of CAD and states her dad had a heart attack about a year ago at the age of 67. DIAGNOSTICS: - EKG reveals sinus mechanism with T wave inversions, similar to previous EKGs - Laboratory data: WBC 7.14. Hemoglobin 11.0. Platelet count 229. D-dimer 0.35. Sodium 144. Potassium 3.6. BUN 13. Creatinine 0.8. Troponin negative x 3 - Current home cardiac medications include none. - No previous echocardiogram, stress test, or cardiac catheterization available in EMR for review REVIEW OF SYSTEMS: At the time of my exam: CONSTITUTIONAL: Denies fever or chills. HEENT: Denies blurred vision, vision changes, or eye pain. Denies hemoptysis CARDIOVASCULAR: Denies chest pain. Denies orthopnea. Denies PND. Denies palpitations RESPIRATORY: Denies shortness of breath. GASTROINTESTINAL: Denies abdominal pain. Denies nausea or vomiting. HEMATOLOGIC: Denies bleeding disorders. GENITOURINARY: Denies any blood in urine. SKIN: Denies pruitis. Denies rash. PHYSICAL EXAM: VITAL SIGNS: Reviewed. GENERAL: Well-developed in no acute distress. HEENT: Head is normocephalic. Pupils are equal, round. Sclerae anicteric. Mucous membranes of the mouth are moist. Neck supple. No JVD or thyromegaly LUNGS: Respirations even and unlabored. Lungs essentially clear to auscultation bilaterally. HEART: Regular rate and rhythm. S1 and S2 heard. ABDOMEN: Soft. Nondistended. Nontender. EXTREMITIES: Normal range of motion. No clubbing or cyanosis. Peripheral pulses intact. No lower extremity edema NEUROLOGIC: Awake and alert. Oriented x 3. ASSESSMENT: Intractable nausea and vomiting, improved Chest pain, atypical, likely secondary to above, troponin negative x 3 History of asthma History of bipolar disorder Family history of CAD Morbid obesity: BMI 42.5 PLAN: An acute coronary but has been ruled out Patient's pain is worsened with chest wall palpation, appears musculoskeletal/GI related likely secondary to persistent vomiting No plans for inpatient stress testing 2D echo has been ordered. Preliminary echo at the bedside reveals preserved LV systolic function. Await final report. If 2D echo is unremarkable, no further inpatient recommendations from a cardiac standpoint and we will sign off. Nurse practitioner note has been reviewed by physician. Signing provider agrees with the documented findings, assessment, and plan of care documented by WEATHER REPORTER as a scribe. Past Medical History Past Medical History: Asthma Additional Past Medical History / Comment(s): polycysitic ovarian syndrome, closed head injury 10 years ago from a falls, Covid 2021 History of Any Multi-Drug Resistant Organisms: None Reported Past Surgical History: Appendectomy, Cholecystectomy Additional Past Surgical History / Comment(s): IUD Past Anesthesia/Blood Transfusion Reactions: Postoperative Nausea & Vomiting (PONV) Additional Past Anesthesia/Blood Transfusion Reaction / Comment(s): Pt has had a blood transfusion without reaction d/t PCOS Past Psychological History: Anxiety, Bipolar, Depression Smoking Status: Never smoker Past Alcohol Use History: None Reported Past Drug Use History: None Reported - Past Family History Mother Family Medical History: Eye Disorder, Vascular Disorder Father Family Medical History: COPD, CVA/TIA, Hyperlipidemia Additional Family Medical History / Comment(s): schizophrenia, mini strokes Medications and Allergies Home Medications Medication Instructions Recorded Confirmed Type Benztropine Mesylate [Cogentin] 1 mg PO BID #8 tablet 04/23/14 02/13/24 Rx Divalproex ER [Depakote ER] 500 mg PO HS 04/23/14 02/13/24 History Ziprasidone [Geodon] 20 mg PO BID 04/21/19 02/13/24 History Dicyclomine [Bentyl] 10 mg PO QID PRN 08/08/22 02/13/24 History Famotidine 40 mg PO HS 08/08/22 02/13/24 History Omeprazole [PriLOSEC] 40 mg PO AC-BRKFST 10/17/22 02/13/24 History Fluticasone Nasal [place] [Flonase 1 spray EA NOSTRIL BID PRN 02/13/24 02/13/24 History Nasal [place]] polyethylene glycoL 3350 [Miralax] 17 gm PO DAILY PRN 02/13/24 02/13/24 History Allergies Allergy/AdvReac Type Severity Reaction Status Date / Time amoxicillin Allergy Nausea & Verified 02/13/24 18:19 Vomiting brompheniramine maleate Allergy Anaphylaxis Verified 02/13/24 18:19 [From Dimetapp (brompheniramine-PPA)] clemastine fumarate Allergy Dyspnea Verified 02/13/24 18:19 [From Tavist] codeine Allergy Dyspnea, Verified 02/13/24 18:19 rash diphenhydramine HCl Allergy Dyspnea Verified 02/13/24 18:19 [From Benadryl] meclizine Allergy Anaphylaxis Verified 02/13/24 18:19 phenylpropanolamine HCl Allergy Anaphylaxis Verified 02/13/24 18:19 [From Dimetapp (brompheniramine-PPA)] prednisone Allergy Hallucinati Verified 02/13/24 18:19 ons pseudoephedrine HCl Allergy Anaphylaxis Verified 02/13/24 18:19 [From Tavist] red dye Allergy Rash/Hives Verified 02/13/24 18:19 risperidone [From Risperdal] Allergy Rash/Hives Verified 02/13/24 18:19 sulfamethoxazole Allergy Nausea & Verified 02/13/24 18:19 [From Bactrim] Vomiting, rash trimethoprim [From Bactrim] Allergy Nausea & Verified 02/13/24 18:19 Vomiting, rash liraglutide [From Saxenda] AdvReac Nausea & Verified 02/13/24 18:19 Vomiting Physical Exam Vitals: Vital Signs Temp Pulse Pulse Resp BP BP Pulse Ox 02/14/24 08:30 98.1 F 85 16 118/72 95 02/14/24 05:52 99.9 F H 89 16 115/57 95 02/14/24 01:22 98.2 F 97 19 124/58 99 02/13/24 20:50 98 18 121/74 99 02/13/24 18:16 94 18 129/82 99 02/13/24 15:59 98.4 F 82 18 111/66 97 Intake and Output 02/13/24 02/14/24 02/14/24 22:59 06:59 14:59 Other: Weight 108.862 kg Results 02/14/24 05:27 02/14/24 05:27 Cardiac Enzymes 02/13/24 02/13/24 02/13/24 Range/Units 16:22 16:22 20:16 AST 22 (14-36) U/L Troponin I <0.012 <0.012 (0.000-0.034) ng/mL 02/14/24 02/14/24 Range/Units 00:05 05:27 AST 44 H (14-36) U/L Troponin I <0.012 (0.000-0.034) ng/mL Coagulation 02/13/24 Range/Units 16:22 PT 10.6 (10.0-12.5) sec APTT 24.4 (22.0-30.0) sec CBC 02/13/24 02/14/24 Range/Units 16:22 05:27 WBC 11.9 H 7.14 (3.8-10.6) k/uL RBC 4.64 3.85 L (3.80-5.40) m/uL Hgb 13.1 11.0 L (11.4-16.0) gm/dL Hct 39.3 32.9 L (34.0-46.0) % Plt Count 260 229 (150-450) k/uL Comprehensive Metabolic Panel 02/13/24 02/14/24 Range/Units 16:22 05:27 Sodium 138 144 (137-145) mmol/L Potassium 4.2 3.6 (3.5-5.1) mmol/L Chloride 106 111 H (98-107) mmol/L Carbon Dioxide 23 23.6 (22-30) mmol/L BUN 19 H 13.6 (7-17) mg/dL Creatinine 0.70 0.8 (0.52-1.04) mg/dL Glucose 100 H 102 (74-99) mg/dL Calcium 8.6 7.7 L (8.4-10.2) mg/dL AST 22 44 H (14-36) U/L ALT 18 44 (4-34) U/L Alkaline Phosphatase 81 80 (38-126) U/L Total Protein 7.1 5.4 L (6.3-8.2) g/dL Albumin 4.3 3.5 L (3.5-5.0) g/dL Current Medications Generic Name Dose Route Start Last Admin Trade Name Freq PRN Reason Stop Dose Admin Benztropine Mesylate 1 mg 02/14/24 10:00 Benztropine Mesylate 1 Mg Tab PO BID MARILYN Dicyclomine HCl 10 mg 02/14/24 09:56 Dicyclomine 10 Mg Cap PO QID PRN GI Upset Divalproex Sodium 500 mg 02/14/24 21:00 Divalproex Er 500 Mg Tab.Er.24h PO HS MARILYN Enoxaparin Sodium 40 mg 02/14/24 10:00 Enoxaparin 40 Mg/0.4 Ml Syringe SQ DAILY MARILYN Famotidine 40 mg 02/14/24 21:00 Famotidine 20 Mg Tab PO HS MARILYN Sodium Chloride 1,000 mls @ 75 mls/hr 02/13/24 19:15 02/14/24 09:04 Saline 0.9% IV 75 mls/hr .[id number] MARILYN Administration Naloxone HCl 0.2 mg 02/13/24 19:09 Naloxone 0.4 Mg/Ml 1 Ml Vial IV Q2M PRN Opioid Reversal Ondansetron HCl 4 mg 02/13/24 19:09 Ondansetron 4 Mg/2 Ml Vial IVP Q8HR PRN Nausea And Vomiting Pantoprazole Sodium 40 mg 02/14/24 10:00 Pantoprazole 40 Mg Tablet PO AC-BRKFST MARILYN Polyethylene Glycol 17 gm 02/14/24 09:56 Polyethylene Glycol 3350 17 Gm Powd.Pack PO DAILY PRN Constipation Ziprasidone 20 mg 02/14/24 10:00 Ziprasidone 20 Mg Cap PO BID MARILYN Intake and Output 02/13/24 02/14/24 02/14/24 22:59 06:59 14:59 Other: Weight 108.862 kg 02/14/24 05:27 02/14/24 05:27
--- NOTE | 2024-02-14 14:22 | CA ---
Transthoracic Echo Report Name: Maddie Sawant Age: 38 Gender: F : 1985 Exam Date: 02/14/2024 11:40 Exam Location: [facility] Ht (in): 63 Wt (lb): 240 Ordering Physician: Paolo Bruner MD Attending/Referring Phys: Director [employer] Jessica Gao RDCS Procedure CPT: Indications: Chest Pain Cardiac Hx: Technical Quality: Fair Contrast 1: Total Dose (mL): Contrast 2: Total Dose (mL): MEASUREMENTS (Male / Female) Normal Values 2D ECHO LV Diastolic Diameter PLAX 3.5 cm 4.2 - 5.9 / 3.9 - 5.3 cm LV Systolic Diameter PLAX 2.2 cm IVS Diastolic Thickness 1.1 cm 0.6 - 1.0 / 0.6 - 0.9 cm LVPW Diastolic Thickness 1.0 cm 0.6 - 1.0 / 0.6 - 0.9 cm LV Relative Wall Thickness 0.6 RV Internal Dim ED PLAX 2.7 cm LV Diastolic Volume MOD 4C 122.9 cm??? LV Systolic Volume MOD 4C 69.8 cm??? LV Ejection Fraction MOD 4C 43.2 % LV Cardiac Index MOD 4C 1479.7 cm???/min???m??? LV Diastolic Length 4C 8.2 cm LV Systolic Length 4C 6.9 cm LA Volume 43.4 cm??? 18 - 58 / 22 - 52 cm??? LA Volume Index 19.2 cm???/m??? 16 - 28 cm???/m??? M-MODE Aortic Root Diameter MM 2.6 cm AV Cusp Separation MM 3.1 cm DOPPLER LVOT Peak Velocity 88.2 cm/s LVOT Peak Gradient 3.1 mmHg LVOT Velocity Time Integral 18.7 cm MV Area PHT 4.8 cm??? Mitral E Point Velocity 93.6 cm/s Mitral A Point Velocity 64.0 cm/s Mitral E to A Ratio 1.5 MV Deceleration Time 157.8 ms TR Peak Velocity 166.9 cm/s TR Peak Gradient 11.1 mmHg Right Ventricular Systolic Press 16.0 mmHg FINDINGS Left Ventricle Left ventricular cavity size normal. Left ventricular wall thickness at upper limits of normal. Normal left ventricular systolic function with no obvious regional wall motion abnormalities. Left ventricular ejection fraction is estimated at 55-60 %. Right Ventricle Normal right ventricular size and function. Right ventricular systolic pressure within normal limits. Right Atrium Normal right atrial size. Left Atrium Normal left atrial size. Mitral Valve Structurally normal mitral valve. Mild mitral regurgitation. Aortic Valve Trileaflet aortic valve. No aortic valve stenosis or regurgitation. Tricuspid Valve Structurally normal tricuspid valve. Mild tricuspid regurgitation. Pulmonic Valve Structurally normal pulmonic valve. Pericardium No pericardial effusion. Aorta Normal size aortic root and proximal ascending aorta. CONCLUSIONS Left ventricular ejection fraction 55-60% RVSP 16 Mild mitral regurgitation Mild tricuspid regurgitation Previewed by: Dr. Joe Melchor DO (Electronically Signed) Final Date: 14 February 2024 14:21
--- NOTE | 2024-02-14 15:21 | P.CNPUL ---
History of Present Illness Consult date: 02/14/24 Requesting physician: Paolo Bruner Reason for consult: pneumonia Chief complaint: Nausea and vomiting History of present illness: Is a 38-year-old female with history of multiple medical problems including bipolar disorder, mild intermittent asthma, patient was admitted through the emergency room today with 1 day history of intractable nausea and vomiting and some chest pain. No cough, no fever, no chills, no hemoptysis. Part of the workup while in the ER including a CT angiogram of the chest to rule out pulmonary embolism which came back negative however the CT of the chest showed no evidence of pulmonary embolism, it did show bilateral nonspecific groundglass changes concerning for acute infectious or postinflammatory process. Patient had no pulmonary symptoms except the chest pain but no cough, no fever, no chills, no hemoptysis. Patient denies any history of recent pneumonia, but she did have previous history of COVID-19 infection. Does not recall coming down with extensive pneumonia at any point in time. Patient was seen already by cardiology for her chest pain, felt that her pain is noncardiac,And her echocardiogram came back normal her labs including CBC were normal WBC is 7.14 hemoglobin is 11 electrolytes are normal renal profile is normal D-dimer is normal, liver profile is normal. Patient did not have any COVID-19 screening prior to admission. Review of Systems REVIEW OF SYSTEMS: CONSTITUTIONAL: Nausea and vomiting no fever no chills EYES: Negative. ENT: Negative. CARDIAC: Negative. PULMONARY: No cough no wheezing no shortness of breath but she did have chest pain GI: As noted in HPI nausea vomiting and today she had 1 episode of diarrhea GENITOURINARY: Negative. MUSCULOSKELETAL: Negative. SKIN: Negative. NEUROPSYCH: Negative. ENDOCRINE: Negative. HEMATOLOGIC: Negative. Past Medical History Past Medical History: Asthma Additional Past Medical History / Comment(s): polycysitic ovarian syndrome, closed head injury 10 years ago from a falls, Covid 2021 History of Any Multi-Drug Resistant Organisms: None Reported Past Surgical History: Appendectomy, Cholecystectomy Additional Past Surgical History / Comment(s): IUD Past Anesthesia/Blood Transfusion Reactions: Postoperative Nausea & Vomiting (PONV) Additional Past Anesthesia/Blood Transfusion Reaction / Comment(s): Pt has had a blood transfusion without reaction d/t PCOS Past Psychological History: Anxiety, Bipolar, Depression Smoking Status: Never smoker Past Alcohol Use History: None Reported Past Drug Use History: None Reported - Past Family History Mother Family Medical History: Eye Disorder, Vascular Disorder Father Family Medical History: COPD, CVA/TIA, Hyperlipidemia Additional Family Medical History / Comment(s): schizophrenia, mini strokes Medications and Allergies Home Medications Medication Instructions Recorded Confirmed Type Benztropine Mesylate [Cogentin] 1 mg PO BID #8 tablet 04/23/14 02/13/24 Rx Divalproex ER [Depakote ER] 500 mg PO HS 04/23/14 02/13/24 History Ziprasidone [Geodon] 20 mg PO BID 04/21/19 02/13/24 History Dicyclomine [Bentyl] 10 mg PO QID PRN 08/08/22 02/13/24 History Famotidine 40 mg PO HS 08/08/22 02/13/24 History Omeprazole [PriLOSEC] 40 mg PO AC-BRKFST 10/17/22 02/13/24 History Fluticasone Nasal [place] [Flonase 1 spray EA NOSTRIL BID PRN 02/13/24 02/13/24 History Nasal [place]] polyethylene glycoL 3350 [Miralax] 17 gm PO DAILY PRN 02/13/24 02/13/24 History Allergies Allergy/AdvReac Type Severity Reaction Status Date / Time amoxicillin Allergy Nausea & Verified 02/13/24 18:19 Vomiting brompheniramine maleate Allergy Anaphylaxis Verified 02/13/24 18:19 [From Dimetapp (brompheniramine-PPA)] clemastine fumarate Allergy Dyspnea Verified 02/13/24 18:19 [From Tavist] codeine Allergy Dyspnea, Verified 02/13/24 18:19 rash diphenhydramine HCl Allergy Dyspnea Verified 02/13/24 18:19 [From Benadryl] meclizine Allergy Anaphylaxis Verified 02/13/24 18:19 phenylpropanolamine HCl Allergy Anaphylaxis Verified 02/13/24 18:19 [From Dimetapp (brompheniramine-PPA)] prednisone Allergy Hallucinati Verified 02/13/24 18:19 ons pseudoephedrine HCl Allergy Anaphylaxis Verified 02/13/24 18:19 [From Tavist] red dye Allergy Rash/Hives Verified 02/13/24 18:19 risperidone [From Risperdal] Allergy Rash/Hives Verified 02/13/24 18:19 sulfamethoxazole Allergy Nausea & Verified 02/13/24 18:19 [From Bactrim] Vomiting, rash trimethoprim [From Bactrim] Allergy Nausea & Verified 02/13/24 18:19 Vomiting, rash liraglutide [From Saxenda] AdvReac Nausea & Verified 02/13/24 18:19 Vomiting Physical Exam Vitals: Vital Signs Temp Pulse Pulse Resp BP BP Pulse Ox 02/14/24 13:30 97.6 F 79 16 116/72 97 02/14/24 08:30 98.1 F 85 16 118/72 95 02/14/24 05:52 99.9 F H 89 16 115/57 95 02/14/24 01:22 98.2 F 97 19 124/58 99 02/13/24 20:50 98 18 121/74 99 02/13/24 18:16 94 18 129/82 99 02/13/24 15:59 98.4 F 82 18 111/66 97 Intake and Output 02/14/24 02/14/24 02/14/24 06:59 14:59 22:59 Other: # Voids 2 Weight 108.862 kg General: The patient is awake and alert, in no distress, and does not appear acutely ill. Skin: Skin is warm and dry and no rashes or lesions are noted. Eye: Pupils are equal, round and reactive to light, extra-ocular movements are intact; there is normal conjunctiva bilaterally. Ears, nose, mouth and throat: There are moist mucous membranes and no oral lesions. Neck: The neck is supple, there is no tenderness or JVD. Cardiovascular: There is a regular rate and rhythm. No murmur, rub or gallop is appreciated. Respiratory: There are bilaterally no rhonchi no wheezes Gastrointestinal: Soft, non-distended, non-tender abdomen without masses or organomegaly noted. There is no rebound or guarding present. Bowel sounds are unremarkable. Back: There is no tenderness to palpation in the midline. There is no obvious deformity. Musculoskeletal: Normal ROM, no tenderness, There is no pedal edema. There is no calf tenderness or swelling. No cords were appreciated. Neurological: CN II-XII intact, Cranial nerves III through XII are intact. There are no obvious motor or sensory deficits. Coordination appears grossly intact. Speech is normal. Psychiatric: Cooperative, appropriate mood & affect, normal judgment. Results - Laboratory Findings CBC and BMP: 02/14/24 05:27 12 05:27 PT/INR, D-dimer PT 10.6 sec (10.0-12.5) 02/13/24 16:22 INR 1.0 (<1.2) 02/13/24 16:22 D-Dimer 0.35 mg/L FEU (<0.60) 02/13/24 16:22 Abnormal lab findings: Abnormal Labs 02/13/24 02/13/24 02/14/24 16:22 16:22 01:30 WBC 11.9 H RBC Hgb Hct RDW Neutrophils # 11.1 H Lymphocytes # 0.3 L Eosinophils # Chloride BUN 19 H Glucose 100 H Calcium AST Total Protein Albumin Ur Specific [place] >1.050 H Urine Protein Trace H Urine Blood Moderate H Ur Squamous Epith Cells 6 H Urine Bacteria Rare H Urine Mucus Few H 02/14/24 02/14/24 05:27 05:27 WBC RBC 3.85 L Hgb 11.0 L Hct 32.9 L RDW 15.2 H Neutrophils # Lymphocytes # 0.51 L Eosinophils # 0.01 L Chloride 111 H BUN Glucose Calcium 7.7 L AST 44 H Total Protein 5.4 L Albumin 3.5 L Ur Specific [place] Urine Protein Urine Blood Ur Squamous Epith Cells Urine Bacteria Urine Mucus - Diagnostic Findings CT scan - chest: image reviewed (As noted in HPI) Assessment and Plan Assessment: Impression and plan Abnormal CT of the chest, the findings are nonspecific could be postinflammatory in nature from previous pneumonic process, doubt acute pneumonia however considering her multiple GI symptoms I am recommending COVID-19 screening I am also recommending Legionella antigen in the meantime placed patient empirically on Rocephin History of mild intermittent asthma History of bipolar disorder History of multiple allergies as noted on the chart. Multiple GI symptoms including nausea vomiting and diarrhea, possible acute viral gastroenteritis Patient to resume her own meds for asthma as taken at home, especially with her known multiple allergies Admitting service is addressing her GI symptoms Repeat chest x-ray in a.m. consider discharge planning in the next 24 hours and follow-up on outpatient basis Will continue to Time with Patient: Greater than 30
--- NOTE | 2024-02-14 18:21 | P.HPIM ---
History of Present Illness H&P Date: 02/14/24 Chief Complaint: Vomiting diarrhea Pleasant 38-year-old patient follows with Dr. Demetrius Rey. 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 Also had diarrhea 5-6 times rather watery. Last diarrhea was yesterday night. This morning she had 1 amount of vomiting. Diarrhea was watery. No blood. Has abdominal discomfort. Does not remember anything that was leftovers.. Denies any fever and chills. During this episode she had a very short-lived episode of central chest pain. Her very limited time. Feeling much better this morning. Not tired. Was NPO. 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 Physical examination: VITAL SIGNS: 98.4, 82, 18, 111 x 66, 97% room air upon presentation GENERAL: BMI 42.5, laying in bed awake tired EYES: Pupils equal. Conjunctiva normal. HEENT: External appearance of nose and ears normal, oral cavity grossly normal. NECK: JVD not raised; masses not palpable. HEART: First and second heart sounds are normal; no edema. LUNGS: Respiratory rate normal; clear to auscultation. ABDOMEN: Soft, minimal tenderness, liver spleen not palpable, no masses palpable. PSYCH: Alert and oriented x3; mood and affect normal. MUSCULOSKELETAL:No Clubbing/cyanosis;muscles-grossly intact NEUROLOGICAL: Cranial nerves grossly intact; no facial asymmetry, power and sensation grossly intact. LYMPHATICS: No lymph nodes palpable in the axilla and neck INVESTIGATIONS, reviewed in the clinical context: February 13: White count 7.1 hemoglobin 11 platelets 229 sodium 144 potassium 3.6 creatinine 0.8 UA: Negative for nitrite leukoesterase COVID-19: PCR: Not detected EKG tracing personally reviewed by me-some ST segment depression in in ferolateral leads. Also some in the anterior leads CT chest: Bilateral lung groundglass opacities. No evidence of PE. CT abdomen pelvis: Unremarkable Assessment and plan: -Acute gastroenteritis possibly viral, expect to be self-limiting. Patient is already feeling a bit better this morning IV fluids. Started on full liquids. Advance diet as tolerated -Short-lived chest pain. Along with abnormal EKG. Cardiology consulted -Abnormal CT chest with groundglass appearance Patient denies any shortness of breath. Consult pulmonary -Obesity BMI 42.5 Weight loss measures -Polycystic ovarian syndrome -Bipolar disorder Geodon. Depakote ER. Cogentin -Intermittent asthma Ventolin when necessary -GERD Prilosec, Pepcid -Full code IV fluids. Full liquids. Consult pulmonary and cardio. Activity as tolerated. Past Medical History Past Medical History: Asthma Additional Past Medical History / Comment(s): polycysitic ovarian syndrome, closed head injury 10 years ago from a falls, Covid 2021 History of Any Multi-Drug Resistant Organisms: None Reported Past Surgical History: Appendectomy, Cholecystectomy Additional Past Surgical History / Comment(s): IUD Past Anesthesia/Blood Transfusion Reactions: Postoperative Nausea & Vomiting (PONV) Additional Past Anesthesia/Blood Transfusion Reaction / Comment(s): Pt has had a blood transfusion without reaction d/t PCOS Past Psychological History: Anxiety, Bipolar, Depression Smoking Status: Never smoker Past Alcohol Use History: None Reported Past Drug Use History: None Reported - Past Family History Mother Family Medical History: Eye Disorder, Vascular Disorder Father Family Medical History: COPD, CVA/TIA, Hyperlipidemia Additional Family Medical History / Comment(s): schizophrenia, mini strokes Medications and Allergies Home Medications Medication Instructions Recorded Confirmed Type Benztropine Mesylate [Cogentin] 1 mg PO BID #8 tablet 04/23/14 02/13/24 Rx Divalproex ER [Depakote ER] 500 mg PO HS 04/23/14 02/13/24 History Ziprasidone [Geodon] 20 mg PO BID 04/21/19 02/13/24 History Dicyclomine [Bentyl] 10 mg PO QID PRN 08/08/22 02/13/24 History Famotidine 40 mg PO HS 08/08/22 02/13/24 History Omeprazole [PriLOSEC] 40 mg PO AC-BRKFST 10/17/22 02/13/24 History Fluticasone Nasal [place] [Flonase 1 spray EA NOSTRIL BID PRN 02/13/24 02/13/24 History Nasal [place]] polyethylene glycoL 3350 [Miralax] 17 gm PO DAILY PRN 02/13/24 02/13/24 History Allergies Allergy/AdvReac Type Severity Reaction Status Date / Time amoxicillin Allergy Nausea & Verified 02/13/24 18:19 Vomiting brompheniramine maleate Allergy Anaphylaxis Verified 02/13/24 18:19 [From Dimetapp (brompheniramine-PPA)] clemastine fumarate Allergy Dyspnea Verified 02/13/24 18:19 [From Tavist] codeine Allergy Dyspnea, Verified 02/13/24 18:19 rash diphenhydramine HCl Allergy Dyspnea Verified 02/13/24 18:19 [From Benadryl] meclizine Allergy Anaphylaxis Verified 02/13/24 18:19 phenylpropanolamine HCl Allergy Anaphylaxis Verified 02/13/24 18:19 [From Dimetapp (brompheniramine-PPA)] prednisone Allergy Hallucinati Verified 02/13/24 18:19 ons pseudoephedrine HCl Allergy Anaphylaxis Verified 02/13/24 18:19 [From Tavist] red dye Allergy Rash/Hives Verified 02/13/24 18:19 risperidone [From Risperdal] Allergy Rash/Hives Verified 02/13/24 18:19 sulfamethoxazole Allergy Nausea & Verified 02/13/24 18:19 [From Bactrim] Vomiting, rash trimethoprim [From Bactrim] Allergy Nausea & Verified 02/13/24 18:19 Vomiting, rash liraglutide [From Saxenda] AdvReac Nausea & Verified 02/13/24 18:19 Vomiting Physical Exam Vitals: Vital Signs Temp Pulse Pulse Resp BP BP Pulse Ox 02/14/24 14:00 79 16 02/14/24 13:30 97.6 F 79 16 116/72 97 02/14/24 08:30 98.1 F 85 16 118/72 95 02/14/24 05:52 99.9 F H 89 16 115/57 95 02/14/24 01:22 98.2 F 97 19 124/58 99 02/13/24 20:50 98 18 121/74 99 02/13/24 18:16 94 18 129/82 99 Intake and Output 02/14/24 02/14/24 02/14/24 06:59 14:59 22:59 Other: # Voids 2 Weight 108.862 kg Results CBC & Chem 7: 02/14/24 05:27 02/14/24 05:27 Labs: Abnormal Lab Results - Last 24 Hours (Table) 02/14/24 02/14/24 02/14/24 Range/Units 01:30 05:27 05:27 RBC 3.85 L (4.10-5.20) X 10*6/uL Hgb 11.0 L (12.0-15.0) g/dL Hct 32.9 L (37.2-46.3) % RDW 15.2 H (11.5-14.5) % Lymphocytes # 0.51 L (0.90-5.00) X 10*3/uL Eosinophils # 0.01 L (0.04-0.35) X 10*3/uL Chloride 111 H (96-109) mmol/L Calcium 7.7 L (8.7-10.3) mg/dL AST 44 H (13-35) U/L Total Protein 5.4 L (6.2-8.2) g/dL Albumin 3.5 L (3.8-4.9) g/dL Ur Specific [place] >1.050 H (1.001-1.035) Urine Protein Trace H (Negative) Urine Blood Moderate H (Negative) Ur Squamous Epith Cells 6 H (0-4) /hpf Urine Bacteria Rare H (None) /hpf Urine Mucus Few H (None) /hpf
[2024-02-14] MEDS: DICYCLOMINE 10 MG CAP PO PRN (20:10)
[2024-02-14] MEDS: FAMOTIDINE 20 MG TAB PO SCH (20:10)
[2024-02-14] MEDS: DIVALPROEX ER 500 MG TAB.ER.24H PO SCH (20:10)
[2024-02-14] MEDS: ACETAMINOPHEN TAB 500 MG TAB PO PRN (20:58)
--- NOTE | 2024-02-15 07:20 | XR ---
EXAMINATION TYPE: XR chest 1V portable DATE OF EXAM: 02/15/2024 COMPARISON: 10/05/2023 CLINICAL INDICATION: Female, 38 years old with history of pneumonia; TECHNIQUE: Single frontal view of the chest is obtained. FINDINGS: The exam is limited by the portable technique and suboptimal inspiration. There is moderate elevation the right hemidiaphragm. There is no airspace consolidation. There is no pleural effusion or pneumothorax. Pulmonary vasculature is not congested. IMPRESSION: 1. Limited by suboptimal inspiration and portable technique. 2. Moderate elevation right hemidiaphragm. 3. No definite acute cardiopulmonary disease. [facility], , 02/15/2024 7:18 AM
[2024-02-15] MEDS: PSYLLIUM HUSK 100% 6 GM PACKET PO SCH (12:51)
--- NOTE | 2024-02-15 13:18 | P.PN ---
Subjective Progress Note Date: 02/15/24 Is a 38-year-old female with history of multiple medical problems including bipolar disorder, mild intermittent asthma, patient was admitted through the emergency room today with 1 day history of intractable nausea and vomiting and some chest pain. No cough, no fever, no chills, no hemoptysis. Part of the workup while in the ER including a CT angiogram of the chest to rule out pulmonary embolism which came back negative however the CT of the chest showed no evidence of pulmonary embolism, it did show bilateral nonspecific groundglass changes concerning for acute infectious or postinflammatory process. Patient had no pulmonary symptoms except the chest pain but no cough, no fever, no chills, no hemoptysis. Patient denies any history of recent pneumonia, but she did have previous history of COVID-19 infection. Does not recall coming down with extensive pneumonia at any point in time. Patient was seen already by cardiology for her chest pain, felt that her pain is noncardiac,And her echoc ardiogram came back normal her labs including CBC were normal WBC is 7.14 hemoglobin is 11 electrolytes are normal renal profile is normal D-dimer is normal, liver profile is normal. Patient did not have any COVID-19 screening prior to admission. The patient is seen today February 15, 2024 in follow-up on the regular medical floor. She is currently sitting up in bed. Awake and alert in no acute distress. Maintaining good O2 saturations in the 90s on room air. She is afebrile. Hemodynamically stable. Chest x-ray reveals no acute pulmonary process. COVID screen negative. Procalcitonin and Legionella screen pending. Lovenox for DVT prophylaxis. Objective - Vital Signs Vital signs: Vital Signs Temp 97.7 F 02/15/24 07:00 Pulse 59 L 02/15/24 07:00 Resp 16 02/15/24 07:00 BP 104/56 02/15/24 07:00 Pulse Ox 97 02/15/24 07:00 FiO2 Intake & Output 02/14/24 02/15/24 02/15/24 18:59 06:59 18:59 Weight 108.862 kg Other: # Voids 2 1 - Exam GENERAL EXAM: Alert, pleasant 38-year-old female, on room air, comfortable in no apparent distress. HEAD: Normocephalic. EYES: Normal reaction of pupils, equal size. NOSE: Clear with pink turbinates. THROAT: No erythema or exudates. NECK: No masses, no JVD. CHEST: No chest wall deformity. LUNGS: Equal air entry with no crackles, wheeze, rhonchi or dullness. CVS: S1 and S2 normal with no audible murmur, regular rhythm. ABDOMEN: No hepatosplenomegaly, normal bowel sounds, no guarding or rigidity. SPINE: No scoliosis or deformity SKIN: No rashes CENTRAL NERVOUS SYSTEM: No focal deficits, tone is normal in all 4 extremities. EXTREMITIES: There is no peripheral edema. No clubbing, no cyanosis. Peripheral pulses are intact. - Labs CBC & Chem 7: 02/14/24 05:27 02/14/24 05:27 Assessment and Plan Assessment: Abnormal CT of the chest, the findings are nonspecific could be postinflammatory in nature from previous pneumonic process, doubt acute pneumonia however considering her multiple GI symptoms, COVID-19 screening negative, procalcitonin and Legionella screen pending History of mild intermittent asthma History of bipolar disorder History of multiple allergies as noted on the chart. Multiple GI symptoms including nausea vomiting and diarrhea, possible acute viral gastroenteritis To resume her own meds for asthma as taken at home, especially with her known multiple allergies Plan: The patient was seen and evaluated Stable and on room air Continue Rocephin for now Procalcitonin pending Legionella antigen pending If results are negative could be considered for discharge home today I have personally seen and examined the patient, performed the documentation and the assessment and plan as written. Number of minutes spent on the visit: 10 Dictation was produced using [employer] dictation software. Please excuse any grammatical, word or spelling errors.
--- NOTE | 2024-02-15 17:44 | P.PN ---
Progress Note - Text Progress Note Date: 02/15/24 Chief Complaint: Vomiting diarrhea Pleasant 38-year-old patient follows with Dr. Demetrius Rey. 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 Also had diarrhea 5-6 times rather watery. Last diarrhea was yesterday night. This morning she had 1 amount of vomiting. Diarrhea was watery. No blood. Has abdominal discomfort. Does not remember anything that was leftovers.. Denies any fever and chills. During this episode she had a very short-lived episode of central chest pain. Her very limited time. Feeling much better this morning. Not tired. Was NPO. February 14: Patient tolerating a soft diet. Still having some diarrhea. About 5 times since yesterday. Just loose. No abdominal pain. No fever no chills. Metamucil added to bulk of the stool. Pulmonary is added ceftriaxone but no pulmonary symptoms. Increase activity. 2D echo does not show any wall motion abnormality. Active Medications Acetaminophen (Acetaminophen Tab 500 Mg Tab) 500 mg PO Q6HR PRN PRN Reason: Fever and/ or Mild Pain Last Admin: 02/14/24 20:58 Dose: 500 mg Benztropine Mesylate (Benztropine Mesylate 1 Mg Tab) 1 mg PO BID [facility] Last Admin: 02/15/24 08:57 Dose: 1 mg Dicyclomine HCl (Dicyclomine 10 Mg Cap) 10 mg PO QID PRN PRN Reason: GI Upset Last Admin: 02/15/24 09:53 Dose: 10 mg Divalproex Sodium (Divalproex Er 500 Mg Tab.Er.24h) 500 mg PO [facility] Last Admin: 02/14/24 20:10 Dose: 500 mg Enoxaparin Sodium (Enoxaparin 40 Mg/0.4 Ml Syringe) 40 mg SQ DAILY [facility] Last Admin: 02/15/24 08:57 Dose: 40 mg Famotidine (Famotidine 20 Mg Tab) 40 mg PO [facility] Last Admin: 02/14/24 20:10 Dose: 40 mg Sodium Chloride (Saline 0.9%) 1,000 mls @ 75 mls/hr IV .[id number] [facility] Last Admin: 02/15/24 11:00 Dose: 75 mls/hr Ceftriaxone Sodium 2 gm/ (Sodium Chloride) 50 mls @ 100 mls/hr IVPB Q24HR [facility]; Protocol Last Admin: 02/15/24 08:57 Dose: 100 mls/hr Naloxone HCl (Naloxone 0.4 Mg/Ml 1 Ml Vial) 0.2 mg IV Q2M PRN PRN Reason: Opioid Reversal Ondansetron HCl (Ondansetron 4 Mg/2 Ml Vial) 4 mg IVP Q8HR PRN PRN Reason: Nausea And Vomiting Pantoprazole Sodium (Pantoprazole 40 Mg Tablet) 40 mg PO AC-BRKFST [facility] Last Admin: 02/15/24 06:06 Dose: 40 mg Psyllium Hydrophilic Mucilloid (Psyllium Husk 100% 6 Gm Packet) 6 gm PO BID [facility] Last Admin: 02/15/24 12:51 Dose: 6 gm Ziprasidone (Ziprasidone 20 Mg Cap) 20 mg PO BID [facility] Last Admin: 02/15/24 08:57 Dose: 20 mg 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 Physical examination: VITAL SIGNS: 98.3, 71, 16, 117 x 78, 96% room air GENERAL: BMI 42.5, double EYES: Pupils equal. Conjunctiva normal. HEENT: External appearance of nose and ears normal, oral cavity grossly normal. NECK: JVD not raised; masses not palpable. HEART: First and second heart sounds are normal; no edema. LUNGS: Respiratory rate normal; clear to auscultation. ABDOMEN: Soft, minimal tenderness, liver spleen not palpable, no masses p alpable. PSYCH: Alert and oriented x3; mood and affect normal. MUSCULOSKELETAL:No Clubbing/cyanosis;muscles-grossly intact INVESTIGATIONS, reviewed in the clinical context: 2D echocardiogram: EF 55 to 60%. February 13: White count 7.1 hemoglobin 11 platelets 229 sodium 144 potassium 3.6 creatinine 0.8 UA: Negative for nitrite leukoesterase COVID-19: PCR: Not detected EKG tracing personally reviewed by me-some ST segment depression in inferolateral leads. Also some in the anterior leads CT chest: Bilateral lung groundglass opacities. No evidence of PE. CT abdomen pelvis: Unremarkable Assessment and plan: -Acute gastroenteritis possibly viral, expect to be self-limiting. Patient is already feeling a bit better this morning IV fluids. Started on full liquids. Advance diet as tolerated -Short-lived chest pain. Along with abnormal EKG. Cardiology consulted -Abnormal CT chest with groundglass appearance Patient denies any shortness of breath. Seen by Dr. Catalan Patient has no respiratory symptoms. Negative procalcitonin. Normal white count. No fever.-DC IV ceftriaxone -Obesity BMI 42.5 Weight loss measures -Polycystic ovarian syndrome -Bipolar disorder Geodon. Depakote ER. Cogentin -Intermittent asthma Ventolin when necessary -GERD Prilosec, Pepcid -Full code DC IV ceftriaxone. Metamucil. Increase activity. Past Medical History Past Medical History: Asthma Additional Past Medical History / Comment(s): polycysitic ovarian syndrome, closed head injury 10 years ago from a falls, Covid 2021 History of Any Multi-Drug Resistant Organisms: None Reported Past Surgical History: Appendectomy, Cholecystectomy Additional Past Surgical History / Comment(s): IUD Past Anesthesia/Blood Transfusion Reactions: Postoperative Nausea & Vomiting (PONV) Additional Past Anesthesia/Blood Transfusion Reaction / Comment(s): Pt has had a blood transfusion without reaction d/t PCOS Past Psychological History: Anxiety, Bipolar, Depression Smoking Status: Never smoker Past Alcohol Use History: None Reported Past Drug Use History: None Reported
[2024-02-16 07:29] VITALS: BP 110/75; PULSE 61; RESP 16; TEMP 98.3
[2024-02-16 07:38] LABS: Basophils % (A) 0 %; Eosinophils # (A) 0.2 k/uL (0-0.7); Eosinophils % (A) 5 %; HCT 33.4 % (34.0-46.0); HGB 11.1 gm/dL (11.4-16.0); Lymphocytes # (A) 1.3 k/uL (1.0-4.8); Lymphocytes % (A) 26 %; MCH 28.4 pg (25.0-35.0); MCHC 33.3 g/dL (31.0-37.0); MCV 85.3 fL (80.0-100.0); Monocytes # (A) 0.4 k/uL (0-1.0); Monocytes % (A) 7 %; Neutrophils % (A) 59 %; Platelet Count 221 k/uL (150-450); RBC 3.91 m/uL (3.80-5.40); RDW 14.8 % (11.5-15.5); WBC 5.1 k/uL (3.8-10.6)
[2024-02-16 07:55] LABS: African American GFR (CKD) >90 (>60 ml/min/1.73 sqM); Anion Gap 4 mmol/L; Blood Urea Nitrogen 7 mg/dL (7-17); Calcium 8.2 mg/dL (8.4-10.2); Carbon Dioxide 26 mmol/L (22-30); Chloride 107 mmol/L (98-107); Glucose 92 mg/dL (74-99); Non-African American GFR(CKD) >90 (>60 ml/min/1.73 sqM); Potassium 3.6 mmol/L (3.5-5.1); Sodium 137 mmol/L (137-145)
--- NOTE | 2024-02-16 12:45 | P.PN ---
Subjective Progress Note Date: 02/16/24 Is a 38-year-old female with history of multiple medical problems including bipolar disorder, mild intermittent asthma, patient was admitted through the emergency room today with 1 day history of intractable nausea and vomiting and some chest pain. No cough, no fever, no chills, no hemoptysis. Part of the workup while in the ER including a CT angiogram of the chest to rule out pulmonary embolism which came back negative however the CT of the chest showed no evidence of pulmonary embolism, it did show bilateral nonspecific groundglass changes concerning for acute infectious or postinflammatory process. Patient had no pulmonary symptoms except the chest pain but no cough, no fever, no chills, no hemoptysis. Patient denies any history of recent pneumonia, but she did have previous history of COVID-19 infection. Does not recall coming down with extensive pneumonia at any point in time. Patient was seen already by cardiology for her chest pain, felt that her pain is noncardiac,And her echoc ardiogram came back normal her labs including CBC were normal WBC is 7.14 hemoglobin is 11 electrolytes are normal renal profile is normal D-dimer is normal, liver profile is normal. Patient did not have any COVID-19 screening prior to admission. The patient is seen today February 15, 2024 in follow-up on the regular medical floor. She is currently sitting up in bed. Awake and alert in no acute distress. Maintaining good O2 saturations in the 90s on room air. She is afebrile. Hemodynamically stable. Chest x-ray reveals no acute pulmonary process. COVID screen negative. Procalcitonin and Legionella screen pending. Lovenox for DVT prophylaxis. The patient is seen today February 16, 2024 in follow-up on the regular medical floor. She is currently sitting up in bed. Awake and alert in no acute distress. Maintaining good O2 saturations in the 90s on room air. She has not had any further diarrhea. She is receiving normal saline at 75 mL/h. Lovenox for DVT prophylaxis. White count 5.1. Hemoglobin 11.1. Platelets 221. Sodium 137. Potassium 3.6. Bicarb 26. BUN 7. Creatinine 0.70. Glucose 92. Legionella screen was negative. COVID screen negative. Procalcitonin still pending. Objective - Vital Signs Vital signs: Vital Signs Temp 98.3 F 02/16/24 07:00 Pulse 61 02/16/24 07:00 Resp 16 02/16/24 07:00 BP 110/75 02/16/24 07:00 Pulse Ox 96 02/16/24 07:00 FiO2 Intake & Output 02/15/24 02/16/24 02/16/24 18:59 06:59 18:59 Intake Total 118 480 Balance 118 480 Intake: Oral 118 480 Other: # Voids 2 3 - Exam GENERAL EXAM: Alert, 38-year-old female, sitting up in bed, on room air, in no apparent distress. HEAD: Normocephalic. EYES: Normal reaction of pupils, equal size. NOSE: Clear with pink turbinates. THROAT: No erythema or exudates. NECK: No masses, no JVD. CHEST: No chest wall deformity. LUNGS: Equal air entry with no crackles, wheeze, rhonchi or dullness. CVS: S1 and S2 normal with no audible murmur, regular rhythm. ABDOMEN: No hepatosplenomegaly, normal bowel sounds, no guarding or rigidity. SPINE: No scoliosis or deformity SKIN: No rashes CENTRAL NERVOUS SYSTEM: No focal deficits, tone is normal in all 4 extremities. EXTREMITIES: There is no peripheral edema. No clubbing, no cyanosis. Peripheral pulses are intact. - Labs CBC & Chem 7: 02/16/24 07:19 02/16/24 07:18 Labs: Abnormal Lab Results - Last 24 Hours (Table) 02/16/24 02/16/24 Range/Units 07:18 07:19 Hgb 11.1 L (11.4-16.0) gm/dL Hct 33.4 L (34.0-46.0) % Calcium 8.2 L (8.4-10.2) mg/dL Assessment and Plan Assessment: Nausea, vomiting, generalized weakness Abnormal CT of the chest, the findings are nonspecific could be postinflammatory in nature from previous pneumonic process, doubt acute pneumonia however considering her multiple GI symptoms, COVID-19 screening negative, procalcitonin pending and Legionella negative History of mild intermittent asthma History of bipolar disorder History of multiple allergies as noted on the chart. Multiple GI symptoms including nausea vomiting and diarrhea, possible acute viral gastroenteritis To resume her own meds for asthma as taken at home, especially with her known multiple allergies Plan: The patient was seen and evaluated Labs and medications reviewed Stable and on room air Cleared for discharge This patient was seen independently by the pulmonary nurse practitioner addressing pulmonary issues I have personally seen and examined the patient, performed the documentation and the assessment and plan as written. Number of minutes spent on the visit: 24 Dictation was produced using [employer] dictation software. Please excuse any grammatical, word or spelling errors.
--- NOTE | 2024-02-16 15:32 | P.DS ---
Providers Date of admission: 02/13/24 19:10 Expected date of discharge: 02/16/24 Attending physician: Paolo Bruner Consults: 02/14/24 10:31 Consult Physician Routine Consulting Provider: Scot Catalan Consult Reason/Comments: abnormal CT chest Do you want consulting provider notified?: Yes Primary care physician: Conrado Rey [facility] Course: Chief Complaint: Vomiting diarrhea Pleasant 38-year-old patient follows with Dr. Demetrius Rey. 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 Also had diarrhea 5-6 times rather watery. Last diarrhea was yesterday night. This morning she had 1 amount of vomiting. Diarrhea was watery. No blood. Has abdominal discomfort. Does not remember anything that was leftovers.. Denies any fever and chills. During this episode she had a very short-lived episode of central chest pain. Her very limited time. Feeling much better this morning. Not tired. Was NPO. February 14: Patient tolerating a soft diet. Still having some diarrhea. About 5 times since yesterday. Just loose. No abdominal pain. No fever no chills. Metamucil added to bulk of the stool. Pulmonary is added ceftriaxone but no pulmonary symptoms. Increase activity. 2D echo does not show any wall motion abnormality. February 15: Doing much better. Tolerating diet. Bowels much better. Antibiotics discontinued yesterday. Will have patient follow-up with pulmonary for possible chronic changes on the CT scan. Patient may return to work on Saturday. Questions answered. [place] to be viral gastroenteritis. Also follow-up with cardiology outpatient. 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 Physical examination: VITAL SIGNS: 98.3, 61, 16, 110 x 75, 96% room air GENERAL: BMI 42.5, comfortable EYES: Pupils equal. Conjunctiva normal. HEENT: External appearance of nose and ears normal, oral cavity grossly normal. NECK: JVD not raised; masses not palpable. HEART: First and second heart sounds are normal; no edema. LUNGS: Respiratory rate normal; clear to auscultation. ABDOMEN: Soft, minimal tenderness, liver spleen not palpable, no masses palpable. PSYCH: Alert and oriented x3; mood and affect normal. MUSCULOSKELETAL:No Clubbing/cyanosis;muscles-grossly intact INVESTIGATIONS, reviewed in the clinical context: February 15: White count 5.1 hemoglobin 11.1 potassium 3.6 creatinine 0.70. Procalcitonin 0.09 2D echocardiogram: EF 55 to 60%. February 13: White count 7.1 hemoglobin 11 platelets 229 sodium 144 potassium 3.6 creatinine 0.8 UA: Negative for nitrite leukoesterase COVID-19: PCR: Not detected EKG tracing personally reviewed by me-some ST segment depression in inferolateral leads. Also some in the anterior leads CT chest: Bilateral lung groundglass opacities. No evidence of PE. CT abdomen pelvis: Unremarkable Assessment and plan: -Acute gastroenteritis possibly viral,: Improved IV fluids. Tolerating a soft diet. -Short-lived chest pain. Along with abnormal EKG. Cardiology saw the patient. Follow-up outpatient -Abnormal CT chest with groundglass appearance Patient denies any shortness of breath. Seen by Dr. Catalan Patient has no respiratory symptoms. Negative procalcitonin. Normal white count. No fever.-DC IV ceftriaxone Follow-up outpatient -Obesity BMI 42.5 Weight loss measures -Polycystic ovarian syndrome -Bipolar disorder Geodon. Depakote ER. Cogentin -Intermittent asthma Ventolin when necessary -GERD Prilosec, Pepcid -Full code Disposition Home Past Medical History Past Medical History: Asthma Additional Past Medical History / Comment(s): polycysitic ovarian syndrome, closed head injury 10 years ago from a falls, Covid 2021 History of Any Multi-Drug Resistant Organisms: None Reported Past Surgical History: Appendectomy, Cholecystectomy Additional Past Surgical History / Comment(s): IUD Past Anesthesia/Blood Transfusion Reactions: Postoperative Nausea & Vomiting (PONV) Additional Past Anesthesia/Blood Transfusion Reaction / Comment(s): Pt has had a blood transfusion without reaction d/t PCOS Past Psychological History: Anxiety, Bipolar, Depression Smoking Status: Never smoker Past Alcohol Use History: None Reported Past Drug Use History: None Reported Plan - Discharge Summary Discharge Rx Participant: Yes New Discharge Prescriptions: Continue Divalproex ER [Depakote ER] 500 mg PO HS Benztropine Mesylate [Cogentin] 1 mg PO BID #8 tablet Ziprasidone [Geodon] 20 mg PO BID Dicyclomine [Bentyl] 10 mg PO QID PRN PRN Reason: Gi Upset Famotidine 40 mg PO HS Omeprazole [PriLOSEC] 40 mg PO AC-BRKFST Fluticasone Nasal [place] [Flonase Nasal [place]] 1 spray EA NOSTRIL BID PRN PRN Reason: Allergy Symptoms Discontinued polyethylene glycoL 3350 [Miralax] 17 gm PO DAILY PRN PRN Reason: Constipation Discharge Medication List Benztropine Mesylate [Cogentin] 1 mg PO BID #8 tablet 04/23/14 [Rx] Divalproex ER [Depakote ER] 500 mg PO HS 04/23/14 [History] Ziprasidone [Geodon] 20 mg PO BID 04/21/19 [History] Dicyclomine [Bentyl] 10 mg PO QID PRN 08/08/22 [History] Famotidine 40 mg PO HS 08/08/22 [History] Omeprazole [PriLOSEC] 40 mg PO AC-BRKFST 10/17/22 [History] Fluticasone Nasal [place] [Flonase Nasal [place]] 1 spray EA NOSTRIL BID PRN 08/01 [History] Follow up Appointment(s)/Referral(s): Scot Catalan MD [STAFF PHYSICIAN] - 2 Weeks Joe Melchor DO [STAFF PHYSICIAN] - 10 Days Conrado Rey MD [Primary Care Provider] - 1-2 days Patient Instructions/Handouts: Acute Nausea and Vomiting (DC), Acute Abdominal Pain (DC) Activity/Diet/Wound Care/Special Instructions: Return to work - 02/18/24 Discharge/Stand Alone Forms: Work/School Release, Work/Release Restrictions Form Discharge Disposition: HOME SELF-CARE
== END 2024-02-16 14:40 | disposition home or self-care (01) ==
LOC: EC 15:50 → 6NMEDSUR 19:10
PROVIDERS: ADMIT Hospitalist; ATTEND Hospitalist
DX: K52.9 Noninfective gastroenteritis and colitis, unspecified (principal); R07.89 Other chest pain; R94.31 Abnormal electrocardiogram [ECG] [EKG]; J45.20 Mild intermittent asthma, uncomplicated; R91.8 Other nonspecific abnormal finding of lung field; K21.9 Gastro-esophageal reflux disease without esophagitis; E28.2 Polycystic ovarian syndrome; F31.9 Bipolar disorder, unspecified; E66.01 Morbid (severe) obesity due to excess calories; Z68.41 Body mass index [BMI] 40.0-44.9, adult; Z79.899 Other long term (current) drug therapy; Z88.5 Allergy status to narcotic agent; Z88.0 Allergy status to penicillin; Z88.2 Allergy status to sulfonamides; Z88.1 Allergy status to other antibiotic agents; Z88.8 Allergy status to other drugs, medicaments and biological substances; Z91.048 Other nonmedicinal substance allergy status; Z86.16 Personal history of COVID-19; Z11.52 Encounter for screening for COVID-19; Z82.49 Family history of ischemic heart disease and other diseases of the circulatory system
CPT/HCPCS: 96361 ×5; 96366; 96372 ×3; 96376; 96365; 96375; 99285; 36415; 93005; 93306; 85379; 83880; 80053 ×2; 80048; 87449; 83690 ×2; 83735 ×2; 84100; 84484 ×2; 85025 ×3; 85610; 85730; 81001; 84145 ×2; 87635; 71045; 71275; 74177; G0378 ×4; J2060; J2270 ×2; J0780; J2405; J0696 ×2; J1650 ×3; Q9967

== ENCOUNTER 2024-06-17 17:33 | Emergency (ER) | payer OTHER ==
[2024-06-17 17:45] VITALS: RESP 18; TEMP 98
--- NOTE | 2024-06-17 19:45 | ED ---
General Adult HPI - General Source: patient, RN notes reviewed Mode of arrival: wheelchair Limitations: no limitations <Vicki Cornejo - Last Filed: 06/17/24 19:46> <Blane Concepcion - Last Filed: 06/29/24 06:15> - General Chief complaint: Chest Pain Stated complaint: chest pain, lethargic Time Seen by Provider: 06/17/24 19:45 - History of Present Illness Initial comments: Quick note: 38-year-old female presents to the emergency department for evaluation of chest discomfort. Patient states that she has had episodes on and off since February. She notes that today the pain was more consistent. She describes it as a sharp pain. She states that it is since light up mostly. She does note she is in physical therapy for her neck and is not sure if that the this is related. Unknown fever, admits to chills. (Vicki Cornejo) - Related Data Home Medications Medication Instructions Recorded Confirmed Divalproex ER [Depakote ER] 500 mg PO HS 04/23/14 02/13/24 Ziprasidone [Geodon] 20 mg PO BID 04/21/19 02/13/24 Dicyclomine [Bentyl] 10 mg PO QID PRN 08/08/22 02/13/24 Famotidine 40 mg PO HS 08/08/22 02/13/24 Omeprazole [PriLOSEC] 40 mg PO AC-BRKFST 10/17/22 02/13/24 Fluticasone Nasal [place] [Flonase 1 spray EA NOSTRIL BID PRN 02/13/24 02/13/24 Nasal [place]] Previous Rx's Medication Instructions Recorded Benztropine Mesylate [Cogentin] 1 mg PO BID #8 tablet 04/23/14 Azithromycin [Zithromax] 0 mg PO DIRECTED #6 tab 06/18/24 Allergies Allergy/AdvReac Type Severity Reaction Status Date / Time amoxicillin Allergy Nausea & Verified 06/17/24 17:46 Vomiting brompheniramine maleate Allergy Anaphylaxis Verified 06/17/24 17:46 [From Dimetapp (brompheniramine-PPA)] clemastine fumarate Allergy Dyspnea Verified 06/17/24 17:46 [From Tavist] codeine Allergy Dyspnea, Verified 06/17/24 17:46 rash diphenhydramine HCl Allergy Dyspnea Verified 06/17/24 17:46 [From Benadryl] meclizine Allergy Anaphylaxis Verified 06/17/24 17:46 phenylpropanolamine HCl Allergy Anaphylaxis Verified 06/17/24 17:46 [From Dimetapp (brompheniramine-PPA)] prednisone Allergy Hallucinati Verified 06/17/24 17:46 ons pseudoephedrine HCl Allergy Anaphylaxis Verified 06/17/24 17:46 [From Tavist] red dye Allergy Rash/Hives Verified 06/17/24 17:46 risperidone [From Risperdal] Allergy Rash/Hives Verified 06/17/24 17:46 sulfamethoxazole Allergy Nausea & Verified 06/17/24 17:46 [From Bactrim] Vomiting, rash trimethoprim [From Bactrim] Allergy Nausea & Verified 06/17/24 17:46 Vomiting, rash liraglutide [From Saxenda] AdvReac Nausea & Verified 06/17/24 17:46 Vomiting Review of Systems ROS Other: All systems not noted in ROS Statement are negative. <Vicki Cornejo - Last Filed: 06/17/24 19:46> ROS Other: All systems not noted in ROS Statement are negative. Constitutional: Denies: fever, chills Respiratory: Denies: cough, dyspnea Cardiovascular: Reports: chest pain. Denies: palpitations, orthopnea, edema, s yncope Gastrointestinal: Denies: abdominal pain, nausea, vomiting, diarrhea, constipation Genitourinary: Denies: dysuria, hematuria Musculoskeletal: Denies: back pain Skin: Denies: rash Neurological: Denies: headache, weakness, numbness Psychiatric: Reports: anxiety <Blane Concepcion - Last Filed: 06/29/24 06:15> ROS Statement: Those systems with pertinent positive or pertinent negative responses have been documented in the HPI. Past Medical History Past Medical History: Asthma Additional Past Medical History / Comment(s): polycysitic ovarian syndrome, closed head injury 10 years ago from a falls, Covid 2021 History of Any Multi-Drug Resistant Organisms: None Reported Past Surgical History: Appendectomy, Cholecystectomy Additional Past Surgical History / Comment(s): IUD Past Anesthesia/Blood Transfusion Reactions: Postoperative Nausea & Vomiting (PONV) Additional Past Anesthesia/Blood Transfusion Reaction / Comment(s): Pt has had a blood transfusion without reaction d/t PCOS Past Psychological History: Anxiety, Bipolar, Depression Smoking Status: Never smoker Past Alcohol Use History: None Reported Past Drug Use History: None Reported - Past Family History Mother Family Medical History: Eye Disorder, Vascular Disorder Father Family Medical History: COPD, CVA/TIA, Hyperlipidemia Additional Family Medical History / Comment(s): schizophrenia, mini strokes <Vicki Cornejo - Last Filed: 06/17/24 19:46> General Exam Limitations: no limitations <Vicki Cornejo - Last Filed: 06/17/24 19:46> General appearance: alert, in no apparent distress Head exam: Present: atraumatic, normocephalic Eye exam: Present: normal appearance. Absent: scleral icterus, conjunctival injection ENT exam: Present: normal oropharynx Neck exam: Present: normal inspection Respiratory exam: Present: normal lung sounds bilaterally. Absent: respiratory distress, wheezes, rales, rhonchi, stridor, accessory muscle use Cardiovascular Exam: Present: regular rate, normal rhythm, normal heart sounds. Absent: systolic murmur, diastolic murmur, rubs, gallop GI/Abdominal exam: Present: soft. Absent: distended, tenderness, guarding, rebound, rigid, mass Extremities exam: Present: normal inspection, normal capillary refill. Absent: pedal edema, calf tenderness Back exam: Present: normal inspection. Absent: CVA tenderness (R), CVA tenderness (L) Neurological exam: Present: alert Skin exam: Present: warm, dry, intact, normal color. Absent: rash <Blane Concepcion - Last Filed: 06/29/24 06:15> - General Exam Comments Initial Comments: Visual Physical Exam Vital signs reviewed General: Well-appearing, nontoxic, no acute distress. Head: Normocephalic, atraumatic Eyes: PERRLA, EOMI ENT: Airway patent Chest: Nonlabored breathing Skin: No visual rash, normal skin tone Neuro: Alert and oriented 3 Musculoskeletal: No gross abnormalities (Vicki Cornejo) Course Vital Signs 06/17/24 06/18/24 17:40 00:20 Temperature 98.0 F 98.0 F Pulse Rate 94 83 Respiratory 18 18 Rate Blood Pressure 156/108 137/91 O2 Sat by Pulse 98 100 Oximetry EKG Findings - EKG Comments: EKG Findings:: Similar to comparison ECG. - EKG Results: EKG: interpreted by ERMD, sinus rhythm (Rate 95 bpm), normal QRS - Blocks, [place], Hypertrophy, ST Abn: QRS axis and voltage: right axis deviation (+90 to +180) Repolarization changes or abnormalities: ST or T wave suggestive of ischemia (Inferior and lateral T inversions.) <TessBlane carver - Last Filed: 06/29/24 06:15> Medical Decision Making <Vicki Cornejo - Last Filed: 06/17/24 19:46> - Lab Data Result diagrams: 06/17/24 22:17 06/17/24 22:17 <JameyBlane - Last Filed: 06/29/24 06:15> - Medical Decision Making Quick note preformed and electronically signed by Vicki Cornejo PA-C (Vicki Cornejo) The patient had chest x-ray that I interpreted as showing acute infiltrate. No pneumothorax or bony abnormality. Was pt. sent in by a medical professional or institution ([facility], G[employer]IST, urgent care, hospital, or long-term...) When possible be specific @ -[No] Did you speak to anyone other than the patient for history (EMS, parent, family, police, friend...)? What history was obtained from this source @ -[No] Did you review nursing and triage notes (agree or disagree)? Why? @ -[I reviewed and agree with nursing and triage notes] Were old charts reviewed (outside hosp., previous admission, EMS record, old EKG, old radiological studies, urgent care reports/EKG's, long-term records)? Report findings @ -[No old charts were reviewed] Differential Diagnosis (chest pain, altered mental status, abdominal pain women, abdominal pain men, vaginal bleeding, weakness, fever, dyspnea, syncope, headache, dizziness, GI bleed, back pain, seizure, CVA, palpatations, mental health, musculoskeletal)? @ -[Differential Chest Pain: Stable Angina, Unstable Angina, STEMI, NSTEMI Aortic Dissection, Pneumothorax, Musculoskeletal, Esophageal Spasm GERD, Cholecystitis, Pancreatitis, Zoster, this is not meant to be an all-inclusive list. EKG interpreted by me (3pts min.). @ -[I interpreted as above] X-rays interpreted by me (1pt min.). @ -[I interpreted as above CT interpreted by me (1pt min.). @ -[None done] U/S interpreted by me (1pt. min.). @ -[None done] What testing was considered but not performed or refused? (CT, X-rays, U/S, labs)? Why? @ -[None] What meds were considered but not given or refused? Why? @ -[None] Did you discuss the management of the patient with other professionals (professionals i.e. , PA, GAME ARTIST, lab, RT, psych nurse, long term care social worker, fish peddler, teacher, hospital chief financial officer, case management rn)? Give summary @ -[No] Was smoking cessation discussed for >3mins.? @ -[No] Was critical care preformed (if so, how long)? @ -[No] Were there social determinants of health that impacted care today? How? (Homelessness, low income, unemployed, alcoholism, drug addiction, trans portation, low edu. Level, literacy, decrease access to med. care, fci, rehab)? @ -[No] Was there de-escalation of care discussed even if they declined (Discuss DNR or withdrawal of care, Hospice)? DNR status @ -[No] What co-morbidities impacted this encounter? (DM, HTN, Smoking, COPD, CAD, Cance r, CVA, ARF, Chemo, Hep., AIDS, mental health diagnosis, sleep apnea, morbid obesity)? @ -[None] Was patient admitted / discharged? Hospital course, mention meds given and route, prescriptions, significant lab abnormalities, going to OR and other pertinent info. @ -[Patient is a 38-year-old woman here with chest pain and found on x-ray to have suspected pneumonia. The patient at this point does appear stable for outpatient treatment. Discussed appropriate further care and follow-up as well as return parameters Undiagnosed new problem with uncertain prognosis? @ -[No] Drug Therapy requiring intensive monitoring for toxicity (Heparin, Nitro, Insulin, Cardizem)? @ -[No] Were any procedures done? @ -[No] Diagnosis/symptom? @ -[Acute chest pain Acute pneumonia Acute, or Chronic, or Acute on Chronic? @ -[Acute Uncomplicated (without systemic symptoms) or Complicated (systemic symptoms)? @ -[Uncomplicated Side effects of treatment? @ -[No] Exacerbation, Progression, or Severe Exacerbation? @ -[No] Poses a threat to life or bodily function? How? (Chest pain, [place], NH, pneumonia, PE, COPD, DKA, ARF, appy, cholecystitis, CVA, Diverticulitis, Homicidal, Suicidal, threat to staff... and all critical care pts) @ -[No] All treatments are based on ideal body weight as in ED triage (Blane Concepcion) - Lab Data Lab Results 06/17/24 06/17/24 06/17/24 Range/Units 20:48 20:48 22:00 WBC (4.50-10.00) 10*3/uL RBC (4.10-5.20) 10*6/uL Hgb (12.0-15.0) g/dL Hct (37.2-46.3) % MCV (80.0-97.0) fL MCH (27.0-32.0) pg MCHC (32.0-37.0) g/dL Plt Count (140-440) 10*3/uL MPV (9.5-12.2) fL Immature Gran % (Auto) % Neutrophils % % Lymphocytes % % Monocytes % % Eosinophils % % Basophils % % Immature Gran # (0.00-0.04) 10*3/uL Neutrophils # (1.80-7.70) 10*3/uL Lymphocytes # (0.90-5.00) 10*3/uL Monocytes # (0.20-1.00) 10*3/uL Eosinophils # (0.04-0.35) 10*3/uL Basophils # (0.00-0.10) 10*3/uL PT 10.3 (10.0-12.5) sec INR 0.9 (<1.2) APTT 23.9 (22.0-30.0) sec Sodium (137-145) mmol/L Potassium (3.5-5.1) mmol/L Chloride (98-107) mmol/L Carbon Dioxide (22-30) mmol/L Anion Gap mmol/L BUN (7-17) mg/dL Creatinine (0.52-1.04) mg/dL Est GFR (CKD-EPI)AfAm (>60 ml/min/1.73 sqM) Est GFR (CKD-EPI)NonAf (>60 ml/min/1.73 sqM) Glucose (74-99) mg/dL Calcium (8.4-10.2) mg/dL Magnesium (1.6-2.3) mg/dL Total Bilirubin (0.2-1.3) mg/dL AST (14-36) U/L ALT (4-34) U/L Alkaline Phosphatase (38-126) U/L Troponin I (0.000-0.034) ng/mL NT-Pro-B Natriuret Pep pg/mL Total Protein (6.3-8.2) g/dL Albumin (3.5-5.0) g/dL Urine Color Colorless Urine Appearance Clear (Clear) Urine pH 6.5 (5.0-8.0) Ur Specific [place] 1.012 (1.001-1.035) Urine Protein Negative (Negative) Urine Glucose (UA) Negative (Negative) Urine Ketones Negative (Negative) Urine Blood Negative (Negative) Urine Nitrite Negative (Negative) Urine Bilirubin Negative (Negative) Urine Urobilinogen <2.0 (<2.0) mg/dL Ur Leukocyte Esterase Negative (Negative) Influenza Type A (PCR) Not Detected (Not Detectd) Influenza Type B (PCR) Not Detected (Not Detectd) RSV (PCR) Not Detected (Not Detectd) SARS-CoV-2 (PCR) Not Detected (Not Detectd) 06/17/24 06/17/24 06/17/24 Range/Units 22:17 22:17 22:17 WBC 12.98 H (4.50-10.00) 10*3/uL RBC 4.55 (4.10-5.20) 10*6/uL Hgb 12.8 (12.0-15.0) g/dL Hct 37.8 (37.2-46.3) % MCV 83.1 (80.0-97.0) fL MCH 28.1 (27.0-32.0) pg MCHC 33.9 (32.0-37.0) g/dL Plt Count 295 (140-440) 10*3/uL MPV 10.9 (9.5-12.2) fL Immature Gran % (Auto) 0.5 % Neutrophils % 74.0 % Lymphocytes % 16.9 % Monocytes % 5.6 % Eosinophils % 2.5 % Basophils % 0.5 % Immature Gran # 0.06 H (0.00-0.04) 10*3/uL Neutrophils # 9.60 H (1.80-7.70) 10*3/uL Lymphocytes # 2.20 (0.90-5.00) 10*3/uL Monocytes # 0.73 (0.20-1.00) 10*3/uL Eosinophils # 0.33 (0.04-0.35) 10*3/uL Basophils # 0.06 (0.00-0.10) 10*3/uL PT (10.0-12.5) sec INR (<1.2) APTT (22.0-30.0) sec Sodium 131 L (137-145) mmol/L Potassium (3.5-5.1) mmol/L Chloride 101 (98-107) mmol/L Carbon Dioxide 19 L (22-30) mmol/L Anion Gap 11 mmol/L BUN 14 (7-17) mg/dL Creatinine 0.58 (0.52-1.04) mg/dL Est GFR (CKD-EPI)AfAm >90 (>60 ml/min/1.73 sqM) Est GFR (CKD-EPI)NonAf >90 (>60 ml/min/1.73 sqM) Glucose 87 (74-99) mg/dL Calcium 8.7 (8.4-10.2) mg/dL Magnesium 2.2 (1.6-2.3) mg/dL Total Bilirubin 2.4 H (0.2-1.3) mg/dL AST 81 H (14-36) U/L ALT 23 (4-34) U/L Alkaline Phosphatase 69 (38-126) U/L Troponin I <0.012 (0.000-0.034) ng/mL NT-Pro-B Natriuret Pep <20 pg/mL Total Protein 9.0 H (6.3-8.2) g/dL Albumin 5.3 H (3.5-5.0) g/dL Urine Color Urine Appearance (Clear) Urine pH (5.0-8.0) Ur Specific [place] (1.001-1.035) Urine Protein (Negative) Urine Glucose (UA) (Negative) Urine Ketones (Negative) Urine Blood (Negative) Urine Nitrite (Negative) Urine Bilirubin (Negative) Urine Urobilinogen (<2.0) mg/dL Ur Leukocyte Esterase (Negative) Influenza Type A (PCR) (Not Detectd) Influenza Type B (PCR) (Not Detectd) RSV (PCR) (Not Detectd) SARS-CoV-2 (PCR) (Not Detectd) Disposition <Vicki Cornejo - Last Filed: 06/17/24 19:46> Is patient prescribed a controlled substance at d/c from ED?: No <Blane Concepcion - Last Filed: 06/29/24 06:15> Clinical Impression: Pneumonia Disposition: HOME SELF-CARE Condition: Good Instructions (If sedation given, give patient instructions): Chest Pain (ED), Pneumonia (ED) Prescriptions: Azithromycin [Zithromax] 0 mg PO DIRECTED #6 tab Referrals: Conrado Rey MD [Primary Care Provider] - 1-2 days
--- NOTE | 2024-06-17 20:06 | XR ---
EXAMINATION TYPE: XR chest 2V DATE OF EXAM: 06/17/2024 7:52 PM COMPARISON: Chest radiographs from 02/15/2024 CLINICAL INDICATION: Female, 38 years old with history of Chest Pain; [facility] TECHNIQUE: XR chest 2V Frontal and lateral views of the chest. FINDINGS: Lungs/Pleura: There is no evidence of pleural effusion, focal consolidation, or pneumothorax. Pulmonary vascularity: Unremarkable. Heart/mediastinum: Cardiomediastinal silhouette is unremarkable. Musculoskeletal: No acute osseous pathology. Other findings: None IMPRESSION: Subtle scattered opacities which may represent an atypical pneumonia versus pulmonary edema. Correlat e with serum BNP. [facility], , 06/17/2024 8:03 PM
[2024-06-17 20:55] LABS: Appearance,Urine Clear (Clear); Bilirubin,Urine Negative (Negative); Blood,Urine Negative (Negative); Color,Urine Colorless; Glucose,Urine (UA) Negative (Negative); Ketones,Urine Negative (Negative); Leukocyte Esterase,Urine Negative (Negative); Nitrite,Urine Negative (Negative); PH, Urine 6.5 (5.0-8.0); Protein,Urine Negative (Negative); Specific Gravity,Urine 1.012 (1.001-1.035); Urobilinogen,Urine <2.0 mg/dL (<2.0)
[2024-06-17 21:27] LABS: Influenza A Not Detected (Not Detectd); Influenza B Not Detected (Not Detectd); RSV Not Detected (Not Detectd)
[2024-06-17 22:22] LABS: Basophils # (A) 0.06 10*3/uL (0.00-0.10); Basophils % (A) 0.5 %; Eosinophils # (A) 0.33 10*3/uL (0.04-0.35); Eosinophils % (A) 2.5 %; HCT 37.8 % (37.2-46.3); HGB 12.8 g/dL (12.0-15.0); Lymphocytes % (A) 16.9 %; MCH 28.1 pg (27.0-32.0); MCHC 33.9 g/dL (32.0-37.0); MCV 83.1 fL (80.0-97.0); Mean Platelet Volume 10.9 fL (9.5-12.2); Monocytes # (A) 0.73 10*3/uL (0.20-1.00); Monocytes % (A) 5.6 %; Platelet Count 295 10*3/uL (140-440); RBC 4.55 10*6/uL (4.10-5.20); RDW 14.6 % (11.5-14.5); WBC 12.98 10*3/uL (4.50-10.00)
[2024-06-17 22:32] LABS: ALT 23 U/L (4-34); AST 81 U/L (14-36); African American GFR (CKD) >90 (>60 ml/min/1.73 sqM); Albumin 5.3 g/dL (3.5-5.0); Alkaline Phosphatase 69 U/L (38-126); Anion Gap 11 mmol/L; Blood Urea Nitrogen 14 mg/dL (7-17); Calcium 8.7 mg/dL (8.4-10.2); Carbon Dioxide 19 mmol/L (22-30); Chloride 101 mmol/L (98-107); Glucose 87 mg/dL (74-99); Magnesium 2.2 mg/dL (1.6-2.3); Non-African American GFR(CKD) >90 (>60 ml/min/1.73 sqM); Sodium 131 mmol/L (137-145); Total Bilirubin 2.4 mg/dL (0.2-1.3)
[2024-06-17 22:41] LABS: NT-Pro-B-Type Natriuretic Pept <20 pg/mL
[2024-06-17 23:42] LABS: INR 0.9 (<1.2); Partial Thromboplastin Time 23.9 sec (22.0-30.0); Prothrombin Time 10.3 sec (10.0-12.5)
[2024-06-18] MEDS: AZITHROMYCIN 500 MG TAB PO STA (00:13)
[2024-06-18 00:21] VITALS: BP 137/91; PULSE 83
== END 2024-06-18 00:29 | disposition home or self-care (01) ==
LOC: EC 17:33
DX: J18.9 Pneumonia, unspecified organism (principal); Z88.2 Allergy status to sulfonamides; Z88.0 Allergy status to penicillin; Z88.1 Allergy status to other antibiotic agents; Z88.8 Allergy status to other drugs, medicaments and biological substances
CPT/HCPCS: 36415; 71046; 80053; 81003; 83735; 83880; 84484; 85025; 85610; 85730; 87636; 93005; 99285